=== PATIENT | female | born 1950 | race Caucasian/White ===

== ENCOUNTER 2017-02-26 10:29 | Inpatient (IN) ==
[~2017-02-26 10:29] MED LIST: *HR* Etomidate 20 MG/10 ML AMPUL IVP ONE; *HR* Midazolam HCl 5 MG/5 ML VIAL IVP ONE; *HR* Rocuronium Bromide 100 MG/10 ML VIAL IVC ONE
[2017-02-26] MEDS ORDERED: *HR* Rocuronium Bromide 100 MG/10 ML VIAL IVP ONE (10:40)
[2017-02-26] MEDS ORDERED: *HR* Etomidate 20 MG/10 ML AMPUL IVP ONE (10:40)
--- NOTE | 2017-02-26 10:43 | Emergency Department Note ---
Disposition Clinical Impression: Acute respiratory acidosis, Aspiration pneumonia, Anemia, Leukocytosis Disposition: Admitted As Inpatient Condition: Critical General Adult HPI - General Chief complaint: ED Altered Mental Status Stated complaint: Unresponsive Time Seen by Provider: 02/26/17 10:35 Source: EMS Limitations: other - History of Present Illness Pain Scale: 0 - Related Data Home Medications Medication Instructions Recorded Confirmed ALPRAZolam [Xanax 1 MG Tablet] 1 mg PO TID PRN 02/26/17 02/26/17 Aminocaproic Acid [Amicar] 500 mg PO TID 02/26/17 02/26/17 Ascorbic Acid [Vitamin C with Elsie 500 mg PO DAILY 02/26/17 02/26/17 Hips] Citalopram [CeleXA] 20 mg PO DAILY 02/26/17 02/26/17 Deferasirox [Jadenu] 1,440 mg PO DAILY 02/26/17 02/26/17 Diltiazem HCl [Diltiazem 24Hr Cd] 360 mg PO DAILY 02/26/17 02/26/17 Folic Acid 1 mg PO DAILY 02/26/17 02/26/17 Furosemide [Lasix] 20 mg PO DAILY 02/26/17 02/26/17 Metoprolol XL (24 HR) Succ [Toprol 25 mg PO DAILY 02/26/17 02/26/17 XL] Multivit-Min/FA/Lycopen/Lutein [A 1 tab PO DAILY 02/26/17 02/26/17 Thru Z Select Multivit Tab] Oxygen 3 l NS DAILY 02/26/17 02/26/17 Potassium Chloride [K-Tab ER] 20 meq PO DAILY 02/26/17 02/26/17 Allergies Allergy/AdvReac Type Severity Reaction Status Date / Time Penicillins Allergy Anaphylaxis Verified 02/26/17 11:19 Past Medical History - Past Medical History Medical history: Reports: non-contributory - Social History Smoking Status: Unknown if ever smoked Alcohol use: Reports: unknown Drug use: Reports: unknown Physical Exam - General Limitations: other General appearance: other Course Vital Signs Temperature 96.7 F L 02/26/17 10:31 Pulse Rate 112 02/26/17 10:31 Respiratory Rate 18 02/26/17 10:31 Blood Pressure 145/50 02/26/17 10:31 O2 Sat by Pulse Oximetry 83 02/26/17 10:31 Temperature 98.6 F 10/24/17 12:00 Pulse Rate 107 02/27/17 13:00 Respiratory Rate 22 02/27/17 13:00 Blood Pressure 115/49 02/27/17 13:00 O2 Sat by Pulse Oximetry 95 02/27/17 13:00 Oxygen Delivery Oxygen Delivery Ventilator Medical Decision Making - Lab Data Result diagrams: 02/27/17 04:30 02/27/17 04:30 Lab Results 02/26/17 02/26/17 02/26/17 Range/Units 10:31 10:44 10:45 WBC (4.3-11.1) K/mcL RBC (3.82-4.97) M/mcL Hgb (11.5-15.4) g/dL Hct (35.3-44.9) % MCV (83.0-100.0) fL MCH (28.0-33.3) pg MCHC (31.6-35.5) g/dL RDW (11.5-14.5) % Plt Count (140-400) K/mcL MPV (9.4-12.4) fL Seg Neutrophils % % Band Neutrophils % (0-4) % Lymphocytes % % Monocytes % % Metamyelocytes % (0) % Myelocytes % (0) % Blast Cells % (0) % Neutrophils # (1.6-8.9) K/mcL Lymphocytes # (0.6-4.6) K/mcL Monocytes # (0.0-1.3) K/mcL Nucleated RBCs/100 WBC (0) /100 WBC Smudge Cells (Not Present) Platelet Estimate (Normal) Immature Plt Fraction (1.1-6.1) % Anisocytosis (Not Present) PT (9.4-12.1) Seconds INR APTT (26.0-36.0) Seconds ABG pH (7.32-7.45) pH Units ABG pCO2 (35-45) mmHg ABG pO2 (85-104) mmHg ABG HCO3 (21-27) mEq/L ABG Total CO2 (20-26) mEq/L ABG O2 Saturation (95-98) % ABG Base Excess (-2 to 3) mEq/L Sodium (136-145) mEq/L Potassium (3.5-4.5) mEq/L Chloride (98-109) mEq/L Carbon Dioxide (19-29) mEq/L BUN (7-20) mg/dL Creatinine (0.57-1.11) mg/dL Est GFR ( Amer) (> 60) Est GFR (Non-Af Amer) (> 60) BUN/Creatinine Ratio (6-26) Glucose (70-99) mg/dL POC Glucose 175 H (58-89) Calculated Osmolality (280-300) Lactic Acid 2.6 H (0.5-2.2) mmol/L Calcium (8.6-10.8) mg/dL Total Bilirubin (0.2-1.2) mg/dL Direct Bilirubin (0.0-0.5) mg/dL Indirect Bilirubin (0.0-1.2) mg/dL AST (5-34) Units/L ALT (0-55) Units/L Alkaline Phosphatase (38-126) Units/L Creatine Kinase (29-168) Units/L Troponin I (0-0.03) ng/mL Serum Total Protein (6.0-8.3) g/dL Albumin (3.5-5.0) g/dL Globulin (2.4-3.5) g/dL Albumin/Globulin Ratio (1.1-2.2) Urine Color Dark Yellow (Yellow) Urine Clarity Turbid A (Clear) Urine pH 5.0 (5.0-8.0) pH Units Ur Specific [place] 1.028 H (1.010-1.025) Urine Protein 100 H (Neg-Trace) mg/dL Urine Glucose (UA) Normal (Normal) mg/dL Urine Ketones Negative (Negative) mg/dL Urine Blood Small H (Negative) Urine Nitrite Negative (Negative) Urine Bilirubin Small H (Negative) Urine Urobilinogen Normal (Normal) mg/dL Ur Leukocyte Esterase Negative (Negative) Urine Microscopic RBC 0-3 (0-3) per hpf Urine Microscopic WBC 50-100 H (0-3) per hpf Ur Squamous Epith Cells Many H (None-Few) per lpf Ur Renal Epithelial Cell Present (None-Few) per hpf Amorphous Sediment Many H (Few) Urine Bacteria None Seen (None-Few) per hpf Granular Casts Many H (None Seen) per lpf Urine Yeast Test Not Performed Ur Culture Indicated? NO (NO) Urine Opiates Screen (Ufazez=335) ng/mL Ur Barbiturates Screen (Bbttiw=247) ng/mL Ur Phencyclidine Scrn (Cutoff=25) ng/mL Ur Amphetamines Screen (Wpickq=0215) ng/mL U Benzodiazepines Scrn (Cjvawz=618) ng/mL Urine Cocaine Screen (Cutoff= 300) ng/mL U Marijuana (THC) Screen (Cutoff = 50) ng/mL Ethyl Alcohol (0-10) mg/dL Person Notif of Crit 02/26/17 02/26/17 02/26/17 Range/Units 10:45 10:45 10:45 WBC 59.6 H* (4.3-11.1) K/mcL RBC 2.17 L (3.82-4.97) M/mcL Hgb 6.2 L (11.5-15.4) g/dL Hct 19.1 L (35.3-44.9) % MCV 88.0 (83.0-100.0) fL MCH 28.6 (28.0-33.3) pg MCHC 32.5 (31.6-35.5) g/dL RDW 17.2 H (11.5-14.5) % Plt Count 48 L (140-400) K/mcL MPV 10.6 (9.4-12.4) fL Seg Neutrophils % 40.0 % Band Neutrophils % 8.0 H (0-4) % Lymphocytes % 20.0 % Monocytes % 8.0 % Metamyelocytes % 6.0 H (0) % Myelocytes % 4.0 H (0) % Blast Cells % 14.0 H (0) % Neutrophils # 28.6 H (1.6-8.9) K/mcL Lymphocytes # 11.9 H (0.6-4.6) K/mcL Monocytes # 4.8 H (0.0-1.3) K/mcL Nucleated RBCs/100 WBC 0.3 H (0) /100 WBC Smudge Cells Present A (Not Present) Platelet Estimate Marked Decrease L (Normal) Immature Plt Fraction 9.2 H (1.1-6.1) % Anisocytosis 1+ A (Not Present) PT 13.5 H (9.4-12.1) Seconds INR 1.2 APTT 30.2 (26.0-36.0) Seconds ABG pH (7.32-7.45) pH Units ABG pCO2 (35-45) mmHg ABG pO2 (85-104) mmHg ABG HCO3 (21-27) mEq/L ABG Total CO2 (20-26) mEq/L ABG O2 Saturation (95-98) % ABG Base Excess (-2 to 3) mEq/L Sodium (136-145) mEq/L Potassium (3.5-4.5) mEq/L Chloride (98-109) mEq/L Carbon Dioxide (19-29) mEq/L BUN (7-20) mg/dL Creatinine (0.57-1.11) mg/dL Est GFR ( Amer) (> 60) Est GFR (Non-Af Amer) (> 60) BUN/Creatinine Ratio (6-26) Glucose (70-99) mg/dL POC Glucose (58-89) Calculated Osmolality (280-300) Lactic Acid (0.5-2.2) mmol/L Calcium (8.6-10.8) mg/dL Total Bilirubin (0.2-1.2) mg/dL Direct Bilirubin (0.0-0.5) mg/dL Indirect Bilirubin (0.0-1.2) mg/dL AST (5-34) Units/L ALT (0-55) Units/L Alkaline Phosphatase (38-126) Units/L Creatine Kinase (29-168) Units/L Troponin I (0-0.03) ng/mL Serum Total Protein (6.0-8.3) g/dL Albumin (3.5-5.0) g/dL Globulin (2.4-3.5) g/dL Albumin/Globulin Ratio (1.1-2.2) Urine Color (Yellow) Urine Clarity (Clear) Urine pH (5.0-8.0) pH Units Ur Specific [place] (1.010-1.025) Urine Protein (Neg-Trace) mg/dL Urine Glucose (UA) (Normal) mg/dL Urine Ketones (Negative) mg/dL Urine Blood (Negative) Urine Nitrite (Negative) Urine Bilirubin (Negative) Urine Urobilinogen (Normal) mg/dL Ur Leukocyte Esterase (Negative) Urine Microscopic RBC (0-3) per hpf Urine Microscopic WBC (0-3) per hpf Ur Squamous Epith Cells (None-Few) per lpf Ur Renal Epithelial Cell (None-Few) per hpf Amorphous Sediment (Few) Urine Bacteria (None-Few) per hpf Granular Casts (None Seen) per lpf Urine Yeast Ur Culture Indicated? (NO) Urine Opiates Screen Negative (Vkdoou=460) ng/mL Ur Barbiturates Screen Negative (Tlcxvv=975) ng/mL Ur Phencyclidine Scrn Negative (Cutoff=25) ng/mL Ur Amphetamines Screen Negative (Djbnau=8575) ng/mL U Benzodiazepines Scrn Positive H (Vjpngz=862) ng/mL Urine Cocaine Screen Negative (Cutoff= 300) ng/mL U Marijuana (THC) Screen Negative (Cutoff = 50) ng/mL Ethyl Alcohol (0-10) mg/dL Person Notif of Crit 02/26/17 02/26/17 02/26/17 Range/Units 10:45 10:45 11:00 WBC (4.3-11.1) K/mcL RBC (3.82-4.97) M/mcL Hgb (11.5-15.4) g/dL Hct (35.3-44.9) % MCV (83.0-100.0) fL MCH (28.0-33.3) pg MCHC (31.6-35.5) g/dL RDW (11.5-14.5) % Plt Count (140-400) K/mcL MPV (9.4-12.4) fL Seg Neutrophils % % Band Neutrophils % (0-4) % Lymphocytes % % Monocytes % % Metamyelocytes % (0) % Myelocytes % (0) % Blast Cells % (0) % Neutrophils # (1.6-8.9) K/mcL Lymphocytes # (0.6-4.6) K/mcL Monocytes # (0.0-1.3) K/mcL Nucleated RBCs/100 WBC (0) /100 WBC Smudge Cells (Not Present) Platelet Estimate (Normal) Immature Plt Fraction (1.1-6.1) % Anisocytosis (Not Present) PT (9.4-12.1) Seconds INR APTT (26.0-36.0) Seconds ABG pH 6.91 L* (7.32-7.45) pH Units ABG pCO2 119 H* (35-45) mmHg ABG pO2 137 H (85-104) mmHg ABG HCO3 24 (21-27) mEq/L ABG Total CO2 27 H (20-26) mEq/L ABG O2 Saturation 96 (95-98) % ABG Base Excess -9 L (-2 to 3) mEq/L Sodium 140 (136-145) mEq/L Potassium 4.8 H (3.5-4.5) mEq/L Chloride 106 (98-109) mEq/L Carbon Dioxide 21 (19-29) mEq/L BUN 59 H (7-20) mg/dL Creatinine 3.99 H (0.57-1.11) mg/dL Est GFR ( Amer) 14 L (> 60) Est GFR (Non-Af Amer) 11 L (> 60) BUN/Creatinine Ratio 15 (6-26) Glucose 163 H (70-99) mg/dL POC Glucose (58-89) Calculated Osmolality 310 H (280-300) Lactic Acid (0.5-2.2) mmol/L Calcium 8.4 L (8.6-10.8) mg/dL Total Bilirubin 0.5 (0.2-1.2) mg/dL Direct Bilirubin 0.3 (0.0-0.5) mg/dL Indirect Bilirubin 0.2 (0.0-1.2) mg/dL AST 26 (5-34) Units/L ALT 15 (0-55) Units/L Alkaline Phosphatase 136 H (38-126) Units/L Creatine Kinase 39 (29-168) Units/L Troponin I 0.15 H* (0-0.03) ng/mL Serum Total Protein 8.3 (6.0-8.3) g/dL Albumin 2.5 L (3.5-5.0) g/dL Globulin 5.8 H (2.4-3.5) g/dL Albumin/Globulin Ratio 0.4 L (1.1-2.2) Urine Color (Yellow) Urine Clarity (Clear) Urine pH (5.0-8.0) pH Units Ur Specific [place] (1.010-1.025) Urine Protein (Neg-Trace) mg/dL Urine Glucose (UA) (Normal) mg/dL Urine Ketones (Negative) mg/dL Urine Blood (Negative) Urine Nitrite (Negative) Urine Bilirubin (Negative) Urine Urobilinogen (Normal) mg/dL Ur Leukocyte Esterase (Negative) Urine Microscopic RBC (0-3) per hpf Urine Microscopic WBC (0-3) per hpf Ur Squamous Epith Cells (None-Few) per lpf Ur Renal Epithelial Cell (None-Few) per hpf Amorphous Sediment (Few) Urine Bacteria (None-Few) per hpf Granular Casts (None Seen) per lpf Urine Yeast Ur Culture Indicated? (NO) Urine Opiates Screen (Tstetq=797) ng/mL Ur Barbiturates Screen (Bkmhmm=005) ng/mL Ur Phencyclidine Scrn (Cutoff=25) ng/mL Ur Amphetamines Screen (Bixmkn=6855) ng/mL U Benzodiazepines Scrn (Xzoppc=691) ng/mL Urine Cocaine Screen (Cutoff= 300) ng/mL U Marijuana (THC) Screen (Cutoff = 50) ng/mL Ethyl Alcohol < 10 (0-10) mg/dL Person Notif of Britanyt Jason Schulte Resp Critical Care Time Critical Care Time: Yes Total Critical Care Time: 45 Attestation: intubated. ICU Attestation Statement - Attestation Attestation: I examined this patient and my medical decision-making was reviewed with the Resident Physician. I agree with the documented findings, disposition and treatment plan as described except to the extent set forth below. Face to face time provided Patient arrives unresponsive from home. Her last known well was earlier this morning. Family not present at the time of her arrival. Patient is bradycardic and not protecting her airway. There is artery evidence that she may have vomited and aspirated. She is hypoxic. She was intubated emergently by the resident physician under my supervision. Workup initiated
--- NOTE | 2017-02-26 10:45 | Emergency Department Note ---
Disposition Clinical Impression: Acute respiratory acidosis Aspiration pneumonia Qualifiers: Aspiration pneumonia type: due to vomit Laterality: right Lung location: unspecified part of lung Qualified Code(s): J69.0 - Pneumonitis due to inhalation of food and vomit Anemia Qualifiers: Anemia type: unspecified type Qualified Code(s): D64.9 - Anemia, unspecified Leukocytosis Qualifiers: Leukocytosis type: unspecified Qualified Code(s): D72.829 - Elevated white blood cell count, unspecified Disposition: Admitted As Inpatient Condition: Critical Time of Disposition: 12:28 Altered Mental Status HPI - General Chief Complaint: ED Altered Mental Status Stated Complaint: Unresponsive Time Seen by Provider: 02/26/17 10:35 Source: EMS Mode of arrival: EMS Limitations: altered mental status, other Nursing Notes Reviewed: Yes Vital Signs Reviewed: Yes - History of Present Illness HPI Narrative: 76-year-old female presents to the ED via EMS unresponsive. She came via EMS being bagged with bag valve mask there was noticeable vomit on her. They stated that she was found down unresponsive so they checked a blood sugar which was 140 at this time she is having a very hard time breathing she did have vomit on her stomach and all over her chest. Family is not here at this time to get a history. She does have a PICC line in the left arm and there is a possible history of leukemia that was told was by EMS. - Related Data Allergies Allergy/AdvReac Type Severity Reaction Status Date / Time Penicillins Allergy Anaphylaxis Verified 02/26/17 11:19 Limitations: ROS unobtainable due to patients medical condition Past Medical History - Past Medical History Medical history: Reports: non-contributory - Social History Smoking Status: Unknown if ever smoked Alcohol use: Reports: unknown Drug use: Reports: unknown Physical Exam - General Limitations: altered mental status, other General appearance: obtunded, other - Head Head exam: atraumatic - Eye Eye exam: Present: normal appearance, PERRL, EOMI - ENT ENT exam: other (Noticeable emesis around the nares.) - Chest Chest inspection: Present: normal inspection, symmetric chest wall rise - Respiratory Respiratory exam: Present: normal lung sounds bilaterally - Cardiovascular Cardiovascular exam: Present: normal rhythm, tachycardia, normal heart sounds - Abdominal Exam Abdominal exam: Present: soft. Absent: tenderness, distention, guarding, rebound, rigidity - Neurological Exam Neurological exam: Absent: alert, oriented X3 - Skin Skin exam: Present: warm, dry, intact, normal color, other (Noticeable emesis all over her chest) Course Course Narrative: This patient came in with altered mental status was unconscious and currently being bagged with bag valve mask due to her poor respirations and having a pulse ox of 83% with side intubation was the next best step so we intubated her using rocuronium and etomidate. This was sexually done by myself under supervision of Dr. Maravilla. Using a Mac 4 direct laryngoscopy. He was then placed on a vent. We did a blood sugar when she came in was 160. Listing to her lungs sounded very rhonchorous throughout bilaterally. There is no known cause of her being unconscious. So we will order everything including lactate, CBC, CMP, drug screen, alcohol, EKG, chest x-ray, CT head without contrast. - Reevaluation(s) Reevaluation #1: CT came back negative for any acute findings. Chest x-ray did show a pneumonia on the right side most likely due to aspiration. She also had a acute respiratory acidosis she was also having a leukocytosis with a left shift which could be due to her leukemia. She also has anemia. At this time we will do a type and screen and transfuse her. We will also start her on Levaquin, vancomycin, aztreonam as she has a allergy to penicillin. We gave her Versed 5 mg for her sedation. We also did a rectal exam hemocult on her to be sure that she is not bleeding. At this time she is going to be admitted to the ICU family was updated and they understand this. Vital Signs Temperature 96.7 F L 02/26/17 10:31 Pulse Rate 112 02/26/17 10:31 Respiratory Rate 18 02/26/17 10:31 Blood Pressure 145/50 02/26/17 10:31 O2 Sat by Pulse Oximetry 83 02/26/17 10:31 Temperature 96.7 F L 02/26/17 10:31 Pulse Rate 91 02/26/17 12:16 Respiratory Rate 14 02/26/17 12:16 Blood Pressure 87/41 02/26/17 12:16 O2 Sat by Pulse Oximetry 100 02/26/17 12:16 Oxygen Delivery Oxygen Delivery Ventilator Procedures - Intubation Time out performed: No sedative: Etomidate Mg Given: 20 paralytic: Rocuronium Mg Given: 70 Laryngoscope: Spencer ET Tube Size: 7.5 ET Tube Uncuffed: Yes Tube Secured Depth (cm): 25 Tube Secured Location: lips Tube Placement Confirmation: visualized tube passing through cords, equal breath sounds bilaterally, no breath sounds over epigastrium, confirmation by capnometry Patient Tolerated Procedure: well, no complications Intubation Complications: none Altered Mental Status - MDM Narrative Medical decision making narrative: 66-year-old female presents to the ED via EMS with altered mental status and decreased consciousness. She came in being bagged on bag valve mask and her sats are 83%. At this time we decided to intubate using rocuronium and etomidate. This was successfully done by myself. She did have all over her suite. Aspiration pneumonia was the underlying cause. We also ordered a CT which came back negative. Chest x-ray did show good tube placement as well as a right-sided pneumonia. Patient was then given Levaquin, aztreonam, vancomycin for antibiotics. She also has a respiratory acidosis based on ABG that was done. We placed her on the vent and gave her Versed 5 mg every 30 minutes for sedation. She was however fairly well sedated after the procedure. EKG was done which showed no acute changes. She did have an anemia but compared to the last one to his right around her normal hemoglobin. She is going to be admitted to the ICU for further treatment and evaluation. Family was updated and they understand this. This was likely is due to aspiration pneumonia. Chest X-Ray 02/26/17 10:36 IMPRESSION: 1. The endotracheal tube tip is located at the level of the nayla. This could be retracted 3 cm for a more optimal placement. 2. New right basilar lung infiltrate, concerning for pneumonia. There may be an associated right pleural effusion. 3. Slightly smaller left pleural effusion with associated atelectasis in the left lung base. 4. Increased pulmonary vascular congestion. D/ / 02/26/2017 11:47:26 Easton Cary MD / betito Interpreting Provider: Easton Cary MD Head CT 02/26/17 10:36 IMPRESSION: No acute intracranial abnormality. D/ /26/2017 11:40:34 Miquel Saxena MD / ania Interpreting Provider: Miquel Saxena MD - Medical Records Medical records reviewed: Yes I reviewed the patient's medical records. - Lab Data Lab results reviewed: Yes I reviewed the patient's lab results. Result diagrams: 02/26/17 10:45 02/26/17 10:45 Lab Results 02/26/17 02/26/17 02/26/17 Range/Units 10:31 10:44 10:45 WBC (4.3-11.1) K/mcL RBC (3.82-4.97) M/mcL Hgb (11.5-15.4) g/dL Hct (35.3-44.9) % MCV (83.0-100.0) fL MCH (28.0-33.3) pg MCHC (31.6-35.5) g/dL RDW (11.5-14.5) % Plt Count (140-400) K/mcL MPV (9.4-12.4) fL Seg Neutrophils % % Band Neutrophils % (0-4) % Lymphocytes % % Monocytes % % Metamyelocytes % (0) % Myelocytes % (0) % Blast Cells % (0) % Neutrophils # (1.6-8.9) K/mcL Lymphocytes # (0.6-4.6) K/mcL Monocytes # (0.0-1.3) K/mcL Nucleated RBCs/100 WBC (0) /100 WBC Smudge Cells (Not Present) Platelet Estimate (Normal) Immature Plt Fraction (1.1-6.1) % Anisocytosis (Not Present) PT (9.4-12.1) Seconds INR APTT (26.0-36.0) Seconds ABG pH (7.32-7.45) pH Units ABG pCO2 (35-45) mmHg ABG pO2 (85-104) mmHg ABG HCO3 (21-27) mEq/L ABG Total CO2 (20-26) mEq/L ABG O2 Saturation (95-98) % ABG Base Excess (-2 to 3) mEq/L Sodium (136-145) mEq/L Potassium (3.5-4.5) mEq/L Chloride (98-109) mEq/L Carbon Dioxide (19-29) mEq/L BUN (7-20) mg/dL Creatinine (0.57-1.11) mg/dL Est GFR ( Amer) (> 60) Est GFR (Non-Af Amer) (> 60) BUN/Creatinine Ratio (6-26) Glucose (70-99) mg/dL POC Glucose 175 H (58-89) Calculated Osmolality (280-300) Lactic Acid 2.6 H (0.5-2.2) mmol/L Calcium (8.6-10.8) mg/dL Total Bilirubin (0.2-1.2) mg/dL Direct Bilirubin (0.0-0.5) mg/dL Indirect Bilirubin (0.0-1.2) mg/dL AST (5-34) Units/L ALT (0-55) Units/L Alkaline Phosphatase (38-126) Units/L Creatine Kinase (29-168) Units/L Troponin I (0-0.03) ng/mL Serum Total Protein (6.0-8.3) g/dL Albumin (3.5-5.0) g/dL Globulin (2.4-3.5) g/dL Albumin/Globulin Ratio (1.1-2.2) Urine Color Dark Yellow (Yellow) Urine Clarity Turbid A (Clear) Urine pH 5.0 (5.0-8.0) pH Units Ur Specific Abbott 1.028 H (1.010-1.025) Urine Protein 100 H (Neg-Trace) mg/dL Urine Glucose (UA) Normal (Normal) mg/dL Urine Ketones Negative (Negative) mg/dL Urine Blood Small H (Negative) Urine Nitrite Negative (Negative) Urine Bilirubin Small H (Negative) Urine Urobilinogen Normal (Normal) mg/dL Ur Leukocyte Esterase Negative (Negative) Urine Microscopic RBC 0-3 (0-3) per hpf Urine Microscopic WBC 50-100 H (0-3) per hpf Ur Squamous Epith Cells Many H (None-Few) per lpf Ur Renal Epithelial Cell Present (None-Few) per hpf Amorphous Sediment Many H (Few) Urine Bacteria None Seen (None-Few) per hpf Granular Casts Many H (None Seen) per lpf Ur Culture Indicated? NO (NO) Urine Opiates Screen (Eccikr=706) ng/mL Ur Barbiturates Screen (Hzxafn=008) ng/mL Ur Phencyclidine Scrn (Cutoff=25) ng/mL Ur Amphetamines Screen (Slcowm=1630) ng/mL U Benzodiazepines Scrn (Mallms=310) ng/mL Urine Cocaine Screen (Cutoff= 300) ng/mL U Marijuana (THC) Screen (Cutoff = 50) ng/mL Ethyl Alcohol (0-10) mg/dL Person Notif of Crit 02/26/17 02/26/17 02/26/17 Range/Units 10:45 10:45 10:45 WBC 59.6 H* (4.3-11.1) K/mcL RBC 2.17 L (3.82-4.97) M/mcL Hgb 6.2 L (11.5-15.4) g/dL Hct 19.1 L (35.3-44.9) % MCV 88.0 (83.0-100.0) fL MCH 28.6 (28.0-33.3) pg MCHC 32.5 (31.6-35.5) g/dL RDW 17.2 H (11.5-14.5) % Plt Count 48 L (140-400) K/mcL MPV 10.6 (9.4-12.4) fL Seg Neutrophils % 40.0 % Band Neutrophils % 8.0 H (0-4) % Lymphocytes % 20.0 % Monocytes % 8.0 % Metamyelocytes % 6.0 H (0) % Myelocytes % 4.0 H (0) % Blast Cells % 14.0 H (0) % Neutrophils # 28.6 H (1.6-8.9) K/mcL Lymphocytes # 11.9 H (0.6-4.6) K/mcL Monocytes # 4.8 H (0.0-1.3) K/mcL Nucleated RBCs/100 WBC 0.3 H (0) /100 WBC Smudge Cells Present A (Not Present) Platelet Estimate Marked Decrease L (Normal) Immature Plt Fraction 9.2 H (1.1-6.1) % Anisocytosis 1+ A (Not Present) PT 13.5 H (9.4-12.1) Seconds INR 1.2 APTT 30.2 (26.0-36.0) Seconds ABG pH (7.32-7.45) pH Units ABG pCO2 (35-45) mmHg ABG pO2 (85-104) mmHg ABG HCO3 (21-27) mEq/L ABG Total CO2 (20-26) mEq/L ABG O2 Saturation (95-98) % ABG Base Excess (-2 to 3) mEq/L Sodium (136-145) mEq/L Potassium (3.5-4.5) mEq/L Chloride (98-109) mEq/L Carbon Dioxide (19-29) mEq/L BUN (7-20) mg/dL Creatinine (0.57-1.11) mg/dL Est GFR ( Amer) (> 60) Est GFR (Non-Af Amer) (> 60) BUN/Creatinine Ratio (6-26) Glucose (70-99) mg/dL POC Glucose (58-89) Calculated Osmolality (280-300) Lactic Acid (0.5-2.2) mmol/L Calcium (8.6-10.8) mg/dL Total Bilirubin (0.2-1.2) mg/dL Direct Bilirubin (0.0-0.5) mg/dL Indirect Bilirubin (0.0-1.2) mg/dL AST (5-34) Units/L ALT (0-55) Units/L Alkaline Phosphatase (38-126) Units/L Creatine Kinase (29-168) Units/L Troponin I (0-0.03) ng/mL Serum Total Protein (6.0-8.3) g/dL Albumin (3.5-5.0) g/dL Globulin (2.4-3.5) g/dL Albumin/Globulin Ratio (1.1-2.2) Urine Color (Yellow) Urine Clarity (Clear) Urine pH (5.0-8.0) pH Units Ur Specific Abbott (1.010-1.025) Urine Protein (Neg-Trace) mg/dL Urine Glucose (UA) (Normal) mg/dL Urine Ketones (Negative) mg/dL Urine Blood (Negative) Urine Nitrite (Negative) Urine Bilirubin (Negative) Urine Urobilinogen (Normal) mg/dL Ur Leukocyte Esterase (Negative) Urine Microscopic RBC (0-3) per hpf Urine Microscopic WBC (0-3) per hpf Ur Squamous Epith Cells (None-Few) per lpf Ur Renal Epithelial Cell (None-Few) per hpf Amorphous Sediment (Few) Urine Bacteria (None-Few) per hpf Granular Casts (None Seen) per lpf Ur Culture Indicated? (NO) Urine Opiates Screen Negative (Idbgrz=370) ng/mL Ur Barbiturates Screen Negative (Hlvfnc=359) ng/mL Ur Phencyclidine Scrn Negative (Cutoff=25) ng/mL Ur Amphetamines Screen Negative (Uweapd=6891) ng/mL U Benzodiazepines Scrn Positive H (Baaswe=723) ng/mL Urine Cocaine Screen Negative (Cutoff= 300) ng/mL U Marijuana (THC) Screen Negative (Cutoff = 50) ng/mL Ethyl Alcohol (0-10) mg/dL Person Notif of Crit 02/26/17 02/26/17 02/26/17 Range/Units 10:45 10:45 11:00 WBC (4.3-11.1) K/mcL RBC (3.82-4.97) M/mcL Hgb (11.5-15.4) g/dL Hct (35.3-44.9) % MCV (83.0-100.0) fL MCH (28.0-33.3) pg MCHC (31.6-35.5) g/dL RDW (11.5-14.5) % Plt Count (140-400) K/mcL MPV (9.4-12.4) fL Seg Neutrophils % % Band Neutrophils % (0-4) % Lymphocytes % % Monocytes % % Metamyelocytes % (0) % Myelocytes % (0) % Blast Cells % (0) % Neutrophils # (1.6-8.9) K/mcL Lymphocytes # (0.6-4.6) K/mcL Monocytes # (0.0-1.3) K/mcL Nucleated RBCs/100 WBC (0) /100 WBC Smudge Cells (Not Present) Platelet Estimate (Normal) Immature Plt Fraction (1.1-6.1) % Anisocytosis (Not Present) PT (9.4-12.1) Seconds INR APTT (26.0-36.0) Seconds ABG pH 6.91 L* (7.32-7.45) pH Units ABG pCO2 119 H* (35-45) mmHg ABG pO2 137 H (85-104) mmHg ABG HCO3 24 (21-27) mEq/L ABG Total CO2 27 H (20-26) mEq/L ABG O2 Saturation 96 (95-98) % ABG Base Excess -9 L (-2 to 3) mEq/L Sodium 140 (136-145) mEq/L Potassium 4.8 H (3.5-4.5) mEq/L Chloride 106 (98-109) mEq/L Carbon Dioxide 21 (19-29) mEq/L BUN 59 H (7-20) mg/dL Creatinine 3.99 H (0.57-1.11) mg/dL Est GFR ( Amer) 14 L (> 60) Est GFR (Non-Af Amer) 11 L (> 60) BUN/Creatinine Ratio 15 (6-26) Glucose 163 H (70-99) mg/dL POC Glucose (58-89) Calculated Osmolality 310 H (280-300) Lactic Acid (0.5-2.2) mmol/L Calcium 8.4 L (8.6-10.8) mg/dL Total Bilirubin 0.5 (0.2-1.2) mg/dL Direct Bilirubin 0.3 (0.0-0.5) mg/dL Indirect Bilirubin 0.2 (0.0-1.2) mg/dL AST 26 (5-34) Units/L ALT 15 (0-55) Units/L Alkaline Phosphatase 136 H (38-126) Units/L Creatine Kinase 39 (29-168) Units/L Troponin I 0.15 H* (0-0.03) ng/mL Serum Total Protein 8.3 (6.0-8.3) g/dL Albumin 2.5 L (3.5-5.0) g/dL Globulin 5.8 H (2.4-3.5) g/dL Albumin/Globulin Ratio 0.4 L (1.1-2.2) Urine Color (Yellow) Urine Clarity (Clear) Urine pH (5.0-8.0) pH Units Ur Specific Abbott (1.010-1.025) Urine Protein (Neg-Trace) mg/dL Urine Glucose (UA) (Normal) mg/dL Urine Ketones (Negative) mg/dL Urine Blood (Negative) Urine Nitrite (Negative) Urine Bilirubin (Negative) Urine Urobilinogen (Normal) mg/dL Ur Leukocyte Esterase (Negative) Urine Microscopic RBC (0-3) per hpf Urine Microscopic WBC (0-3) per hpf Ur Squamous Epith Cells (None-Few) per lpf Ur Renal Epithelial Cell (None-Few) per hpf Amorphous Sediment (Few) Urine Bacteria (None-Few) per hpf Granular Casts (None Seen) per lpf Ur Culture Indicated? (NO) Urine Opiates Screen (Frdgxr=291) ng/mL Ur Barbiturates Screen (Uadlgq=322) ng/mL Ur Phencyclidine Scrn (Cutoff=25) ng/mL Ur Amphetamines Screen (Mctyar=3792) ng/mL U Benzodiazepines Scrn (Ylvyxj=136) ng/mL Urine Cocaine Screen (Cutoff= 300) ng/mL U Marijuana (THC) Screen (Cutoff = 50) ng/mL Ethyl Alcohol < 10 (0-10) mg/dL Person Notif of Britanyt Jason Schulte Resp - Radiology Data Radiology results reviewed: Yes I reviewed the patient's radiology results. - EKG Data EKG attestation: Yes I reviewed and interpreted this EKG. EKG results narrative: EKG done at 1124 view myself and attending shows sinus tachycardia at a rate of 103, OR interval 143, QRS 80, QTC 381 with a normal axis. There are no acute ST changes. No acute T-wave changes. No signs of hypertrophy. No signs of Brugada syndrome. There is no EKG to compare this time. Overall impression is sinus tachycardia with no acute changes. EKG shows normal: sinus rhythm, axis, intervals, QRS complexes Rate: tachycardia Rhythm: NSR [place]/QRS: normal When compared to previous EKG there are: previous EKG unavailable Interpretation: no acute changes, normal EKG TPA Checklist - LKW: 3-4.5 hrs Add. Warnings/Precautions Patient/family understanding: The patient/family members have been counseled and understood the risk, benefit , and alternatives of treatment.
[2017-02-26 10:57] LABS: Hematocrit 19.1 % (35.3-44.9); Immature Platelets 9.2 % (1.1-6.1); Mean Corpuscular HGB Conc 32.5 g/dL (31.6-35.5); Mean Corpuscular Hemoglobin 28.6 pg (28.0-33.3); Mean Platelet Volume 10.6 fL (9.4-12.4); Nucleated Red Blood Cells 0.3 /100 WBC (0); Red Blood Count 2.17 M/mcL (3.82-4.97); Red Cell Distribution Width 17.2 % (11.5-14.5)
[2017-02-26 10:59] LABS: INR 1.2; Prothrombin Time 13.5 Seconds (9.4-12.1)
[2017-02-26 11:02] LABS: Activated Partial Thrombo Time 30.2 Seconds (26.0-36.0)
[2017-02-26 11:06] LABS: Bilirubin,Urine Small (Negative); Blood,Urine Small (Negative); Clarity,Urine Turbid (Clear); Color,Urine Dark Yellow (Yellow); Glucose,Urine (UA) Normal (Normal); Ketones,Urine Negative (Negative); Leukocyte Esterase,Urine Negative (Negative); Nitrite,Urine Negative (Negative); Protein,Urine 100 mg/dL (Neg-Trace); Specific Gravity,Urine 1.028 (1.010-1.025); Urobilinogen,Urine Normal (Normal)
[2017-02-26 11:08] LABS: Bacteria,Urine None Seen per hpf (None-Few); RBC,Urine 0-3 per hpf (0-3); Squamous Epithelial Cell,Urine Many per lpf (None-Few); WBC,Urine 50-100 per hpf (0-3)
[2017-02-26 11:11] LABS: Alanine Aminotransferase 15 Units/L (0-55); Albumin 2.5 g/dL (3.5-5.0); Albumin/Globulin Ratio 0.4 (1.1-2.2); Alkaline Phosphatase 136 Units/L (38-126); Aspartate Amino Transferase 26 Units/L (5-34); BUN/Creatinine Ratio 15 (6-26); Bilirubin,Direct 0.3 mg/dL (0.0-0.5); Bilirubin,Indirect 0.2 mg/dL (0.0-1.2); Bilirubin,Total 0.5 mg/dL (0.2-1.2); Blood Urea Nitrogen 59 mg/dL (7-20); Calcium 8.4 mg/dL (8.6-10.8); Carbon Dioxide 21 mEq/L (19-29); Chloride 106 mEq/L (98-109); Creatine Kinase 39 Units/L (29-168); Globulin 5.8 g/dL (2.4-3.5); Glucose 163 mg/dL (70-99); Osmolality,Calculated 310 (280-300); Potassium 4.8 mEq/L (3.5-4.5); Sodium 140 mEq/L (136-145); Total Protein 8.3 g/dL (6.0-8.3); eGFR For African Americans 14 (> 60); eGFR For Non-African Americans 11 (> 60)
[2017-02-26 11:11] LABS: ABG Base Excess -9 mEq/L (-2 to 3); ABG HCO3 24 mEq/L (21-27); ABG Oxygen Saturation 96 % (95-98); ABG PCO2 119 mmHg (35-45); ABG PH 6.91 pH Units (7.32-7.45); ABG PO2 137 mmHg (85-104); ABG TCO2 27 mEq/L (20-26)
[2017-02-26 11:13] LABS: Amphetamine Screen,Urine Negative ng/mL (Cutoff=1000); Barbiturate Screen,Urine Negative ng/mL (Cutoff=200); Benzodiazepines Screen,Urine Positive ng/mL (Cutoff=200); Cannabinoid Screen,Urine Negative ng/mL (Cutoff = 50); Cocaine Screen,Urine Negative ng/mL (Cutoff= 300); Opiate Screen,Urine Negative ng/mL (Cutoff=300); Phencyclidine Screen,Urine Negative ng/mL (Cutoff=25)
[2017-02-26 11:29] LABS: Amorphous Sediment,Urine Many (Few); Ethanol < 10 mg/dL (0-10); Granular Casts,Urine Many per lpf (None Seen)
[2017-02-26] MEDS ORDERED: 0.9 % Sodium Chloride 1,000 ML IVC ONE ×2 (11:29→11:47)
[2017-02-26 11:31] LABS: Renal Epithelial Cells,Urine Present per hpf (None-Few)
[2017-02-26 11:41] LABS: Hemoglobin 6.2 g/dL (11.5-15.4); Platelet Count 48 K/mcL (140-400)
[2017-02-26] MEDS ORDERED: Aztreonam 2,000 MG in D5% in Water (Mini-Bag+) 100 ML IVPB ONE (11:47)
[2017-02-26] MEDS ORDERED: Levofloxacin 750 MG/150 ML 750 MG/150 ML BAG IVPB ONE (11:47)
[2017-02-26] MEDS ORDERED: Vancomycin 1,250 MG in D5% in Water 250 ML IVPB ONE (11:47)
[2017-02-26 11:53] LABS: Lymphocytes # 11.9 K/mcL (0.6-4.6); Monocytes # 4.8 K/mcL (0.0-1.3); Neutrophils # 28.6 K/mcL (1.6-8.9)
[2017-02-26 11:56] LABS: Platelet Estimate Marked Decrease (Normal); Smudge Cells Present (Not Present)
[2017-02-26 11:57] LABS: Anisocytosis 1+ (Not Present)
[2017-02-26] MEDS ORDERED: *HR* Midazolam HCl 5 MG/ML VIAL IVP ONE (11:58)
[2017-02-26] MEDS ORDERED: WATER IVPB ONE (12:09)
[2017-02-26] MEDS ORDERED: D5 IVPB ONE (12:09)
[2017-02-26] MEDS ORDERED: AZTREONAM IVPB ONE (12:09)
[2017-02-26] MEDS ORDERED: 0.9 % Sodium Chloride 1,000 ML IV.SOLN IV ONE (12:21)
[2017-02-26 12:27] LABS: ABG Base Excess -8 mEq/L (-2 to 3); ABG HCO3 21 mEq/L (21-27); ABG Oxygen Saturation 100 % (95-98); ABG PCO2 65 mmHg (35-45); ABG PH 7.12 pH Units (7.32-7.45); ABG PO2 332 mmHg (85-104); ABG TCO2 23 mEq/L (20-26); Blood Gas Modality ASSIST CONTROL; Blood Gas PEEP 5 cm H2O; Blood Gas Respiration Rate 14; Blood Gas VT 500 cc
[2017-02-26] MEDS ORDERED: Furosemide 40 MG/4 ML VIAL IVP ONE (13:13)
[2017-02-26 13:35] LABS: ABG Base Excess -5 mEq/L (-2 to 3); ABG HCO3 24 mEq/L (21-27); ABG Oxygen Saturation 96 % (95-98); ABG PCO2 63 mmHg (35-45); ABG PH 7.18 pH Units (7.32-7.45); ABG PO2 106 mmHg (85-104); ABG TCO2 26 mEq/L (20-26); Blood Gas Modality VC; Blood Gas PEEP 5 cm H2O; Blood Gas Respiration Rate 18; Blood Gas VT 450 cc
[2017-02-26] MEDS ORDERED: Naloxone 0.4 MG/ML INJ IVP PRN (13:42)
--- NOTE | 2017-02-26 13:53 | Pulmonology History & Physical ---
<SherrieMichael mehta - Last Filed: 02/26/17 15:13> Date of Encounter: 02/26/17 Time of Encounter: 13:53 Assessment and Plan (1) Acute respiratory failure with hypercapnia Current visit: Yes Status: Acute Concern for aspiration pneumonia, flash pulmonary edema and infiltration due to leukemia are also considerations. Continue mechanical ventilation to correct underlying respiratory acidosis. pH 6.91 pCO2 119 on presentation, has improved to 7.18 and 63. Will diurese due to concern for significant pulm edema on CXR. (2) Aspiration pneumonia Current visit: Yes Status: Acute Patient was found unresponsive with evidence that she had vomited. CXR shows RLL infiltrate. Will start clindamycin as the patient has a penicllin allergy and continue vancomycin and levaquin started in the ED for broad spectrum coverage in the setting of immunocompromise due to AML. Qualifiers: Aspiration pneumonia type: due to vomit Laterality: right Lung location: lower lobe of lung Qualified Code(s): J69.0 - Pneumonitis due to inhalation of food and vomit (3) AML (acute myelogenous leukemia) Current visit: Yes Status: Acute With pancytopenia at baseline. Per records review treatment intent is currently palliative. Significant elevation in her white count possibly related to underlying infection. Continue treatment as above. Oncology has been consulted and is following. 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 Concern for ATN in the setting of critical illness given granular casts found in the urine. Urine output has been minimal. Will continue with gradual diuresis given the concern for significant pulmonary edema Qualifiers: Acute renal failure type: with acute tubular necrosis Chronic kidney disease stage: stage 3 (moderate) Qualified Code(s): N17.0 - Acute kidney failure with tubular necrosis; N18.3 - Chronic kidney disease, stage 3 (moderate ); N18.3 - Chronic kidney disease, stage 3 (moderate) (5) Anemia Current visit: Yes Status: Acute 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 Baseline appears to be around 8. Hgb 6.2 on presentation. No obvious source of bleeding. Will transfuse one unit. Continue to monitor Qualifiers: Anemia type: other cause Other causes of anemia: chronic disease, neoplastic Qualified Code(s): D63.0 - Anemia in neoplastic disease History of Present Illness Chief complaint: Unresponsive HPI: Ms. Bernstein is a 66 year old female with history of AML presents after being found unresponsive at home. Family states that the patient was in her normal state of health last night and was found unresponsive with vomit on her. At this time the patient is intubated and sedated and minimally responsive. Family is at bedside and they are unable to provide any more history than stated above Past Med Surg Social Fam HX - Past Medical History Medical history: non-contributory Psychiatric history: depression - Social History Smoking Status: Unknown if ever smoked Alcohol use: unknown Drug use: unknown Medications and Allergies ALPRAZolam [Xanax 1 MG Tablet] 1 mg PO TID PRN 02/26/17 [History] Aminocaproic Acid [Amicar] 500 mg PO TID 02/26/17 [History] Ascorbic Acid [Vitamin C with Elsie Hips] 500 mg PO DAILY 02/26/17 [History] Citalopram [CeleXA] 20 mg PO DAILY 02/26/17 [History] Deferasirox [Jadenu] 1,440 mg PO DAILY 02/26/17 [History] Diltiazem HCl [Diltiazem 24Hr Cd] 360 mg PO DAILY 02/26/17 [History] Folic Acid 1 mg PO DAILY 02/26/17 [History] Furosemide [Lasix] 20 mg PO DAILY 02/26/17 [History] Metoprolol XL (24 HR) Succ [Toprol XL] 25 mg PO DAILY 02/26/17 [History] Multivit-Min/FA/Lycopen/Lutein [A Thru Z Select Multivit Tab] 1 tab PO DAILY [History] Oxygen 3 l NS DAILY 02/26/17 [History] Potassium Chloride [K-Tab ER] 20 meq PO DAILY 02/26/17 [History] 3 Allergy/AdvReac Type Severity Reaction Status Date / Time Penicillins Allergy Anaphylaxis Verified 02/26/17 11:19 ROS unobtainable: due to endotracheal tube All Systems: A 10-system review of systems was performed and is negative for pertinent findings except as documented above in the HPI. Physical Examination Vital Signs: Vital Signs, Last 4 Hours Temp Pulse Resp BP Pulse Ox 02/26/17 13:05 93 02/26/17 13:00 18 98/48 98 02/26/17 12:52 97.6 F 98 18 106/56 92 02/26/17 12:27 91 16 89/43 100 02/26/17 12:16 91 14 87/41 100 General appearance: comatose ENT: oropharynx dry Effort: mildly labored Auscultation: bilateral: rhonchi Cardiovascular: regular rate and rhythm Gastrointestinal: hypoactive bowel sounds, soft, non-tender Integumentary: other (eccymosis to R forehead) Extremities: no cyanosis, no clubbing unable to assess due to mental status Results - Laboratory Findings CBC and BMP: 02/26/17 10:45 02/26/17 10:45 ABG ABG pH 7.18 pH Units (7.32-7.45) L* 02/26/17 13:31 ABG pCO2 63 mmHg (35-45) H 02/26/17 13:31 ABG pO2 106 mmHg (85-104) H D 02/26/17 13:31 ABG O2 Saturation 96 % (95-98) 02/26/17 13:31 PT/INR, D-dimer PT 13.5 Seconds (9.4-12.1) H 02/26/17 10:45 Abnormal lab findings: Abnormal lab results WBC 59.6 K/mcL (4.3-11.1) H* 02/26/17 10:45 RBC 2.17 M/mcL (3.82-4.97) L 02/26/17 10:45 Hgb 6.2 g/dL (11.5-15.4) L 02/26/17 10:45 Hct 19.1 % (35.3-44.9) L 02/26/17 10:45 RDW 17.2 % (11.5-14.5) H 02/26/17 10:45 Plt Count 48 K/mcL (140-400) L 02/26/17 10:45 Band Neutrophils % 8.0 % (0-4) H 02/26/17 10:45 Metamyelocytes % 6.0 % (0) H 02/26/17 10:45 Myelocytes % 4.0 % (0) H 02/26/17 10:45 Blast Cells % 14.0 % (0) H 02/26/17 10:45 Neutrophils # 28.6 K/mcL (1.6-8.9) H 02/26/17 10:45 Lymphocytes # 11.9 K/mcL (0.6-4.6) H 02/26/17 10:45 Monocytes # 4.8 K/mcL (0.0-1.3) H 02/26/17 10:45 Nucleated RBCs/100 WBC 0.3 /100 WBC (0) H 02/26/17 10:45 Smudge Cells Present (Not Present) A 02/26/17 10:45 Platelet Estimate Marked Decrease (Normal) L 02/26/17 10:45 Immature Plt Fraction 9.2 % (1.1-6.1) H 02/26/17 10:45 Anisocytosis 1+ (Not Present) A 02/26/17 10:45 PT 13.5 Seconds (9.4-12.1) H 02/26/17 10:45 ABG pH 7.18 pH Units (7.32-7.45) L* 02/26/17 13:31 ABG pCO2 63 mmHg (35-45) H 02/26/17 13:31 ABG pO2 106 mmHg (85-104) H D 02/26/17 13:31 ABG Base Excess -5 mEq/L (-2 to 3) L 02/26/17 13:31 Potassium 4.8 mEq/L (3.5-4.5) H 02/26/17 10:45 BUN 59 mg/dL (7-20) H 02/26/17 10:45 Creatinine 3.99 mg/dL (0.57-1.11) H 02/26/17 10:45 Est GFR ( Amer) 14 (> 60) L 02/26/17 10:45 Est GFR (Non-Af Amer) 11 (> 60) L 02/26/17 10:45 Glucose 163 mg/dL (70-99) H 02/26/17 10:45 POC Glucose 146 (58-89) H 02/26/17 12:44 Calculated Osmolality 310 (280-300) H 02/26/17 10:45 Lactic Acid 2.6 mmol/L (0.5-2.2) H 02/26/17 10:44 Calcium 8.4 mg/dL (8.6-10.8) L 02/26/17 10:45 Alkaline Phosphatase 136 Units/L (38-126) H 02/26/17 10:45 Troponin I 0.15 ng/mL (0-0.03) H* 02/26/17 10:45 Albumin 2.5 g/dL (3.5-5.0) L 02/26/17 10:45 Globulin 5.8 g/dL (2.4-3.5) H 02/26/17 10:45 Albumin/Globulin Ratio 0.4 (1.1-2.2) L 02/26/17 10:45 Urine Clarity Turbid (Clear) A 02/26/17 10:45 Ur Specific Walsh 1.028 (1.010-1.025) H 02/26/17 10:45 Urine Protein 100 mg/dL (Neg-Trace) H 02/26/17 10:45 Urine Blood Small (Negative) H 02/26/17 10:45 Urine Bilirubin Small (Negative) H 02/26/17 10:45 Urine Microscopic WBC 50-100 per hpf (0-3) H 02/26/17 10:45 Ur Squamous Epith Cells Many per lpf (None-Few) H 02/26/17 10:45 Amorphous Sediment Many (Few) H 02/26/17 10:45 Granular Casts Many per lpf (None Seen) H 02/26/17 10:45 U Benzodiazepines Scrn Positive ng/mL (Ytylos=802) H 02/26/17 10:45 Antibody Screen POSITIVE A 02/26/17 12:30 <Alicia Epps M - Last Filed: 02/26/17 15:53> Date of Encounter: 02/26/17 History of Present Illness HPI: Ms. Bernstein is a 66 year old female All Systems: A 10-system review of systems was performed and is negative for pertinent findings except as documented above in the HPI. Physical Examination Vital Signs: Vital Signs, Last 4 Hours Temp Pulse Resp BP Pulse Ox 02/26/17 15:34 97.6 F 02/26/17 15:28 20 78/63 97 02/26/17 15:00 87 18 78/63 98 10/23/17 14:00 91 18 107/66 98 02/26/17 13:05 93 02/26/17 13:00 18 98/48 98 02/26/17 12:52 97.6 F 98 18 106/56 92 02/26/17 12:27 91 16 89/43 100 02/26/17 12:16 91 14 87/41 100 Results - Laboratory Findings CBC and BMP: 02/26/17 10:45 02/26/17 10:45 ABG ABG pH 7.18 pH Units (7.32-7.45) L* 02/26/17 13:31 ABG pCO2 63 mmHg (35-45) H 02/26/17 13:31 ABG pO2 106 mmHg (85-104) H D 02/26/17 13:31 ABG O2 Saturation 96 % (95-98) 02/26/17 13:31 PT/INR, D-dimer PT 13.5 Seconds (9.4-12.1) H 02/26/17 10:45 Abnormal lab findings: Abnormal lab results WBC 59.6 K/mcL (4.3-11.1) H* 02/26/17 10:45 RBC 2.17 M/mcL (3.82-4.97) L 02/26/17 10:45 Hgb 6.2 g/dL (11.5-15.4) L 02/26/17 10:45 Hct 19.1 % (35.3-44.9) L 02/26/17 10:45 RDW 17.2 % (11.5-14.5) H 02/26/17 10:45 Plt Count 48 K/mcL (140-400) L 02/26/17 10:45 Band Neutrophils % 8.0 % (0-4) H 02/26/17 10:45 Metamyelocytes % 6.0 % (0) H 02/26/17 10:45 Myelocytes % 4.0 % (0) H 02/26/17 10:45 Blast Cells % 14.0 % (0) H 02/26/17 10:45 Neutrophils # 28.6 K/mcL (1.6-8.9) H 02/26/17 10:45 Lymphocytes # 11.9 K/mcL (0.6-4.6) H 02/26/17 10:45 Monocytes # 4.8 K/mcL (0.0-1.3) H 02/26/17 10:45 Nucleated RBCs/100 WBC 0.3 /100 WBC (0) H 02/26/17 10:45 Smudge Cells Present (Not Present) A 02/26/17 10:45 Platelet Estimate Marked Decrease (Normal) L 02/26/17 10:45 Immature Plt Fraction 9.2 % (1.1-6.1) H 02/26/17 10:45 Anisocytosis 1+ (Not Present) A 02/26/17 10:45 PT 13.5 Seconds (9.4-12.1) H 02/26/17 10:45 ABG pH 7.18 pH Units (7.32-7.45) L* 02/26/17 13:31 ABG pCO2 63 mmHg (35-45) H 02/26/17 13:31 ABG pO2 106 mmHg (85-104) H D 02/26/17 13:31 ABG Base Excess -5 mEq/L (-2 to 3) L 02/26/17 13:31 Potassium 4.8 mEq/L (3.5-4.5) H 02/26/17 10:45 BUN 59 mg/dL (7-20) H 02/26/17 10:45 Creatinine 3.99 mg/dL (0.57-1.11) H 02/26/17 10:45 Est GFR ( Amer) 14 (> 60) L 02/26/17 10:45 Est GFR (Non-Af Amer) 11 (> 60) L 02/26/17 10:45 Glucose 163 mg/dL (70-99) H 02/26/17 10:45 POC Glucose 168 (58-89) H 02/26/17 15:42 Calculated Osmolality 310 (280-300) H 02/26/17 10:45 Lactic Acid 2.6 mmol/L (0.5-2.2) H 02/26/17 10:44 Calcium 8.4 mg/dL (8.6-10.8) L 02/26/17 10:45 Alkaline Phosphatase 136 Units/L (38-126) H 02/26/17 10:45 Troponin I 0.15 ng/mL (0-0.03) H* 02/26/17 10:45 Albumin 2.5 g/dL (3.5-5.0) L 02/26/17 10:45 Globulin 5.8 g/dL (2.4-3.5) H 02/26/17 10:45 Albumin/Globulin Ratio 0.4 (1.1-2.2) L 02/26/17 10:45 Urine Clarity Turbid (Clear) A 02/26/17 10:45 Ur Specific Walsh 1.028 (1.010-1.025) H 02/26/17 10:45 Urine Protein 100 mg/dL (Neg-Trace) H 02/26/17 10:45 Urine Blood Small (Negative) H 02/26/17 10:45 Urine Bilirubin Small (Negative) H 02/26/17 10:45 Urine Microscopic WBC 50-100 per hpf (0-3) H 02/26/17 10:45 Ur Squamous Epith Cells Many per lpf (None-Few) H 02/26/17 10:45 Amorphous Sediment Many (Few) H 02/26/17 10:45 Granular Casts Many per lpf (None Seen) H 02/26/17 10:45 U Benzodiazepines Scrn Positive ng/mL (Lkpwkc=167) H 02/26/17 10:45 Antibody Screen POSITIVE A 02/26/17 12:30 - Attending Attestation I examined this patient and my medical decision-making was reviewed with the Resident Physician. I agree with the documented findings, disposition and treatment plan as described except to the extent set forth below. Patient seen and examined. Labs, radiology, chart personally reviewed. 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 Pulmonary: Patient with acute hypoxic and hypercapnic respiratory failure. I made some changes on the ventilator to address those problems and follow-up ABG has improved, however she continued to have problems. She also have high peak airway pressure which is suspect could be from a combination of aspiration pneumonia, pulmonary edema, and even hematologic malignancies. Pulmonary hemorrhage also in the differential diagnosis. I made changes on the ventilator to keep plateau pressure around 30. There is a possibility he might need to bronchoscopy. Cardiovascular: Hypotension and this could be sepsis and also from anemia and waiting for blood product. GI: Nutrition per dietary and GI prophylaxis per routine Heme: DVT prophylaxis per routine. Patient with anemia which seems to be chronic in nature secondary to her underlying leukemia and consult hematology as well as thrombocytopenia but she does not have evidence of active bleeding were monitored. As far as leukocytosis could be infection and could be from her leukemia. ID: Continue antibiotics and plan to de-escalation. Patient will be covered with broad-spectrum. Renal; urine out put and renal funtion reviewed. Patient with acute kidney injury and nephrology consulted. Suspect this could be prerenal or combination prerenal and renal such as ATN. Endorcine: blood glucose is monitored Lines: all lines checked and no evidence of infections Skin: skin care to prevent pressure ulcers per nursing routine care Overall prognosis is poor and I discussed with the and the daughter at the bedside CODE STATUS. Patient is full code at this time. I spent 50 min of Critical Care time with this patient. It involved decision making of high complexity to assess, manipulate, and support vital organ system failure and/or to prevent further life threatening deterioration of the patient' s condition. The time involved in the performance of separately reportable procedures was not counted toward critical care time.
[2017-02-26] MEDS ORDERED: Vancomycin 1 EACH in D5% in Water 250 ML IVPB SCH (14:00)
[2017-02-26] MEDS ORDERED: Levofloxacin 750 MG/150 ML 750 MG/150 ML BAG IVPB SCH (14:00)
--- NOTE | 2017-02-26 14:40 | Electrocardiograph Report ---
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
--- NOTE | 2017-02-26 14:52 | Oncology Inp Consult Note ---
Date of Encounter: 02/26/17 Time of Encounter: 14:40 Assessment and Plan (1) AML (acute myelogenous leukemia) Status: Acute Assessment and plan: - Ms. Bernstein is currently under the care of Dr. Barth here at [facility]. Last office visit was on 02/09/17. she is receiving treatment with chemotherapy, decitabine 3 days regimen, last chemotherapy on 02/16/17 with decitabine 10 mg/m2, corresponding to day 3. - Patient and family were aware of palliative intent of chemotherapy. At this time patient is unresponsive, patient is aware of palliative role of therapy. At this time there is not indication for inpatient chemotherapy, but continue supportive management with broad spectrum antibiotics ( levo and IV vancomycin) , follow up blood cultures and other infectious work up as per primary team. - Her peripheric blast counts have remained stable lately. Current increase of WBC to mid 50s probably related to infectious episode ( possible aspiration PNA ) on top of AML. I would expect to see WBC counts decreasing to baseline values once infection is better controlled. - Upon discharge, please arrange short follow up at [facility] with Dr. Barth to discuss further recommendations. - Continue supportive treatment and transfuse 1 PRBC for Hb values less than 7 gr/dl , and 1 pool of platelets for platelet count less than 20K. 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 After diagnosis, she declined the option of SCT. she has been treated with decitabine at least since August 2014. she was on a break from chemotherapy on August 2014. She was found to progressed on bone marrow biopsyh from 03/25/15. Her treatment has consisted on induction with decitabine 20mg/m2 x 10 days on -. Then she received from 01/19/14-07/31/14 7 courses of decitabine consolidation/maintanence that was stopped due to pancytopenia. On May 12, 2015 decitabine was resumed induction for 10 days, followed by maintenance. On September 20, 2015 she was started on aranesp for anemia related to chemotherapy. She received a 10 day BID induction with Sierra-C from 07/12 to 07/21/16. She was hospitalized due to volume overload on 02/07/17, then on 02/09/17 her WBC was 45K , but decreased 13K on 02/19/17 . Her blast count has been stable in the 14 K range. She is currently admitted for suspected aspiration PNA, being treated with levophloxacine and vancomycin IV. No on pressors. Her WBC went up to 59K, but her peripheric blast count remains stable at 14K. Platelet count remains stable at 48K. Hemoglobin levels today is 6.2 g/dl. She was seen with her daughter, granddaughter and daughter at bedside. Her who is the HCP was not present, he left home prior to the visit. Past Med Surg Social Fam HX - Past Medical History Medical history: non-contributory Psychiatric history: depression - Social History Smoking Status: Unknown if ever smoked Alcohol use: unknown Drug use: unknown Medications and Allergies ALPRAZolam [Xanax 1 MG Tablet] 1 mg PO TID PRN 02/26/17 [History] Aminocaproic Acid [Amicar] 500 mg PO TID 02/26/17 [History] Ascorbic Acid [Vitamin C with Elsie Hips] 500 mg PO DAILY 02/26/17 [History] Citalopram [CeleXA] 20 mg PO DAILY 02/26/17 [History] Deferasirox [Jadenu] 1,440 mg PO DAILY 02/26/17 [History] Diltiazem HCl [Diltiazem 24Hr Cd] 360 mg PO DAILY 02/26/17 [History] Folic Acid 1 mg PO DAILY 02/26/17 [History] Furosemide [Lasix] 20 mg PO DAILY 02/26/17 [History] Metoprolol XL (24 HR) Succ [Toprol XL] 25 mg PO DAILY 02/26/17 [History] Multivit-Min/FA/Lycopen/Lutein [A Thru Z Select Multivit Tab] 1 tab PO DAILY [History] Oxygen 3 l NS DAILY 02/26/17 [History] Potassium Chloride [K-Tab ER] 20 meq PO DAILY 02/26/17 [History] 3 Allergy/AdvReac Type Severity Reaction Status Date / Time Penicillins Allergy Anaphylaxis Verified 02/26/17 11:19 ROS unobtainable: due to endotracheal tube Oncology - Exam - Constitutional Vitals: Temp Pulse Resp BP Pulse Ox 97.6 F 93 18 98/48 98 02/26/17 12:52 02/26/17 13:05 02/26/17 13:00 02/26/17 13:00 02/26/17 13:00 - Head Head exam: Present: normal inspection - Eye Eye exam: Present: normal appearance. Absent: scleral icterus - ENT ENT exam: Present: normal exam (intubated ) - Neck Neck exam: Absent: lymphadenopathy - Respiratory Respiratory exam: Present: rhonchi - Cardiovascular Cardiovascular exam: Present: RRR - GI/Abdominal GI/Abdominal exam: Present: normal bowel sounds. Absent: organomegaly - Extremities Exam Extremities exam: Present: normal inspection. Absent: tenderness - Neurological Exam Neurological exam: Absent: facial droop - Additional findings Additional findings: patient is intubated, unresponsive. Consult Discharge Plan - Plan Referrals: NONE,PCP [Primary Care Provider] -
[2017-02-26] MEDS: Ipratropium/Albuterol Neb 3 ML IH SCH ×2 (15:25→22:38)
[2017-02-26] MEDS: Clindamycin 600 MG/50 ML 600 MG/50 ML IV.SOLN IVPB SCH ×2 (15:49→23:13)
[2017-02-26] MEDS: Dexmedetomidine HCl 400 MCG/100 ML MLS IVC SCH (16:02)
[2017-02-26] MEDS ORDERED: Albumin 25% 25gram/100mL 50 GM/200 ML IV.SOLN ONE (16:03)
[2017-02-26] MEDS: Albumin 25% 25gram/100mL 25 GM/100 ML IV.SOLN IVC SCH ×2 (16:05→16:18)
[2017-02-26] MEDS ORDERED: Lacri-Lube 3.5 GM TUBE BOTH EYES PRN (16:35)
[2017-02-26] MEDS ORDERED: 0.9 % Sodium Chloride 500 ML ONE (18:47)
[2017-02-26] MEDS: FentaNYL (PF) 1,000 MCG in 0.9 % Sodium Chloride 80 ML IVC SCH ×2 (19:42→21:34)
[2017-02-26] MEDS: Lacri-Lube 3.5 GM TUBE BOTH EYES SCH ×2 (21:25→23:11)
[2017-02-26] MEDS: Chlorhexidine Rinse 15 ML MOUTHWASH MM SCH (21:25)
[2017-02-27] MEDS: Ipratropium/Albuterol Neb 3 ML IH SCH ×4 (03:34→21:43)
[2017-02-27 04:39] LABS: ABG Base Excess -5 mEq/L (-2 to 3); ABG HCO3 23 mEq/L (21-27); ABG Oxygen Saturation 90 % (95-98); ABG PCO2 57 mmHg (35-45); ABG PH 7.21 pH Units (7.32-7.45); ABG PO2 73 mmHg (85-104); ABG TCO2 24 mEq/L (20-26); Blood Gas Modality ASSIST CONTROL; Blood Gas PEEP 5 cm H2O; Blood Gas Respiration Rate 20; Blood Gas VT 450 cc
[2017-02-27] MEDS: Lacri-Lube 3.5 GM TUBE BOTH EYES SCH ×6 (04:44→23:28)
[2017-02-27 05:02] LABS: INR 1.4; Prothrombin Time 15.2 Seconds (9.4-12.1)
[2017-02-27 05:16] LABS: Albumin 2.3 g/dL (3.5-5.0); Albumin/Globulin Ratio 0.5 (1.1-2.2); Bilirubin,Direct 0.4 mg/dL (0.0-0.5); Bilirubin,Indirect 0.2 mg/dL (0.0-1.2); Bilirubin,Total 0.6 mg/dL (0.2-1.2); Globulin 4.2 g/dL (2.4-3.5); Magnesium 1.6 mg/dL (1.6-2.6); Potassium 4.1 mEq/L (3.5-4.5)
[2017-02-27 05:17] LABS: Calcium 7.1 mg/dL (8.6-10.8); Total Protein 6.5 g/dL (6.0-8.3)
[2017-02-27 05:50] LABS: Mean Corpuscular Hemoglobin 29.2 pg (28.0-33.3); Red Blood Count 1.95 M/mcL (3.82-4.97)
[2017-02-27 05:52] LABS: Hematocrit 16.3 % (35.3-44.9); Mean Corpuscular Volume 83.6 fL (83.0-100.0); Mean Platelet Volume 12.4 fL (9.4-12.4); Nucleated Red Blood Cells 0.3 /100 WBC (0); Red Cell Distribution Width 16.5 % (11.5-14.5)
[2017-02-27 05:55] LABS: Hemoglobin 5.7 g/dL (11.5-15.4)
[2017-02-27 05:56] LABS: Platelet Count 14 K/mcL (140-400)
[2017-02-27 06:40] LABS: Eosinophils # 0.4 K/mcL (0.0-0.6); Lymphocytes # 4.6 K/mcL (0.6-4.6); Monocytes # 1.8 K/mcL (0.0-1.3); Neutrophils # 5.3 K/mcL (1.6-8.9)
[2017-02-27 06:41] LABS: Platelet Estimate Marked Decrease (Normal); Polychromasia 1+ (Not Present); Smudge Cells Present (Not Present)
[2017-02-27] MEDS: Chlorhexidine Rinse 15 ML MOUTHWASH MM SCH ×2 (08:15→20:03)
[2017-02-27] MEDS: Clindamycin 600 MG/50 ML 600 MG/50 ML IV.SOLN IVPB SCH ×3 (08:15→23:30)
[2017-02-27] MEDS: Pantoprazole 40 MG VIAL IVPB SCH (08:15)
[2017-02-27] MEDS ORDERED: 0.9 % Sodium Chloride 250 ML ONE (09:40)
--- NOTE | 2017-02-27 09:57 | Nephrology Consult Note ---
Date of Encounter: 02/27/17 Time of Encounter: 09:46 Assessment and Plan (1) Acute on chronic renal failure Current Visit: Yes Status: Acute Cr today 3.79. Baseline Cr about 1.5 CKD stage III Etiology likely secondary to septic shock, possible ATN. oliguric RODERICK- total urine output yesterday was 60ml Plan: will continue to monitor renal function avoid nephrotoxic agents as much as possible strict I/O At this time, we will hold off on dialysis until goals of care are established. Serum Cr has slightly improved, but she is at high risk for needing CRRT, likely will start tomorrow depending on goals of care. Qualifiers: Acute renal failure type: with acute tubular necrosis Chronic kidney disease stage: stage 3 (moderate) Qualified Code(s): N17.0 - Acute kidney failure with tubular necrosis; N18.3 - Chronic kidney disease, stage 3 (moderate ); N18.3 - Chronic kidney disease, stage 3 (moderate) (2) Thrombocytopenia Current Visit: Yes Status: Acute platelets today 14. patient will need platelet transfusion before temporary dialysis catheter is placed. this is complicated by limited IV access. (3) Septic shock Current Visit: Yes Status: Acute on arrival: Temp 96.7, pulse 112 WBC 59.6 source of infection likely secondary to aspiration pneumonia. patient currently requiring dopamine. per primary (4) Aspiration pneumonia Current Visit: Yes Status: Acute on vanc, levaquin, clindamycin per primary Qualifiers: Aspiration pneumonia type: due to vomit Laterality: right Lung location: lower lobe of lung Qualified Code(s): J69.0 - Pneumonitis due to inhalation of food and vomit (5) Anemia Current Visit: Yes Status: Acute Hg today 5.7 one unit transfused yesterday. two more units ordered. per primary. Qualifiers: Anemia type: other cause Other causes of anemia: chronic disease, neoplastic Qualified Code(s): D63.0 - Anemia in neoplastic disease (6) AML (acute myelogenous leukemia) Current Visit: Yes Status: Acute Hx of AML on palliative chemotherapy currently. 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 Barth at cancer center), diastolic CHF (last echo 02/26/17 shoewd LVEF 55%), paroxysmal Afib, depression, anxiety. patient arrived to [facility] yesterday in altered mental status. she was found unresponsive at home and she was in her normal mental state prior to that. when patient was found unresponsive, she had vomit on her. she is currently intubated and sedated in the ICU. she is being treated for septic shock, likely secondary to aspiration pneumonia and is currently requiring dopamine to maintain her blood pressure. Past Med Surg Social Fam HX - Past Medical History Medical history: non-contributory Psychiatric history: depression - Social History Smoking Status: Unknown if ever smoked Alcohol use: unknown Drug use: unknown Medications and Allergies ALPRAZolam [Xanax 1 MG Tablet] 1 mg PO TID PRN 02/26/17 [History] Aminocaproic Acid [Amicar] 500 mg PO TID 02/26/17 [History] Ascorbic Acid [Vitamin C with Elsie Hips] 500 mg PO DAILY 02/26/17 [History] Citalopram [CeleXA] 20 mg PO DAILY 02/26/17 [History] Deferasirox [Jadenu] 1,440 mg PO DAILY 02/26/17 [History] Diltiazem HCl [Diltiazem 24Hr Cd] 360 mg PO DAILY 02/26/17 [History] Folic Acid 1 mg PO DAILY 02/26/17 [History] Furosemide [Lasix] 20 mg PO DAILY 02/26/17 [History] Metoprolol XL (24 HR) Succ [Toprol XL] 25 mg PO DAILY 02/26/17 [History] Multivit-Min/FA/Lycopen/Lutein [A Thru Z Select Multivit Tab] 1 tab PO DAILY [History] Oxygen 3 l NS DAILY 02/26/17 [History] Potassium Chloride [K-Tab ER] 20 meq PO DAILY 02/26/17 [History] 3 Allergy/AdvReac Type Severity Reaction Status Date / Time Penicillins Allergy Anaphylaxis Verified 02/26/17 11:19 Review of Systems ROS unobtainable: due to endotracheal tube, due to mental status Exam - Vital Signs Vital signs: Initial Vital Signs Temp Pulse Resp BP Pulse Ox 96.7 F L 112 18 145/50 83 02/26/17 10:31 02/26/17 10:31 02/26/17 10:31 02/26/17 10:31 02/26/17 10:31 Vital Signs - Last 8 Hours Temp Pulse Resp BP Pulse Ox 02/27/17 09:00 110 22 112/47 95 02/27/17 08:00 113 22 98/46 95 02/27/17 07:45 98.5 F 02/27/17 07:27 116 02/27/17 07:25 22 115/50 92 02/27/17 07:00 114 20 113/45 94 02/27/17 06:00 115 20 122/47 94 02/27/17 05:23 20 115/48 95 02/27/17 05:00 113 20 108/52 96 02/27/17 04:39 112 02/27/17 04:00 98.4 F 113 20 94 02/27/17 03:37 20 99/44 97 02/27/17 03:00 108 20 103/37 94 02/27/17 02:06 20 100/44 98 02/27/17 02:00 108 20 100/44 94 Intake and Output 02/26/17 02/27/17 02/27/17 23:59 07:59 15:59 Intake Total 903 / 903 50 / 50 225 / 225 Output Total 25 / 25 25 / 25 Balance 878 / 878 25 / 25 225 / 225 Intake: IV Fluids 530 / 530 50 / 50 225 / 225 Flexbumin 25 gm In 100 ml @ 60 200 / 200 mls/hr IVC .Q1H40M [facility] Rx#: [id number] DOPamine Premix 400mg/250mL 400 225 / 225 mg In 250 ml @ 5 MCG/KG/MIN 15 .734 mls/hr IVC .[id number] [facility] Rx #:[id number] PRECEDEX Premix 400 mcg In 100 30 / 30 ml @ 0.2 MCG/KG/HR 4.196 mls/hr IVC .[id number] [facility] Rx#: [id number] Cleocin Premix 600 MG/50 ML 600 50 / 50 50 / 50 mg In 50 ml @ 50 mls/hr IVPB Q8HR [facility] Rx#:[id number] Vancocin 1,250 MG In Dextrose 5 250 / 250 % 250 ML @ 167 mls/hr IVPB ONCE ONE Rx#:[id number] Blood Product 373 / 373 Rbcs Leuko Poor As-1 Irr Unit 373 / 373 [id number] Output: Catheter Other: Weight 68 kg Blood Glucose* 124 Patient Weight 02/27/17 23:59 Weight 68 kg - General Appearance General appearance: well-nourished, appears started age Neck: no JVD Additional Comments: left sided rales present. Cardiology: rapid rhythm Additional Comments: tachycardic Gastrointestinal: hypoactive bowel sounds, no tenderness, no guarding, no masses Additional Comments: significant bruising present on right forearm area. some bruising present on left upper extremity as well. Musculoskeletal: no erythema, no cyanosis Results - Lab Results 02/27/17 04:30 02/27/17 04:30 Most recent lab results ABG pH 7.21 pH Units (7.32-7.45) L 02/27/17 04:34 ABG pCO2 57 mmHg (35-45) H 02/27/17 04:34 ABG pO2 73 mmHg (85-104) L 02/27/17 04:34 ABG HCO3 23 mEq/L (21-27) 02/27/17 04:34 ABG O2 Saturation 90 % (95-98) L 02/27/17 04:34 Calcium 7.1 mg/dL (8.6-10.8) L D 02/27/17 04:30 Phosphorus 4.0 mg/dL (2.3-4.7) 02/27/17 04:30 Magnesium 1.6 mg/dL (1.6-2.6) 02/27/17 04:30 Consult Discharge Plan - Plan Referrals: NONE,PCP [Primary Care Provider] -
[2017-02-27] MEDS ORDERED: Aminoglycoside Consult 1 EACH MC ONE (10:04)
--- NOTE | 2017-02-27 11:32 | Pulmonology Progress Note ---
<Michael Ravi - Last Filed: 02/27/17 11:25> Date of Encounter: 02/27/17 Time of Encounter: 11:25 Assessment and Plan (1) Septic shock Current Visit: Yes Status: Acute Likely related to aspiration pneumonia. Patient was requiring dopamine for blood pressure support however we have been able to gradually titrate down her dopamine requirements. Cultures are pending. Continue with broad-spectrum antibiotics. (2) Acute respiratory failure with hypercapnia Current Visit: Yes Status: Acute Concern for aspiration pneumonia, flash pulmonary edema and infiltration due to leukemia are also considerations. Respiratory acidosis gradually improving, Continue mechanical ventilation to correct underlying respiratory acidosis. (3) Aspiration pneumonia Current Visit: Yes Status: Acute Patient was found unresponsive with evidence that she had vomited. CXR shows RLL infiltrate. Will start clindamycin as the patient has a penicllin allergy and continue vancomycin and levaquin started in the ED for broad spectrum coverage in the setting of immunocompromise due to AML. Qualifiers: Aspiration pneumonia type: due to vomit Laterality: right Lung location: lower lobe of lung Qualified Code(s): J69.0 - Pneumonitis due to inhalation of food and vomit (4) AML (acute myelogenous leukemia) Current Visit: Yes Status: Acute With pancytopenia at baseline. Per records review treatment intent is currently palliative. Significant elevation in her white count possibly related to underlying infection. Continue treatment as above. Oncology has been consulted and is following. 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 Concern for ATN in the setting of critical illness given granular casts found in the urine. Urine output remains poor. Patient will likely require renal replacement therapy, nephrology following. Qualifiers: Acute renal failure type: with acute tubular necrosis Chronic kidney disease stage: stage 3 (moderate) Qualified Code(s): N17.0 - Acute kidney failure with tubular necrosis; N18.3 - Chronic kidney disease, stage 3 (moderate ); N18.3 - Chronic kidney disease, stage 3 (moderate) (6) Anemia Current Visit: Yes Status: Acute 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 Baseline appears to be around 8. Hgb 6.2 on presentation, down to 5.7 today. No obvious source of bleeding. Will transfuse 3 units. Continue to monitor Qualifiers: Anemia type: other cause Other causes of anemia: chronic disease, neoplastic Qualified Code(s): D63.0 - Anemia in neoplastic disease (7) Thrombocytopenia Current Visit: Yes Status: Acute Blood counts 48 on presentation, is 14 today, likely related to the patient's underlying severe AML as discussed above. She will likely require central access for both IV as well as possible renal replacement therapy we will replace platelets today. Subjective Principal diagnosis: Unresponsive Interval history: Patient seen and examined at bedside. Patient remains intubated and sedated. She is minimally responsive at this time. She does not appear to be in any acute distress. Objective PUL Vital signs: Last Vital Signs Temp 98.3 F 02/27/17 10:13 Pulse 116 02/27/17 11:18 Resp 22 02/27/17 11:06 BP 133/52 02/27/17 11:06 Pulse Ox 95 02/27/17 11:06 General appearance: comatose ENT: oropharynx moist Effort: normal Auscultation: bilateral: rhonchi Cardiovascular: regular rate and rhythm Gastrointestinal: hypoactive bowel sounds, soft, non-tender Extremities: no cyanosis, edema (Trace bilaterally) unable to assess due to mental status Ventilator Settings Ventilator Settings: Ventilator Settings, Last 8 Hours Ventilator Mode A/C Ventilator Mode A/C Ventilator Mode A/C Ventilator Mode A/C Ventilator Mode A/C Ventilator Mode A/C Ventilator Mode A/C Ventilator Mode A/C Ventilator Mode A/C Ventilator Mode A/C Ventilator Mode A/C Ventilator Mode A/C Ventilator Mode A/C Ventilator Mode A/C Ventilator Tidal Volume 450 Setting Ventilator Tidal Volume 450 Setting Ventilator Tidal Volume 450 Setting Ventilator Tidal Volume 450 Setting Ventilator Tidal Volume 450 Setting Ventilator Tidal Volume 450 Setting Ventilator Tidal Volume 450 Setting Ventilator Tidal Volume 450 Setting Ventilator Tidal Volume 450 Setting Ventilator Tidal Volume 450 Setting Ventilator Tidal Volume 450 Setting Ventilator Tidal Volume 450 Setting Ventilator Tidal Volume 450 Setting Ventilator Tidal Volume 450 Setting Ventilator Respiratory Rate 22 Setting Ventilator Respiratory Rate 22 Setting Ventilator Respiratory Rate 22 Setting Ventilator Respiratory Rate 22 Setting Ventilator Respiratory Rate 22 Setting Ventilator Respiratory Rate 22 Setting Ventilator Respiratory Rate 22 Setting Ventilator Respiratory Rate 22 Setting Ventilator Respiratory Rate 20 Setting Ventilator Respiratory Rate 20 Setting Ventilator Respiratory Rate 20 Setting Ventilator Respiratory Rate 20 Setting Ventilator Respiratory Rate 20 Setting Ventilator Respiratory Rate 20 Setting Actual Respiratory Rate 22 Actual Respiratory Rate 22 Actual Respiratory Rate 22 Actual Respiratory Rate 22 Actual Respiratory Rate 22 Actual Respiratory Rate 22 Actual Respiratory Rate 22 Actual Respiratory Rate 22 Actual Respiratory Rate 20 Actual Respiratory Rate 20 Actual Respiratory Rate 20 Actual Respiratory Rate 20 Actual Respiratory Rate 20 Positive End Expiratory 5 Pressure Positive End Expiratory 5 Pressure Positive End Expiratory 5 Pressure Positive End Expiratory 5 Pressure Positive End Expiratory 5 Pressure Positive End Expiratory 5 Pressure Positive End Expiratory 5 Pressure Positive End Expiratory 5 Pressure Positive End Expiratory 5 Pressure Positive End Expiratory 5 Pressure Positive End Expiratory 5 Pressure Positive End Expiratory 5 Pressure Positive End Expiratory 5 Pressure Positive End Expiratory 5 Pressure Peak Inspiratory Airway 38 Pressure Peak Inspiratory Airway 42 Pressure Peak Inspiratory Airway 42 Pressure Peak Inspiratory Airway 41 Pressure Peak Inspiratory Airway 40 Pressure Peak Inspiratory Airway 40 Pressure Peak Inspiratory Airway 40 Pressure Peak Inspiratory Airway 43 Pressure Results - Laboratory Findings CBC and BMP: 02/27/17 04:30 02/27/17 04:30 ABG ABG pH 7.21 pH Units (7.32-7.45) L 02/27/17 04:34 ABG pCO2 57 mmHg (35-45) H 02/27/17 04:34 ABG pO2 73 mmHg (85-104) L 02/27/17 04:34 ABG O2 Saturation 90 % (95-98) L 02/27/17 04:34 PT/INR, D-dimer PT 15.2 Seconds (9.4-12.1) H 02/27/17 04:30 Abnormal lab findings: Abnormal lab results WBC 17.6 K/mcL (4.3-11.1) H D 02/27/17 04:30 RBC 1.95 M/mcL (3.82-4.97) L 02/27/17 04:30 Hgb 5.7 g/dL (11.5-15.4) L* 02/27/17 04:30 Hct 16.3 % (35.3-44.9) L 02/27/17 04:30 RDW 16.5 % (11.5-14.5) H 02/27/17 04:30 Plt Count 14 K/mcL (140-400) L* D 02/27/17 04:30 Band Neutrophils % 8.0 % (0-4) H 02/27/17 04:30 Metamyelocytes % 4.0 % (0) H 02/27/17 04:30 Myelocytes % 28.0 % (0) H 02/27/17 04:30 Blast Cells % 14.0 % (0) H 02/26/17 10:45 Monocytes # 1.8 K/mcL (0.0-1.3) H 02/27/17 04:30 Nucleated RBCs/100 WBC 0.3 /100 WBC (0) H 02/27/17 04:30 Smudge Cells Present (Not Present) A 02/27/17 04:30 Platelet Estimate Marked Decrease (Normal) L 02/27/17 04:30 Immature Plt Fraction 9.2 % (1.1-6.1) H 02/26/17 10:45 Polychromasia 1+ (Not Present) A 02/27/17 04:30 Anisocytosis 1+ (Not Present) A 02/26/17 10:45 PT 15.2 Seconds (9.4-12.1) H 02/27/17 04:30 ABG pH 7.21 pH Units (7.32-7.45) L 02/27/17 04:34 ABG pCO2 57 mmHg (35-45) H 02/27/17 04:34 ABG pO2 73 mmHg (85-104) L 02/27/17 04:34 ABG O2 Saturation 90 % (95-98) L 02/27/17 04:34 ABG Base Excess -5 mEq/L (-2 to 3) L 02/27/17 04:34 BUN 58 mg/dL (7-20) H 02/27/17 04:30 Creatinine 3.79 mg/dL (0.57-1.11) H 02/27/17 04:30 Est GFR ( Amer) 14 (> 60) L 02/27/17 04:30 Est GFR (Non-Af Amer) 12 (> 60) L 02/27/17 04:30 Glucose 110 mg/dL (70-99) H 02/27/17 04:30 POC Glucose 124 (58-89) H 02/26/17 23:21 Calculated Osmolality 311 (280-300) H 02/27/17 04:30 Lactic Acid 2.6 mmol/L (0.5-2.2) H 02/26/17 10:44 Calcium 7.1 mg/dL (8.6-10.8) L D 02/27/17 04:30 Troponin I 0.15 ng/mL (0-0.03) H* 02/26/17 10:45 Albumin 2.3 g/dL (3.5-5.0) L 02/27/17 04:30 Globulin 4.2 g/dL (2.4-3.5) H 02/27/17 04:30 Albumin/Globulin Ratio 0.5 (1.1-2.2) L 02/27/17 04:30 Urine Clarity Turbid (Clear) A 02/26/17 10:45 Ur Specific [place] 1.028 (1.010-1.025) H 02/26/17 10:45 Urine Protein 100 mg/dL (Neg-Trace) H 02/26/17 10:45 Urine Blood Small (Negative) H 02/26/17 10:45 Urine Bilirubin Small (Negative) H 02/26/17 10:45 Urine Microscopic WBC 50-100 per hpf (0-3) H 02/26/17 10:45 Ur Squamous Epith Cells Many per lpf (None-Few) H 02/26/17 10:45 Amorphous Sediment Many (Few) H 02/26/17 10:45 Granular Casts Many per lpf (None Seen) H 02/26/17 10:45 U Benzodiazepines Scrn Positive ng/mL (Ptjczy=700) H 02/26/17 10:45 Antibody Screen POSITIVE A 02/26/17 12:30 - Clinical Findings Intake & Output: Intake & Output 02/26/17 02/27/17 02/27/17 23:59 07:59 15:59 Intake Total 903 / 903 50 / 50 300 / 300 Output Total 25 / 25 Balance 878 / 878 300 / 300 Weight 68 kg Consult Discharge Plan - Plan Referrals: NONE,PCP [Primary Care Provider] - <Alicia Epps - Last Filed: 02/27/17 16:28> Date of Encounter: 02/27/17 Objective PUL Vital signs: Last Vital Signs Temp 98.4 F 02/27/17 15:53 Pulse 109 02/27/17 15:53 Resp 22 02/27/17 15:53 BP 118/48 02/27/17 15:53 Pulse Ox 98 02/27/17 15:53 Ventilator Settings Ventilator Settings: Ventilator Settings, Last 8 Hours Ventilator Mode A/C Ventilator Mode A/C Ventilator Mode A/C Ventilator Mode A/C Ventilator Mode A/C Ventilator Mode A/C Ventilator Mode A/C Ventilator Mode A/C Ventilator Mode A/C Ventilator Mode A/C Ventilator Tidal Volume 450 Setting Ventilator Tidal Volume 450 Setting Ventilator Tidal Volume 450 Setting Ventilator Tidal Volume 450 Setting Ventilator Tidal Volume 450 Setting Ventilator Tidal Volume 450 Setting Ventilator Tidal Volume 450 Setting Ventilator Tidal Volume 450 Setting Ventilator Tidal Volume 450 Setting Ventilator Tidal Volume 450 Setting Ventilator Respiratory Rate 22 Setting Ventilator Respiratory Rate 22 Setting Ventilator Respiratory Rate 22 Setting Ventilator Respiratory Rate 22 Setting Ventilator Respiratory Rate 22 Setting Ventilator Respiratory Rate 22 Setting Ventilator Respiratory Rate 22 Setting Ventilator Respiratory Rate 22 Setting Ventilator Respiratory Rate 22 Setting Ventilator Respiratory Rate 22 Setting Actual Respiratory Rate 22 Actual Respiratory Rate 22 Actual Respiratory Rate 22 Actual Respiratory Rate 22 Actual Respiratory Rate 22 Actual Respiratory Rate 22 Actual Respiratory Rate 22 Actual Respiratory Rate 22 Actual Respiratory Rate 22 Actual Respiratory Rate 22 Positive End Expiratory 5 Pressure Positive End Expiratory 5 Pressure Positive End Expiratory 5 Pressure Positive End Expiratory 5 Pressure Positive End Expiratory 5 Pressure Positive End Expiratory 5 Pressure Positive End Expiratory 5 Pressure Positive End Expiratory 5 Pressure Positive End Expiratory 5 Pressure Positive End Expiratory 5 Pressure Peak Inspiratory Airway 41 Pressure Peak Inspiratory Airway 46 Pressure Peak Inspiratory Airway 38 Pressure Peak Inspiratory Airway 42 Pressure Results - Laboratory Findings CBC and BMP: 02/27/17 04:30 02/27/17 04:30 ABG ABG pH 7.21 pH Units (7.32-7.45) L 02/27/17 04:34 ABG pCO2 57 mmHg (35-45) H 02/27/17 04:34 ABG pO2 73 mmHg (85-104) L 02/27/17 04:34 ABG O2 Saturation 90 % (95-98) L 02/27/17 04:34 PT/INR, D-dimer PT 15.2 Seconds (9.4-12.1) H 02/27/17 04:30 Abnormal lab findings: Abnormal lab results WBC 17.6 K/mcL (4.3-11.1) H D 02/27/17 04:30 RBC 1.95 M/mcL (3.82-4.97) L 02/27/17 04:30 Hgb 5.7 g/dL (11.5-15.4) L* 02/27/17 04:30 Hct 16.3 % (35.3-44.9) L 02/27/17 04:30 RDW 16.5 % (11.5-14.5) H 02/27/17 04:30 Plt Count 14 K/mcL (140-400) L* D 02/27/17 04:30 Band Neutrophils % 8.0 % (0-4) H 02/27/17 04:30 Metamyelocytes % 4.0 % (0) H 02/27/17 04:30 Myelocytes % 28.0 % (0) H 02/27/17 04:30 Blast Cells % 14.0 % (0) H 02/26/17 10:45 Monocytes # 1.8 K/mcL (0.0-1.3) H 02/27/17 04:30 Nucleated RBCs/100 WBC 0.3 /100 WBC (0) H 02/27/17 04:30 Smudge Cells Present (Not Present) A 02/27/17 04:30 Platelet Estimate Marked Decrease (Normal) L 02/27/17 04:30 Immature Plt Fraction 9.2 % (1.1-6.1) H 02/26/17 10:45 Polychromasia 1+ (Not Present) A 02/27/17 04:30 Anisocytosis 1+ (Not Present) A 02/26/17 10:45 PT 15.2 Seconds (9.4-12.1) H 02/27/17 04:30 ABG pH 7.21 pH Units (7.32-7.45) L 02/27/17 04:34 ABG pCO2 57 mmHg (35-45) H 02/27/17 04:34 ABG pO2 73 mmHg (85-104) L 02/27/17 04:34 ABG O2 Saturation 90 % (95-98) L 02/27/17 04:34 ABG Base Excess -5 mEq/L (-2 to 3) L 02/27/17 04:34 BUN 58 mg/dL (7-20) H 02/27/17 04:30 Creatinine 3.79 mg/dL (0.57-1.11) H 02/27/17 04:30 Est GFR ( Amer) 14 (> 60) L 02/27/17 04:30 Est GFR (Non-Af Amer) 12 (> 60) L 02/27/17 04:30 Glucose 110 mg/dL (70-99) H 02/27/17 04:30 POC Glucose 126 (58-89) H 02/27/17 12:17 Calculated Osmolality 311 (280-300) H 02/27/17 04:30 Lactic Acid 2.6 mmol/L (0.5-2.2) H 02/26/17 10:44 Calcium 7.1 mg/dL (8.6-10.8) L D 02/27/17 04:30 Troponin I 0.15 ng/mL (0-0.03) H* 02/26/17 10:45 Albumin 2.3 g/dL (3.5-5.0) L 02/27/17 04:30 Globulin 4.2 g/dL (2.4-3.5) H 02/27/17 04:30 Albumin/Globulin Ratio 0.5 (1.1-2.2) L 02/27/17 04:30 Urine Clarity Turbid (Clear) A 02/26/17 10:45 Ur Specific [place] 1.028 (1.010-1.025) H 02/26/17 10:45 Urine Protein 100 mg/dL (Neg-Trace) H 02/26/17 10:45 Urine Blood Small (Negative) H 02/26/17 10:45 Urine Bilirubin Small (Negative) H 02/26/17 10:45 Urine Microscopic WBC 50-100 per hpf (0-3) H 02/26/17 10:45 Ur Squamous Epith Cells Many per lpf (None-Few) H 02/26/17 10:45 Amorphous Sediment Many (Few) H 02/26/17 10:45 Granular Casts Many per lpf (None Seen) H 02/26/17 10:45 U Benzodiazepines Scrn Positive ng/mL (Vmbftj=156) H 02/26/17 10:45 Antibody Screen POSITIVE A 02/26/17 12:30 - Clinical Findings Intake & Output: Intake & Output 02/27/17 02/27/17 02/27/17 07:59 15:59 23:59 Intake Total 50 / 50 900 / 900 Output Total Balance 875 / 875 Weight 68 kg - Attending Attestation I examined this patient and my medical decision-making was reviewed with the Resident Physician. I agree with the documented findings, disposition and treatment plan as described except to the extent set forth below. Patient seen and examined. Labs, radiology, chart personally reviewed. Agree with resident's history and physical, assessment, plan with following comments: WASHHOUSE HAND: Patient follows commands, Pulmonary: Acceptable oxygenation and ventilation. Patient still not stable for spontaneous breathing trial. Changed vent setting based on ABG results. Cardiovascular: Patient in shock which is multifactorial from anemia which is chronic in nature and critical illness now and also septic shock. GI: Nutrition per dietary and GI prophylaxis per routine Heme: DVT prophylaxis per routine. This is very complicated with her anemia and thrombocytopenia and also not been able to have packed RBC and platelets readily available due to complicated history. It seems packed RBCs and platelets. ID: Continue antibiotics and plan to de-escalation Renal; urine out put and renal funtion reviewed. Nephrology follow-up. Endorcine: blood glucose is monitored Lines: all lines checked and no evidence of infections Skin: skin care to prevent pressure ulcers per nursing routine care Overall prognosis is very poor and I had the discussion with the family about CODE STATUS and also subsequently palliative care team met with the family and at this time patient remain full code. I spent 35 min of Critical Care time with this patient. It involved decision making of high complexity to assess, manipulate, and support vital organ system failure and/or to prevent further life threatening deterioration of the patient' s condition. The time involved in the performance of separately reportable procedures was not counted toward critical care time.
[2017-02-27 12:09] LABS: Vancomycin,Random 20.9 mcg/mL
--- NOTE | 2017-02-27 13:42 | Palliative - Consult Note ---
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 progonosis poor: hgb and platelets dropping and patient still awaiting blood products from [facility]. high likely to go into cardiac arrest due to anemia with poor chance of recovery (2) Aspiration pneumonia Current Visit: Yes Status: Acute Assessment and plan: intubated on vanc and levaquin management as per primary Qualifiers: Aspiration pneumonia type: due to vomit Laterality: right Lung location: lower lobe of lung Qualified Code(s): J69.0 - Pneumonitis due to inhalation of food and vomit (3) Anemia Current Visit: Yes Status: Acute Assessment and plan: 2nd to AML being transfused awaiting PBRC from [facility] Qualifiers: Anemia type: other cause Other causes of anemia: chronic disease, neoplastic Qualified Code(s): D63.0 - Anemia in neoplastic disease (4) Acute respiratory failure with hypercapnia Current Visit: Yes Status: Acute Assessment and plan: 2nd to aspiration pna intubated management as per primary team (5) AML (acute myelogenous leukemia) Current Visit: Yes Status: Acute Assessment and plan: patient in on palliative treatment outpatient before admission requires multiple transfusions per week of PBRC and platelets. management as per onc and primary team. 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, in relapse (6) Acute on chronic renal failure Current Visit: Yes Status: Acute Assessment and plan: Scr 3.99 baseline 1.5 will require ERIC but due to low platelets cannot have line placed Qualifiers: Acute renal failure type: with acute tubular necrosis Chronic kidney disease stage: stage 3 (moderate) Qualified Code(s): N17.0 - Acute kidney failure with tubular necrosis; N18.3 - Chronic kidney disease, stage 3 (moderate ); N18.3 - Chronic kidney disease, stage 3 (moderate) Palliative-CN HPI - Data of Consult Patient: new to practice Consult date: 02/27/17 Requesting Physician: Alicia Epps MD Primary Care Provider: PCP NONE - Consult Narrative Reason for consult: goals of care History of present illness: Ms. Bernstein is a 66 year old female hx of AML arrived at [place] after being found unresponsive by her . Patient's states she had intermittent onset of confusion starting last sunday which improved over the weekend. However , Sunday she was found unresponsive with vomit all over her. She was intuated and sedated in ER. Patient AML was diagnosed three years ago. She is on palliative chemotherapy. She receives multiple blood and platelet transfusions per week. At home she is able to work the yard, shop, and has an active life style. Consult was placed as patient is anemic, thrombocytopenic, on ventilator due to aspiration pna, with renal failure. Patient requires specific blood products due to antibodies which as of now can only be obtained at [place], [place]. She has received one PBRC since arrival and her hgb has dropped from 6.2 to 5.7. The other blood products (PBRC and platelets) have not arrived from [place], [place]. Patient is full code. CC: Alicia Epps MD Past Med Surg Social Fam HX - Past Medical History Medical history: non-contributory Psychiatric history: depression - Social History Smoking Status: Unknown if ever smoked Alcohol use: unknown Drug use: unknown Medications and Allergies ALPRAZolam [Xanax 1 MG Tablet] 1 mg PO TID PRN 02/26/17 [History] Aminocaproic Acid [Amicar] 500 mg PO TID 02/26/17 [History] Ascorbic Acid [Vitamin C with Elsie Hips] 500 mg PO DAILY 02/26/17 [History] Citalopram [CeleXA] 20 mg PO DAILY 02/26/17 [History] Deferasirox [Jadenu] 1,440 mg PO DAILY 02/26/17 [History] Diltiazem HCl [Diltiazem 24Hr Cd] 360 mg PO DAILY 02/26/17 [History] Folic Acid 1 mg PO DAILY 02/26/17 [History] Furosemide [Lasix] 20 mg PO DAILY 02/26/17 [History] Metoprolol XL (24 HR) Succ [Toprol XL] 25 mg PO DAILY 02/26/17 [History] Multivit-Min/FA/Lycopen/Lutein [A Thru Z Select Multivit Tab] 1 tab PO DAILY [History] Oxygen 3 l NS DAILY 02/26/17 [History] Potassium Chloride [K-Tab ER] 20 meq PO DAILY 02/26/17 [History] 3 Allergy/AdvReac Type Severity Reaction Status Date / Time Penicillins Allergy Anaphylaxis Verified 02/26/17 11:19 ROS unobtainable: due to endotracheal tube Palliative Care-Exam - Constitutional Vitals: Temp Pulse Resp BP Pulse Ox 98.6 F 107 22 115/49 95 02/27/17 12:00 02/27/17 13:00 02/27/17 13:00 02/27/17 13:00 02/27/17 13:00 General appearance: Present: cooperative - Head Head Exam: Present: atraumatic - Eye Eye exam: Present: EOMI - ENT Additional comments: intubated - Respiratory Respiratory exam: Present: decreased breath sounds, CTAB (anteirorly ) - Cardiovascular Cardiovascular exam: Present: RRR - GI/Abdominal Exam GI/Abdominal exam: Present: normal bowel sounds, soft. Absent: distended, tenderness - Extremities Exam Extremities exam: Present: normal inspection. Absent: pedal edema - Neurological Exam Neurological exam: Present: alert Additional comments: follows commands: squeezing hands, opens eyes spontaneously. - Psychiatric Psychiatric exam: Present: anxious - Skin Skin exam: Present: dry, intact Internal Medicine - CN: Reslt - Labs CBC & Chem 7: 02/27/17 04:30 02/27/17 04:30 Labs: Short CBC 02/27/17 Range/Units 04:30 WBC 17.6 H D (4.3-11.1) K/mcL Hgb 5.7 L* (11.5-15.4) g/dL Hct 16.3 L (35.3-44.9) % Plt Count 14 L* D (140-400) K/mcL Neutrophils # 5.3 (1.6-8.9) K/mcL BMP 02/27/17 04:30 Sodium 142 Potassium 4.1 Chloride 109 Carbon Dioxide 20 BUN 58 H Creatinine 3.79 H Glucose 110 H Calcium 7.1 L D Liver Function 02/27/17 Range/Units 04:30 Total Bilirubin 0.6 (0.2-1.2) mg/dL Direct Bilirubin 0.4 (0.0-0.5) mg/dL AST 21 (5-34) Units/L ALT 11 (0-55) Units/L Alkaline Phosphatase 64 (38-126) Units/L Albumin 2.3 L (3.5-5.0) g/dL - ABG Interpretation ABG results: ABG ABG pH 7.21 pH Units (7.32-7.45) L 02/27/17 04:34 ABG pCO2 57 mmHg (35-45) H 02/27/17 04:34 ABG pO2 73 mmHg (85-104) L 02/27/17 04:34 ABG O2 Saturation 90 % (95-98) L 02/27/17 04:34 PT/INR, D-dimer PT 15.2 Seconds (9.4-12.1) H 02/27/17 04:30 - Impressions Impressions Echocardiogram Limited Views 02/26/17 14:27 Impressions: LVEF 55%. Normal right ventricular structure and function. Left Ventricular Wall Motion: Rest Echo Findings All wall segments showed normal motion. Findings: Study Quality * Technically adequate exam. ECG Findings * Normal sinus rhythm. Left Ventricle * Normal LV chamber size, wall thickness and function. * LVEF 55%. Right Ventricle * Normal right ventricular structure and function. Chest X-Ray 02/27/17 06:00 IMPRESSION: Multifocal infiltrates identified, with interval worsening. Increased consolidation in the left perihilar region, with increased interstitial airspace disease in the mid and lower lung field on the left. Suspected small pleural effusions as well. D/ / Jose Juan Beckford MD / Jose Juan Beckford MD Interpreting Provider: Jose Juan Beckford MD Retroperitoneum Ultrasound 02/27/17 09:30 IMPRESSION: No gross hydronephrosis. D/ / Quinton Long MD / Quinton Long MD Interpreting Provider: Quinton Long MD Consult Discharge Plan - Plan Referrals: NONE,PCP [Primary Care Provider] - Palliative Quality Palliative Quality: Screen for Code Status: Yes, Screen for Goals of Care: Yes, Screen for Pain: Yes, If Pain Regimen Started, Initiate Bowel Regimen: Yes, Screen for Nausea/Vomitting: No Code Status: 02/26/17 13:42 Resuscitation Status: Active [RES] Routine Comment: Resuscitation Status: Full Code <Lazaro Butterfield - Last Filed: 02/27/17 14:43> Date of Encounter: 02/27/17 Palliative-CN HPI - Data of Consult Requesting Physician: Alicia Epps MD Primary Care Provider: PCP NONE - Consult Narrative History of present illness: Ms. Bernstein is a 66 year old female CC: Alicia Epps MD Palliative Care-Exam - Constitutional Vitals: Temp Pulse Resp BP Pulse Ox 98.4 F 102 22 109/50 94 02/27/17 14:12 02/27/17 14:12 02/27/17 14:12 02/27/17 14:12 02/27/17 14:12 Internal Medicine - CN: Reslt - Labs CBC & Chem 7: 02/27/17 04:30 02/27/17 04:30 Labs: Short CBC 02/27/17 Range/Units 04:30 WBC 17.6 H D (4.3-11.1) K/mcL Hgb 5.7 L* (11.5-15.4) g/dL Hct 16.3 L (35.3-44.9) % Plt Count 14 L* D (140-400) K/mcL Neutrophils # 5.3 (1.6-8.9) K/mcL BMP 02/27/17 04:30 Sodium 142 Potassium 4.1 Chloride 109 Carbon Dioxide 20 BUN 58 H Creatinine 3.79 H Glucose 110 H Calcium 7.1 L D Liver Function 02/27/17 Range/Units 04:30 Total Bilirubin 0.6 (0.2-1.2) mg/dL Direct Bilirubin 0.4 (0.0-0.5) mg/dL AST 21 (5-34) Units/L ALT 11 (0-55) Units/L Alkaline Phosphatase 64 (38-126) Units/L Albumin 2.3 L (3.5-5.0) g/dL - ABG Interpretation ABG results: ABG ABG pH 7.21 pH Units (7.32-7.45) L 02/27/17 04:34 ABG pCO2 57 mmHg (35-45) H 02/27/17 04:34 ABG pO2 73 mmHg (85-104) L 02/27/17 04:34 ABG O2 Saturation 90 % (95-98) L 02/27/17 04:34 PT/INR, D-dimer PT 15.2 Seconds (9.4-12.1) H 02/27/17 04:30 - Impressions Impressions Echocardiogram Limited Views 02/26/17 14:27 Impressions: LVEF 55%. Normal right ventricular structure and function. Left Ventricular Wall Motion: Rest Echo Findings All wall segments showed normal motion. Findings: Study Quality * Technically adequate exam. ECG Findings * Normal sinus rhythm. Left Ventricle * Normal LV chamber size, wall thickness and function. * LVEF 55%. Right Ventricle * Normal right ventricular structure and function. Chest X-Ray 02/27/17 06:00 IMPRESSION: Multifocal infiltrates identified, with interval worsening. Increased consolidation in the left perihilar region, with increased interstitial airspace disease in the mid and lower lung field on the left. Suspected small pleural effusions as well. D/ / Jose Juan Beckford MD / Jose Juan Beckford MD Interpreting Provider: Jose Juan Beckford MD Retroperitoneum Ultrasound 02/27/17 09:30 IMPRESSION: No gross hydronephrosis. D/ / Quinton Long MD / Quinton Long MD Interpreting Provider: Quinton Long MD - Attending Attestation I examined this patient and my medical decision-making was reviewed with the Resident Physician. I agree with the documented findings, disposition and treatment plan as described except to the extent set forth below. Palliative Quality Code Status: 02/26/17 13:42 Resuscitation Status: Active [RES] Routine Comment: Resuscitation Status: Full Code
[2017-02-27] MEDS: Dexmedetomidine HCl 400 MCG/100 ML MLS IVC SCH (14:10)
[2017-02-27] MEDS: FentaNYL (PF) 1,000 MCG in 0.9 % Sodium Chloride 80 ML IVC SCH (14:11)
--- NOTE | 2017-02-27 17:03 | Oncology Inp Progress Note ---
Date of Encounter: 02/27/17 Time of Encounter: 16:58 (1) AML (acute myelogenous leukemia) Current Visit: Yes Status: Acute Assessment and plan: - Patient remains intubated. CBC from yesterday showed blast count of 14 percent , with 28 percent myeloblasts. Platelet has dropped to 14K ( no associated bleeding) and Hgb has dropped to 5.7 g/dl She is awaiting for blood products requested from [facility]. Her prognosis remains very poor. Palliative care on board, discussing with family palliative options, goals of care. 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 - Constitutional Vitals: Vital Signs Temp Pulse Resp BP Pulse Ox 02/27/17 16:00 106 22 116/49 97 02/27/17 15:53 98.4 F 109 22 118/48 98 02/27/17 15:39 98.4 F 103 22 113/44 94 02/27/17 15:09 22 113/44 94 02/27/17 15:00 98.4 F 105 22 113/44 94 02/27/17 14:12 98.4 F 102 22 109/50 94 02/27/17 14:00 102 22 117/51 94 02/27/17 13:57 98.2 F 105 22 117/51 95 02/27/17 13:53 22 109/52 95 02/27/17 13:00 107 22 115/49 95 02/27/17 12:05 98.6 F 112 22 115/49 95 02/27/17 12:00 98.6 F 112 22 117/46 94 02/27/17 11:18 116 02/27/17 11:06 22 133/52 95 02/27/17 11:00 120 22 133/52 95 02/27/17 10:13 98.3 F 111 22 124/55 97 02/27/17 10:00 107 22 85/45 96 02/27/17 09:58 98.1 F 110 22 106/50 02/27/17 09:48 22 106/50 95 02/27/17 09:00 110 22 112/47 95 02/27/17 08:00 113 22 98/46 95 02/27/17 07:45 98.5 F 02/27/17 07:27 116 02/27/17 07:25 22 115/50 92 02/27/17 07:00 114 20 113/45 94 02/27/17 06:00 115 20 122/47 94 02/27/17 05:23 20 115/48 95 02/27/17 05:00 113 20 108/52 96 02/27/17 04:39 112 02/27/17 04:00 98.4 F 113 20 94 02/27/17 03:37 20 99/44 97 02/27/17 03:00 108 20 103/37 94 02/27/17 02:06 20 100/44 98 02/27/17 02:00 108 20 100/44 94 02/27/17 01:00 112 20 107/48 97 02/27/17 00:00 97.3 F L 112 20 102/45 97 02/26/17 23:59 20 103/52 97 02/26/17 23:22 114 02/26/17 23:00 112 20 110/61 99 02/26/17 22:38 20 106/53 97 02/26/17 22:00 114 20 110/40 95 02/26/17 21:20 97.3 F L 86 20 114/41 100 02/26/17 21:00 86 20 88/32 96 02/26/17 20:03 20 115/57 94 02/26/17 20:00 115 20 115/57 97 02/26/17 19:40 116 02/26/17 19:13 97.4 F L 114 20 101/48 02/26/17 19:00 97.3 F L 116 20 105/56 94 02/26/17 18:58 97.8 F 114 20 102/60 92 02/26/17 18:00 113 20 108/46 92 02/26/17 17:04 20 106/44 92 02/26/17 17:00 117 20 113/44 92 Intake and Output 02/27/17 02/27/17 02/27/17 07:59 15:59 23:59 Intake Total 50 / 50 900 / 900 Output Total 25 / 25 25 / 25 0 / 0 Balance 875 / 875 0 / 0 Intake: IV Fluids 50 / 50 350 / 350 DOPamine Premix 400mg/250mL 400 300 / 300 mg In 250 ml @ 5 MCG/KG/MIN 15 .734 mls/hr IVC .[id number] [facility] Rx #:[id number] Cleocin Premix 600 MG/50 ML 600 50 / 50 50 / 50 mg In 50 ml @ 50 mls/hr IVPB Q8HR [facility] Rx#:[id number] Blood Product 550 / 550 Platelet Ph Acd-A Pasc Lp Irr1 250 / 250 Unit [id number] Rbcs Leuko Poor As-1 Irr Unit 300 / 300 [id number] Rbcs Leuko Poor As-3 Irr 2nd 0 / 0 Unit [id number] Output: Catheter / 0 / 0 Other: Weight 68 kg Blood Glucose* 124 126 Patient Weight 02/27/17 23:59 Weight 68 kg General appearance: no acute distress (Remains intubated, unresponsive) - Head Head exam: Present: normal inspection Oncology: Obj Data - Labs CBC & Chem 7: 02/27/17 04:30 02/27/17 04:30 Labs: Laboratory Results - last 24 hr 02/26/17 02/26/17 02/27/17 12:30 23:21 04:30 WBC 17.6 H D RBC 1.95 L Hgb 5.7 L* Hct 16.3 L MCV 83.6 MCH 29.2 MCHC 35.0 RDW 16.5 H Plt Count 14 L* D MPV 12.4 Seg Neutrophils % 22.0 Band Neutrophils % 8.0 H Lymphocytes % 26.0 Monocytes % 10.0 Eosinophils % 2.0 Metamyelocytes % 4.0 H Myelocytes % 28.0 H Neutrophils # 5.3 Lymphocytes # 4.6 Monocytes # 1.8 H Eosinophils # 0.4 Nucleated RBCs/100 WBC 0.3 H Smudge Cells Present A Platelet Estimate Marked Decrease L Polychromasia 1+ A PT INR Sample Site ABG pH ABG pCO2 ABG pO2 ABG HCO3 ABG Total CO2 ABG O2 Saturation ABG Base Excess Tolu Test Respiration Rate O2 Delivery Device Blood Gas Modality Inspired O2 Tidal Volume PEEP Sodium Potassium Chloride Carbon Dioxide BUN Creatinine Est GFR ( Amer) Est GFR (Non-Af Amer) BUN/Creatinine Ratio Glucose POC Glucose 124 H Calculated Osmolality Calcium Phosphorus Magnesium Total Bilirubin Direct Bilirubin Indirect Bilirubin AST ALT Alkaline Phosphatase Serum Total Protein Albumin Globulin Albumin/Globulin Ratio Random Vancomycin Blood Type A NEGATIVE Antibody Screen POSITIVE A Antibody Identification Known Anti-S MTS Gel Crossmatch See Detail 02/27/17 02/27/17 02/27/17 04:30 04:30 04:34 WBC RBC Hgb Hct MCV MCH MCHC RDW Plt Count MPV Seg Neutrophils % Band Neutrophils % Lymphocytes % Monocytes % Eosinophils % Metamyelocytes % Myelocytes % Neutrophils # Lymphocytes # Monocytes # Eosinophils # Nucleated RBCs/100 WBC Smudge Cells Platelet Estimate Polychromasia PT 15.2 H INR 1.4 Sample Site R Radial ABG pH 7.21 L ABG pCO2 57 H ABG pO2 73 L ABG HCO3 23 ABG Total CO2 24 ABG O2 Saturation 90 L ABG Base Excess -5 L Tolu Test Positive Respiration Rate 20 O2 Delivery Device Adult Vent Blood Gas Modality ASSIST CONTROL Inspired O2 60.0 Tidal Volume 450 PEEP 5 Sodium 142 Potassium 4.1 Chloride 109 Carbon Dioxide 20 BUN 58 H Creatinine 3.79 H Est GFR ( Amer) 14 L Est GFR (Non-Af Amer) 12 L BUN/Creatinine Ratio 15 Glucose 110 H POC Glucose Calculated Osmolality 311 H Calcium 7.1 L D Phosphorus 4.0 Magnesium 1.6 Total Bilirubin 0.6 Direct Bilirubin 0.4 Indirect Bilirubin 0.2 AST 21 ALT 11 Alkaline Phosphatase 64 Serum Total Protein 6.5 D Albumin 2.3 L Globulin 4.2 H Albumin/Globulin Ratio 0.5 L Random Vancomycin 20.9 Blood Type Antibody Screen Antibody Identification MTS Gel Crossmatch 02/27/17 12:17 WBC RBC Hgb Hct MCV MCH MCHC RDW Plt Count MPV Seg Neutrophils % Band Neutrophils % Lymphocytes % Monocytes % Eosinophils % Metamyelocytes % Myelocytes % Neutrophils # Lymphocytes # Monocytes # Eosinophils # Nucleated RBCs/100 WBC Smudge Cells Platelet Estimate Polychromasia PT INR Sample Site ABG pH ABG pCO2 ABG pO2 ABG HCO3 ABG Total CO2 ABG O2 Saturation ABG Base Excess Tolu Test Respiration Rate O2 Delivery Device Blood Gas Modality Inspired O2 Tidal Volume PEEP Sodium Potassium Chloride Carbon Dioxide BUN Creatinine Est GFR ( Amer) Est GFR (Non-Af Amer) BUN/Creatinine Ratio Glucose POC Glucose 126 H Calculated Osmolality Calcium Phosphorus Magnesium Total Bilirubin Direct Bilirubin Indirect Bilirubin AST ALT Alkaline Phosphatase Serum Total Protein Albumin Globulin Albumin/Globulin Ratio Random Vancomycin Blood Type Antibody Screen Antibody Identification MTS Gel Crossmatch - Impressions Impressions Echocardiogram Limited Views 02/26/17 14:27 Impressions: LVEF 55%. Normal right ventricular structure and function. Left Ventricular Wall Motion: Rest Echo Findings All wall segments showed normal motion. Findings: Study Quality * Technically adequate exam. ECG Findings * Normal sinus rhythm. Left Ventricle * Normal LV chamber size, wall thickness and function. * LVEF 55%. Right Ventricle * Normal right ventricular structure and function. Chest X-Ray 02/27/17 06:00 IMPRESSION: Multifocal infiltrates identified, with interval worsening. Increased consolidation in the left perihilar region, with increased interstitial airspace disease in the mid and lower lung field on the left. Suspected small pleural effusions as well. D/ / Jose Juan Beckford MD / Jose Juan Beckford MD Interpreting Provider: Jose Juan Beckford MD Retroperitoneum Ultrasound 02/27/17 09:30 IMPRESSION: No gross hydronephrosis. D/ / Quinton Long MD / Quinton Long MD Interpreting Provider: Quinton Long MD - ABG Interpretation ABG results: ABG ABG pH 7.21 pH Units (7.32-7.45) L 02/27/17 04:34 ABG pCO2 57 mmHg (35-45) H 02/27/17 04:34 ABG pO2 73 mmHg (85-104) L 02/27/17 04:34 ABG O2 Saturation 90 % (95-98) L 02/27/17 04:34 PT/INR, D-dimer PT 15.2 Seconds (9.4-12.1) H 02/27/17 04:30 Consult Discharge Plan - Plan Referrals: NONE,PCP [Primary Care Provider] -
[2017-02-27 20:59] LABS: Acinetobacter baumannii by PCR Not Detected (Not Detect); Candida albicans by PCR Not Detected (Not Detect); Candida glabrata by PCR Not Detected (Not Detect); Candida krusei by PCR Not Detected (Not Detect); Candida parapsilosis by PCR Not Detected (Not Detect); Candida tropicalis by PCR Not Detected (Not Detect); Enterococcus by PCR Not Detected (Not Detect); Escherichia coli by PCR Not Detected (Not Detect); Klebsiella oxytoca by PCR Not Detected (Not Detect); Klebsiella pneumoniae by PCR Not Detected (Not Detect); Pseudomonas aeruginosa by PCR Not Detected (Not Detect); Serratia marcescens by PCR Not Detected (Not Detect); Staphylococcus aureus by PCR Not Detected (Not Detect); Streptococcus agalactiae(B)PCR Not Detected (Not Detect); Streptococcus by PCR Not Detected (Not Detect); Streptococcus pneumoniae PCR Not Detected (Not Detect); Streptococcus pyogenes (A) PCR Not Detected (Not Detect); blaKPC Carbapenem-Resist Gene Not Detected (Not Detect); mecA Methicillin-Resist Gene Not Detected (Not Detect); vanA/B Vancomycin-Resist Genes Not Detected (Not Detect)
[2017-02-28] MEDS: FentaNYL (PF) 1,000 MCG in 0.9 % Sodium Chloride 80 ML IVC SCH ×2 (01:05→15:51)
[2017-02-28] MEDS: Ipratropium/Albuterol Neb 3 ML IH SCH ×4 (03:53→21:51)
[2017-02-28] MEDS ORDERED: Vancomycin 750 MG in D5% in Water 250 ML IVPB ONE (04:00)
[2017-02-28] MEDS: Lacri-Lube 3.5 GM TUBE BOTH EYES SCH ×6 (04:08→23:32)
[2017-02-28 04:32] LABS: Red Cell Distribution Width 15.9 % (11.5-14.5)
[2017-02-28 04:34] LABS: Hematocrit 21.1 % (35.3-44.9); Hemoglobin 7.2 g/dL (11.5-15.4); Immature Platelets 3.5 % (1.1-6.1); Mean Corpuscular HGB Conc 34.1 g/dL (31.6-35.5); Mean Corpuscular Volume 85.1 fL (83.0-100.0); Mean Platelet Volume 9.4 fL (9.4-12.4); Nucleated Red Blood Cells 0.3 /100 WBC (0); Red Blood Count 2.48 M/mcL (3.82-4.97)
[2017-02-28 04:35] LABS: Platelet Count 40 K/mcL (140-400)
[2017-02-28 04:38] LABS: Ionized Calcium 0.99 mmol/L (1.15-1.35)
[2017-02-28 04:44] LABS: Albumin 2.2 g/dL (3.5-5.0); Albumin/Globulin Ratio 0.5 (1.1-2.2); Bilirubin,Total 0.6 mg/dL (0.2-1.2); Calcium 7.3 mg/dL (8.6-10.8); Globulin 4.2 g/dL (2.4-3.5); Magnesium 1.7 mg/dL (1.6-2.6); Phosphorous 3.8 mg/dL (2.3-4.7); Potassium 3.7 mEq/L (3.5-4.5); Total Protein 6.4 g/dL (6.0-8.3)
[2017-02-28 05:09] LABS: Lymphocytes # 3.5 K/mcL (0.6-4.6); Monocytes # 1.3 K/mcL (0.0-1.3); Neutrophils # 12.6 K/mcL (1.6-8.9)
[2017-02-28 05:10] LABS: Platelet Estimate Decreased (Normal)
[2017-02-28] MEDS ORDERED: Calcium Gluconate 1,000 MG in D5% in Water 100 ML IVPB ONE (05:36)
[2017-02-28] MEDS: Pantoprazole 40 MG VIAL IVPB SCH (08:03)
[2017-02-28] MEDS: Clindamycin 600 MG/50 ML 600 MG/50 ML IV.SOLN IVPB SCH (08:03)
[2017-02-28] MEDS: Chlorhexidine Rinse 15 ML MOUTHWASH MM SCH ×2 (08:03→20:09)
--- NOTE | 2017-02-28 08:41 | Nephrology Progress Note ---
Date of Encounter: 02/28/17 Time of Encounter: 08:39 - Assessment and Plan (1) Acute on chronic renal failure Current Visit: Yes Status: Acute Cr today worsened at 4.67. Baseline Cr about 1.5 CKD stage III Etiology likely secondary to septic shock, H.Influenza pneumonia. oliguric RODERICK- total urine output yesterday was 82ml Plan: will continue to monitor renal function avoid nephrotoxic agents as much as possible strict I/O family would like patient to remain full code. consult to IR for temporary HD catheter placement with dialysis afterwards, this will help with pulmonary edema. Qualifiers: Acute renal failure type: with acute tubular necrosis Chronic kidney disease stage: stage 3 (moderate) Qualified Code(s): N17.0 - Acute kidney failure with tubular necrosis; N18.3 - Chronic kidney disease, stage 3 (moderate ); N18.3 - Chronic kidney disease, stage 3 (moderate) (2) Fluid overload Current Visit: Yes Status: Acute as above Qualifiers: Hypervolemia type: unspecified Qualified Code(s): E87.70 - Fluid overload, unspecified (3) Septic shock Current Visit: Yes Status: Resolved secondary to H.Influenza. no longer on dopamine. (4) Thrombocytopenia Current Visit: Yes Status: Acute improved. platelets 40 today after transfusion. (5) Anemia Current Visit: Yes Status: Acute likely not renally related. likely secondary to AML Qualifiers: Anemia type: other cause Other causes of anemia: chronic disease, neoplastic Qualified Code(s): D63.0 - Anemia in neoplastic disease (6) AML (acute myelogenous leukemia) Current Visit: Yes Status: Acute Hx of AML on palliative chemotherapy currently. 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 patient remains intubated and sedated. Objective - Vital Signs Vital signs: Vital Signs Temp Pulse Resp BP Pulse Ox 02/28/17 08:00 22 114/52 97 02/28/17 07:43 97.6 F 02/28/17 07:00 97 22 116/52 97 02/28/17 06:00 98 22 115/54 94 02/28/17 05:35 22 114/53 97 02/28/17 05:00 104 22 118/57 97 02/28/17 04:00 99.0 F 101 22 121/55 95 02/28/17 03:53 22 120/52 95 02/28/17 03:48 105 02/28/17 03:00 101 22 117/52 94 02/28/17 02:00 96 22 115/55 95 02/28/17 01:33 22 116/55 96 02/28/17 01:00 97 22 110/51 94 02/28/17 00:00 105 22 120/58 95 02/27/17 23:52 22 121/53 95 02/27/17 23:14 98.6 F 02/27/17 23:00 100 22 128/57 95 02/27/17 22:00 101 22 122/52 93 02/27/17 21:43 22 118/51 94 02/27/17 21:00 99 22 118/54 95 02/27/17 20:06 105 02/27/17 20:00 98.8 F 108 22 121/55 95 02/27/17 19:55 22 122/54 95 02/27/17 19:00 105 22 118/54 95 02/27/17 18:26 98.6 F 98 22 119/54 100 02/27/17 18:00 98 22 119/54 100 02/27/17 17:13 22 113/58 98 02/27/17 17:00 103 22 113/58 98 02/27/17 16:08 98.6 F 102 22 116/55 95 02/27/17 16:00 106 22 116/49 97 02/27/17 15:53 98.4 F 109 22 118/48 98 02/27/17 15:39 98.4 F 103 22 113/44 94 02/27/17 15:09 22 113/44 94 02/27/17 15:00 98.4 F 105 22 113/44 94 02/27/17 14:12 98.4 F 102 22 109/50 94 02/27/17 14:00 102 22 117/51 94 02/27/17 13:57 98.2 F 105 22 117/51 95 02/27/17 13:53 22 109/52 95 02/27/17 13:00 107 22 115/49 95 02/27/17 12:05 98.6 F 112 22 115/49 95 02/27/17 12:00 98.6 F 112 22 117/46 94 02/27/17 11:18 116 02/27/17 11:06 22 133/52 95 02/27/17 11:00 120 22 133/52 95 02/27/17 10:13 98.3 F 111 22 124/55 97 02/27/17 10:00 107 22 85/45 96 02/27/17 09:58 98.1 F 110 22 106/50 02/27/17 09:48 22 106/50 95 02/27/17 09:00 110 22 112/47 95 Intake and Output 02/27/17 02/28/17 02/28/17 23:59 07:59 15:59 Intake Total 300 / 300 150 / 150 Output Total / Balance 268 / 268 125 / 125 Intake: IV Fluids 50 / 50 150 / 150 FentaNYL (PF) 1,000 MCG In 0.9 100 / 100 % Sodium Chloride 80 ML @ 50 MCG/HR 5 mls/hr IVC CONT PIPPA Rx #:[id number] Cleocin Premix 600 MG/50 ML 600 50 / 50 50 / 50 mg In 50 ml @ 50 mls/hr IVPB Q8HR PIPPA Rx#:[id number] Blood Product 250 / 250 Rbcs Leuko Poor As-3 Irr 2nd 250 / 250 Unit [id number] Output: Catheter Other: Weight 68.1 kg Blood Glucose* 102 Patient Weight 02/28/17 23:59 Weight 68.1 kg - General Appearance General appearance: Present: well-developed, well-nourished, appears started age , sedated on ventilator, intubated Neck: Present: no JVD, no thyromegaly, supple Additional Comments: mild wheezing present on left side. Cardiology: Present: regular rate, regular rhythm, normal S1, normal S2 Gastrointestinal: Present: hypoactive bowel sounds, no tenderness, no guarding, no masses Integumentary: Present: no rash Additional Comments: severe bruising present on right arm. Additional Comments: sedated and on ventilator. Musculoskeletal: Present: no deformities, no cyanosis, no clubbing - Lab 02/28/17 04:05 02/28/17 04:05 Most recent lab results ABG pH 7.21 pH Units (7.32-7.45) L 02/27/17 04:34 ABG pCO2 57 mmHg (35-45) H 02/27/17 04:34 ABG pO2 73 mmHg (85-104) L 02/27/17 04:34 ABG HCO3 23 mEq/L (21-27) 02/27/17 04:34 ABG O2 Saturation 90 % (95-98) L 02/27/17 04:34 Calcium 7.3 mg/dL (8.6-10.8) L 02/28/17 04:05 Phosphorus 3.8 mg/dL (2.3-4.7) 02/28/17 04:05 Magnesium 1.7 mg/dL (1.6-2.6) 02/28/17 04:05 Consult Discharge Plan - Plan Referrals: NONE,PCP [Primary Care Provider] -
--- NOTE | 2017-02-28 09:19 | Palliative Progress Note ---
<Chaz Cavanaugh - Last Filed: 02/28/17 09:17> Date of Encounter: 02/28/17 Time of Encounter: 09:17 - Assessment and plan (1) Goals of care, counseling/discussion Current Visit: Yes Status: Acute Assessment and plan: Full code. Received total of 3 PRBC and one platelet transfusion. hgb 0.2 and platelets 40. Patient not requiring pressors and has stable blood pressure. Patient able to open eyes spontaneously, follows commands. Able to squeeze hands when asked. had discussion with patient about code status. Patient squeezed hand once for yes, twice for now or 3 times for did not understand. Patient wants to be full code. Agreed with Lynnette. We will discuss this with family at 11:00 today. (2) Aspiration pneumonia Current Visit: Yes Status: Acute Assessment and plan: intubated on levofloxacin gram negative bacteremia (single blood culture only) management as per primary Qualifiers: Aspiration pneumonia type: due to vomit Laterality: right Lung location: lower lobe of lung Qualified Code(s): J69.0 - Pneumonitis due to inhalation of food and vomit (3) Anemia Current Visit: Yes Status: Acute Assessment and plan: 2nd to AML improved transfused 3 PRBC Hemoglobin now 7.2 and blood pressure stable. Off pressors Qualifiers: Anemia type: other cause Other causes of anemia: chronic disease, neoplastic Qualified Code(s): D63.0 - Anemia in neoplastic disease (4) Acute respiratory failure with hypercapnia Current Visit: Yes Status: Acute Assessment and plan: 2nd to aspiration pna intubated On antibiotics. management as per primary team (5) AML (acute myelogenous leukemia) Current Visit: Yes Status: Acute Assessment and plan: patient in on palliative treatment outpatient before admission requires multiple transfusions per week of PBRC and platelets. leukocytosis decreased from 60 to 21 management as per onc and primary team. 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 Qualifiers: Acute renal failure type: with acute tubular necrosis Chronic kidney disease stage: stage 3 (moderate) Qualified Code(s): N17.0 - Acute kidney failure with tubular necrosis; N18.3 - Chronic kidney disease, stage 3 (moderate ); N18.3 - Chronic kidney disease, stage 3 (moderate) - Time Spent With Patient Total time spent is greater than 50% in coordination of care (as documented) at patient's floor/unit and/or counseling patient: - Subjective Interval history: No acute events overnight. Patient resting comfortably. Intubated. Opens eyes spontaneously and follows commands. - Constitutional Vitals: Abnormal lab results WBC 21.7 K/mcL (4.3-11.1) H 02/28/17 04:05 RBC 2.48 M/mcL (3.82-4.97) L 02/28/17 04:05 Hgb 7.2 g/dL (11.5-15.4) L D 02/28/17 04:05 Hct 21.1 % (35.3-44.9) L 02/28/17 04:05 RDW 15.9 % (11.5-14.5) H 02/28/17 04:05 Plt Count 40 K/mcL (140-400) L D 02/28/17 04:05 Band Neutrophils % 8.0 % (0-4) H 02/28/17 04:05 Blast Cells % 14.0 % (0) H 02/26/17 10:45 Metamyelocytes % 8.0 % (0) H 02/28/17 04:05 Myelocytes % 12.0 % (0) H 02/28/17 04:05 Neutrophils # 12.6 K/mcL (1.6-8.9) H 02/28/17 04:05 Nucleated RBCs/100 WBC 0.3 /100 WBC (0) H 02/28/17 04:05 Smudge Cells Present (Not Present) A 02/27/17 04:30 Platelet Estimate Decreased (Normal) L 02/28/17 04:05 Polychromasia 1+ (Not Present) A 02/27/17 04:30 Anisocytosis 1+ (Not Present) A 02/26/17 10:45 PT 15.2 Seconds (9.4-12.1) H 02/27/17 04:30 ABG pH 7.21 pH Units (7.32-7.45) L 02/27/17 04:34 ABG pCO2 57 mmHg (35-45) H 02/27/17 04:34 ABG pO2 73 mmHg (85-104) L 02/27/17 04:34 ABG O2 Saturation 90 % (95-98) L 02/27/17 04:34 ABG Base Excess -5 mEq/L (-2 to 3) L 02/27/17 04:34 BUN 71 mg/dL (7-20) H 02/28/17 04:05 Creatinine 4.67 mg/dL (0.57-1.11) H 02/28/17 04:05 Est GFR ( Amer) 11 (> 60) L 02/28/17 04:05 Est GFR (Non-Af Amer) 9 (> 60) L 02/28/17 04:05 POC Glucose 102 (58-89) H 02/27/17 23:11 Lactic Acid 2.6 mmol/L (0.5-2.2) H 02/26/17 10:44 Calculated Osmolality 313 (280-300) H 02/28/17 04:05 Calcium 7.3 mg/dL (8.6-10.8) L 02/28/17 04:05 Ionized Calcium 0.99 mmol/L (1.15-1.35) L 02/28/17 04:05 Troponin I 0.15 ng/mL (0-0.03) H* 02/26/17 10:45 Albumin 2.2 g/dL (3.5-5.0) L 02/28/17 04:05 Globulin 4.2 g/dL (2.4-3.5) H 02/28/17 04:05 Albumin/Globulin Ratio 0.5 (1.1-2.2) L 02/28/17 04:05 Urine Clarity Turbid (Clear) A 02/26/17 10:45 Ur Specific [place] 1.028 (1.010-1.025) H 02/26/17 10:45 Urine Protein 100 mg/dL (Neg-Trace) H 02/26/17 10:45 Urine Blood Small (Negative) H 02/26/17 10:45 Urine Bilirubin Small (Negative) H 02/26/17 10:45 Urine Microscopic WBC 50-100 per hpf (0-3) H 02/26/17 10:45 Ur Squamous Epith Cells Many per lpf (None-Few) H 02/26/17 10:45 Amorphous Sediment Many (Few) H 02/26/17 10:45 Granular Casts Many per lpf (None Seen) H 02/26/17 10:45 U Benzodiazepines Scrn Positive ng/mL (Xzyllf=451) H 02/26/17 10:45 H. influenzae (PCR) DETECTED (Not Detect) A 02/26/17 10:45 Antibody Screen POSITIVE A 02/26/17 12:30 - Additional findings Additional findings: General: Pleasant female without distress Heart: Regular rate and rhythm with no murmur Lungs: Clear to auscultation bilaterally. Intubated Abdomen: Soft nontender, nondistended positive bowel sounds. OG tube Skin: warm and dry Extremities: Absent pedal edema, Neuro: Alert. Patient squeezes hand. Fosamax. Opens eyes spontaneously. Vascular: Pedal and radial pulses 2 out of 4 Palliative Quality Palliative Quality: Screen for Code Status: Yes, Screen for Goals of Care: Yes, Screen for Pain: Yes, If Pain Regimen Started, Initiate Bowel Regimen: Yes, Screen for Nausea/Vomitting: No Code Status: 02/26/17 13:42 Resuscitation Status: Active [RES] Routine Comment: Resuscitation Status: Full Code - Labs CBC & Chem 7: 02/28/17 04:05 02/28/17 04:05 Labs: Laboratory Results - last 24 hr 02/26/17 02/27/17 02/27/17 12:30 04:30 12:17 WBC RBC Hgb Hct MCV MCH MCHC RDW Plt Count MPV Seg Neutrophils % Band Neutrophils % Lymphocytes % Monocytes % Metamyelocytes % Myelocytes % Neutrophils # Lymphocytes # Monocytes # Nucleated RBCs/100 WBC Platelet Estimate Immature Plt Fraction Sodium 142 Potassium 4.1 Chloride 109 Carbon Dioxide 20 BUN 58 H Creatinine 3.79 H Est GFR ( Amer) 14 L Est GFR (Non-Af Amer) 12 L BUN/Creatinine Ratio 15 Glucose 110 H POC Glucose 126 H Calculated Osmolality 311 H Calcium 7.1 L D Ionized Calcium Phosphorus 4.0 Magnesium 1.6 Total Bilirubin 0.6 Direct Bilirubin 0.4 Indirect Bilirubin 0.2 AST 21 ALT 11 Alkaline Phosphatase 64 Serum Total Protein 6.5 D Albumin 2.3 L Globulin 4.2 H Albumin/Globulin Ratio 0.5 L Random Vancomycin 20.9 Blood Type A NEGATIVE Antibody Screen POSITIVE A Antibody Identification Known Anti-S MTS Gel Crossmatch See Detail 02/27/17 02/28/17 02/28/17 23:11 04:05 04:05 WBC 21.7 H RBC 2.48 L Hgb 7.2 L D Hct 21.1 L MCV 85.1 MCH 29.0 MCHC 34.1 RDW 15.9 H Plt Count 40 L D MPV 9.4 Seg Neutrophils % 50.0 Band Neutrophils % 8.0 H Lymphocytes % 16.0 Monocytes % 6.0 Metamyelocytes % 8.0 H Myelocytes % 12.0 H Neutrophils # 12.6 H Lymphocytes # 3.5 Monocytes # 1.3 Nucleated RBCs/100 WBC 0.3 H Platelet Estimate Decreased L Immature Plt Fraction 3.5 Sodium 141 Potassium 3.7 Chloride 107 Carbon Dioxide 21 BUN 71 H Creatinine 4.67 H Est GFR ( Amer) 11 L Est GFR (Non-Af Amer) 9 L BUN/Creatinine Ratio 15 Glucose 95 POC Glucose 102 H Calculated Osmolality 313 H Calcium 7.3 L Ionized Calcium 0.99 L Phosphorus 3.8 Magnesium 1.7 Total Bilirubin 0.6 Direct Bilirubin Indirect Bilirubin AST 19 ALT 9 Alkaline Phosphatase 66 Serum Total Protein 6.4 Albumin 2.2 L Globulin 4.2 H Albumin/Globulin Ratio 0.5 L Random Vancomycin Blood Type Antibody Screen Antibody Identification MTS Gel Crossmatch - Impressions Impressions Echocardiogram Limited Views 02/26/17 14:27 Impressions: LVEF 55%. Normal right ventricular structure and function. Left Ventricular Wall Motion: Rest Echo Findings All wall segments showed normal motion. Findings: Study Quality * Technically adequate exam. ECG Findings * Normal sinus rhythm. Left Ventricle * Normal LV chamber size, wall thickness and function. * LVEF 55%. Right Ventricle * Normal right ventricular structure and function. Retroperitoneum Ultrasound 02/27/17 09:30 IMPRESSION: No gross hydronephrosis. D/ / Quinton Long MD / Quinton Long MD Interpreting Provider: Quinton Long MD Chest X-Ray 02/28/17 06:36 IMPRESSION: Stable cardiomegaly. Patchy airspace opacities bilaterally, likely related to pulmonary edema versus pneumonia, stable. D/ / Jose Chiang MD / Jose Chiang MD Interpreting Provider: Jose Chiang MD - ABG Interpretation ABG results: ABG ABG pH 7.21 pH Units (7.32-7.45) L 02/27/17 04:34 ABG pCO2 57 mmHg (35-45) H 02/27/17 04:34 ABG pO2 73 mmHg (85-104) L 02/27/17 04:34 ABG O2 Saturation 90 % (95-98) L 02/27/17 04:34 PT/INR, D-dimer PT 15.2 Seconds (9.4-12.1) H 02/27/17 04:30 Consult Discharge Plan - Plan Referrals: NONE,PCP [Primary Care Provider] - <Lazaro Butterfield - Last Filed: 02/28/17 09:36> Date of Encounter: 02/28/17 - Time Spent With Patient Total time spent is greater than 50% in coordination of care (as documented) at patient's floor/unit and/or counseling patient: - Constitutional Vitals: Abnormal lab results WBC 21.7 K/mcL (4.3-11.1) H 02/28/17 04:05 RBC 2.48 M/mcL (3.82-4.97) L 02/28/17 04:05 Hgb 7.2 g/dL (11.5-15.4) L D 02/28/17 04:05 Hct 21.1 % (35.3-44.9) L 02/28/17 04:05 RDW 15.9 % (11.5-14.5) H 02/28/17 04:05 Plt Count 40 K/mcL (140-400) L D 02/28/17 04:05 Band Neutrophils % 8.0 % (0-4) H 02/28/17 04:05 Blast Cells % 14.0 % (0) H 02/26/17 10:45 Metamyelocytes % 8.0 % (0) H 02/28/17 04:05 Myelocytes % 12.0 % (0) H 02/28/17 04:05 Neutrophils # 12.6 K/mcL (1.6-8.9) H 02/28/17 04:05 Nucleated RBCs/100 WBC 0.3 /100 WBC (0) H 02/28/17 04:05 Smudge Cells Present (Not Present) A 02/27/17 04:30 Platelet Estimate Decreased (Normal) L 02/28/17 04:05 Polychromasia 1+ (Not Present) A 02/27/17 04:30 Anisocytosis 1+ (Not Present) A 02/26/17 10:45 PT 15.2 Seconds (9.4-12.1) H 02/27/17 04:30 ABG pH 7.21 pH Units (7.32-7.45) L 02/27/17 04:34 ABG pCO2 57 mmHg (35-45) H 02/27/17 04:34 ABG pO2 73 mmHg (85-104) L 02/27/17 04:34 ABG O2 Saturation 90 % (95-98) L 02/27/17 04:34 ABG Base Excess -5 mEq/L (-2 to 3) L 02/27/17 04:34 BUN 71 mg/dL (7-20) H 02/28/17 04:05 Creatinine 4.67 mg/dL (0.57-1.11) H 02/28/17 04:05 Est GFR ( Amer) 11 (> 60) L 02/28/17 04:05 Est GFR (Non-Af Amer) 9 (> 60) L 02/28/17 04:05 POC Glucose 102 (58-89) H 02/27/17 23:11 Lactic Acid 2.6 mmol/L (0.5-2.2) H 02/26/17 10:44 Calculated Osmolality 313 (280-300) H 02/28/17 04:05 Calcium 7.3 mg/dL (8.6-10.8) L 02/28/17 04:05 Ionized Calcium 0.99 mmol/L (1.15-1.35) L 02/28/17 04:05 Troponin I 0.15 ng/mL (0-0.03) H* 02/26/17 10:45 Albumin 2.2 g/dL (3.5-5.0) L 02/28/17 04:05 Globulin 4.2 g/dL (2.4-3.5) H 02/28/17 04:05 Albumin/Globulin Ratio 0.5 (1.1-2.2) L 02/28/17 04:05 Urine Clarity Turbid (Clear) A 02/26/17 10:45 Ur Specific [place] 1.028 (1.010-1.025) H 02/26/17 10:45 Urine Protein 100 mg/dL (Neg-Trace) H 02/26/17 10:45 Urine Blood Small (Negative) H 02/26/17 10:45 Urine Bilirubin Small (Negative) H 02/26/17 10:45 Urine Microscopic WBC 50-100 per hpf (0-3) H 02/26/17 10:45 Ur Squamous Epith Cells Many per lpf (None-Few) H 02/26/17 10:45 Amorphous Sediment Many (Few) H 02/26/17 10:45 Granular Casts Many per lpf (None Seen) H 02/26/17 10:45 U Benzodiazepines Scrn Positive ng/mL (Qgjwsf=463) H 02/26/17 10:45 H. influenzae (PCR) DETECTED (Not Detect) A 02/26/17 10:45 Antibody Screen POSITIVE A 02/26/17 12:30 - Attending Attestation I examined this patient and my medical decision-making was reviewed with the Resident Physician. I agree with the documented findings, disposition and treatment plan as described except to the extent set forth below. During discussion with my resident the patient was able to indicate that she would want to be a full code and would want Lynnette if that was necessary. Plan for meeting at 11:00 today. Inform family of these findings, and find out what they are thinking as well. Palliative Quality Code Status: 02/26/17 13:42 Resuscitation Status: Active [RES] Routine Comment: Resuscitation Status: Full Code - Labs CBC & Chem 7: 02/28/17 04:05 02/28/17 04:05 Labs: Laboratory Results - last 24 hr 02/26/17 02/27/17 02/27/17 12:30 04:30 12:17 WBC RBC Hgb Hct MCV MCH MCHC RDW Plt Count MPV Seg Neutrophils % Band Neutrophils % Lymphocytes % Monocytes % Metamyelocytes % Myelocytes % Neutrophils # Lymphocytes # Monocytes # Nucleated RBCs/100 WBC Platelet Estimate Immature Plt Fraction Sodium 142 Potassium 4.1 Chloride 109 Carbon Dioxide 20 BUN 58 H Creatinine 3.79 H Est GFR ( Amer) 14 L Est GFR (Non-Af Amer) 12 L BUN/Creatinine Ratio 15 Glucose 110 H POC Glucose 126 H Calculated Osmolality 311 H Calcium 7.1 L D Ionized Calcium Phosphorus 4.0 Magnesium 1.6 Total Bilirubin 0.6 Direct Bilirubin 0.4 Indirect Bilirubin 0.2 AST 21 ALT 11 Alkaline Phosphatase 64 Serum Total Protein 6.5 D Albumin 2.3 L Globulin 4.2 H Albumin/Globulin Ratio 0.5 L Random Vancomycin 20.9 Blood Type A NEGATIVE Antibody Screen POSITIVE A Antibody Identification Known Anti-S MTS Gel Crossmatch See Detail 02/27/17 02/28/17 02/28/17 23:11 04:05 04:05 WBC 21.7 H RBC 2.48 L Hgb 7.2 L D Hct 21.1 L MCV 85.1 MCH 29.0 MCHC 34.1 RDW 15.9 H Plt Count 40 L D MPV 9.4 Seg Neutrophils % 50.0 Band Neutrophils % 8.0 H Lymphocytes % 16.0 Monocytes % 6.0 Metamyelocytes % 8.0 H Myelocytes % 12.0 H Neutrophils # 12.6 H Lymphocytes # 3.5 Monocytes # 1.3 Nucleated RBCs/100 WBC 0.3 H Platelet Estimate Decreased L Immature Plt Fraction 3.5 Sodium 141 Potassium 3.7 Chloride 107 Carbon Dioxide 21 BUN 71 H Creatinine 4.67 H Est GFR ( Amer) 11 L Est GFR (Non-Af Amer) 9 L BUN/Creatinine Ratio 15 Glucose 95 POC Glucose 102 H Calculated Osmolality 313 H Calcium 7.3 L Ionized Calcium 0.99 L Phosphorus 3.8 Magnesium 1.7 Total Bilirubin 0.6 Direct Bilirubin Indirect Bilirubin AST 19 ALT 9 Alkaline Phosphatase 66 Serum Total Protein 6.4 Albumin 2.2 L Globulin 4.2 H Albumin/Globulin Ratio 0.5 L Random Vancomycin Blood Type Antibody Screen Antibody Identification MTS Gel Crossmatch - Impressions Impressions Echocardiogram Limited Views 02/26/17 14:27 Impressions: LVEF 55%. Normal right ventricular structure and function. Left Ventricular Wall Motion: Rest Echo Findings All wall segments showed normal motion. Findings: Study Quality * Technically adequate exam. ECG Findings * Normal sinus rhythm. Left Ventricle * Normal LV chamber size, wall thickness and function. * LVEF 55%. Right Ventricle * Normal right ventricular structure and function. Chest X-Ray 02/28/17 06:36
[2017-02-28] MEDS ORDERED: Albumin 25% 12.5gm/50mL 12.5 GM/50 ML IV.SOLN IVPB PRN (11:57)
[2017-02-28] MEDS ORDERED: 0.9 % Sodium Chloride 250 ML IVC PRN (11:57)
[2017-02-28] MEDS ORDERED: *HR* Heparin 5,000 UNIT/ML VIAL ONE (12:27)
[2017-02-28] MEDS: Levofloxacin 750 MG/150 ML 750 MG/150 ML BAG IVPB SCH (12:30)
[2017-02-28] MEDS: Dexmedetomidine HCl 400 MCG/100 ML MLS IVC SCH (12:33)
--- NOTE | 2017-02-28 12:45 | IR Procedure Note ---
Date of procedure: 02/28/17 Consent Obtained: Verbal consent, Written consent Timeout: Correct patient and procedure verified, Correct site verified, Time out performed, Skin prep completed Local anesthetic: Lidocaine 1% Indications: ARF Procedure Performed: temp HDC placement Site/Technique: CHE Estimated blood loss (cc): 5 Complications: None; Tolerated procedure well Post Procedure Treatment Plan: CXR
--- NOTE | 2017-02-28 13:04 | Pulmonology Progress Note ---
<JacksonMichael zafar - Last Filed: 02/28/17 13:01> Date of Encounter: 02/28/17 Time of Encounter: 13:01 Assessment and Plan (1) Septic shock Current Visit: Yes Status: Acute Secondary to Haemophilus influenza pneumonia. Shock appears to resolving at this time as the patient is no longer requiring pressor support. Continue Levaquin. (2) Acute respiratory failure with hypercapnia Current Visit: Yes Status: Acute Secondary to Haemophilus influenza pneumonia as discussed above, pulmonary edema is also contributing. Pneumonia is being adequately treated, we will likely initiate hemodialysis today for fluid removal. Continue ventilatory support. (3) AML (acute myelogenous leukemia) Current Visit: Yes Status: Acute With pancytopenia at baseline. Per records review treatment intent is currently palliative. Significant elevation in her white count possibly related to underlying infection. Continue treatment as above. Oncology has been consulted and is following. 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 Continue Levaquin. Qualifiers: Pneumonia type: due to Haemophilus influenzae Laterality: unspecified laterality Lung location: unspecified part of lung Qualified Code(s): J14 - Pneumonia due to Hemophilus influenzae (5) Acute on chronic renal failure Current Visit: Yes Status: Acute Creatinine 4.76 today, Creatinine 3.99 on presentation, baseline appears to be around 1.5. Concern for ATN in the setting of critical illness given granular casts found in the urine. Urine output remains poor. We will initiate hemodialysis today per nephrology. Qualifiers: Acute renal failure type: with acute tubular necrosis Chronic kidney disease stage: stage 3 (moderate) Qualified Code(s): N17.0 - Acute kidney failure with tubular necrosis; N18.3 - Chronic kidney disease, stage 3 (moderate ); N18.3 - Chronic kidney disease, stage 3 (moderate) (6) Anemia Current Visit: Yes Status: Acute 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 Baseline appears to be around 8. Hgb 6.2 on presentation, down to 5.7 yesterday, 7.2 today after 3 total units. No obvious source of bleeding. Continue to monitor Qualifiers: Anemia type: other cause Other causes of anemia: chronic disease, neoplastic Qualified Code(s): D63.0 - Anemia in neoplastic disease (7) Thrombocytopenia Current Visit: Yes Status: Acute Blood counts 48 on presentation, is 14 yesterday, 40 today after platelet transfusion yesterday. likely related to the patient's underlying severe AML as discussed above. No evidence of active bleeding. Continue to monitor. Subjective Principal diagnosis: Unresponsive Interval history: Patient seen and examined at bedside. Patient remains intubated and sedated. She is minimally responsive at this time. She does not appear to be in any acute distress. Objective PUL Vital signs: Last Vital Signs Temp 97.6 F 02/28/17 07:43 Pulse 98 02/28/17 12:00 Resp 22 02/28/17 12:00 BP 121/57 02/28/17 12:00 Pulse Ox 95 02/28/17 12:00 General appearance: comatose ENT: oropharynx moist Auscultation: bilateral: rhonchi Cardiovascular: regular rate and rhythm Gastrointestinal: hypoactive bowel sounds, soft, non-tender Extremities: no cyanosis, no clubbing, edema (3+ edema) unable to assess due to mental status Ventilator Settings Ventilator Settings: Ventilator Settings, Last 8 Hours Ventilator Mode A/C Ventilator Mode A/C Ventilator Mode A/C Ventilator Mode A/C Ventilator Mode A/C Ventilator Mode A/C Ventilator Mode A/C Ventilator Mode A/C Ventilator Mode A/C Ventilator Mode A/C Ventilator Tidal Volume 450 Setting Ventilator Tidal Volume 450 Setting Ventilator Tidal Volume 450 Setting Ventilator Tidal Volume 450 Setting Ventilator Tidal Volume 450 Setting Ventilator Tidal Volume 450 Setting Ventilator Tidal Volume 450 Setting Ventilator Tidal Volume 450 Setting Ventilator Tidal Volume 450 Setting Ventilator Tidal Volume 450 Setting Ventilator Respiratory Rate 22 Setting Ventilator Respiratory Rate 22 Setting Ventilator Respiratory Rate 22 Setting Ventilator Respiratory Rate 22 Setting Ventilator Respiratory Rate 22 Setting Ventilator Respiratory Rate 22 Setting Ventilator Respiratory Rate 22 Setting Ventilator Respiratory Rate 22 Setting Ventilator Respiratory Rate 22 Setting Ventilator Respiratory Rate 22 Setting Actual Respiratory Rate 22 Actual Respiratory Rate 22 Actual Respiratory Rate 22 Actual Respiratory Rate 22 Actual Respiratory Rate 22 Actual Respiratory Rate 22 Actual Respiratory Rate 22 Actual Respiratory Rate 22 Actual Respiratory Rate 22 Actual Respiratory Rate 22 Positive End Expiratory 5 Pressure Positive End Expiratory 5 Pressure Positive End Expiratory 5 Pressure Positive End Expiratory 5 Pressure Positive End Expiratory 5 Pressure Positive End Expiratory 5 Pressure Positive End Expiratory 5 Pressure Positive End Expiratory 5 Pressure Positive End Expiratory 5 Pressure Positive End Expiratory 5 Pressure Peak Inspiratory Airway 26 Pressure Peak Inspiratory Airway 45 Pressure Peak Inspiratory Airway 44 Pressure Peak Inspiratory Airway 42 Pressure Results - Laboratory Findings CBC and BMP: 02/28/17 04:05 02/28/17 04:05 ABG ABG pH 7.21 pH Units (7.32-7.45) L 02/27/17 04:34 ABG pCO2 57 mmHg (35-45) H 02/27/17 04:34 ABG pO2 73 mmHg (85-104) L 02/27/17 04:34 ABG O2 Saturation 90 % (95-98) L 02/27/17 04:34 PT/INR, D-dimer PT 15.2 Seconds (9.4-12.1) H 02/27/17 04:30 Abnormal lab findings: Abnormal lab results WBC 21.7 K/mcL (4.3-11.1) H 02/28/17 04:05 RBC 2.48 M/mcL (3.82-4.97) L 02/28/17 04:05 Hgb 7.2 g/dL (11.5-15.4) L D 02/28/17 04:05 Hct 21.1 % (35.3-44.9) L 02/28/17 04:05 RDW 15.9 % (11.5-14.5) H 02/28/17 04:05 Plt Count 40 K/mcL (140-400) L D 02/28/17 04:05 Band Neutrophils % 8.0 % (0-4) H 02/28/17 04:05 Blast Cells % 14.0 % (0) H 02/26/17 10:45 Metamyelocytes % 8.0 % (0) H 02/28/17 04:05 Myelocytes % 12.0 % (0) H 02/28/17 04:05 Neutrophils # 12.6 K/mcL (1.6-8.9) H 02/28/17 04:05 Nucleated RBCs/100 WBC 0.3 /100 WBC (0) H 02/28/17 04:05 Smudge Cells Present (Not Present) A 02/27/17 04:30 Platelet Estimate Decreased (Normal) L 02/28/17 04:05 Polychromasia 1+ (Not Present) A 02/27/17 04:30 Anisocytosis 1+ (Not Present) A 02/26/17 10:45 PT 15.2 Seconds (9.4-12.1) H 02/27/17 04:30 ABG pH 7.21 pH Units (7.32-7.45) L 02/27/17 04:34 ABG pCO2 57 mmHg (35-45) H 02/27/17 04:34 ABG pO2 73 mmHg (85-104) L 02/27/17 04:34 ABG O2 Saturation 90 % (95-98) L 02/27/17 04:34 ABG Base Excess -5 mEq/L (-2 to 3) L 02/27/17 04:34 BUN 71 mg/dL (7-20) H 02/28/17 04:05 Creatinine 4.67 mg/dL (0.57-1.11) H 02/28/17 04:05 Est GFR ( Amer) 11 (> 60) L 02/28/17 04:05 Est GFR (Non-Af Amer) 9 (> 60) L 02/28/17 04:05 POC Glucose 102 (58-89) H 02/27/17 23:11 Lactic Acid 2.6 mmol/L (0.5-2.2) H 02/26/17 10:44 Calculated Osmolality 313 (280-300) H 02/28/17 04:05 Calcium 7.3 mg/dL (8.6-10.8) L 02/28/17 04:05 Ionized Calcium 0.99 mmol/L (1.15-1.35) L 02/28/17 04:05 Troponin I 0.15 ng/mL (0-0.03) H* 02/26/17 10:45 Albumin 2.2 g/dL (3.5-5.0) L 02/28/17 04:05 Globulin 4.2 g/dL (2.4-3.5) H 02/28/17 04:05 Albumin/Globulin Ratio 0.5 (1.1-2.2) L 02/28/17 04:05 Urine Clarity Turbid (Clear) A 02/26/17 10:45 Ur Specific [place] 1.028 (1.010-1.025) H 02/26/17 10:45 Urine Protein 100 mg/dL (Neg-Trace) H 02/26/17 10:45 Urine Blood Small (Negative) H 02/26/17 10:45 Urine Bilirubin Small (Negative) H 02/26/17 10:45 Urine Microscopic WBC 50-100 per hpf (0-3) H 02/26/17 10:45 Ur Squamous Epith Cells Many per lpf (None-Few) H 02/26/17 10:45 Amorphous Sediment Many (Few) H 02/26/17 10:45 Granular Casts Many per lpf (None Seen) H 02/26/17 10:45 U Benzodiazepines Scrn Positive ng/mL (Etnvov=937) H 02/26/17 10:45 H. influenzae (PCR) DETECTED (Not Detect) A 02/26/17 10:45 Antibody Screen POSITIVE A 02/26/17 12:30 - Microbiology Findings Microbiology Findings: Microbiology, Last 48 Hours 02/28/17 04:10 Sputum Culture - Preliminary Sputum - Clinical Findings Intake & Output: Intake & Output 02/27/17 02/28/17 02/28/17 23:59 07:59 15:59 Intake Total 300 / 300 150 / 150 50 / 50 Output Total 32 / 32 Balance 268 / 268 125 / 125 50 / 50 Weight 68.1 kg Consult Discharge Plan - Plan Referrals: NONE,PCP [Primary Care Provider] - <Alicia Epps - Last Filed: 02/28/17 14:18> Date of Encounter: 02/28/17 Objective PUL Vital signs: Last Vital Signs Temp 98.2 F 02/28/17 13:00 Pulse 101 02/28/17 13:00 Resp 22 02/28/17 13:00 BP 104/50 02/28/17 13:00 Pulse Ox 93 02/28/17 13:00 Ventilator Settings Ventilator Settings: Ventilator Settings, Last 8 Hours Ventilator Mode A/C Ventilator Mode A/C Ventilator Mode A/C Ventilator Mode A/C Ventilator Mode A/C Ventilator Mode A/C Ventilator Mode A/C Ventilator Mode A/C Ventilator Mode A/C Ventilator Tidal Volume 450 Setting Ventilator Tidal Volume 450 Setting Ventilator Tidal Volume 450 Setting Ventilator Tidal Volume 450 Setting Ventilator Tidal Volume 450 Setting Ventilator Tidal Volume 450 Setting Ventilator Tidal Volume 450 Setting Ventilator Tidal Volume 450 Setting Ventilator Tidal Volume 450 Setting Ventilator Respiratory Rate 22 Setting Ventilator Respiratory Rate 22 Setting Ventilator Respiratory Rate 22 Setting Ventilator Respiratory Rate 22 Setting Ventilator Respiratory Rate 22 Setting Ventilator Respiratory Rate 22 Setting Ventilator Respiratory Rate 22 Setting Ventilator Respiratory Rate 22 Setting Ventilator Respiratory Rate 22 Setting Actual Respiratory Rate 22 Actual Respiratory Rate 22 Actual Respiratory Rate 22 Actual Respiratory Rate 22 Actual Respiratory Rate 22 Actual Respiratory Rate 22 Actual Respiratory Rate 22 Actual Respiratory Rate 22 Actual Respiratory Rate 22 Positive End Expiratory 5 Pressure Positive End Expiratory 5 Pressure Positive End Expiratory 5 Pressure Positive End Expiratory 5 Pressure Positive End Expiratory 5 Pressure Positive End Expiratory 5 Pressure Positive End Expiratory 5 Pressure Positive End Expiratory 5 Pressure Positive End Expiratory 5 Pressure Peak Inspiratory Airway 26 Pressure Peak Inspiratory Airway 45 Pressure Results - Laboratory Findings CBC and BMP: 02/28/17 04:05 02/28/17 04:05 ABG ABG pH 7.21 pH Units (7.32-7.45) L 02/27/17 04:34 ABG pCO2 57 mmHg (35-45) H 02/27/17 04:34 ABG pO2 73 mmHg (85-104) L 02/27/17 04:34 ABG O2 Saturation 90 % (95-98) L 02/27/17 04:34 PT/INR, D-dimer PT 15.2 Seconds (9.4-12.1) H 02/27/17 04:30 Abnormal lab findings: Abnormal lab results WBC 21.7 K/mcL (4.3-11.1) H 02/28/17 04:05 RBC 2.48 M/mcL (3.82-4.97) L 02/28/17 04:05 Hgb 7.2 g/dL (11.5-15.4) L D 02/28/17 04:05 Hct 21.1 % (35.3-44.9) L 02/28/17 04:05 RDW 15.9 % (11.5-14.5) H 02/28/17 04:05 Plt Count 40 K/mcL (140-400) L D 02/28/17 04:05 Band Neutrophils % 8.0 % (0-4) H 02/28/17 04:05 Blast Cells % 14.0 % (0) H 02/26/17 10:45 Metamyelocytes % 8.0 % (0) H 02/28/17 04:05 Myelocytes % 12.0 % (0) H 02/28/17 04:05 Neutrophils # 12.6 K/mcL (1.6-8.9) H 02/28/17 04:05 Nucleated RBCs/100 WBC 0.3 /100 WBC (0) H 02/28/17 04:05 Smudge Cells Present (Not Present) A 02/27/17 04:30 Platelet Estimate Decreased (Normal) L 02/28/17 04:05 Polychromasia 1+ (Not Present) A 02/27/17 04:30 Anisocytosis 1+ (Not Present) A 02/26/17 10:45 PT 15.2 Seconds (9.4-12.1) H 02/27/17 04:30 ABG pH 7.21 pH Units (7.32-7.45) L 02/27/17 04:34 ABG pCO2 57 mmHg (35-45) H 02/27/17 04:34 ABG pO2 73 mmHg (85-104) L 02/27/17 04:34 ABG O2 Saturation 90 % (95-98) L 02/27/17 04:34 ABG Base Excess -5 mEq/L (-2 to 3) L 02/27/17 04:34 BUN 71 mg/dL (7-20) H 02/28/17 04:05 Creatinine 4.67 mg/dL (0.57-1.11) H 02/28/17 04:05 Est GFR ( Amer) 11 (> 60) L 02/28/17 04:05 Est GFR (Non-Af Amer) 9 (> 60) L 02/28/17 04:05 POC Glucose 102 (58-89) H 02/27/17 23:11 Lactic Acid 2.6 mmol/L (0.5-2.2) H 02/26/17 10:44 Calculated Osmolality 313 (280-300) H 02/28/17 04:05 Calcium 7.3 mg/dL (8.6-10.8) L 02/28/17 04:05 Ionized Calcium 0.99 mmol/L (1.15-1.35) L 02/28/17 04:05 Troponin I 0.15 ng/mL (0-0.03) H* 02/26/17 10:45 Albumin 2.2 g/dL (3.5-5.0) L 02/28/17 04:05 Globulin 4.2 g/dL (2.4-3.5) H 02/28/17 04:05 Albumin/Globulin Ratio 0.5 (1.1-2.2) L 02/28/17 04:05 Urine Clarity Turbid (Clear) A 02/26/17 10:45 Ur Specific [place] 1.028 (1.010-1.025) H 02/26/17 10:45 Urine Protein 100 mg/dL (Neg-Trace) H 02/26/17 10:45 Urine Blood Small (Negative) H 02/26/17 10:45 Urine Bilirubin Small (Negative) H 02/26/17 10:45 Urine Microscopic WBC 50-100 per hpf (0-3) H 02/26/17 10:45 Ur Squamous Epith Cells Many per lpf (None-Few) H 02/26/17 10:45 Amorphous Sediment Many (Few) H 02/26/17 10:45 Granular Casts Many per lpf (None Seen) H 02/26/17 10:45 U Benzodiazepines Scrn Positive ng/mL (Cwccwn=292) H 02/26/17 10:45 H. influenzae (PCR) DETECTED (Not Detect) A 02/26/17 10:45 Antibody Screen POSITIVE A 02/26/17 12:30 - Microbiology Findings Microbiology Findings: Microbiology, Last 48 Hours 02/28/17 04:10 Sputum Culture - Preliminary Sputum - Clinical Findings Intake & Output: Intake & Output 02/27/17 02/28/17 02/28/17 23:59 07:59 15:59 Intake Total 300 / 300 150 / 150 50 / 50 Output Total 32 / 32 25 Balance 268 / 268 125 / 125 Weight 68.1 kg - Attending Attestation I examined this patient and my medical decision-making was reviewed with the Resident Physician. I agree with the documented findings, disposition and treatment plan as described except to the extent set forth below. Patient seen and examined. Labs, radiology, chart personally reviewed. 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 I discussed this with the family at the bedside and also I feel with the volume and fluid needs worsening condition and she will need diuresis as tolerated. Patient is being seen by junior manufacturing engineer and will discuss possibility of diuresis. Cardiovascular: Patient somewhat stabilizing at this time and able to come off pressors. GI: Nutrition per dietary and GI prophylaxis per routine Heme: DVT prophylaxis per routine. After transfusion of platelets and blood, overall less reasonable and we will continue monitoring and transfuse based on the number and clinical picture. ID: Continue antibiotics and plan to de-escalation. Stop vancomycin as well as clindamycin Renal; urine out put and renal funtion reviewed with nephrology follow-up Endorcine: blood glucose is monitored Lines: all lines checked and no evidence of infections Skin: skin care to prevent pressure ulcers per nursing routine care Patient remain critically ill and need for critical care and ICU care. Patient remain full code and palliative care is scheduled to meet with the family. I spent 32 min of Critical Care time with this patient. It involved decision making of high complexity to assess, manipulate, and support vital organ system failure and/or to prevent further life threatening deterioration of the patient' s condition. The time involved in the performance of separately reportable procedures was not counted toward critical care time.
[2017-02-28] MEDS ORDERED: 0.9 % Sodium Chloride 2,000 ML ONE (13:58)
[2017-02-28 14:24] LABS: Hepatitis B Surface Antibody 2.53 mIU/mL; Hepatitis B Surface Antigen Nonreactive (Nonreactive)
[2017-03-01] MEDS: Lacri-Lube 3.5 GM TUBE BOTH EYES SCH ×7 (03:08→22:50)
[2017-03-01] MEDS: FentaNYL (PF) 1,000 MCG in 0.9 % Sodium Chloride 80 ML IVC SCH ×2 (03:08→21:41)
[2017-03-01 03:20] LABS: Albumin 2.3 g/dL (3.5-5.0); Albumin/Globulin Ratio 0.5 (1.1-2.2); Bilirubin,Total 0.7 mg/dL (0.2-1.2); Globulin 4.4 g/dL (2.4-3.5); Magnesium 1.6 mg/dL (1.6-2.6); Phosphorous 2.5 mg/dL (2.3-4.7); Potassium 3.6 mEq/L (3.5-4.5); Total Protein 6.7 g/dL (6.0-8.3)
[2017-03-01] MEDS: Ipratropium/Albuterol Neb 3 ML IH SCH ×4 (03:32→22:08)
[2017-03-01 05:14] LABS: ABG Base Excess 1 mEq/L (-2 to 3); ABG HCO3 27 mEq/L (21-27); ABG Oxygen Saturation 90 % (95-98); ABG PCO2 44 mmHg (35-45); ABG PH 7.39 pH Units (7.32-7.45); ABG PO2 59 mmHg (85-104); ABG TCO2 28 mEq/L (20-26); Blood Gas Modality ASSIST CONTROL; Blood Gas PEEP 5 cm H2O; Blood Gas Respiration Rate 22; Blood Gas VT 450 cc
[2017-03-01 05:47] LABS: Nucleated Red Blood Cells 0.2 /100 WBC (0)
[2017-03-01 05:49] LABS: Hemoglobin 6.8 g/dL (11.5-15.4); Immature Platelets 4.8 % (1.1-6.1); Mean Corpuscular Hemoglobin 28.7 pg (28.0-33.3); Mean Corpuscular Volume 84.4 fL (83.0-100.0); Mean Platelet Volume 9.9 fL (9.4-12.4); Red Blood Count 2.37 M/mcL (3.82-4.97); Red Cell Distribution Width 16.3 % (11.5-14.5)
[2017-03-01 05:51] LABS: Platelet Count 28 K/mcL (140-400)
[2017-03-01 06:26] LABS: Lymphocytes # 5.6 K/mcL (0.6-4.6); Monocytes # 0.9 K/mcL (0.0-1.3); Platelet Estimate Decreased (Normal)
--- NOTE | 2017-03-01 07:02 | Nephrology Progress Note ---
Date of Encounter: 03/01/17 Time of Encounter: 07:02 - Assessment and Plan (1) Acute on chronic renal failure Current Visit: Yes Status: Acute Cr today worsened at improved after dialysis to 3.57 from 4.67 yesterday CKD stage III Etiology likely secondary to septic shock, H.Influenza pneumonia. oliguric RODERICK- urine output remains poor Plan: will continue to monitor renal function avoid nephrotoxic agents as much as possible strict I/O family would like patient to remain full code. continue with hemodialysis today. Qualifiers: Acute renal failure type: with acute tubular necrosis Chronic kidney disease stage: stage 3 (moderate) Qualified Code(s): N17.0 - Acute kidney failure with tubular necrosis; N18.3 - Chronic kidney disease, stage 3 (moderate ); N18.3 - Chronic kidney disease, stage 3 (moderate) (2) Fluid overload Current Visit: Yes Status: Acute as above Qualifiers: Hypervolemia type: unspecified Qualified Code(s): E87.70 - Fluid overload, unspecified (3) Septic shock Current Visit: Yes Status: Resolved resolved. secondary to H.Influenza. (4) Thrombocytopenia Current Visit: Yes Status: Acute platelets today back down to 28 (5) Anemia Current Visit: Yes Status: Acute likely not renally related. likely secondary to AML Qualifiers: Anemia type: other cause Other causes of anemia: chronic disease, neoplastic Qualified Code(s): D63.0 - Anemia in neoplastic disease (6) AML (acute myelogenous leukemia) Current Visit: Yes Status: Acute Hx of AML on palliative chemotherapy currently. 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 patient remains intubated. she failed CPAP trial this morning. Objective - Vital Signs Vital signs: Vital Signs Temp Pulse Resp BP Pulse Ox 03/01/17 06:00 91 22 107/51 94 03/01/17 05:00 97 22 112/65 93 03/01/17 04:00 101 22 110/46 93 03/01/17 03:32 22 117/57 93 03/01/17 03:00 93 22 109/52 94 03/01/17 02:00 101 22 106/51 94 03/01/17 01:30 22 106/51 93 03/01/17 01:00 93 22 106/49 93 03/01/17 00:00 96 22 111/47 93 02/28/17 23:32 22 111/47 93 02/28/17 23:00 99 22 119/49 93 02/28/17 22:58 98.5 F 02/28/17 22:00 101 22 109/50 90 02/28/17 21:51 22 109/50 92 02/28/17 21:01 92 22 120/52 93 02/28/17 20:00 109 22 112/50 90 02/28/17 19:50 22 112/50 91 02/28/17 19:20 98.5 F 02/28/17 19:00 101 22 106/46 91 02/28/17 18:00 100 22 109/66 91 02/28/17 17:00 97.6 F 110 24 125/53 89 02/28/17 16:53 22 103/54 97 02/28/17 16:30 103/54 02/28/17 16:15 115/50 02/28/17 16:00 91 22 100/54 97 02/28/17 15:45 116/50 02/28/17 15:30 102/53 02/28/17 15:20 98.5 F 02/28/17 15:15 94/54 02/28/17 15:00 100 22 116/57 94 02/28/17 14:45 100/51 02/28/17 14:30 98.4 F 22 108/55 02/28/17 14:00 94 22 99/48 94 02/28/17 13:28 22 91 02/28/17 13:00 98.2 F 101 22 104/50 93 02/28/17 12:00 98 22 121/57 95 02/28/17 11:02 22 91 02/28/17 11:00 100 22 165/74 95 02/28/17 10:40 22 96 02/28/17 10:00 95 22 105/50 96 02/28/17 09:55 22 110/53 95 02/28/17 09:00 93 22 106/46 93 02/28/17 08:00 98 22 114/54 94 02/28/17 07:43 97.6 F 02/28/17 07:00 97 22 116/52 97 Intake and Output 02/28/17 02/28/17 03/01/17 15:59 23:59 07:59 Intake Total 650 / 650 100 / 100 Output Total 2330 / 2330 Balance 625 / 625 -2320 / -2320 100 / 100 Intake: IV Fluids 50 / 50 100 / 100 FentaNYL (PF) 1,000 MCG In 0.9 100 / 100 % Sodium Chloride 80 ML @ 50 MCG/HR 5 mls/hr IVC CONT PIPPA Rx #:[id number] Cleocin Premix 600 MG/50 ML 600 50 / 50 mg In 50 ml @ 50 mls/hr IVPB Q8HR PIPPA Rx#:[id number] Oral 0 / 0 0 / 0 0 / 0 Free Water Intake, Rinseback and Flushes 600 / 600 Output: Urine 0 / 0 Total Dialysis (HD) Output 2100 / 2100 Catheter 30 / 30 Gastric Drainage 200 / 200 Other: Weight 64.41 kg Blood Glucose* 89 Hemodialysis Net Fluid Removed 1215 1500 (mL) Patient Weight 03/01/17 23:59 Weight 64.41 kg - General Appearance General appearance: Present: well-developed, well-nourished, appears started age , moderate distress Neck: Present: no JVD Additional Comments: CTAB Cardiology: Present: normal S1, normal S2 Additional Comments: tachycardia Dialysis Vascular Access: Venous Catheter Gastrointestinal: Present: hypoactive bowel sounds Additional Comments: soft, non distended, non tender Integumentary: Present: no rash Musculoskeletal: Present: no deformities - Lab 03/01/17 05:26 03/01/17 03:00 Most recent lab results ABG pH 7.39 pH Units (7.32-7.45) 03/01/17 05:09 ABG pCO2 44 mmHg (35-45) 03/01/17 05:09 ABG pO2 59 mmHg (85-104) L 03/01/17 05:09 ABG HCO3 27 mEq/L (21-27) 03/01/17 05:09 ABG O2 Saturation 90 % (95-98) L 03/01/17 05:09 Calcium 8.0 mg/dL (8.6-10.8) L 03/01/17 03:00 Phosphorus 2.5 mg/dL (2.3-4.7) 03/01/17 03:00 Magnesium 1.6 mg/dL (1.6-2.6) 03/01/17 03:00 Consult Discharge Plan - Plan Referrals: NONE,PCP [Primary Care Provider] -
[2017-03-01] MEDS ORDERED: 0.9 % Sodium Chloride 250 ML IVC PRN (07:34)
[2017-03-01] MEDS: Pantoprazole 40 MG VIAL IVPB SCH (07:58)
[2017-03-01] MEDS: Chlorhexidine Rinse 15 ML MOUTHWASH MM SCH ×2 (07:58→20:06)
--- NOTE | 2017-03-01 09:32 | Palliative Progress Note ---
Date of Encounter: 03/01/17 Time of Encounter: 09:00 - Assessment and plan (1) Acute respiratory acidosis Current Visit: Yes Status: Acute Assessment and plan: Patient is doing much better on the vent. They are attempting to wean the vent plan per ICU team (2) Aspiration pneumonia Current Visit: Yes Status: Acute Assessment and plan: Patient's white count continues to be elevated, however with AML was difficult to tell how effective the white blood cells are. Treatment per ICU team. Since blood pressure is much better now without pressors. Qualifiers: Aspiration pneumonia type: due to vomit Laterality: right Lung location: lower lobe of lung Qualified Code(s): J69.0 - Pneumonitis due to inhalation of food and vomit (3) Anemia Current Visit: Yes Status: Acute Assessment and plan: Hemoglobin is 6.8 today down from 7.2 yesterday. Patient is getting regular transfusions for her AML. This is normal for her. The count is also dropping once again. And as per the ICU team. Qualifiers: Anemia type: other cause Other causes of anemia: chronic disease, neoplastic Qualified Code(s): D63.0 - Anemia in neoplastic disease (4) AML (acute myelogenous leukemia) Current Visit: Yes Status: Acute Assessment and plan: Patient's underlying condition. Wishes to continue to get full aggressive care for this. Has included weekly transfusions of both platelets and blood cells in the past. 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 2 L us were pulled off and the patient feels at least a little bit better. For has improved a little bit. Plan per nephrology and ICU team. Qualifiers: Acute renal failure type: with acute tubular necrosis Chronic kidney disease stage: stage 3 (moderate) Qualified Code(s): N17.0 - Acute kidney failure with tubular necrosis; N18.3 - Chronic kidney disease, stage 3 (moderate ); N18.3 - Chronic kidney disease, stage 3 (moderate) (6) Septic shock Current Visit: Yes Status: Resolved Assessment and plan: This has resolved. (7) Goals of care, counseling/discussion Current Visit: Yes Status: Acute Assessment and plan: She is okay with getting dialysis at least temporarily. Family and patient agree that she would not want to be on a ventilator long-term. Question about CODE STATUS this may change today. We will plan to meet with the family 11:30 to discuss CODE STATUS. - Time Spent With Patient Total time spent is greater than 50% in coordination of care (as documented) at patient's floor/unit and/or counseling patient: - Subjective Interval history: Currently attempting to wean off vent. Patient's auto CPAP trial as we speak. Patient is awake and alert. She does feel that her breathing may be a little bit better and she feels the dialysis might have made her feel little bit better as well. - Constitutional Vitals: Abnormal lab results WBC 21.7 K/mcL (4.3-11.1) H 03/01/17 05:26 RBC 2.37 M/mcL (3.82-4.97) L 03/01/17 05:26 Hgb 6.8 g/dL (11.5-15.4) L 03/01/17 05:26 Hct 20.0 % (35.3-44.9) L 03/01/17 05:26 RDW 16.3 % (11.5-14.5) H 03/01/17 05:26 Plt Count 28 K/mcL (140-400) L* 03/01/17 05:26 Blast Cells % 14.0 % (0) H 02/26/17 10:45 Metamyelocytes % 2.0 % (0) H 03/01/17 05:26 Myelocytes % 8.0 % (0) H 03/01/17 05:26 Neutrophils # 13.0 K/mcL (1.6-8.9) H 03/01/17 05:26 Lymphocytes # 5.6 K/mcL (0.6-4.6) H 03/01/17 05:26 Nucleated RBCs/100 WBC 0.2 /100 WBC (0) H 03/01/17 05:26 Smudge Cells Present (Not Present) A 02/27/17 04:30 Platelet Estimate Decreased (Normal) L 03/01/17 05:26 Polychromasia 1+ (Not Present) A 02/27/17 04:30 Anisocytosis 1+ (Not Present) A 02/26/17 10:45 PT 15.2 Seconds (9.4-12.1) H 02/27/17 04:30 ABG pO2 59 mmHg (85-104) L 03/01/17 05:09 ABG Total CO2 28 mEq/L (20-26) H 03/01/17 05:09 ABG O2 Saturation 90 % (95-98) L 03/01/17 05:09 BUN 43 mg/dL (7-20) H D 03/01/17 03:00 Creatinine 3.57 mg/dL (0.57-1.11) H 03/01/17 03:00 Est GFR ( Amer) 15 (> 60) L 03/01/17 03:00 Est GFR (Non-Af Amer) 13 (> 60) L 03/01/17 03:00 Lactic Acid 2.6 mmol/L (0.5-2.2) H 02/26/17 10:44 Calcium 8.0 mg/dL (8.6-10.8) L 03/01/17 03:00 Ionized Calcium 0.99 mmol/L (1.15-1.35) L 02/28/17 04:05 Troponin I 0.15 ng/mL (0-0.03) H* 02/26/17 10:45 Albumin 2.3 g/dL (3.5-5.0) L 03/01/17 03:00 Globulin 4.4 g/dL (2.4-3.5) H 03/01/17 03:00 Albumin/Globulin Ratio 0.5 (1.1-2.2) L 03/01/17 03:00 Urine Clarity Turbid (Clear) A 02/26/17 10:45 Ur Specific [place] 1.028 (1.010-1.025) H 02/26/17 10:45 Urine Protein 100 mg/dL (Neg-Trace) H 02/26/17 10:45 Urine Blood Small (Negative) H 02/26/17 10:45 Urine Bilirubin Small (Negative) H 02/26/17 10:45 Urine Microscopic WBC 50-100 per hpf (0-3) H 02/26/17 10:45 Ur Squamous Epith Cells Many per lpf (None-Few) H 02/26/17 10:45 Amorphous Sediment Many (Few) H 02/26/17 10:45 Granular Casts Many per lpf (None Seen) H 02/26/17 10:45 U Benzodiazepines Scrn Positive ng/mL (Sybisk=797) H 02/26/17 10:45 H. influenzae (PCR) DETECTED (Not Detect) A 02/26/17 10:45 Antibody Screen POSITIVE A 02/26/17 12:30 General appearance: Present: no acute distress - Head Head exam: Present: atraumatic, normal inspection - Eye Eye exam: Present: normal appearance - ENT ENT exam: Present: mucous membranes moist (Intubated) - Respiratory Respiratory exam: Present: decreased breath sounds (On vent) - Cardiovascular Cardiovascular exam: Present: RRR, tachycardia - GI/Abdominal GI/Abdominal exam: Present: normal bowel sounds, soft. Absent: tenderness - Extremities Exam Extremities exam: Present: pedal edema. Absent: tenderness - Neurological Exam Neurological exam: Present: alert - Psychiatric Psychiatric exam: Absent: agitated, anxious - Skin Skin exam: Present: dry, warm Palliative Quality Palliative Quality: Screen for Code Status: Yes, Screen for Goals of Care: Yes, Screen for Pain: Yes, If Pain Regimen Started, Initiate Bowel Regimen: Yes, Screen for Nausea/Vomitting: Yes Code Status: 02/26/17 13:42 Resuscitation Status: Active [RES] Routine Comment: Resuscitation Status: Full Code - Labs CBC & Chem 7: 03/01/17 05:26 03/01/17 03:00 Labs: Laboratory Results - last 24 hr 02/28/17 02/28/17 02/28/17 10:45 17:55 22:50 WBC RBC Hgb Hct MCV MCH MCHC RDW Plt Count MPV Seg Neutrophils % Band Neutrophils % Lymphocytes % Monocytes % Metamyelocytes % Myelocytes % Neutrophils # Lymphocytes # Monocytes # Nucleated RBCs/100 WBC Platelet Estimate Immature Plt Fraction Sample Site ABG pH ABG pCO2 ABG pO2 ABG HCO3 ABG Total CO2 ABG O2 Saturation ABG Base Excess Tolu Test Respiration Rate O2 Delivery Device Blood Gas Modality Inspired O2 Tidal Volume PEEP Sodium Potassium Chloride Carbon Dioxide BUN Creatinine Est GFR ( Amer) Est GFR (Non-Af Amer) BUN/Creatinine Ratio Glucose POC Glucose 76 89 Calculated Osmolality Calcium Phosphorus Magnesium Total Bilirubin AST ALT Alkaline Phosphatase Serum Total Protein Albumin Globulin Albumin/Globulin Ratio Hep Bs Antigen Nonreactive Hep Bs Antibody 2.53 03/01/17 03/01/17 03/01/17 03:00 05:09 05:26 WBC 21.7 H RBC 2.37 L Hgb 6.8 L Hct 20.0 L MCV 84.4 MCH 28.7 MCHC 34.0 RDW 16.3 H Plt Count 28 L* MPV 9.9 Seg Neutrophils % 56.0 Band Neutrophils % 4.0 Lymphocytes % 26.0 Monocytes % 4.0 Metamyelocytes % 2.0 H Myelocytes % 8.0 H Neutrophils # 13.0 H Lymphocytes # 5.6 H Monocytes # 0.9 Nucleated RBCs/100 WBC 0.2 H Platelet Estimate Decreased L Immature Plt Fraction 4.8 Sample Site R Radial ABG pH 7.39 ABG pCO2 44 ABG pO2 59 L ABG HCO3 27 ABG Total CO2 28 H ABG O2 Saturation 90 L ABG Base Excess 1 Tolu Test Positive Respiration Rate 22 O2 Delivery Device Adult Vent Blood Gas Modality ASSIST CONTROL Inspired O2 50.0 Tidal Volume 450 PEEP 5 Sodium 140 Potassium 3.6 Chloride 100 Carbon Dioxide 24 BUN 43 H D Creatinine 3.57 H Est GFR ( Amer) 15 L Est GFR (Non-Af Amer) 13 L BUN/Creatinine Ratio 12 Glucose 89 POC Glucose Calculated Osmolality 300 Calcium 8.0 L Phosphorus 2.5 Magnesium 1.6 Total Bilirubin 0.7 AST 20 ALT 8 Alkaline Phosphatase 64 Serum Total Protein 6.7 Albumin 2.3 L Globulin 4.4 H Albumin/Globulin Ratio 0.5 L Hep Bs Antigen Hep Bs Antibody - Impressions Impressions Guidance Needle Placement Ultrasound 02/28/17 00:00 IMPRESSION: Ultrasound-guided non tunneled right internal jugular dialysis catheter placement performed. D/ / 02/28/2017 14:53:33 Miquel Saxena MD / katina Interpreting Provider: Miquel Saxena MD Insertion Non-Tunneled Catheter 02/28/17 00:00 IMPRESSION: Ultrasound-guided non tunneled right internal jugular dialysis catheter placement performed. D/ / 02/28/2017 14:53:33 Miquel Saxena MD / katina Interpreting Provider: Miquel Saxena MD Chest X-Ray 02/28/17 12:40 IMPRESSION: 1. Right internal jugular dialysis catheter tips overlie the SVC. 2. Slightly increased diffuse airspace opacities with trace bilateral effusions. The differential includes aspiration/pneumonia, ARDS, or an atypical appearance of pulmonary edema. D/ / 02/28/2017 13:35:15 Miquel Saxena MD / [email or web address] Interpreting Provider: Miquel Saxena MD Chest X-Ray 03/01/17 05:00 IMPRESSION: No gross change in the appearance of the chest. D/ / Paco Nicholson MD / Paco Nicholson MD Interpreting Provider: Paco Nicholson MD - ABG Interpretation ABG results: ABG ABG pH 7.39 pH Units (7.32-7.45) 03/01/17 05:09 ABG pCO2 44 mmHg (35-45) 03/01/17 05:09 ABG pO2 59 mmHg (85-104) L 03/01/17 05:09 ABG O2 Saturation 90 % (95-98) L 03/01/17 05:09 PT/INR, D-dimer PT 15.2 Seconds (9.4-12.1) H 02/27/17 04:30 Consult Discharge Plan - Plan Referrals: NONE,PCP [Primary Care Provider] -
--- NOTE | 2017-03-01 11:18 | Oncology Inp Progress Note ---
Date of Encounter: 03/01/17 Time of Encounter: 11:13 (1) AML (acute myelogenous leukemia) Current Visit: Yes Status: Acute Assessment and plan: - Patient was seen with her at bedside. She remains intubated, looks comfortable. Currently well awake, follows commands, reports feeling ok in despite of being intubated. Currently being dialyzed; family planning to meet with palliative care team at 11:30 AM to address goals of care. Prognosis remains poor. -Last platelet transfusion on 02/27; platelet count 28K today. Transfuse for platelet counts less than 20K or 50K if there is active bleeding. - Last blood transfusion on 02/27. HCT and Hgb today 20 percent and 6.8 respectively. Transfuse to keep Hgb and HCT above 7 g/dl and 21 percent respectively. 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 Remains intubated, but reports feeling well. Getting dialysis at this time. No complaints during the visit - Constitutional Vitals: Vital Signs Temp Pulse Resp BP Pulse Ox 03/01/17 10:45 121/54 03/01/17 10:30 128/60 03/01/17 10:15 123/64 03/01/17 10:08 22 131/61 97 03/01/17 10:00 88 22 120/56 97 03/01/17 09:45 117/54 03/01/17 09:30 97.9 F 16 130/59 03/01/17 09:00 105 22 125/52 91 03/01/17 08:00 95 23 118/55 93 03/01/17 07:40 112 03/01/17 07:37 97.8 F 03/01/17 07:32 23 125/50 89 03/01/17 07:00 112 24 147/62 92 03/01/17 06:27 32 116/53 95 03/01/17 06:00 91 22 107/51 94 03/01/17 05:00 97 22 112/65 93 03/01/17 04:00 101 22 110/46 93 03/01/17 03:32 22 117/57 93 03/01/17 03:00 93 22 109/52 94 03/01/17 02:00 101 22 106/51 94 03/01/17 01:30 22 106/51 93 03/01/17 01:00 93 22 106/49 93 03/01/17 00:00 96 22 111/47 93 02/28/17 23:32 22 111/47 93 02/28/17 23:00 99 22 119/49 93 02/28/17 22:58 98.5 F 02/28/17 22:00 101 22 109/50 90 02/28/17 21:51 22 109/50 92 02/28/17 21:01 92 22 120/52 93 02/28/17 20:00 109 22 112/50 90 02/28/17 19:50 22 112/50 91 02/28/17 19:20 98.5 F 02/28/17 19:00 101 22 106/46 91 02/28/17 18:00 100 22 109/66 91 02/28/17 17:00 97.6 F 110 24 125/53 89 02/28/17 16:53 22 103/54 97 02/28/17 16:30 103/54 02/28/17 16:15 115/50 02/28/17 16:00 91 22 100/54 97 02/28/17 15:45 116/50 02/28/17 15:30 102/53 02/28/17 15:20 98.5 F 02/28/17 15:15 94/54 02/28/17 15:00 100 22 116/57 94 02/28/17 14:45 100/51 02/28/17 14:30 98.4 F 22 108/55 02/28/17 14:00 94 22 99/48 94 02/28/17 13:28 22 91 02/28/17 13:00 98.2 F 101 22 104/50 93 02/28/17 12:00 98 22 121/57 95 Intake and Output 02/28/17 03/01/17 03/01/17 23:59 07:59 15:59 Intake Total 100 / 100 600 / 600 Output Total 2330 / 2330 0 / 0 Balance -2320 / -2320 100 / 100 600 / 600 Intake: IV Fluids 100 / 100 FentaNYL (PF) 1,000 MCG In 0.9 100 / 100 % Sodium Chloride 80 ML @ 50 MCG/HR 5 mls/hr IVC CONT PIPPA Rx #:[id number] Oral 0 / 0 0 / 0 0 / 0 Free Water 10 / 10 Intake, Rinseback and Flushes 600 / 600 Output: Urine 0 / 0 Total Dialysis (HD) Output 2100 / 2100 Catheter 30 / 30 0 / 0 Gastric Drainage 200 / 200 Other: Weight 64.41 kg Blood Glucose* 89 Hemodialysis Net Fluid Removed 1500 1300 (mL) Patient Weight 03/01/17 23:59 Weight 64.41 kg General appearance: no no acute distress - Respiratory Respiratory exam: Absent: respiratory distress (remains intubated.) - Neurological Exam Neurological exam: Present: alert (Follow basic commands.) Oncology: Obj Data - Labs CBC & Chem 7: 03/01/17 05:26 03/01/17 03:00 Labs: Laboratory Results - last 24 hr 02/28/17 02/28/17 02/28/17 10:45 17:55 22:50 WBC RBC Hgb Hct MCV MCH MCHC RDW Plt Count MPV Seg Neutrophils % Band Neutrophils % Lymphocytes % Monocytes % Metamyelocytes % Myelocytes % Neutrophils # Lymphocytes # Monocytes # Nucleated RBCs/100 WBC Platelet Estimate Immature Plt Fraction Sample Site ABG pH ABG pCO2 ABG pO2 ABG HCO3 ABG Total CO2 ABG O2 Saturation ABG Base Excess Tolu Test Respiration Rate O2 Delivery Device Blood Gas Modality Inspired O2 Tidal Volume PEEP Sodium Potassium Chloride Carbon Dioxide BUN Creatinine Est GFR ( Amer) Est GFR (Non-Af Amer) BUN/Creatinine Ratio Glucose POC Glucose 76 89 Calculated Osmolality Calcium Phosphorus Magnesium Total Bilirubin AST ALT Alkaline Phosphatase Serum Total Protein Albumin Globulin Albumin/Globulin Ratio Hep Bs Antigen Nonreactive Hep Bs Antibody 2.53 03/01/17 03/01/17 03/01/17 03:00 05:09 05:26 WBC 21.7 H RBC 2.37 L Hgb 6.8 L Hct 20.0 L MCV 84.4 MCH 28.7 MCHC 34.0 RDW 16.3 H Plt Count 28 L* MPV 9.9 Seg Neutrophils % 56.0 Band Neutrophils % 4.0 Lymphocytes % 26.0 Monocytes % 4.0 Metamyelocytes % 2.0 H Myelocytes % 8.0 H Neutrophils # 13.0 H Lymphocytes # 5.6 H Monocytes # 0.9 Nucleated RBCs/100 WBC 0.2 H Platelet Estimate Decreased L Immature Plt Fraction 4.8 Sample Site R Radial ABG pH 7.39 ABG pCO2 44 ABG pO2 59 L ABG HCO3 27 ABG Total CO2 28 H ABG O2 Saturation 90 L ABG Base Excess 1 Tolu Test Positive Respiration Rate 22 O2 Delivery Device Adult Vent Blood Gas Modality ASSIST CONTROL Inspired O2 50.0 Tidal Volume 450 PEEP 5 Sodium 140 Potassium 3.6 Chloride 100 Carbon Dioxide 24 BUN 43 H D Creatinine 3.57 H Est GFR ( Amer) 15 L Est GFR (Non-Af Amer) 13 L BUN/Creatinine Ratio 12 Glucose 89 POC Glucose Calculated Osmolality 300 Calcium 8.0 L Phosphorus 2.5 Magnesium 1.6 Total Bilirubin 0.7 AST 20 ALT 8 Alkaline Phosphatase 64 Serum Total Protein 6.7 Albumin 2.3 L Globulin 4.4 H Albumin/Globulin Ratio 0.5 L Hep Bs Antigen Hep Bs Antibody - Impressions Impressions Guidance Needle Placement Ultrasound 02/28/17 00:00 IMPRESSION: Ultrasound-guided non tunneled right internal jugular dialysis catheter placement performed. D/ / 02/28/2017 14:53:33 Miquel Saxena MD / katina Interpreting Provider: Miquel Saxena MD Insertion Non-Tunneled Catheter 02/28/17 00:00 IMPRESSION: Ultrasound-guided non tunneled right internal jugular dialysis catheter placement performed. D/ / 02/28/2017 14:53:33 Miquel Saxena MD / katina Interpreting Provider: Miquel Saxena MD Chest X-Ray 02/28/17 12:40 IMPRESSION: 1. Right internal jugular dialysis catheter tips overlie the SVC. 2. Slightly increased diffuse airspace opacities with trace bilateral effusions. The differential includes aspiration/pneumonia, ARDS, or an atypical appearance of pulmonary edema. D/ / 02/28/2017 13:35:15 Miquel Saxena MD / [email or web address] Interpreting Provider: Miquel Saxena MD Chest X-Ray 03/01/17 05:00 IMPRESSION: No gross change in the appearance of the chest. D/ / Paco Nicholson MD / Paco Nicholson MD Interpreting Provider: Paco Nicholson MD - ABG Interpretation ABG results: ABG ABG pH 7.39 pH Units (7.32-7.45) 03/01/17 05:09 ABG pCO2 44 mmHg (35-45) 03/01/17 05:09 ABG pO2 59 mmHg (85-104) L 03/01/17 05:09 ABG O2 Saturation 90 % (95-98) L 03/01/17 05:09 PT/INR, D-dimer PT 15.2 Seconds (9.4-12.1) H 02/27/17 04:30 Consult Discharge Plan - Plan Referrals: NONE,PCP [Primary Care Provider] -
[2017-03-01] MEDS: Dexmedetomidine HCl 400 MCG/100 ML MLS IVC SCH ×2 (12:38→18:18)
[2017-03-01] MEDS ORDERED: 0.9 % Sodium Chloride 250 ML ONE (13:56)
--- NOTE | 2017-03-01 15:21 | Pulmonology Progress Note ---
<Michael Ravi - Last Filed: 03/01/17 15:19> Date of Encounter: 03/01/17 Time of Encounter: 15:19 Assessment and Plan (1) Septic shock Current Visit: Yes Status: Resolved Resolved. Secondary to Haemophilus influenza pneumonia. Continue Levaquin. (2) Acute respiratory failure with hypercapnia Current Visit: Yes Status: Acute Secondary to Haemophilus influenza pneumonia as discussed above, pulmonary edema is also contributing. Pneumonia is being adequately treated, hemodialysis initiated yesterday for fluid removal. Continue ventilatory support. Once his breathing trial in the morning for extubation. (3) AML (acute myelogenous leukemia) Current Visit: Yes Status: Acute With pancytopenia at baseline. Per records review treatment intent is currently palliative. Significant elevation in her white count possibly related to underlying infection. Continue treatment as above. Oncology has been consulted and is following. 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 Continue Levaquin. Qualifiers: Pneumonia type: due to Haemophilus influenzae Laterality: unspecified laterality Lung location: unspecified part of lung Qualified Code(s): J14 - Pneumonia due to Hemophilus influenzae (5) Acute on chronic renal failure Current Visit: Yes Status: Acute Creatinine 3.57 today, Creatinine 3.99 on presentation, baseline appears to be around 1.5. Concern for ATN in the setting of critical illness given granular casts found in the urine. Urine output remains poor. Hemodialysis initiated yesterday per nephrology. Qualifiers: Acute renal failure type: with acute tubular necrosis Chronic kidney disease stage: stage 3 (moderate) Qualified Code(s): N17.0 - Acute kidney failure with tubular necrosis; N18.3 - Chronic kidney disease, stage 3 (moderate ); N18.3 - Chronic kidney disease, stage 3 (moderate) (6) Anemia Current Visit: Yes Status: Acute 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 Baseline appears to be around 8. Hgb 6.2 on presentation, down to 5.7 yesterday, 6.8 today. No obvious source of bleeding. Continue to monitor. We will hold off on transfusion at this time. Qualifiers: Anemia type: other cause Other causes of anemia: chronic disease, neoplastic Qualified Code(s): D63.0 - Anemia in neoplastic disease (7) Thrombocytopenia Current Visit: Yes Status: Acute Platelets 28 today. No evidence of active bleeding. We will transfuse 1 unit of platelets. Subjective Principal diagnosis: Unresponsive Interval history: Patient seen and examined at bedside. Patient remains intubated and minimally sedated. She is awake alert and interactive. She moves all 4 extremities spontaneously. She denies pain. Objective PUL Vital signs: Last Vital Signs Temp 98.1 F 03/01/17 14:15 Pulse 93 03/01/17 14:15 Resp 22 03/01/17 14:15 BP 111/49 03/01/17 14:15 Pulse Ox 93 03/01/17 14:15 General appearance: no acute distress ENT: oropharynx dry Auscultation: bilateral: rhonchi Cardiovascular: regular rate and rhythm Gastrointestinal: hypoactive bowel sounds, soft, non-tender Extremities: edema normal mental status, non-focal exam Ventilator Settings Ventilator Settings: Ventilator Settings, Last 8 Hours Ventilator Mode A/C Ventilator Mode A/C Ventilator Mode A/C Ventilator Mode A/C Ventilator Mode CPAP Ventilator Mode A/C Ventilator Mode CPAP Ventilator Mode CPAP Ventilator Mode CPAP Ventilator Tidal Volume 450 Setting Ventilator Tidal Volume 450 Setting Ventilator Tidal Volume 450 Setting Ventilator Tidal Volume 450 Setting Ventilator Tidal Volume 450 Setting Ventilator Tidal Volume 450 Setting Ventilator Tidal Volume 450 Setting Ventilator Tidal Volume 450 Setting Ventilator Tidal Volume 450 Setting Ventilator Respiratory Rate 22 Setting Ventilator Respiratory Rate 22 Setting Ventilator Respiratory Rate 22 Setting Ventilator Respiratory Rate 22 Setting Ventilator Respiratory Rate 22 Setting Ventilator Respiratory Rate 22 Setting Ventilator Respiratory Rate 22 Setting Ventilator Respiratory Rate 22 Setting Ventilator Respiratory Rate 22 Setting Actual Respiratory Rate 22 Actual Respiratory Rate 22 Actual Respiratory Rate 22 Actual Respiratory Rate 22 Actual Respiratory Rate 23 Actual Respiratory Rate 22 Actual Respiratory Rate 22 Actual Respiratory Rate 23 Actual Respiratory Rate 22 Positive End Expiratory 5 Pressure Positive End Expiratory 5 Pressure Positive End Expiratory 5 Pressure Positive End Expiratory 5 Pressure Positive End Expiratory 5 Pressure Positive End Expiratory 5 Pressure Positive End Expiratory 5 Pressure Positive End Expiratory 5 Pressure Positive End Expiratory 5 Pressure Peak Inspiratory Airway 39 Pressure Peak Inspiratory Airway 36 Pressure Results - Laboratory Findings CBC and BMP: 03/01/17 05:26 03/01/17 03:00 ABG ABG pH 7.39 pH Units (7.32-7.45) 03/01/17 05:09 ABG pCO2 44 mmHg (35-45) 03/01/17 05:09 ABG pO2 59 mmHg (85-104) L 03/01/17 05:09 ABG O2 Saturation 90 % (95-98) L 03/01/17 05:09 PT/INR, D-dimer PT 15.2 Seconds (9.4-12.1) H 02/27/17 04:30 Abnormal lab findings: Abnormal lab results WBC 21.7 K/mcL (4.3-11.1) H 03/01/17 05:26 RBC 2.37 M/mcL (3.82-4.97) L 03/01/17 05:26 Hgb 6.8 g/dL (11.5-15.4) L 03/01/17 05:26 Hct 20.0 % (35.3-44.9) L 03/01/17 05:26 RDW 16.3 % (11.5-14.5) H 03/01/17 05:26 Plt Count 28 K/mcL (140-400) L* 03/01/17 05:26 Blast Cells % 14.0 % (0) H 02/26/17 10:45 Metamyelocytes % 2.0 % (0) H 03/01/17 05:26 Myelocytes % 8.0 % (0) H 03/01/17 05:26 Neutrophils # 13.0 K/mcL (1.6-8.9) H 03/01/17 05:26 Lymphocytes # 5.6 K/mcL (0.6-4.6) H 03/01/17 05:26 Nucleated RBCs/100 WBC 0.2 /100 WBC (0) H 03/01/17 05:26 Smudge Cells Present (Not Present) A 02/27/17 04:30 Platelet Estimate Decreased (Normal) L 03/01/17 05:26 Polychromasia 1+ (Not Present) A 02/27/17 04:30 Anisocytosis 1+ (Not Present) A 02/26/17 10:45 PT 15.2 Seconds (9.4-12.1) H 02/27/17 04:30 ABG pO2 59 mmHg (85-104) L 03/01/17 05:09 ABG Total CO2 28 mEq/L (20-26) H 03/01/17 05:09 ABG O2 Saturation 90 % (95-98) L 03/01/17 05:09 BUN 43 mg/dL (7-20) H D 03/01/17 03:00 Creatinine 3.57 mg/dL (0.57-1.11) H 03/01/17 03:00 Est GFR ( Amer) 15 (> 60) L 03/01/17 03:00 Est GFR (Non-Af Amer) 13 (> 60) L 03/01/17 03:00 Lactic Acid 2.6 mmol/L (0.5-2.2) H 02/26/17 10:44 Calcium 8.0 mg/dL (8.6-10.8) L 03/01/17 03:00 Ionized Calcium 0.99 mmol/L (1.15-1.35) L 02/28/17 04:05 Troponin I 0.15 ng/mL (0-0.03) H* 02/26/17 10:45 Albumin 2.3 g/dL (3.5-5.0) L 03/01/17 03:00 Globulin 4.4 g/dL (2.4-3.5) H 03/01/17 03:00 Albumin/Globulin Ratio 0.5 (1.1-2.2) L 03/01/17 03:00 Urine Clarity Turbid (Clear) A 02/26/17 10:45 Ur Specific [place] 1.028 (1.010-1.025) H 02/26/17 10:45 Urine Protein 100 mg/dL (Neg-Trace) H 02/26/17 10:45 Urine Blood Small (Negative) H 02/26/17 10:45 Urine Bilirubin Small (Negative) H 02/26/17 10:45 Urine Microscopic WBC 50-100 per hpf (0-3) H 02/26/17 10:45 Ur Squamous Epith Cells Many per lpf (None-Few) H 02/26/17 10:45 Amorphous Sediment Many (Few) H 02/26/17 10:45 Granular Casts Many per lpf (None Seen) H 02/26/17 10:45 U Benzodiazepines Scrn Positive ng/mL (Hajsgh=958) H 02/26/17 10:45 H. influenzae (PCR) DETECTED (Not Detect) A 02/26/17 10:45 Antibody Screen POSITIVE A 02/26/17 12:30 - Microbiology Findings Microbiology Findings: Microbiology, Last 48 Hours 02/28/17 05:59 Blood Culture - Preliminary Peripheral Venipuncture No growth. 02/28/17 04:10 Sputum Culture - Preliminary Sputum - Clinical Findings Intake & Output: Intake & Output 02/28/17 03/01/17 03/01/17 23:59 07:59 15:59 Intake Total 100 / 100 600 / 600 Output Total 2330 / 2330 0 / 0 2600 / 2600 Balance -2320 / -2320 100 / 100 -2000 / -1999 Weight 64.41 kg Consult Discharge Plan - Plan Referrals: NONE,PCP [Primary Care Provider] - <Alicia Epps - Last Filed: 03/01/17 16:45> Date of Encounter: 03/01/17 Objective PUL Vital signs: Last Vital Signs Temp 98.1 F 03/01/17 14:15 Pulse 93 03/01/17 14:15 Resp 22 03/01/17 14:15 BP 111/49 03/01/17 14:15 Pulse Ox 93 03/01/17 14:15 Ventilator Settings Ventilator Settings: Ventilator Settings, Last 8 Hours Ventilator Mode A/C Ventilator Mode A/C Ventilator Mode A/C Ventilator Mode A/C Ventilator Mode CPAP Ventilator Mode A/C Ventilator Mode CPAP Ventilator Tidal Volume 450 Setting Ventilator Tidal Volume 450 Setting Ventilator Tidal Volume 450 Setting Ventilator Tidal Volume 450 Setting Ventilator Tidal Volume 450 Setting Ventilator Tidal Volume 450 Setting Ventilator Tidal Volume 450 Setting Ventilator Respiratory Rate 22 Setting Ventilator Respiratory Rate 22 Setting Ventilator Respiratory Rate 22 Setting Ventilator Respiratory Rate 22 Setting Ventilator Respiratory Rate 22 Setting Ventilator Respiratory Rate 22 Setting Ventilator Respiratory Rate 22 Setting Actual Respiratory Rate 22 Actual Respiratory Rate 22 Actual Respiratory Rate 22 Actual Respiratory Rate 22 Actual Respiratory Rate 23 Actual Respiratory Rate 22 Actual Respiratory Rate 22 Positive End Expiratory 5 Pressure Positive End Expiratory 5 Pressure Positive End Expiratory 5 Pressure Positive End Expiratory 5 Pressure Positive End Expiratory 5 Pressure Positive End Expiratory 5 Pressure Positive End Expiratory 5 Pressure Peak Inspiratory Airway 39 Pressure Results - Laboratory Findings CBC and BMP: 03/01/17 05:26 03/01/17 03:00 ABG ABG pH 7.39 pH Units (7.32-7.45) 03/01/17 05:09 ABG pCO2 44 mmHg (35-45) 03/01/17 05:09 ABG pO2 59 mmHg (85-104) L 03/01/17 05:09 ABG O2 Saturation 90 % (95-98) L 03/01/17 05:09 PT/INR, D-dimer PT 15.2 Seconds (9.4-12.1) H 02/27/17 04:30 Abnormal lab findings: Abnormal lab results WBC 21.7 K/mcL (4.3-11.1) H 03/01/17 05:26 RBC 2.37 M/mcL (3.82-4.97) L 03/01/17 05:26 Hgb 6.8 g/dL (11.5-15.4) L 03/01/17 05:26 Hct 20.0 % (35.3-44.9) L 03/01/17 05:26 RDW 16.3 % (11.5-14.5) H 03/01/17 05:26 Plt Count 28 K/mcL (140-400) L* 03/01/17 05:26 Blast Cells % 14.0 % (0) H 02/26/17 10:45 Metamyelocytes % 2.0 % (0) H 03/01/17 05:26 Myelocytes % 8.0 % (0) H 03/01/17 05:26 Neutrophils # 13.0 K/mcL (1.6-8.9) H 03/01/17 05:26 Lymphocytes # 5.6 K/mcL (0.6-4.6) H 03/01/17 05:26 Nucleated RBCs/100 WBC 0.2 /100 WBC (0) H 03/01/17 05:26 Smudge Cells Present (Not Present) A 02/27/17 04:30 Platelet Estimate Decreased (Normal) L 03/01/17 05:26 Polychromasia 1+ (Not Present) A 02/27/17 04:30 Anisocytosis 1+ (Not Present) A 02/26/17 10:45 PT 15.2 Seconds (9.4-12.1) H 02/27/17 04:30 ABG pO2 59 mmHg (85-104) L 03/01/17 05:09 ABG Total CO2 28 mEq/L (20-26) H 03/01/17 05:09 ABG O2 Saturation 90 % (95-98) L 03/01/17 05:09 BUN 43 mg/dL (7-20) H D 03/01/17 03:00 Creatinine 3.57 mg/dL (0.57-1.11) H 03/01/17 03:00 Est GFR ( Amer) 15 (> 60) L 03/01/17 03:00 Est GFR (Non-Af Amer) 13 (> 60) L 03/01/17 03:00 Lactic Acid 2.6 mmol/L (0.5-2.2) H 02/26/17 10:44 Calcium 8.0 mg/dL (8.6-10.8) L 03/01/17 03:00 Ionized Calcium 0.99 mmol/L (1.15-1.35) L 02/28/17 04:05 Troponin I 0.15 ng/mL (0-0.03) H* 02/26/17 10:45 Albumin 2.3 g/dL (3.5-5.0) L 03/01/17 03:00 Globulin 4.4 g/dL (2.4-3.5) H 03/01/17 03:00 Albumin/Globulin Ratio 0.5 (1.1-2.2) L 03/01/17 03:00 Urine Clarity Turbid (Clear) A 02/26/17 10:45 Ur Specific [place] 1.028 (1.010-1.025) H 02/26/17 10:45 Urine Protein 100 mg/dL (Neg-Trace) H 02/26/17 10:45 Urine Blood Small (Negative) H 02/26/17 10:45 Urine Bilirubin Small (Negative) H 02/26/17 10:45 Urine Microscopic WBC 50-100 per hpf (0-3) H 02/26/17 10:45 Ur Squamous Epith Cells Many per lpf (None-Few) H 02/26/17 10:45 Amorphous Sediment Many (Few) H 02/26/17 10:45 Granular Casts Many per lpf (None Seen) H 02/26/17 10:45 U Benzodiazepines Scrn Positive ng/mL (Tzzkfq=770) H 02/26/17 10:45 H. influenzae (PCR) DETECTED (Not Detect) A 02/26/17 10:45 Antibody Screen POSITIVE A 02/26/17 12:30 - Microbiology Findings Microbiology Findings: Microbiology, Last 48 Hours 02/28/17 05:59 Blood Culture - Preliminary Peripheral Venipuncture No growth. 02/28/17 04:10 Sputum Culture - Preliminary Sputum - Clinical Findings Intake & Output: Intake & Output 03/01/17 03/01/17 03/01/17 07:59 15:59 23:59 Intake Total 100 / 100 600 / 600 Output Total 0 / 0 2600 / 2600 Balance 100 / 100 -2000 / -2000 Weight 64.41 kg - Attending Attestation I examined this patient and my medical decision-making was reviewed with the Resident Physician. I agree with the documented findings, disposition and treatment plan as described except to the extent set forth below. Patient seen and examined. Labs, radiology, chart personally reviewed. Agree with resident's history and physical, assessment, plan with following comments: COUNTER ATTENDANT: Patient follows commands, Pulmonary: Acceptable oxygenation and ventilation. Patient still had significant pneumonia and attempted spontaneous breathing trial twice, however she still have hypoxemia and she is not tolerating spontaneous breathing trial. I am hoping with more fluid removal that will help. I discussed this with the family at the bedside. Overall prognosis remained poor. Cardiovascular: stable GI: Nutrition per dietary and GI prophylaxis per routine Heme: DVT prophylaxis per routine. Patient with thrombocytopenia and transfusion secondary to oozing around central line. ID: Continue antibiotics and plan to de-escalation Renal; urine out put and renal funtion reviewed. Patient on hemodialysis by faith doctor. Endorcine: blood glucose is monitored Lines: all lines checked and no evidence of infections Skin: skin care to prevent pressure ulcers per nursing routine care I spent 35 min of Critical Care time with this patient. It involved decision making of high complexity to assess, manipulate, and support vital organ system failure and/or to prevent further life threatening deterioration of the patient' s condition. The time involved in the performance of separately reportable procedures was not counted toward critical care time.
[2017-03-01] MEDS: Ondansetron 4 MG/2 ML VIAL IVP PRN (17:38)
[2017-03-02] MEDS: Dexmedetomidine HCl 400 MCG/100 ML MLS IVC SCH ×2 (01:12→16:14)
[2017-03-02] MEDS: Lacri-Lube 3.5 GM TUBE BOTH EYES SCH ×5 (03:08→20:30)
[2017-03-02] MEDS: Ipratropium/Albuterol Neb 3 ML IH SCH ×4 (03:19→21:52)
[2017-03-02 03:21] LABS: Hemoglobin 7.1 g/dL (11.5-15.4); Nucleated Red Blood Cells 0.1 /100 WBC (0)
[2017-03-02 03:23] LABS: Hematocrit 20.3 % (35.3-44.9); Immature Platelets 2.6 % (1.1-6.1); Mean Corpuscular Hemoglobin 29.5 pg (28.0-33.3); Mean Corpuscular Volume 84.2 fL (83.0-100.0); Mean Platelet Volume 9.8 fL (9.4-12.4); Red Blood Count 2.41 M/mcL (3.82-4.97); Red Cell Distribution Width 16.1 % (11.5-14.5)
[2017-03-02 03:26] LABS: Platelet Count 65 K/mcL (140-400)
[2017-03-02 03:28] LABS: INR 1.5; Prothrombin Time 16.6 Seconds (9.4-12.1)
[2017-03-02 03:49] LABS: Calcium 8.6 mg/dL (8.6-10.8); Potassium 3.8 mEq/L (3.5-4.5)
[2017-03-02 04:36] LABS: ABG Base Excess 3 mEq/L (-2 to 3); ABG HCO3 28 mEq/L (21-27); ABG Oxygen Saturation 88 % (95-98); ABG PCO2 47 mmHg (35-45); ABG PH 7.39 pH Units (7.32-7.45); ABG PO2 56 mmHg (85-104); ABG TCO2 30 mEq/L (20-26); Blood Gas Modality ASSIST CONTROL; Blood Gas PEEP 5 cm H2O; Blood Gas Respiration Rate 22; Blood Gas VT 450 cc
[2017-03-02] MEDS ORDERED: Albumin 25% 12.5gm/50mL 12.5 GM/50 ML IV.SOLN IVPB PRN (06:08)
[2017-03-02] MEDS ORDERED: 0.9 % Sodium Chloride 250 ML IVC PRN (06:08)
[2017-03-02 06:42] LABS: Lymphocytes # 3.2 K/mcL (0.6-4.6); Monocytes # 1.8 K/mcL (0.0-1.3); Neutrophils # 14.8 K/mcL (1.6-8.9)
[2017-03-02 06:46] LABS: Platelet Estimate Decreased (Normal)
[2017-03-02 06:49] LABS: Smudge Cells Present (Not Present)
--- NOTE | 2017-03-02 08:26 | Nephrology Progress Note ---
Date of Encounter: 03/02/17 Time of Encounter: 08:24 - Assessment and Plan (1) Acute on chronic renal failure Current Visit: Yes Status: Acute Cr today continues to significantly improve, urine output remains poor. Oliguric RODERICK superimposed on CKD stage III Etiology likely secondary to septic shock, H.Influenza pneumonia. Plan: will continue to monitor renal function avoid nephrotoxic agents as much as possible strict I/O continue with hemodialysis session today 3 of 3 with hopes for extubation after more fluid removal. Qualifiers: Acute renal failure type: with acute tubular necrosis Chronic kidney disease stage: stage 3 (moderate) Qualified Code(s): N17.0 - Acute kidney failure with tubular necrosis; N18.3 - Chronic kidney disease, stage 3 (moderate ); N18.3 - Chronic kidney disease, stage 3 (moderate) (2) Fluid overload Current Visit: Yes Status: Acute as above Qualifiers: Hypervolemia type: unspecified Qualified Code(s): E87.70 - Fluid overload, unspecified (3) Septic shock Current Visit: Yes Status: Resolved resolved. secondary to H.Influenza. (4) Thrombocytopenia Current Visit: Yes Status: Acute platelets today 65 transfusion per primary team. (5) Anemia Current Visit: Yes Status: Acute likely not renally related. likely secondary to AML Qualifiers: Anemia type: other cause Other causes of anemia: chronic disease, neoplastic Qualified Code(s): D63.0 - Anemia in neoplastic disease (6) AML (acute myelogenous leukemia) Current Visit: Yes Status: Acute Hx of AML on palliative chemotherapy currently. 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 patient remains intubated. she is intermittently alert and responds to stimuli. Objective - Vital Signs Vital signs: Vital Signs Temp Pulse Resp BP Pulse Ox 03/02/17 08:03 98.7 F 03/02/17 08:00 98.7 F 71 23 122/48 96 03/02/17 07:58 80 03/02/17 07:00 80 22 114/52 96 03/02/17 06:31 25 116/48 96 03/02/17 06:00 71 22 112/52 96 03/02/17 05:33 22 120/50 96 03/02/17 05:00 99.1 F 78 22 116/51 93 03/02/17 04:04 99.1 F 03/02/17 03:55 78 22 102/54 93 03/02/17 03:19 22 151/54 92 03/02/17 03:00 78 22 120/53 95 03/02/17 02:00 75 22 120/51 93 03/02/17 01:24 22 98/48 92 03/02/17 01:00 75 22 98/48 93 03/02/17 00:00 69 22 111/50 93 03/01/17 23:46 97.6 F 03/01/17 23:42 22 111/50 93 03/01/17 23:03 67 22 100/45 95 03/01/17 22:08 22 100/45 95 03/01/17 22:03 79 22 123/61 96 03/01/17 21:00 98.3 F 70 22 100/50 94 03/01/17 20:13 98.3 F 03/01/17 20:00 80 22 134/77 98 03/01/17 19:49 22 134/77 93 03/01/17 19:00 90 22 129/58 97 03/01/17 18:09 24 129/53 97 03/01/17 18:00 87 22 129/53 96 03/01/17 17:00 96 22 132/59 97 03/01/17 16:43 22 111/49 97 03/01/17 16:00 94 22 121/47 96 03/01/17 15:00 94 22 116/50 94 03/01/17 14:15 98.1 F 93 22 111/49 93 03/01/17 14:00 98.2 F 90 22 123/53 93 03/01/17 13:00 101 27 123/52 94 03/01/17 12:15 98.1 F 16 124/5 03/01/17 12:00 102 23 116/82 95 03/01/17 11:45 108/54 03/01/17 11:30 113/49 03/01/17 11:15 122/54 03/01/17 11:00 97.8 F 101 22 114/56 97 03/01/17 10:45 121/54 03/01/17 10:30 128/60 03/01/17 10:15 123/64 03/01/17 10:08 22 131/61 97 03/01/17 10:00 88 22 120/56 97 03/01/17 09:45 117/54 03/01/17 09:30 97.9 F 16 130/59 03/01/17 09:00 105 22 125/52 91 Intake and Output 03/01/17 03/02/17 03/02/17 23:59 07:59 15:59 Intake Total 223 / 223 200 / 200 Output Total 25 / 25 0 / 0 / Balance 198 / 198 200 / 200 -25 / -25 Intake: IV Fluids 100 / 100 100 / 100 PRECEDEX Premix 400 mcg In 100 0 / 0 100 / 100 ml @ 0.2 MCG/KG/HR 4.196 mls/hr IVC .[id number] [facility] Rx#: [id number] FentaNYL (PF) 1,000 MCG In 0.9 100 / 100 % Sodium Chloride 80 ML @ 50 MCG/HR 5 mls/hr IVC CONT PIPPA Rx #:[id number] Tube Feeding 123 / 123 90 / 90 Free Water Intake Amount 0 / 0 Output: Catheter 0 / 0 Other: Stool Size Moderate Stool Consistency loose Weight 63.8 kg Blood Glucose* 106 - General Appearance General appearance: Present: well-developed, well-nourished, appears started age , sedated on ventilator, intubated Neck: Present: JVD Additional Comments: CTAB Cardiology: Present: no murmurs, no rub, no gallops, no edema, regular rate, regular rhythm, normal S1, normal S2 Gastrointestinal: Present: hypoactive bowel sounds, no tenderness, no guarding, no organomegaly, no masses Integumentary: Present: no rash, warm and dry Additional Comments: significant bruising present on right forearm. Musculoskeletal: Present: no deformities, no cyanosis, no clubbing - Lab 03/02/17 03:05 03/02/17 03:05 Most recent lab results ABG pH 7.39 pH Units (7.32-7.45) 03/02/17 04:33 ABG pCO2 47 mmHg (35-45) H 03/02/17 04:33 ABG pO2 56 mmHg (85-104) L 03/02/17 04:33 ABG HCO3 28 mEq/L (21-27) H 03/02/17 04:33 ABG O2 Saturation 88 % (95-98) L 03/02/17 04:33 Calcium 8.6 mg/dL (8.6-10.8) 03/02/17 03:05 Phosphorus 2.5 mg/dL (2.3-4.7) 03/01/17 03:00 Magnesium 2.0 mg/dL (1.6-2.6) 03/02/17 03:05 Consult Discharge Plan - Plan Referrals: NONE,PCP [Primary Care Provider] -
--- NOTE | 2017-03-02 08:43 | Event Note ---
Date of Encounter: 03/02/17 Time of Encounter: 08:40 Palliative was consulted regarding goals of care and CODE STATUS. Goals of care have been clarified the patient would like to get strong enough to go home on her previous tentative living. Which included going to the store a little, and around the house. She did require weekly to biweekly transfusions for a long time and she continues to be okay with this. Palliative care will now follow from a distance as we do not wish to leave this case until the patient is off the ventilator it does appear that today the patient failed CPAP trial again. Family was clear that she would not want to be on a ventilator long- term. We will continue to follow but at a distance.
[2017-03-02] MEDS: Pantoprazole 40 MG VIAL IVPB SCH (09:07)
[2017-03-02] MEDS: Chlorhexidine Rinse 15 ML MOUTHWASH MM SCH ×2 (09:07→20:00)
[2017-03-02] MEDS: Levofloxacin 750 MG/150 ML 750 MG/150 ML BAG IVPB SCH (11:38)
[2017-03-02] MEDS: FentaNYL (PF) 1,000 MCG in 0.9 % Sodium Chloride 80 ML IVC SCH (11:39)
--- NOTE | 2017-03-02 15:03 | Pulmonology Progress Note ---
<Michael Ravi - Last Filed: 03/02/17 16:07> Date of Encounter: 03/02/17 Time of Encounter: 15:03 Assessment and Plan (1) Septic shock Current Visit: Yes Status: Resolved Resolved. Secondary to Haemophilus influenza pneumonia. Continue Levaquin. (2) Acute respiratory failure with hypercapnia Current Visit: Yes Status: Acute Secondary to Haemophilus influenza pneumonia as discussed above, pulmonary edema is also contributing. Pneumonia is being adequately treated, hemodialysis initiated yesterday for fluid removal. Continue ventilatory support. Patient was flipped to CPAP this morning and lasted 30 minutes which is improved from previous spontaneous breathing trials however she did not meet criteria for extubation, likely related to continuing pulmonary edema. Patient will have dialysis again today for further fluid removal and will plan to attempt extubation again tomorrow. (3) AML (acute myelogenous leukemia) Current Visit: Yes Status: Acute With pancytopenia at baseline. Per records review treatment intent is currently palliative. Significant elevation in her white count possibly related to underlying infection. Continue treatment as above. Oncology has been consulted and is following. 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 Continue Levaquin. Sensitivities pending Qualifiers: Pneumonia type: due to Haemophilus influenzae Laterality: unspecified laterality Lung location: unspecified part of lung Qualified Code(s): J14 - Pneumonia due to Hemophilus influenzae (5) Acute on chronic renal failure Current Visit: Yes Status: Acute Creatinine 3.99 on presentation, baseline appears to be around 1.5. Concern for ATN in the setting of critical illness given granular casts found in the urine. Urine output remains poor. Day 3 of hemodialysis for further fluid removal. Nephrology is following and appreciate their recommendations. Qualifiers: Acute renal failure type: with acute tubular necrosis Chronic kidney disease stage: stage 3 (moderate) Qualified Code(s): N17.0 - Acute kidney failure with tubular necrosis; N18.3 - Chronic kidney disease, stage 3 (moderate ); N18.3 - Chronic kidney disease, stage 3 (moderate) (6) Anemia Current Visit: Yes Status: Acute 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 Baseline appears to be around 7. Hgb 7.1 today. No obvious source of bleeding. Continue to monitor. We will hold off on transfusion at this time. Qualifiers: Anemia type: other cause Other causes of anemia: chronic disease, neoplastic Qualified Code(s): D63.0 - Anemia in neoplastic disease (7) Thrombocytopenia Current Visit: Yes Status: Acute Platelets 65 today which is much improved. No evidence of active bleeding. Continue to monitor. Subjective Principal diagnosis: Unresponsive Interval history: Patient seen and examined at bedside. Patient remains intubated and minimally sedated. She is awake alert and interactive. She moves all 4 extremities spontaneously. She denies pain and has no complaints. Objective PUL Vital signs: Last Vital Signs Temp 98.1 F 03/02/17 14:00 Pulse 79 03/02/17 14:04 Resp 22 03/02/17 14:04 BP 153/78 03/02/17 14:45 Pulse Ox 98 03/02/17 14:04 General appearance: no acute distress ENT: oropharynx moist Effort: normal Auscultation: bilateral: rhonchi (Improved) Cardiovascular: regular rate and rhythm Gastrointestinal: normoactive bowel sounds, soft, non-tender, non-distended Extremities: no cyanosis, no clubbing, edema (Trace) normal mental status, non-focal exam Ventilator Settings Ventilator Settings: Ventilator Settings, Last 8 Hours Ventilator Mode VC+ Ventilator Mode VC+ Ventilator Mode VC+ Ventilator Mode VC+ Ventilator Tidal Volume 450 Setting Ventilator Tidal Volume 450 Setting Ventilator Tidal Volume 450 Setting Ventilator Tidal Volume 450 Setting Ventilator Respiratory Rate 22 Setting Ventilator Respiratory Rate 22 Setting Ventilator Respiratory Rate 22 Setting Ventilator Respiratory Rate 22 Setting Actual Respiratory Rate 22 Actual Respiratory Rate 22 Actual Respiratory Rate 22 Actual Respiratory Rate 22 Positive End Expiratory 5 Pressure Positive End Expiratory 5 Pressure Positive End Expiratory 5 Pressure Positive End Expiratory 5 Pressure Peak Inspiratory Airway 43 Pressure Peak Inspiratory Airway 37 Pressure Peak Inspiratory Airway 34 Pressure Peak Inspiratory Airway 37 Pressure Results - Laboratory Findings CBC and BMP: 03/02/17 03:05 03/02/17 03:05 ABG ABG pH 7.39 pH Units (7.32-7.45) 03/02/17 04:33 ABG pCO2 47 mmHg (35-45) H 03/02/17 04:33 ABG pO2 56 mmHg (85-104) L 03/02/17 04:33 ABG O2 Saturation 88 % (95-98) L 03/02/17 04:33 PT/INR, D-dimer PT 16.6 Seconds (9.4-12.1) H 03/02/17 03:05 Abnormal lab findings: Abnormal lab results WBC 22.8 K/mcL (4.3-11.1) H 03/02/17 03:05 RBC 2.41 M/mcL (3.82-4.97) L 03/02/17 03:05 Hgb 7.1 g/dL (11.5-15.4) L 03/02/17 03:05 Hct 20.3 % (35.3-44.9) L 03/02/17 03:05 RDW 16.1 % (11.5-14.5) H 03/02/17 03:05 Plt Count 65 K/mcL (140-400) L D 03/02/17 03:05 Band Neutrophils % 5.0 % (0-4) H 03/02/17 03:05 Metamyelocytes % 2.0 % (0) H 03/01/17 05:26 Myelocytes % 8.0 % (0) H 03/01/17 05:26 Blast Cells % 13.0 % (0) H 03/02/17 03:05 Neutrophils # 14.8 K/mcL (1.6-8.9) H 03/02/17 03:05 Monocytes # 1.8 K/mcL (0.0-1.3) H 03/02/17 03:05 Nucleated RBCs/100 WBC 0.1 /100 WBC (0) H 03/02/17 03:05 Smudge Cells Present (Not Present) A 03/02/17 03:05 Platelet Estimate Decreased (Normal) L 03/02/17 03:05 Polychromasia 1+ (Not Present) A 02/27/17 04:30 Anisocytosis 1+ (Not Present) A 02/26/17 10:45 PT 16.6 Seconds (9.4-12.1) H 03/02/17 03:05 ABG pCO2 47 mmHg (35-45) H 03/02/17 04:33 ABG pO2 56 mmHg (85-104) L 03/02/17 04:33 ABG HCO3 28 mEq/L (21-27) H 03/02/17 04:33 ABG Total CO2 30 mEq/L (20-26) H 03/02/17 04:33 ABG O2 Saturation 88 % (95-98) L 03/02/17 04:33 BUN 40 mg/dL (7-20) H 03/02/17 03:05 Creatinine 2.79 mg/dL (0.57-1.11) H 03/02/17 03:05 Est GFR ( Amer) 21 (> 60) L 03/02/17 03:05 Est GFR (Non-Af Amer) 17 (> 60) L 03/02/17 03:05 Glucose 113 mg/dL (70-99) H 03/02/17 03:05 POC Glucose 144 (58-89) H 03/02/17 11:03 Lactic Acid 2.6 mmol/L (0.5-2.2) H 02/26/17 10:44 Ionized Calcium 0.99 mmol/L (1.15-1.35) L 02/28/17 04:05 Troponin I 0.15 ng/mL (0-0.03) H* 02/26/17 10:45 Albumin 2.3 g/dL (3.5-5.0) L 03/01/17 03:00 Globulin 4.4 g/dL (2.4-3.5) H 03/01/17 03:00 Albumin/Globulin Ratio 0.5 (1.1-2.2) L 03/01/17 03:00 Urine Clarity Turbid (Clear) A 02/26/17 10:45 Ur Specific [place] 1.028 (1.010-1.025) H 02/26/17 10:45 Urine Protein 100 mg/dL (Neg-Trace) H 02/26/17 10:45 Urine Blood Small (Negative) H 02/26/17 10:45 Urine Bilirubin Small (Negative) H 02/26/17 10:45 Urine Microscopic WBC 50-100 per hpf (0-3) H 02/26/17 10:45 Ur Squamous Epith Cells Many per lpf (None-Few) H 02/26/17 10:45 Amorphous Sediment Many (Few) H 02/26/17 10:45 Granular Casts Many per lpf (None Seen) H 02/26/17 10:45 U Benzodiazepines Scrn Positive ng/mL (Emgaen=084) H 02/26/17 10:45 H. influenzae (PCR) DETECTED (Not Detect) A 02/26/17 10:45 Antibody Screen POSITIVE A 02/26/17 12:30 - Microbiology Findings Microbiology Findings: Microbiology, Last 48 Hours 02/28/17 04:10 Sputum Culture - Final Sputum 02/28/17 05:59 Blood Culture - Preliminary Peripheral Venipuncture No growth. - Clinical Findings Intake & Output: Intake & Output 03/01/17 03/02/17 03/02/17 23:59 07:59 15:59 Intake Total 223 / 223 200 / 200 700 / 700 Output Total 0 / 0 Balance 198 / 198 200 / 200 675 / 675 Weight 63.8 kg Consult Discharge Plan - Plan Referrals: NONE,PCP [Primary Care Provider] - <Alicia Epps - Last Filed: 03/02/17 16:14> Date of Encounter: 03/02/17 Objective PUL Vital signs: Last Vital Signs Temp 98.1 F 03/02/17 14:00 Pulse 101 03/02/17 16:00 Resp 26 03/02/17 16:00 BP 120/76 03/02/17 16:10 Pulse Ox 93 03/02/17 16:00 General appearance: lethargic depressed Ventilator Settings Ventilator Settings: Ventilator Settings, Last 8 Hours Ventilator Mode VC+ Ventilator Mode VC+ Ventilator Mode VC+ Ventilator Mode VC+ Ventilator Mode VC+ Ventilator Mode VC+ Ventilator Tidal Volume 450 Setting Ventilator Tidal Volume 450 Setting Ventilator Tidal Volume 450 Setting Ventilator Tidal Volume 450 Setting Ventilator Tidal Volume 450 Setting Ventilator Tidal Volume 450 Setting Ventilator Respiratory Rate 22 Setting Ventilator Respiratory Rate 22 Setting Ventilator Respiratory Rate 22 Setting Ventilator Respiratory Rate 22 Setting Ventilator Respiratory Rate 22 Setting Ventilator Respiratory Rate 22 Setting Actual Respiratory Rate 24 Actual Respiratory Rate 24 Actual Respiratory Rate 22 Actual Respiratory Rate 22 Actual Respiratory Rate 22 Actual Respiratory Rate 22 Positive End Expiratory 5 Pressure Positive End Expiratory 5 Pressure Positive End Expiratory 5 Pressure Positive End Expiratory 5 Pressure Positive End Expiratory 5 Pressure Positive End Expiratory 5 Pressure Peak Inspiratory Airway 43 Pressure Peak Inspiratory Airway 37 Pressure Peak Inspiratory Airway 43 Pressure Peak Inspiratory Airway 37 Pressure Peak Inspiratory Airway 34 Pressure Peak Inspiratory Airway 37 Pressure Results - Laboratory Findings CBC and BMP: 03/02/17 03:05 03/02/17 03:05 ABG ABG pH 7.39 pH Units (7.32-7.45) 03/02/17 04:33 ABG pCO2 47 mmHg (35-45) H 03/02/17 04:33 ABG pO2 56 mmHg (85-104) L 03/02/17 04:33 ABG O2 Saturation 88 % (95-98) L 03/02/17 04:33 PT/INR, D-dimer PT 16.6 Seconds (9.4-12.1) H 03/02/17 03:05 Abnormal lab findings: Abnormal lab results WBC 22.8 K/mcL (4.3-11.1) H 03/02/17 03:05 RBC 2.41 M/mcL (3.82-4.97) L 03/02/17 03:05 Hgb 7.1 g/dL (11.5-15.4) L 03/02/17 03:05 Hct 20.3 % (35.3-44.9) L 03/02/17 03:05 RDW 16.1 % (11.5-14.5) H 03/02/17 03:05 Plt Count 65 K/mcL (140-400) L D 03/02/17 03:05 Band Neutrophils % 5.0 % (0-4) H 03/02/17 03:05 Metamyelocytes % 2.0 % (0) H 03/01/17 05:26 Myelocytes % 8.0 % (0) H 03/01/17 05:26 Blast Cells % 13.0 % (0) H 03/02/17 03:05 Neutrophils # 14.8 K/mcL (1.6-8.9) H 03/02/17 03:05 Monocytes # 1.8 K/mcL (0.0-1.3) H 03/02/17 03:05 Nucleated RBCs/100 WBC 0.1 /100 WBC (0) H 03/02/17 03:05 Smudge Cells Present (Not Present) A 03/02/17 03:05 Platelet Estimate Decreased (Normal) L 03/02/17 03:05 Polychromasia 1+ (Not Present) A 02/27/17 04:30 Anisocytosis 1+ (Not Present) A 02/26/17 10:45 PT 16.6 Seconds (9.4-12.1) H 03/02/17 03:05 ABG pCO2 47 mmHg (35-45) H 03/02/17 04:33 ABG pO2 56 mmHg (85-104) L 03/02/17 04:33 ABG HCO3 28 mEq/L (21-27) H 03/02/17 04:33 ABG Total CO2 30 mEq/L (20-26) H 03/02/17 04:33 ABG O2 Saturation 88 % (95-98) L 03/02/17 04:33 BUN 40 mg/dL (7-20) H 03/02/17 03:05 Creatinine 2.79 mg/dL (0.57-1.11) H 03/02/17 03:05 Est GFR ( Amer) 21 (> 60) L 03/02/17 03:05 Est GFR (Non-Af Amer) 17 (> 60) L 03/02/17 03:05 Glucose 113 mg/dL (70-99) H 03/02/17 03:05 POC Glucose 144 (58-89) H 03/02/17 11:03 Lactic Acid 2.6 mmol/L (0.5-2.2) H 02/26/17 10:44 Ionized Calcium 0.99 mmol/L (1.15-1.35) L 02/28/17 04:05 Troponin I 0.15 ng/mL (0-0.03) H* 02/26/17 10:45 Albumin 2.3 g/dL (3.5-5.0) L 03/01/17 03:00 Globulin 4.4 g/dL (2.4-3.5) H 03/01/17 03:00 Albumin/Globulin Ratio 0.5 (1.1-2.2) L 03/01/17 03:00 Urine Clarity Turbid (Clear) A 02/26/17 10:45 Ur Specific [place] 1.028 (1.010-1.025) H 02/26/17 10:45 Urine Protein 100 mg/dL (Neg-Trace) H 02/26/17 10:45 Urine Blood Small (Negative) H 02/26/17 10:45 Urine Bilirubin Small (Negative) H 02/26/17 10:45 Urine Microscopic WBC 50-100 per hpf (0-3) H 02/26/17 10:45 Ur Squamous Epith Cells Many per lpf (None-Few) H 02/26/17 10:45 Amorphous Sediment Many (Few) H 02/26/17 10:45 Granular Casts Many per lpf (None Seen) H 02/26/17 10:45 U Benzodiazepines Scrn Positive ng/mL (Regxtr=386) H 02/26/17 10:45 H. influenzae (PCR) DETECTED (Not Detect) A 02/26/17 10:45 Antibody Screen POSITIVE A 02/26/17 12:30 - Microbiology Findings Microbiology Findings: Microbiology, Last 48 Hours 02/28/17 04:10 Sputum Culture - Final Sputum 02/28/17 05:59 Blood Culture - Preliminary Peripheral Venipuncture No growth. - Clinical Findings Intake & Output: Intake & Output 03/02/17 03/02/17 03/02/17 07:59 15:59 23:59 Intake Total 200 / 200 1223 / 1223 Output Total 0 / 0 / 25 Balance 200 / 200 1198 / 1198 - Attending Attestation I examined this patient and my medical decision-making was reviewed with the Resident Physician. I agree with the documented findings, disposition and treatment plan as described except to the extent set forth below. Patient seen and examined. Labs, radiology, chart personally reviewed. Agree with resident's history and physical, assessment, plan with following comments: TIE BUCKER: Patient follows commands, Pulmonary: Acceptable oxygenation and ventilation. Unfortunately patient failed spontaneous breathing trial. Reviewed chest x-ray which seems to me. Some improvement with fluid removal via hemodialysis and I expect with more aggressive fluid removal hopefully she would do better and we will attempt spontaneous breathing trial after that. Cardiovascular: stable GI: Nutrition per dietary and GI prophylaxis per routine Heme: DVT prophylaxis per routine area no plan for transfusion. ID: Continue antibiotics and plan to de-escalation Renal; urine out put and renal funtion reviewed Endorcine: blood glucose is monitored Lines: all lines checked and no evidence of infections Skin: skin care to prevent pressure ulcers per nursing routine care Overall stable, however still concerned about her pneumonia and respiratory failure.
[2017-03-03] MEDS: Lacri-Lube 3.5 GM TUBE BOTH EYES SCH ×6 (00:26→20:20)
[2017-03-03] MEDS: Ipratropium/Albuterol Neb 3 ML IH SCH ×4 (03:20→22:08)
[2017-03-03 03:58] LABS: Hemoglobin 7.4 g/dL (11.5-15.4); Nucleated Red Blood Cells 0.1 /100 WBC (0); Red Cell Distribution Width 16.4 % (11.5-14.5)
[2017-03-03 04:00] LABS: Hematocrit 22.1 % (35.3-44.9); Mean Corpuscular HGB Conc 33.5 g/dL (31.6-35.5); Mean Corpuscular Hemoglobin 28.8 pg (28.0-33.3); Red Blood Count 2.57 M/mcL (3.82-4.97)
[2017-03-03 04:11] LABS: INR 1.3; Prothrombin Time 14.2 Seconds (9.4-12.1)
[2017-03-03 04:18] LABS: Magnesium 1.9 mg/dL (1.6-2.6); Phosphorous 1.3 mg/dL (2.3-4.7); Potassium 4.3 mEq/L (3.5-4.5)
[2017-03-03 04:28] LABS: Platelet Count 48 K/mcL (140-400)
[2017-03-03 04:37] LABS: Anisocytosis 1+ (Not Present); Lymphocytes # 6.8 K/mcL (0.6-4.6); Microcytosis Present (Not Present); Monocytes # 1.2 K/mcL (0.0-1.3); Neutrophils # 18.4 K/mcL (1.6-8.9); Platelet Estimate Decreased (Normal)
[2017-03-03 04:38] LABS: Smudge Cells Present (Not Present)
[2017-03-03] MEDS: Pantoprazole 40 MG VIAL IVPB SCH (09:46)
[2017-03-03] MEDS: Chlorhexidine Rinse 15 ML MOUTHWASH MM SCH ×2 (09:46→21:50)
--- NOTE | 2017-03-03 10:12 | Nephrology Progress Note ---
Date of Encounter: 03/03/17 Time of Encounter: 10:10 - Assessment and Plan (1) AML (acute myelogenous leukemia) Current Visit: Yes Status: Acute Per oncology and the primary team. 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 Avoid nephrotoxins. Adjust medications for renal function. Dialysis as needed. Plan UF today for fluid removal. Qualifiers: Acute renal failure type: with acute tubular necrosis Chronic kidney disease stage: stage 3 (moderate) Qualified Code(s): N17.0 - Acute kidney failure with tubular necrosis; N18.3 - Chronic kidney disease, stage 3 (moderate ); N18.3 - Chronic kidney disease, stage 3 (moderate) (3) Acute respiratory failure with hypercapnia Current Visit: Yes Status: Acute Team plans to attempt extubation today. (4) Anemia Current Visit: Yes Status: Acute Monitor hemoglobin. Transfuse as needed. Qualifiers: Anemia type: other cause Other causes of anemia: chronic disease, neoplastic Qualified Code(s): D63.0 - Anemia in neoplastic disease (5) Pneumonia Current Visit: Yes Status: Acute Per primary team. Continue antibiotics. Qualifiers: Pneumonia type: due to Haemophilus influenzae Laterality: unspecified laterality Lung location: unspecified part of lung Qualified Code(s): J14 - Pneumonia due to Hemophilus influenzae Subjective Principal diagnosis: Unresponsive Interval history: Patient seen and evaluated. She is sedated and intubated. Review of systems is unobtainable Plan of care discussed with ICU team. Objective - Vital Signs Vital signs: Vital Signs Temp Pulse Resp BP Pulse Ox 03/03/17 10:09 120 22 118/58 91 03/03/17 10:00 93 22 96/46 94 03/03/17 09:00 120 22 118/58 91 03/03/17 08:30 43 03/03/17 08:19 98.9 F 03/03/17 08:09 106 03/03/17 08:03 106 03/03/17 08:00 106 38 110/60 93 03/03/17 07:42 22 94 03/03/17 07:00 115 24 127/56 96 03/03/17 06:00 95 30 100/52 93 03/03/17 05:53 30 100/52 93 03/03/17 05:30 22 100/52 93 03/03/17 05:00 95 22 100/52 96 03/03/17 04:41 98.6 F 03/03/17 04:00 77 22 86/51 99 03/03/17 03:20 22 86/51 99 03/03/17 03:00 79 22 86/51 100 03/03/17 02:00 98.6 F 80 22 94/61 100 03/03/17 01:41 98.6 F 03/03/17 01:13 22 93/46 100 03/03/17 00:00 81 22 110/42 98 03/02/17 23:41 22 110/42 98 03/02/17 23:00 82 23 110/42 99 03/02/17 22:00 56 22 85/40 99 03/02/17 21:52 22 85/40 99 03/02/17 21:00 78 22 85/50 99 03/02/17 20:37 99.0 F 03/02/17 20:00 99.0 F 82 22 99/51 99 03/02/17 19:45 22 99/51 100 03/02/17 19:00 78 03/02/17 18:00 100 22 106/56 97 03/02/17 17:30 97.7 F 22 92/66 03/02/17 17:25 22 92/67 99 03/02/17 17:00 91 22 109/88 98 03/02/17 16:45 104/63 03/02/17 16:30 116/63 03/02/17 16:15 122/53 03/02/17 16:10 120/76 03/02/17 16:00 101 26 111/83 93 03/02/17 15:45 120/76 03/02/17 15:41 24 118/62 95 03/02/17 15:30 142/79 03/02/17 15:15 141/80 03/02/17 15:09 86 03/02/17 15:00 86 24 136/78 96 03/02/17 14:45 153/78 03/02/17 14:30 133/54 03/02/17 14:15 130/58 03/02/17 14:04 79 22 133/59 98 03/02/17 14:00 98.1 F 86 22 129/62 98 03/02/17 13:00 79 22 133/59 98 03/02/17 12:05 91 03/02/17 12:00 70 22 118/46 97 03/02/17 11:25 91 03/02/17 11:21 98.6 F 03/02/17 11:00 81 22 133/65 96 Intake and Output 03/02/17 03/03/17 03/03/17 23:59 07:59 15:59 Intake Total 100 / 100 325 / 325 0 / 0 Output Total 3125 / 3125 0 / 0 Balance -3025 / -3025 325 / 325 0 / 0 Intake: IV Fluids 100 / 100 PRECEDEX Premix 400 mcg In 100 100 / 100 ml @ 0.2 MCG/KG/HR 4.196 mls/hr IVC .[id number] [facility] Rx#: [id number] Tube Feeding 325 / 325 Free Water Intake Amount 0 / 0 0 / 0 0 / 0 Output: Urine 0 / 0 Total Dialysis (HD) Output 3100 / 3100 Rectal Tube 0 / 0 Catheter 25 / 25 0 / 0 Other: Blood Glucose* 154 Hemodialysis Net Fluid Removed 2500 (mL) - General Appearance General appearance: Present: well-developed, well-nourished, sedated on ventilator, intubated EENT: Present: ATNC Respiratory: Present: course breath sounds Cardiology: Present: no edema Additional Comments: tachycardia Dialysis Vascular Access: Venous Catheter Gastrointestinal: Present: no tenderness Integumentary: Present: warm and dry Additional Comments: intubated. Arousable. Musculoskeletal: Present: no cyanosis Additional Comments: Calm. Sedated. - Lab 03/03/17 03:37 03/03/17 03:37 Most recent lab results ABG pH 7.39 pH Units (7.32-7.45) 03/02/17 04:33 ABG pCO2 47 mmHg (35-45) H 03/02/17 04:33 ABG pO2 56 mmHg (85-104) L 03/02/17 04:33 ABG HCO3 28 mEq/L (21-27) H 03/02/17 04:33 ABG O2 Saturation 88 % (95-98) L 03/02/17 04:33 Calcium 9.0 mg/dL (8.6-10.8) 03/03/17 03:37 Phosphorus 1.3 mg/dL (2.3-4.7) L 03/03/17 03:37 Magnesium 1.9 mg/dL (1.6-2.6) 03/03/17 03:37 Consult Discharge Plan - Plan Referrals: NONE,PCP [Primary Care Provider] -
[2017-03-03] MEDS ORDERED: 0.9 % Sodium Chloride 250 ML IVC PRN (10:16)
[2017-03-03] MEDS ORDERED: 0.9 % Sodium Chloride 1,000 ML PRIME SCH (10:30)
--- NOTE | 2017-03-03 10:30 | Pulmonology Progress Note ---
Date of Encounter: 03/03/17 Time of Encounter: 07:30 Assessment and Plan (1) Acute respiratory failure with hypoxia Current Visit: Yes Status: Acute Overall patient is improving, however she did not tolerate spontaneous breathing trial and discussed with the stem sizer to attempt to remove more fluid since radiologically patient x-rays improving to my review and I am hopeful that we will be able to extubate her hopefully when she is able to tolerate her spontaneous breathing trial. Continue antibiotic coverage and supportive care. Family is updated. (2) Acute on chronic renal failure Current Visit: Yes Status: Acute Qualifiers: Acute renal failure type: with acute tubular necrosis Chronic kidney disease stage: stage 3 (moderate) Qualified Code(s): N17.0 - Acute kidney failure with tubular necrosis; N18.3 - Chronic kidney disease, stage 3 (moderate ); N18.3 - Chronic kidney disease, stage 3 (moderate) (3) Pneumonia Current Visit: Yes Status: Acute Qualifiers: Pneumonia type: due to Haemophilus influenzae Laterality: unspecified laterality Lung location: unspecified part of lung Qualified Code(s): J14 - Pneumonia due to Hemophilus influenzae Subjective Principal diagnosis: Unresponsive Interval history: Patient is more awake a follows commands, but failed SBT. Objective PUL Vital signs: Last Vital Signs Temp 98.9 F 03/03/17 08:19 Pulse 120 03/03/17 10:09 Resp 22 03/03/17 10:09 BP 118/58 03/03/17 10:09 Pulse Ox 91 03/03/17 10:09 General appearance: no acute distress Eyes: nonicteric Neck: supple, no lymphadenopathy Effort: normal Auscultation: bilateral: rhonchi Percussion: bilateral: not dull Cardiovascular: regular rate and rhythm Gastrointestinal: normoactive bowel sounds, non-distended Extremities: no cyanosis normal mental status, non-focal exam mood appropriate Ventilator Settings Ventilator Settings: Ventilator Settings, Last 8 Hours Ventilator Mode VC+ Ventilator Mode CPAP Ventilator Mode CPAP Ventilator Mode A/C Ventilator Mode A/C Ventilator Mode A/C Ventilator Mode A/C Ventilator Mode A/C Ventilator Tidal Volume 450 Setting Ventilator Tidal Volume 450 Setting Ventilator Tidal Volume 450 Setting Ventilator Tidal Volume 450 Setting Ventilator Tidal Volume 450 Setting Ventilator Tidal Volume 450 Setting Ventilator Tidal Volume 450 Setting Ventilator Respiratory Rate 22 Setting Ventilator Respiratory Rate 22 Setting Ventilator Respiratory Rate 22 Setting Ventilator Respiratory Rate 22 Setting Ventilator Respiratory Rate 22 Setting Actual Respiratory Rate 22 Actual Respiratory Rate 24 Actual Respiratory Rate 30 Actual Respiratory Rate 30 Actual Respiratory Rate 22 Actual Respiratory Rate 22 Actual Respiratory Rate 22 Actual Respiratory Rate 22 Actual Respiratory Rate 22 Positive End Expiratory 5 Pressure Positive End Expiratory 5 Pressure Positive End Expiratory 5 Pressure Positive End Expiratory 5 Pressure Positive End Expiratory 5 Pressure Positive End Expiratory 5 Pressure Positive End Expiratory 5 Pressure Positive End Expiratory 5 Pressure Positive End Expiratory 5 Pressure Peak Inspiratory Airway 33 Pressure Peak Inspiratory Airway 33 Pressure Peak Inspiratory Airway 16 Pressure Peak Inspiratory Airway 16 Pressure Peak Inspiratory Airway 30 Pressure Peak Inspiratory Airway 32 Pressure Peak Inspiratory Airway 30 Pressure Peak Inspiratory Airway 35 Pressure Peak Inspiratory Airway 36 Pressure Results - Laboratory Findings CBC and BMP: 03/03/17 03:37 03/03/17 03:37 ABG ABG pH 7.39 pH Units (7.32-7.45) 03/02/17 04:33 ABG pCO2 47 mmHg (35-45) H 03/02/17 04:33 ABG pO2 56 mmHg (85-104) L 03/02/17 04:33 ABG O2 Saturation 88 % (95-98) L 03/02/17 04:33 PT/INR, D-dimer PT 14.2 Seconds (9.4-12.1) H 03/03/17 03:37 Abnormal lab findings: Abnormal lab results WBC 30.7 K/mcL (4.3-11.1) H* 03/03/17 03:37 RBC 2.57 M/mcL (3.82-4.97) L 03/03/17 03:37 Hgb 7.4 g/dL (11.5-15.4) L 03/03/17 03:37 Hct 22.1 % (35.3-44.9) L 03/03/17 03:37 RDW 16.4 % (11.5-14.5) H 03/03/17 03:37 Plt Count 48 K/mcL (140-400) L 03/03/17 03:37 Band Neutrophils % 10.0 % (0-4) H 03/03/17 03:37 Metamyelocytes % 4.0 % (0) H 03/03/17 03:37 Myelocytes % 8.0 % (0) H 03/01/17 05:26 Blast Cells % 10.0 % (0) H 03/03/17 03:37 Neutrophils # 18.4 K/mcL (1.6-8.9) H 03/03/17 03:37 Lymphocytes # 6.8 K/mcL (0.6-4.6) H 03/03/17 03:37 Nucleated RBCs/100 WBC 0.1 /100 WBC (0) H 03/03/17 03:37 Smudge Cells Present (Not Present) A 03/03/17 03:37 Platelet Estimate Decreased (Normal) L 03/03/17 03:37 Polychromasia 1+ (Not Present) A 02/27/17 04:30 Anisocytosis 1+ (Not Present) A 03/03/17 03:37 Microcytosis Present (Not Present) A 03/03/17 03:37 PT 14.2 Seconds (9.4-12.1) H 03/03/17 03:37 ABG pCO2 47 mmHg (35-45) H 03/02/17 04:33 ABG pO2 56 mmHg (85-104) L 03/02/17 04:33 ABG HCO3 28 mEq/L (21-27) H 03/02/17 04:33 ABG Total CO2 30 mEq/L (20-26) H 03/02/17 04:33 ABG O2 Saturation 88 % (95-98) L 03/02/17 04:33 BUN 36 mg/dL (7-20) H 03/03/17 03:37 Creatinine 2.13 mg/dL (0.57-1.11) H 03/03/17 03:37 Est GFR ( Amer) 28 (> 60) L 03/03/17 03:37 Est GFR (Non-Af Amer) 23 (> 60) L 03/03/17 03:37 Glucose 126 mg/dL (70-99) H 03/03/17 03:37 POC Glucose 154 (58-89) H 03/03/17 00:40 Lactic Acid 2.6 mmol/L (0.5-2.2) H 02/26/17 10:44 Calculated Osmolality 308 (280-300) H 03/03/17 03:37 Phosphorus 1.3 mg/dL (2.3-4.7) L 03/03/17 03:37 Troponin I 0.15 ng/mL (0-0.03) H* 02/26/17 10:45 Albumin 2.3 g/dL (3.5-5.0) L 03/01/17 03:00 Globulin 4.4 g/dL (2.4-3.5) H 03/01/17 03:00 Albumin/Globulin Ratio 0.5 (1.1-2.2) L 03/01/17 03:00 Urine Clarity Turbid (Clear) A 02/26/17 10:45 Ur Specific [place] 1.028 (1.010-1.025) H 02/26/17 10:45 Urine Protein 100 mg/dL (Neg-Trace) H 02/26/17 10:45 Urine Blood Small (Negative) H 02/26/17 10:45 Urine Bilirubin Small (Negative) H 02/26/17 10:45 Urine Microscopic WBC 50-100 per hpf (0-3) H 02/26/17 10:45 Ur Squamous Epith Cells Many per lpf (None-Few) H 02/26/17 10:45 Amorphous Sediment Many (Few) H 02/26/17 10:45 Granular Casts Many per lpf (None Seen) H 02/26/17 10:45 U Benzodiazepines Scrn Positive ng/mL (Glbijh=398) H 02/26/17 10:45 H. influenzae (PCR) DETECTED (Not Detect) A 02/26/17 10:45 Antibody Screen POSITIVE A 02/26/17 12:30 - Microbiology Findings Microbiology Findings: Microbiology, Last 48 Hours 02/28/17 04:10 Sputum Culture - Final Sputum 02/28/17 05:59 Blood Culture - Preliminary Peripheral Venipuncture No growth. - Diagnostic Findings Chest x-ray: report reviewed, image reviewed - Clinical Findings Intake & Output: Intake & Output 03/02/17 03/03/17 03/03/17 23:59 07:59 15:59 Intake Total 100 / 100 325 / 325 0 / 0 Output Total 3125 / 3125 0 / 0 Balance -3025 / -3025 325 / 325 0 / 0 Consult Discharge Plan - Plan Referrals: NONE,PCP [Primary Care Provider] -
[2017-03-03] MEDS: Ondansetron 4 MG/2 ML VIAL IVP PRN (10:37)
[2017-03-03] MEDS ORDERED: Albumin 25% 12.5gm/50mL 12.5 GM/50 ML IV.SOLN IVPB PRN (14:58)
[2017-03-03] MEDS: *HR* LORazepam 2 MG/ML VIAL IVP PRN ×2 (17:28)
[2017-03-04] MEDS: Lacri-Lube 3.5 GM TUBE BOTH EYES SCH ×6 (01:03→23:22)
[2017-03-04] MEDS: FentaNYL (PF) 1,000 MCG in 0.9 % Sodium Chloride 80 ML IVC SCH (01:03)
[2017-03-04] MEDS: Ipratropium/Albuterol Neb 3 ML IH SCH ×4 (05:17→21:53)
[2017-03-04 05:49] LABS: INR 1.3; Prothrombin Time 13.8 Seconds (9.4-12.1)
[2017-03-04 05:51] LABS: ABG Base Excess 1 mEq/L (-2 to 3); ABG HCO3 27 mEq/L (21-27); ABG Oxygen Saturation 93 % (95-98); ABG PCO2 48 mmHg (35-45); ABG PH 7.35 pH Units (7.32-7.45); ABG PO2 73 mmHg (85-104); ABG TCO2 28 mEq/L (20-26); Blood Gas Modality ASSIST CONTROL; Blood Gas PEEP 5 cm H2O; Blood Gas Respiration Rate 22; Blood Gas VT 450 cc
[2017-03-04 05:52] LABS: Hematocrit 22.6 % (35.3-44.9); Hemoglobin 7.4 g/dL (11.5-15.4); Mean Corpuscular HGB Conc 32.7 g/dL (31.6-35.5); Mean Corpuscular Hemoglobin 28.8 pg (28.0-33.3); Mean Corpuscular Volume 87.9 fL (83.0-100.0); Mean Platelet Volume 10.5 fL (9.4-12.4); Nucleated Red Blood Cells 0.1 /100 WBC (0); Red Blood Count 2.57 M/mcL (3.82-4.97); Red Cell Distribution Width 16.5 % (11.5-14.5)
[2017-03-04 05:59] LABS: Calcium 9.3 mg/dL (8.6-10.8); Magnesium 2.2 mg/dL (1.6-2.6); Potassium 5.1 mEq/L (3.5-4.5)
[2017-03-04 06:18] LABS: Platelet Count 38 K/mcL (140-400)
[2017-03-04 07:43] LABS: Lymphocytes # 7.5 K/mcL (0.6-4.6); Neutrophils # 23.9 K/mcL (1.6-8.9); Platelet Estimate Decreased (Normal)
[2017-03-04 07:46] LABS: Anisocytosis 1+ (Not Present)
--- NOTE | 2017-03-04 08:06 | Pulmonology Progress Note ---
<IdrisAlicia zhong M - Last Filed: 03/04/17 10:10> Date of Encounter: 03/04/17 Assessment and Plan (1) Acute respiratory failure with hypoxia Current Visit: Yes Status: Acute (2) Acute on chronic renal failure Current Visit: Yes Status: Acute Qualifiers: Acute renal failure type: with acute tubular necrosis Chronic kidney disease stage: stage 3 (moderate) Qualified Code(s): N17.0 - Acute kidney failure with tubular necrosis; N18.3 - Chronic kidney disease, stage 3 (moderate ); N18.3 - Chronic kidney disease, stage 3 (moderate) (3) Pneumonia Current Visit: Yes Status: Acute Qualifiers: Pneumonia type: due to Haemophilus influenzae Laterality: unspecified laterality Lung location: unspecified part of lung Qualified Code(s): J14 - Pneumonia due to Hemophilus influenzae Objective PUL Vital signs: Last Vital Signs Temp 99.8 F H 03/04/17 10:01 Pulse 135 03/04/17 09:00 Resp 28 03/04/17 09:00 BP 110/54 03/04/17 09:00 Pulse Ox 91 03/04/17 09:00 Ventilator Settings Ventilator Settings: Ventilator Settings, Last 8 Hours Ventilator Mode A/C Ventilator Mode VC+ Ventilator Mode CPAP Ventilator Mode A/C Ventilator Mode VC+ Ventilator Mode VC+ Ventilator Mode A/C Ventilator Tidal Volume 450 Setting Ventilator Tidal Volume 450 Setting Ventilator Tidal Volume 450 Setting Ventilator Tidal Volume 450 Setting Ventilator Tidal Volume 450 Setting Ventilator Tidal Volume 450 Setting Ventilator Respiratory Rate 22 Setting Ventilator Respiratory Rate 22 Setting Ventilator Respiratory Rate 22 Setting Ventilator Respiratory Rate 22 Setting Ventilator Respiratory Rate 22 Setting Ventilator Respiratory Rate 22 Setting Actual Respiratory Rate 22 Actual Respiratory Rate 23 Actual Respiratory Rate 32 Actual Respiratory Rate 22 Actual Respiratory Rate 22 Actual Respiratory Rate 22 Positive End Expiratory 5 Pressure Positive End Expiratory 5 Pressure Positive End Expiratory 5 Pressure Positive End Expiratory 5 Pressure Positive End Expiratory 5 Pressure Positive End Expiratory 5 Pressure Positive End Expiratory 5 Pressure Peak Inspiratory Airway 36 Pressure Peak Inspiratory Airway 31 Pressure Peak Inspiratory Airway 16 Pressure Peak Inspiratory Airway 36 Pressure Peak Inspiratory Airway 41 Pressure Peak Inspiratory Airway 36 Pressure Results - Laboratory Findings CBC and BMP: 03/04/17 05:15 03/04/17 05:15 ABG ABG pH 7.35 pH Units (7.32-7.45) 03/04/17 05:48 ABG pCO2 48 mmHg (35-45) H 03/04/17 05:48 ABG pO2 73 mmHg (85-104) L 03/04/17 05:48 ABG O2 Saturation 93 % (95-98) L 03/04/17 05:48 PT/INR, D-dimer PT 13.8 Seconds (9.4-12.1) H 03/04/17 05:15 Abnormal lab findings: Abnormal lab results WBC 37.3 K/mcL (4.3-11.1) H* 03/04/17 05:15 RBC 2.57 M/mcL (3.82-4.97) L 03/04/17 05:15 Hgb 7.4 g/dL (11.5-15.4) L 03/04/17 05:15 Hct 22.6 % (35.3-44.9) L 03/04/17 05:15 RDW 16.5 % (11.5-14.5) H 03/04/17 05:15 Plt Count 38 K/mcL (140-400) L 03/04/17 05:15 Band Neutrophils % 8.0 % (0-4) H 03/04/17 05:15 Metamyelocytes % 2.0 % (0) H 03/04/17 05:15 Myelocytes % 2.0 % (0) H 03/04/17 05:15 Blast Cells % 4.0 % (0) H 03/04/17 05:15 Neutrophils # 23.9 K/mcL (1.6-8.9) H 03/04/17 05:15 Lymphocytes # 7.5 K/mcL (0.6-4.6) H 03/04/17 05:15 Monocytes # 3.0 K/mcL (0.0-1.3) H 03/04/17 05:15 Nucleated RBCs/100 WBC 0.1 /100 WBC (0) H 03/04/17 05:15 Smudge Cells Present (Not Present) A 03/03/17 03:37 Platelet Estimate Decreased (Normal) L 03/04/17 05:15 Polychromasia 1+ (Not Present) A 02/27/17 04:30 Anisocytosis 1+ (Not Present) A 03/04/17 05:15 Microcytosis Present (Not Present) A 03/03/17 03:37 PT 13.8 Seconds (9.4-12.1) H 03/04/17 05:15 ABG pCO2 48 mmHg (35-45) H 03/04/17 05:48 ABG pO2 73 mmHg (85-104) L 03/04/17 05:48 ABG Total CO2 28 mEq/L (20-26) H 03/04/17 05:48 ABG O2 Saturation 93 % (95-98) L 03/04/17 05:48 Potassium 5.1 mEq/L (3.5-4.5) H 03/04/17 05:15 BUN 84 mg/dL (7-20) H D 03/04/17 05:15 Creatinine 3.63 mg/dL (0.57-1.11) H D 03/04/17 05:15 Est GFR ( Amer) 15 (> 60) L 03/04/17 05:15 Est GFR (Non-Af Amer) 12 (> 60) L 03/04/17 05:15 Glucose 141 mg/dL (70-99) H 03/04/17 05:15 POC Glucose 155 (58-89) H 03/04/17 05:39 Lactic Acid 2.6 mmol/L (0.5-2.2) H 02/26/17 10:44 Calculated Osmolality 322 (280-300) H 03/04/17 05:15 Phosphorus 1.3 mg/dL (2.3-4.7) L 03/03/17 03:37 Troponin I 0.15 ng/mL (0-0.03) H* 02/26/17 10:45 Albumin 2.3 g/dL (3.5-5.0) L 03/01/17 03:00 Globulin 4.4 g/dL (2.4-3.5) H 03/01/17 03:00 Albumin/Globulin Ratio 0.5 (1.1-2.2) L 03/01/17 03:00 Urine Clarity Turbid (Clear) A 02/26/17 10:45 Ur Specific [place] 1.028 (1.010-1.025) H 02/26/17 10:45 Urine Protein 100 mg/dL (Neg-Trace) H 02/26/17 10:45 Urine Blood Small (Negative) H 02/26/17 10:45 Urine Bilirubin Small (Negative) H 02/26/17 10:45 Urine Microscopic WBC 50-100 per hpf (0-3) H 02/26/17 10:45 Ur Squamous Epith Cells Many per lpf (None-Few) H 02/26/17 10:45 Amorphous Sediment Many (Few) H 02/26/17 10:45 Granular Casts Many per lpf (None Seen) H 02/26/17 10:45 U Benzodiazepines Scrn Positive ng/mL (Imnbmp=583) H 02/26/17 10:45 H. influenzae (PCR) DETECTED (Not Detect) A 02/26/17 10:45 Antibody Screen POSITIVE A 02/26/17 12:30 - Microbiology Findings Microbiology Findings: Microbiology, Last 48 Hours 02/28/17 04:10 Sputum Culture - Final Sputum - Clinical Findings Intake & Output: Intake & Output 03/03/17 03/04/17 03/04/17 23:59 07:59 15:59 Intake Total 0 / 0 0 / 0 Output Total 2100 / 2100 125 / 125 0 / 0 Balance -2100 / -2100 -125 / -125 0 / 0 Weight 62.2 kg Consult Discharge Plan - Plan Referrals: NONE,PCP [Primary Care Provider] - - Attending Attestation I examined this patient and my medical decision-making was reviewed with the Resident Physician. I agree with the documented findings, disposition and treatment plan as described except to the extent set forth below. Patient seen and examined. Labs, radiology, chart personally reviewed. Agree with resident's history and physical, assessment, plan with following comments: DEAN OF FACULTY: Patient follows commands, Pulmonary: Patient was doing reasonably well on CPAP trial and therefore is a borderline failure which was thought it could be due to an anxiety for that reason I discussed with the patient to attempt to extubate to BiPAP and she stated if she failed after extubation then it will be fine with her to be reintubated. Patient was extubated and for short periods of time she was doing reasonably well, unfortunately she deteriorated rapidly and had to be reintubated. I discussed the situation with the daughter at the bedside. Cardiovascular: stable GI: Nutrition per dietary and GI prophylaxis per routine Heme: DVT prophylaxis per routine ID: Continue antibiotics and plan to de-escalation Renal; urine out put and renal funtion reviewed. 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 Endorcine: blood glucose is monitored Lines: all lines checked and no evidence of infections Skin: skin care to prevent pressure ulcers per nursing routine care I spent 35 min of Critical Care time with this patient. It involved decision making of high complexity to assess, manipulate, and support vital organ system failure and/or to prevent further life threatening deterioration of the patient' s condition. The time involved in the performance of separately reportable procedures was not counted toward critical care time. <Sole Whitten - Last Filed: 03/04/17 14:01> Date of Encounter: 03/04/17 Time of Encounter: 07:30 Assessment and Plan (1) Acute respiratory failure with hypoxia Current Visit: Yes Status: Acute -remains on mechanical ventilation (saturating 94%; FiO2 50%) with plans to extubate this morning (2) Pneumonia Current Visit: Yes Status: Acute -Afebrile, temp of 98.1F -currently receiving levaquin q48h, dose #4 to be administered today -awaiting sensitivity results to return on blood cultures positive for H. influenzae Qualifiers: Pneumonia type: due to Haemophilus influenzae Laterality: unspecified laterality Lung location: unspecified part of lung Qualified Code(s): J14 - Pneumonia due to Hemophilus influenzae (3) Acute on chronic renal failure Current Visit: Yes Status: Acute -BUN/Cr of 84/3.63 today -per nephrology, patient will be dialyzed Sunday -likely contributor to hyperkalemia on morning labs -will continue to monitor Qualifiers: Acute renal failure type: with acute tubular necrosis Chronic kidney disease stage: stage 3 (moderate) Qualified Code(s): N17.0 - Acute kidney failure with tubular necrosis; N18.3 - Chronic kidney disease, stage 3 (moderate ); N18.3 - Chronic kidney disease, stage 3 (moderate) (4) Leukocytosis Current Visit: Yes Status: Acute -WBC 37.3 today, possibly related to her pneumonia -will continue levaquin, awaiting sensitivity results from blood culture Qualifiers: Leukocytosis type: unspecified Qualified Code(s): D72.829 - Elevated white blood cell count, unspecified (5) Anemia Current Visit: Yes Status: Acute -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 Plan to attempt extubation today. Objective PUL Vital signs: Last Vital Signs Temp 98.1 F 03/04/17 05:05 Pulse 120 03/04/17 08:01 Resp 23 03/04/17 07:49 BP 132/56 03/04/17 07:00 Pulse Ox 96 03/04/17 07:49 General appearance: appears uncomfortable Eyes: nonicteric Neck: supple Effort: normal Auscultation: bilateral: rhonchi Cardiovascular: other (regular rhythm, tachcardic rate) Gastrointestinal: soft, non-tender, non-distended Extremities: no cyanosis, no edema, no clubbing, pulses normal normal mental status, non-focal exam Ventilator Settings Ventilator Settings: Ventilator Settings, Last 8 Hours Ventilator Mode A/C Ventilator Mode VC+ Ventilator Mode CPAP Ventilator Mode A/C Ventilator Mode VC+ Ventilator Mode VC+ Ventilator Mode A/C Ventilator Mode VC+ Ventilator Mode VC+ Ventilator Tidal Volume 450 Setting Ventilator Tidal Volume 450 Setting Ventilator Tidal Volume 450 Setting Ventilator Tidal Volume 450 Setting Ventilator Tidal Volume 450 Setting Ventilator Tidal Volume 450 Setting Ventilator Tidal Volume 450 Setting Ventilator Tidal Volume 450 Setting Ventilator Respiratory Rate 22 Setting Ventilator Respiratory Rate 22 Setting Ventilator Respiratory Rate 22 Setting Ventilator Respiratory Rate 22 Setting Ventilator Respiratory Rate 22 Setting Ventilator Respiratory Rate 22 Setting Ventilator Respiratory Rate 22 Setting Ventilator Respiratory Rate 22 Setting Actual Respiratory Rate 22 Actual Respiratory Rate 23 Actual Respiratory Rate 32 Actual Respiratory Rate 22 Actual Respiratory Rate 22 Actual Respiratory Rate 22 Actual Respiratory Rate 22 Actual Respiratory Rate 22 Positive End Expiratory 5 Pressure Positive End Expiratory 5 Pressure Positive End Expiratory 5 Pressure Positive End Expiratory 5 Pressure Positive End Expiratory 5 Pressure Positive End Expiratory 5 Pressure Positive End Expiratory 5 Pressure Positive End Expiratory 5 Pressure Positive End Expiratory 5 Pressure Peak Inspiratory Airway 36 Pressure Peak Inspiratory Airway 31 Pressure Peak Inspiratory Airway 16 Pressure Peak Inspiratory Airway 36 Pressure Peak Inspiratory Airway 41 Pressure Peak Inspiratory Airway 36 Pressure Peak Inspiratory Airway 45 Pressure Peak Inspiratory Airway 40 Pressure Results - Laboratory Findings CBC and BMP: 03/04/17 05:15 03/04/17 05:15 ABG ABG pH 7.35 pH Units (7.32-7.45) 03/04/17 05:48 ABG pCO2 48 mmHg (35-45) H 03/04/17 05:48 ABG pO2 73 mmHg (85-104) L 03/04/17 05:48 ABG O2 Saturation 93 % (95-98) L 03/04/17 05:48 PT/INR, D-dimer PT 13.8 Seconds (9.4-12.1) H 03/04/17 05:15 Abnormal lab findings: Abnormal lab results WBC 37.3 K/mcL (4.3-11.1) H* 03/04/17 05:15 RBC 2.57 M/mcL (3.82-4.97) L 03/04/17 05:15 Hgb 7.4 g/dL (11.5-15.4) L 03/04/17 05:15 Hct 22.6 % (35.3-44.9) L 03/04/17 05:15 RDW 16.5 % (11.5-14.5) H 03/04/17 05:15 Plt Count 38 K/mcL (140-400) L 03/04/17 05:15 Band Neutrophils % 8.0 % (0-4) H 03/04/17 05:15 Metamyelocytes % 2.0 % (0) H 03/04/17 05:15 Myelocytes % 2.0 % (0) H 03/04/17 05:15 Blast Cells % 4.0 % (0) H 03/04/17 05:15 Neutrophils # 23.9 K/mcL (1.6-8.9) H 03/04/17 05:15 Lymphocytes # 7.5 K/mcL (0.6-4.6) H 03/04/17 05:15 Monocytes # 3.0 K/mcL (0.0-1.3) H 03/04/17 05:15 Nucleated RBCs/100 WBC 0.1 /100 WBC (0) H 03/04/17 05:15 Smudge Cells Present (Not Present) A 03/03/17 03:37 Platelet Estimate Decreased (Normal) L 03/04/17 05:15 Polychromasia 1+ (Not Present) A 02/27/17 04:30 Anisocytosis 1+ (Not Present) A 03/04/17 05:15 Microcytosis Present (Not Present) A 03/03/17 03:37 PT 13.8 Seconds (9.4-12.1) H 03/04/17 05:15 ABG pCO2 48 mmHg (35-45) H 03/04/17 05:48 ABG pO2 73 mmHg (85-104) L 03/04/17 05:48 ABG Total CO2 28 mEq/L (20-26) H 03/04/17 05:48 ABG O2 Saturation 93 % (95-98) L 03/04/17 05:48 Potassium 5.1 mEq/L (3.5-4.5) H 03/04/17 05:15 BUN 84 mg/dL (7-20) H D 03/04/17 05:15 Creatinine 3.63 mg/dL (0.57-1.11) H D 03/04/17 05:15 Est GFR ( Amer) 15 (> 60) L 03/04/17 05:15 Est GFR (Non-Af Amer) 12 (> 60) L 03/04/17 05:15 Glucose 141 mg/dL (70-99) H 03/04/17 05:15 POC Glucose 155 (58-89) H 03/04/17 05:39 Lactic Acid 2.6 mmol/L (0.5-2.2) H 02/26/17 10:44 Calculated Osmolality 322 (280-300) H 03/04/17 05:15 Phosphorus 1.3 mg/dL (2.3-4.7) L 03/03/17 03:37 Troponin I 0.15 ng/mL (0-0.03) H* 02/26/17 10:45 Albumin 2.3 g/dL (3.5-5.0) L 03/01/17 03:00 Globulin 4.4 g/dL (2.4-3.5) H 03/01/17 03:00 Albumin/Globulin Ratio 0.5 (1.1-2.2) L 03/01/17 03:00 Urine Clarity Turbid (Clear) A 02/26/17 10:45 Ur Specific [place] 1.028 (1.010-1.025) H 02/26/17 10:45 Urine Protein 100 mg/dL (Neg-Trace) H 02/26/17 10:45 Urine Blood Small (Negative) H 02/26/17 10:45 Urine Bilirubin Small (Negative) H 02/26/17 10:45 Urine Microscopic WBC 50-100 per hpf (0-3) H 02/26/17 10:45 Ur Squamous Epith Cells Many per lpf (None-Few) H 02/26/17 10:45 Amorphous Sediment Many (Few) H 02/26/17 10:45 Granular Casts Many per lpf (None Seen) H 02/26/17 10:45 U Benzodiazepines Scrn Positive ng/mL (Qqnbqg=117) H 02/26/17 10:45 H. influenzae (PCR) DETECTED (Not Detect) A 02/26/17 10:45 Antibody Screen POSITIVE A 02/26/17 12:30 - Microbiology Findings Microbiology Findings: Microbiology, Last 48 Hours 02/28/17 04:10 Sputum Culture - Final Sputum - Clinical Findings Intake & Output: Intake & Output 03/03/17 03/04/17 03/04/17 23:59 07:59 15:59 Intake Total 0 / 0 0 / 0 Output Total 2099 125 / 125 Balance -2099 / -2099 -125 / -125 Weight 62.2 kg
[2017-03-04] MEDS ORDERED: *HR* Midazolam HCl 5 MG/5 ML VIAL IVP ONE (08:09)
[2017-03-04] MEDS: *HR* LORazepam 2 MG/ML VIAL IVP PRN ×3 (08:09→22:29)
[2017-03-04] MEDS: Pantoprazole 40 MG VIAL IVPB SCH (08:10)
--- NOTE | 2017-03-04 08:30 | Procedure Note ---
<Jose Juan Dee - Last Filed: 03/04/17 08:28> Date of procedure: 03/04/17 Pre-op diagnosis: Acute resp failure Post-op diagnosis: same Procedure: A time-out was completed verifying correct patient, procedure, site, positioning , and special equipment if applicable. The patient was placed in a flat position. Sedation was obtained using Versed 5mg. The patient was easily ventilated using an ambu bag. The [employer] was used and inserted into the oropharynx at which time there was a Grade 1 view of the vocal cords. A 7.5-namibian endotracheal tube was inserted and visualized going through the vocal cords. The stylette was removed. Colorimetric change was visualized on the CO2 meter. Breath sounds were heard in both lung lacy equally. The endotracheal tube was placed at 24 cm, measured at the lip. Attending/ Dr. Epps was present for the entire procedure. A chest x-ray was ordered to assess for pneumothorax and verify endotrachealtube placement. Estimated Blood Loss: 0cc The patient tolerated the procedure well and there were no complications. Surgeon: Jose Juan Dee Neon Glass Bender: Alicia Epps Pathology: none sent Condition: critical Disposition: ICU <Alicia Epps - Last Filed: 03/04/17 10:14> Procedure: I examined this patient and my medical decision-making was reviewed with the Resident Physician. I agree with the documented findings, disposition and treatment plan as described except to the extent set forth below. I have personally supervised resident intubating patient without immediate complications. Alicia Epps MD
--- NOTE | 2017-03-04 09:19 | Oncology Inp Progress Note ---
Date of Encounter: 03/04/17 Time of Encounter: 09:17 (1) AML (acute myelogenous leukemia) Current Visit: Yes Status: Acute Assessment and plan: - Patient failed extubation today, currently intubated, looks comfortable. Family at bedside and expecting another trial of extubation at some point in the near future. 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 Currently looks euvolemic. - Labs reviewed, no need for transfusions so far. Transfuse for platelet count less than 20K, HCT/Hgb less than 21%/7g/dl. 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 Failed extubation earlier today, so re intubated. Currently looks comfortable. Denies pain. - Constitutional Vitals: Vital Signs Temp Pulse Resp BP Pulse Ox 03/04/17 08:08 99.8 F H 03/04/17 08:01 120 03/04/17 07:49 23 96 03/04/17 07:26 22 93 03/04/17 07:00 124 24 132/56 94 03/04/17 06:22 25 94/41 95 03/04/17 06:00 105 20 139/62 94 03/04/17 05:17 22 105/54 94 03/04/17 05:05 98.1 F 03/04/17 05:00 97 20 105/54 95 03/04/17 02:02 22 93/46 93 03/04/17 00:45 22 113/58 95 03/04/17 00:34 98.0 F 03/03/17 23:00 88 20 106/56 95 03/03/17 22:10 24 106/70 96 03/03/17 22:00 97 18 106/70 94 03/03/17 21:03 98.3 F 03/03/17 21:00 82 20 107/57 95 03/03/17 20:49 22 98/53 96 03/03/17 20:00 87 20 116/57 95 03/03/17 19:00 81 20 94/50 96 03/03/17 18:17 22 95 03/03/17 18:00 84 22 96/55 95 03/03/17 17:44 22 95 03/03/17 17:00 96 22 114/63 95 03/03/17 16:03 23 98 03/03/17 16:00 97.1 F L 92 22 88/47 95 03/03/17 15:40 100/49 03/03/17 15:30 100/54 03/03/17 15:24 23 98 03/03/17 15:15 94/49 03/03/17 15:08 97 03/03/17 15:00 97 24 97/55 98 03/03/17 14:55 84/52 03/03/17 14:50 88/45 03/03/17 14:45 108/56 03/03/17 14:30 114/81 03/03/17 14:18 119/69 03/03/17 14:15 119/50 03/03/17 14:00 105 24 119/69 94 03/03/17 13:53 22 95 03/03/17 13:45 113/54 03/03/17 13:30 97 F L 20 114/50 03/03/17 13:00 88 23 101/51 96 03/03/17 12:47 87 03/03/17 12:00 93 22 115/47 95 03/03/17 11:16 87 03/03/17 11:01 22 96 03/03/17 11:00 98.6 F 87 23 104/56 96 03/03/17 10:09 120 22 118/58 91 03/03/17 10:00 93 22 96/46 94 Intake and Output 03/03/17 03/04/17 03/04/17 23:59 07:59 15:59 Intake Total 0 / 0 0 / 0 Output Total 2099 125 / 125 0 / 0 Balance -2099 -125 / -125 0 / 0 Intake: Oral 0 / 0 Free Water Intake Amount 0 / 0 0 / 0 Output: Urine 0 / 0 Gastric Tube Lavage Amount 0 / 0 0 / 0 Oral 0 / 0 0 / 0 Total Dialysis (HD) Output 2099 Rectal Tube 100 / 100 0 / 0 Catheter 0 / 0 25 / 25 0 / 0 Other: Stool Consistency loose Stool Color Brown Weight 62.2 kg Blood Glucose* 155 Hemodialysis Net Fluid Removed 1500 (mL) Patient Weight 03/04/17 23:59 Weight 62.2 kg - Head Head exam: Present: normal inspection - Respiratory Respiratory exam: Present: CTAB. Absent: respiratory distress - Cardiovascular Cardiovascular exam: Present: +S1 - GI/Abdominal GI/Abdominal exam: Present: normal bowel sounds. Absent: organomegaly Oncology: Obj Data - Labs CBC & Chem 7: 03/04/17 05:15 03/04/17 05:15 Labs: Laboratory Results - last 24 hr 03/03/17 03/04/17 03/04/17 17:47 00:10 05:15 WBC 37.3 H* RBC 2.57 L Hgb 7.4 L Hct 22.6 L MCV 87.9 MCH 28.8 MCHC 32.7 RDW 16.5 H Plt Count 38 L MPV 10.5 Seg Neutrophils % 56.0 Band Neutrophils % 8.0 H Lymphocytes % 20.0 Monocytes % 8.0 Metamyelocytes % 2.0 H Myelocytes % 2.0 H Blast Cells % 4.0 H Neutrophils # 23.9 H Lymphocytes # 7.5 H Monocytes # 3.0 H Nucleated RBCs/100 WBC 0.1 H Platelet Estimate Decreased L Anisocytosis 1+ A PT INR Sample Site ABG pH ABG pCO2 ABG pO2 ABG HCO3 ABG Total CO2 ABG O2 Saturation ABG Base Excess Tolu Test Respiration Rate O2 Delivery Device Blood Gas Modality Inspired O2 Tidal Volume PEEP Sodium Potassium Chloride Carbon Dioxide BUN Creatinine Est GFR ( Amer) Est GFR (Non-Af Amer) BUN/Creatinine Ratio Glucose POC Glucose 150 H 134 H Calculated Osmolality Calcium Magnesium 03/04/17 03/04/17 03/04/17 05:15 05:15 05:39 WBC RBC Hgb Hct MCV MCH MCHC RDW Plt Count MPV Seg Neutrophils % Band Neutrophils % Lymphocytes % Monocytes % Metamyelocytes % Myelocytes % Blast Cells % Neutrophils # Lymphocytes # Monocytes # Nucleated RBCs/100 WBC Platelet Estimate Anisocytosis PT 13.8 H INR 1.3 Sample Site ABG pH ABG pCO2 ABG pO2 ABG HCO3 ABG Total CO2 ABG O2 Saturation ABG Base Excess Tolu Test Respiration Rate O2 Delivery Device Blood Gas Modality Inspired O2 Tidal Volume PEEP Sodium 142 Potassium 5.1 H Chloride 105 Carbon Dioxide 24 BUN 84 H D Creatinine 3.63 H D Est GFR ( Amer) 15 L Est GFR (Non-Af Amer) 12 L BUN/Creatinine Ratio 23 Glucose 141 H POC Glucose 155 H Calculated Osmolality 322 H Calcium 9.3 Magnesium 2.2 03/04/17 05:48 WBC RBC Hgb Hct MCV MCH MCHC RDW Plt Count MPV Seg Neutrophils % Band Neutrophils % Lymphocytes % Monocytes % Metamyelocytes % Myelocytes % Blast Cells % Neutrophils # Lymphocytes # Monocytes # Nucleated RBCs/100 WBC Platelet Estimate Anisocytosis PT INR Sample Site L Radial ABG pH 7.35 ABG pCO2 48 H ABG pO2 73 L ABG HCO3 27 ABG Total CO2 28 H ABG O2 Saturation 93 L ABG Base Excess 1 Tolu Test Positive Respiration Rate 22 O2 Delivery Device Adult Vent Blood Gas Modality ASSIST CONTROL Inspired O2 45.0 Tidal Volume 450 PEEP 5 Sodium Potassium Chloride Carbon Dioxide BUN Creatinine Est GFR ( Amer) Est GFR (Non-Af Amer) BUN/Creatinine Ratio Glucose POC Glucose Calculated Osmolality Calcium Magnesium - ABG Interpretation ABG results: ABG ABG pH 7.35 pH Units (7.32-7.45) 03/04/17 05:48 ABG pCO2 48 mmHg (35-45) H 03/04/17 05:48 ABG pO2 73 mmHg (85-104) L 03/04/17 05:48 ABG O2 Saturation 93 % (95-98) L 03/04/17 05:48 PT/INR, D-dimer PT 13.8 Seconds (9.4-12.1) H 03/04/17 05:15 Consult Discharge Plan - Plan Referrals: NONE,PCP [Primary Care Provider] -
[2017-03-04] MEDS: Chlorhexidine Rinse 15 ML MOUTHWASH MM SCH ×2 (10:24→21:30)
--- NOTE | 2017-03-04 12:13 | Nephrology Progress Note ---
Date of Encounter: 03/04/17 Time of Encounter: 12:11 - Assessment and Plan (1) AML (acute myelogenous leukemia) Current Visit: Yes Status: Acute Per oncology and the primary team. 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 Avoid nephrotoxins. Adjust medications for renal function. Dialysis as needed. Plan Dialysis Sunday. Medical management of slightly high potassium today. Plan of care discussed with critical care team. 33 minutes spent in the care of this critically ill patient. Qualifiers: Acute renal failure type: with acute tubular necrosis Chronic kidney disease stage: stage 3 (moderate) Qualified Code(s): N17.0 - Acute kidney failure with tubular necrosis; N18.3 - Chronic kidney disease, stage 3 (moderate ); N18.3 - Chronic kidney disease, stage 3 (moderate) (3) Acute respiratory failure with hypercapnia Current Visit: Yes Status: Acute Team plans to attempt extubation today. (4) Anemia Current Visit: Yes Status: Acute Monitor hemoglobin. Transfuse as needed. Qualifiers: Anemia type: other cause Other causes of anemia: chronic disease, neoplastic Qualified Code(s): D63.0 - Anemia in neoplastic disease (5) Pneumonia Current Visit: Yes Status: Acute Per primary team. Continue antibiotics. Qualifiers: Pneumonia type: due to Haemophilus influenzae Laterality: unspecified laterality Lung location: unspecified part of lung Qualified Code(s): J14 - Pneumonia due to Hemophilus influenzae Subjective Principal diagnosis: Unresponsive Interval history: Patient seen and evaluated. She is sedated and intubated. She failed extubation this am. Review of systems is unobtainable Plan of care discussed with ICU team. Objective - Vital Signs Vital signs: Vital Signs Temp Pulse Resp BP Pulse Ox 03/04/17 12:10 24 96 03/04/17 12:00 81 22 86/46 95 03/04/17 11:43 24 96 03/04/17 11:37 90 03/04/17 11:31 90 22 85/60 97 03/04/17 10:50 22 95 03/04/17 10:01 99.8 F H 03/04/17 10:00 105 23 93/50 94 03/04/17 09:00 135 28 110/54 91 03/04/17 08:08 99.8 F H 03/04/17 08:01 120 03/04/17 08:00 120 32 128/66 91 03/04/17 07:49 23 96 03/04/17 07:26 22 93 03/04/17 07:00 124 24 132/56 94 03/04/17 06:22 25 94/41 95 03/04/17 06:00 105 20 139/62 94 03/04/17 05:17 22 105/54 94 03/04/17 05:05 98.1 F 03/04/17 05:00 97 20 105/54 95 03/04/17 02:02 22 93/46 93 03/04/17 00:45 22 113/58 95 03/04/17 00:34 98.0 F 03/03/17 23:00 88 20 106/56 95 03/03/17 22:10 24 106/70 96 03/03/17 22:00 97 18 106/70 94 03/03/17 21:03 98.3 F 03/03/17 21:00 82 20 107/57 95 03/03/17 20:49 22 98/53 96 03/03/17 20:00 87 20 116/57 95 03/03/17 19:00 81 20 94/50 96 03/03/17 18:17 22 95 03/03/17 18:00 84 22 96/55 95 03/03/17 17:44 22 95 03/03/17 17:00 96 22 114/63 95 03/03/17 16:03 23 98 03/03/17 16:00 97.1 F L 92 22 88/47 95 03/03/17 15:40 100/49 03/03/17 15:30 100/54 03/03/17 15:24 23 98 03/03/17 15:15 94/49 03/03/17 15:08 97 03/03/17 15:00 97 24 97/55 98 03/03/17 14:55 84/52 03/03/17 14:50 88/45 03/03/17 14:45 108/56 03/03/17 14:30 114/81 10/28/17 14:18 119/69 03/03/17 14:15 119/50 03/03/17 14:00 105 24 119/69 94 03/03/17 13:53 22 95 03/03/17 13:45 113/54 03/03/17 13:30 97 F L 20 114/50 03/03/17 13:00 88 23 101/51 96 03/03/17 12:47 87 Intake and Output 03/03/17 03/04/17 03/04/17 23:59 07:59 15:59 Intake Total 0 / 0 0 / 0 0 / 0 Output Total 2099 / 2099 125 / 125 0 / 0 Balance -2100 / -2100 -125 / -125 0 / 0 Intake: Oral 0 / 0 Free Water Intake Amount 0 / 0 0 / 0 0 / 0 Output: Urine 0 / 0 Gastric Tube Lavage Amount 0 / 0 0 / 0 0 / 0 Oral 0 / 0 0 / 0 0 / 0 Total Dialysis (HD) Output 2099 Rectal Tube 100 / 100 0 / 0 Catheter 0 / 0 25 / 25 0 / 0 Other: Stool Consistency loose Stool Color Brown Weight 62.2 kg Blood Glucose* 155 Hemodialysis Net Fluid Removed 1500 (mL) Patient Weight 03/04/17 23:59 Weight 62.2 kg - General Appearance General appearance: Present: well-developed, well-nourished, sedated on ventilator, intubated EENT: Present: ATNC Neck: Present: supple Respiratory: Present: course breath sounds Cardiology: Present: no edema, regular rate Gastrointestinal: Present: no tenderness Integumentary: Present: warm and dry Additional Comments: Alert, but on sedation. Additional Comments: Calm. - Lab 03/04/17 05:15 03/04/17 05:15 Most recent lab results ABG pH 7.35 pH Units (7.32-7.45) 03/04/17 05:48 ABG pCO2 48 mmHg (35-45) H 03/04/17 05:48 ABG pO2 73 mmHg (85-104) L 03/04/17 05:48 ABG HCO3 27 mEq/L (21-27) 03/04/17 05:48 ABG O2 Saturation 93 % (95-98) L 03/04/17 05:48 Calcium 9.3 mg/dL (8.6-10.8) 03/04/17 05:15 Phosphorus 1.3 mg/dL (2.3-4.7) L 03/03/17 03:37 Magnesium 2.2 mg/dL (1.6-2.6) 03/04/17 05:15 Consult Discharge Plan - Plan Referrals: NONE,PCP [Primary Care Provider] -
[2017-03-04] MEDS: Levofloxacin 750 MG/150 ML 750 MG/150 ML BAG IVPB SCH (12:19)
[2017-03-04] MEDS: Dexmedetomidine HCl 400 MCG/100 ML MLS IVC SCH (18:03)
[2017-03-05] MEDS: Lacri-Lube 3.5 GM TUBE BOTH EYES SCH ×6 (03:07→22:20)
[2017-03-05] MEDS: Ipratropium/Albuterol Neb 3 ML IH SCH ×4 (03:57→19:49)
[2017-03-05 04:55] LABS: Hemoglobin 6.2 g/dL (11.5-15.4); INR 1.3; Prothrombin Time 14.4 Seconds (9.4-12.1)
[2017-03-05 04:56] LABS: Hematocrit 18.8 % (35.3-44.9); Mean Corpuscular Volume 87.9 fL (83.0-100.0); Mean Platelet Volume 10.3 fL (9.4-12.4); Nucleated Red Blood Cells 0.1 /100 WBC (0); Red Blood Count 2.14 M/mcL (3.82-4.97); Red Cell Distribution Width 16.5 % (11.5-14.5)
[2017-03-05 05:10] LABS: Calcium 9.1 mg/dL (8.6-10.8); Magnesium 2.4 mg/dL (1.6-2.6); Potassium 5.5 mEq/L (3.5-4.5)
[2017-03-05 05:31] LABS: Platelet Count 31 K/mcL (140-400)
[2017-03-05 05:36] LABS: Lymphocytes # 6.9 K/mcL (0.6-4.6); Neutrophils # 19.5 K/mcL (1.6-8.9)
[2017-03-05 05:37] LABS: Anisocytosis 1+ (Not Present); Platelet Estimate Decreased (Normal)
[2017-03-05] MEDS: Pantoprazole 40 MG VIAL IVPB SCH (08:14)
[2017-03-05] MEDS: Chlorhexidine Rinse 15 ML MOUTHWASH MM SCH ×2 (08:15→20:47)
[2017-03-05] MEDS: Dexmedetomidine HCl 400 MCG/100 ML MLS IVC SCH ×2 (08:15→23:02)
--- NOTE | 2017-03-05 08:52 | Nephrology Progress Note ---
Date of Encounter: 03/05/17 Time of Encounter: 08:50 - Assessment and Plan (1) Acute on chronic renal failure Current Visit: Yes Status: Acute patient appears to be dialysis dependent. Oliguric RODERICK, now progressed to ESRD Etiology likely secondary to septic shock, H.Influenza pneumonia. Plan: will continue to monitor renal function avoid nephrotoxic agents as much as possible strict I/O hemodialysis scheduled for later today. Qualifiers: Acute renal failure type: with acute tubular necrosis Chronic kidney disease stage: stage 3 (moderate) Qualified Code(s): N17.0 - Acute kidney failure with tubular necrosis; N18.3 - Chronic kidney disease, stage 3 (moderate ); N18.3 - Chronic kidney disease, stage 3 (moderate) (2) Fluid overload Current Visit: Yes Status: Acute as above Qualifiers: Hypervolemia type: unspecified Qualified Code(s): E87.70 - Fluid overload, unspecified (3) Septic shock Current Visit: Yes Status: Resolved resolved. secondary to H.Influenza. (4) Thrombocytopenia Current Visit: Yes Status: Acute per primary (5) Anemia Current Visit: Yes Status: Acute likely not renally related. likely secondary to AML Qualifiers: Anemia type: other cause Other causes of anemia: chronic disease, neoplastic Qualified Code(s): D63.0 - Anemia in neoplastic disease (6) AML (acute myelogenous leukemia) Current Visit: Yes Status: Acute Hx of AML on palliative chemotherapy currently. 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 Subjective Principal diagnosis: Unresponsive Interval history: 66 year old female evaluated at bedside. patient remains intubated. she is intermittently alert and responds to stimuli. Objective - Vital Signs Vital signs: Vital Signs Temp Pulse Resp BP Pulse Ox 03/05/17 08:00 73 23 96/44 94 03/05/17 07:55 75 03/05/17 07:51 97.4 F L 03/05/17 07:33 23 96/46 94 03/05/17 07:00 75 23 93/45 94 03/05/17 06:00 68 24 91/45 94 03/05/17 05:52 22 94/43 93 03/05/17 05:00 71 22 103/61 94 03/05/17 04:00 97.5 F L 70 22 90/41 93 03/05/17 03:57 22 92/42 93 03/05/17 03:00 70 22 90/43 93 03/05/17 02:00 72 22 85/41 93 03/05/17 01:32 23 110/51 95 03/05/17 01:00 79 24 110/51 95 03/05/17 00:00 97.5 F L 78 22 102/47 94 03/04/17 23:22 23 94/44 92 03/04/17 23:00 76 22 94/44 92 03/04/17 22:00 75 22 106/51 95 03/04/17 21:53 22 99/50 93 03/04/17 21:00 79 23 105/52 94 03/04/17 20:00 98 F 85 24 117/53 95 03/04/17 19:47 22 120/52 95 03/04/17 19:00 85 23 107/57 100 03/04/17 18:18 81 25 113/58 95 03/04/17 18:00 81 25 113/58 95 03/04/17 17:06 22 94 03/04/17 17:00 81 24 99/49 93 03/04/17 16:05 84 03/04/17 16:00 80 22 91/45 94 03/04/17 15:17 84 03/04/17 15:00 98.0 F 84 23 97/45 94 03/04/17 14:29 23 86/43 98 03/04/17 14:06 82 24 86/43 96 03/04/17 14:00 80 22 83/42 94 03/04/17 13:00 82 24 86/43 96 03/04/17 12:10 24 96 03/04/17 12:00 81 22 86/46 95 03/04/17 11:43 24 96 03/04/17 11:37 90 03/04/17 11:31 90 22 85/60 97 03/04/17 10:50 22 95 03/04/17 10:01 99.8 F H 03/04/17 10:00 105 23 93/50 94 03/04/17 09:00 135 28 110/54 91 Intake and Output 03/04/17 03/05/17 03/05/17 23:59 07:59 15:59 Intake Total 214 / 214 329 / 329 100 / 100 Output Total 0 / 0 120 / 120 Balance 214 / 214 209 / 209 100 / 100 Intake: IV Fluids 100 / 100 PRECEDEX Premix 400 mcg In 100 100 / 100 ml @ 0.2 MCG/KG/HR 4.196 mls/hr IVC .[id number] PIPPA Rx#: [id number] Tube Feeding 214 / 214 329 / 329 Output: Rectal Tube 0 / 0 100 / 100 Catheter 0 / 0 20 / 20 Other: Weight 63 kg Blood Glucose* 125 128 Patient Weight 03/05/17 23:59 Weight 63 kg - General Appearance General appearance: Present: well-developed, well-nourished, appears started age , intubated Neck: Present: JVD Respiratory: Present: clear Cardiology: Present: no murmurs, no rub, no gallops, regular rate, regular rhythm, normal S1, normal S2 Dialysis Vascular Access: Venous Catheter Gastrointestinal: Present: absent bowel sounds, no tenderness, no guarding, no organomegaly Additional Comments: significant bruising present on both arms. Additional Comments: sedated. - Lab 03/05/17 03:50 03/05/17 03:50 Most recent lab results ABG pH 7.35 pH Units (7.32-7.45) 03/04/17 05:48 ABG pCO2 48 mmHg (35-45) H 03/04/17 05:48 ABG pO2 73 mmHg (85-104) L 03/04/17 05:48 ABG HCO3 27 mEq/L (21-27) 03/04/17 05:48 ABG O2 Saturation 93 % (95-98) L 03/04/17 05:48 Calcium 9.1 mg/dL (8.6-10.8) 03/05/17 03:50 Phosphorus 1.3 mg/dL (2.3-4.7) L 03/03/17 03:37 Magnesium 2.4 mg/dL (1.6-2.6) 03/05/17 03:50 Consult Discharge Plan - Plan Referrals: NONE,PCP [Primary Care Provider] -
--- NOTE | 2017-03-05 09:38 | Pulmonology Progress Note ---
<Michael Ravi - Last Filed: 03/05/17 13:51> Date of Encounter: 03/05/17 Time of Encounter: 09:37 Assessment and Plan (1) Septic shock Current Visit: Yes Status: Resolved Resolved. No longer requiring pressors. Secondary to Haemophilus influenza pneumonia. Continue Levaquin. (2) Acute respiratory failure with hypercapnia Current Visit: Yes Status: Acute Secondary to Haemophilus influenza pneumonia as discussed above, pulmonary edema is also contributing. Pneumonia is being adequately treated, hemodialysis initiated yesterday for fluid removal. Continue ventilatory support. Patient was extubated yesterday and unfortunately she required reintubation after 1 hour. Chest x-ray shows continual improvement. (3) AML (acute myelogenous leukemia) Current Visit: Yes Status: Acute With pancytopenia at baseline. Per records review treatment intent is currently palliative. Significant elevation in her white count possibly related to underlying infection. Continue treatment as above. Oncology has been consulted and is following. 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 Continue Levaquin. Sensitivities pending Qualifiers: Pneumonia type: due to Haemophilus influenzae Laterality: unspecified laterality Lung location: unspecified part of lung Qualified Code(s): J14 - Pneumonia due to Hemophilus influenzae (5) Acute on chronic renal failure Current Visit: Yes Status: Acute Creatinine 3.99 on presentation, baseline appears to be around 1.5. Concern for ATN in the setting of critical illness given granular casts found in the urine. Urine output remains poor. Continue hemodialysis. Nephrology is following and appreciate their recommendations. Qualifiers: Acute renal failure type: with acute tubular necrosis Chronic kidney disease stage: stage 3 (moderate) Qualified Code(s): N17.0 - Acute kidney failure with tubular necrosis; N18.3 - Chronic kidney disease, stage 3 (moderate ); N18.3 - Chronic kidney disease, stage 3 (moderate) (6) Anemia Current Visit: Yes Status: Acute 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 Baseline appears to be around 7-8. Hgb 6.2 today. No obvious source of bleeding. Continue to monitor. Will transfuse 2 units Qualifiers: Anemia type: other cause Other causes of anemia: chronic disease, neoplastic Qualified Code(s): D63.0 - Anemia in neoplastic disease (7) Thrombocytopenia Current Visit: Yes Status: Acute Platelets 31 today. No evidence of active bleeding. We will transfuse for platelet counts less than 10,000 or evidence of active bleeding. Continue to monitor. Subjective Principal diagnosis: Unresponsive Interval history: Patient seen and examined at bedside. Patient remains intubated and minimally sedated. Per her to be in any acute distress. Objective PUL Vital signs: Last Vital Signs Temp 97.4 F L 03/05/17 07:51 Pulse 76 03/05/17 09:00 Resp 24 03/05/17 09:02 BP 95/45 03/05/17 09:02 Pulse Ox 95 03/05/17 09:02 General appearance: no acute distress Effort: normal Auscultation: bilateral: diminished breath sounds Cardiovascular: regular rate and rhythm Gastrointestinal: normoactive bowel sounds, soft, non-tender, non-distended Extremities: no cyanosis, no clubbing, edema (1+) normal mental status, non-focal exam Ventilator Settings Ventilator Settings: Ventilator Settings, Last 8 Hours Ventilator Mode A/C Ventilator Mode A/C Ventilator Mode VC+ Ventilator Mode VC+ Ventilator Mode VC+ Ventilator Mode VC+ Ventilator Mode VC+ Ventilator Mode VC+ Ventilator Mode VC+ Ventilator Mode VC+ Ventilator Tidal Volume 450 Setting Ventilator Tidal Volume 450 Setting Ventilator Tidal Volume 450 Setting Ventilator Tidal Volume 450 Setting Ventilator Tidal Volume 450 Setting Ventilator Tidal Volume 450 Setting Ventilator Tidal Volume 450 Setting Ventilator Tidal Volume 450 Setting Ventilator Tidal Volume 450 Setting Ventilator Tidal Volume 450 Setting Ventilator Respiratory Rate 22 Setting Ventilator Respiratory Rate 22 Setting Ventilator Respiratory Rate 22 Setting Ventilator Respiratory Rate 22 Setting Ventilator Respiratory Rate 22 Setting Ventilator Respiratory Rate 22 Setting Ventilator Respiratory Rate 22 Setting Ventilator Respiratory Rate 22 Setting Ventilator Respiratory Rate 22 Setting Ventilator Respiratory Rate 22 Setting Actual Respiratory Rate 24 Actual Respiratory Rate 24 Actual Respiratory Rate 23 Actual Respiratory Rate 24 Actual Respiratory Rate 22 Actual Respiratory Rate 22 Actual Respiratory Rate 22 Actual Respiratory Rate 22 Actual Respiratory Rate 22 Actual Respiratory Rate 22 Positive End Expiratory 5 Pressure Positive End Expiratory 5 Pressure Positive End Expiratory 5 Pressure Positive End Expiratory 5 Pressure Positive End Expiratory 5 Pressure Positive End Expiratory 5 Pressure Positive End Expiratory 5 Pressure Positive End Expiratory 5 Pressure Positive End Expiratory 5 Pressure Positive End Expiratory 5 Pressure Peak Inspiratory Airway 24 Pressure Peak Inspiratory Airway 26 Pressure Peak Inspiratory Airway 27 Pressure Peak Inspiratory Airway 27 Pressure Peak Inspiratory Airway 28 Pressure Peak Inspiratory Airway 27 Pressure Peak Inspiratory Airway 29 Pressure Peak Inspiratory Airway 32 Pressure Peak Inspiratory Airway 30 Pressure Results - Laboratory Findings CBC and BMP: 03/05/17 03:50 03/05/17 03:50 ABG ABG pH 7.35 pH Units (7.32-7.45) 03/04/17 05:48 ABG pCO2 48 mmHg (35-45) H 03/04/17 05:48 ABG pO2 73 mmHg (85-104) L 03/04/17 05:48 ABG O2 Saturation 93 % (95-98) L 03/04/17 05:48 PT/INR, D-dimer PT 14.4 Seconds (9.4-12.1) H 03/05/17 03:50 Abnormal lab findings: Abnormal lab results WBC 28.6 K/mcL (4.3-11.1) H 03/05/17 03:50 RBC 2.14 M/mcL (3.82-4.97) L 03/05/17 03:50 Hgb 6.2 g/dL (11.5-15.4) L 03/05/17 03:50 Hct 18.8 % (35.3-44.9) L 03/05/17 03:50 RDW 16.5 % (11.5-14.5) H 03/05/17 03:50 Plt Count 31 K/mcL (140-400) L 03/05/17 03:50 Metamyelocytes % 4.0 % (0) H 03/05/17 03:50 Myelocytes % 2.0 % (0) H 03/05/17 03:50 Blast Cells % 2.0 % (0) H 03/05/17 03:50 Neutrophils # 19.5 K/mcL (1.6-8.9) H 03/05/17 03:50 Lymphocytes # 6.9 K/mcL (0.6-4.6) H 03/05/17 03:50 Monocytes # 3.0 K/mcL (0.0-1.3) H 03/04/17 05:15 Nucleated RBCs/100 WBC 0.1 /100 WBC (0) H 03/05/17 03:50 Smudge Cells Present (Not Present) A 03/03/17 03:37 Platelet Estimate Decreased (Normal) L 03/05/17 03:50 Polychromasia 1+ (Not Present) A 02/27/17 04:30 Anisocytosis 1+ (Not Present) A 03/05/17 03:50 Microcytosis Present (Not Present) A 03/03/17 03:37 PT 14.4 Seconds (9.4-12.1) H 03/05/17 03:50 ABG pCO2 48 mmHg (35-45) H 03/04/17 05:48 ABG pO2 73 mmHg (85-104) L 03/04/17 05:48 ABG Total CO2 28 mEq/L (20-26) H 03/04/17 05:48 ABG O2 Saturation 93 % (95-98) L 03/04/17 05:48 Potassium 5.5 mEq/L (3.5-4.5) H 03/05/17 03:50 BUN 124 mg/dL (7-20) H D 03/05/17 03:50 Creatinine 4.86 mg/dL (0.57-1.11) H 03/05/17 03:50 Est GFR ( Amer) 11 (> 60) L 03/05/17 03:50 Est GFR (Non-Af Amer) 9 (> 60) L 03/05/17 03:50 Glucose 124 mg/dL (70-99) H 03/05/17 03:50 POC Glucose 128 (58-89) H 03/04/17 23:59 Lactic Acid 2.6 mmol/L (0.5-2.2) H 02/26/17 10:44 Calculated Osmolality 339 (280-300) H 03/05/17 03:50 Phosphorus 1.3 mg/dL (2.3-4.7) L 03/03/17 03:37 Troponin I 0.15 ng/mL (0-0.03) H* 02/26/17 10:45 Albumin 2.3 g/dL (3.5-5.0) L 03/01/17 03:00 Globulin 4.4 g/dL (2.4-3.5) H 03/01/17 03:00 Albumin/Globulin Ratio 0.5 (1.1-2.2) L 03/01/17 03:00 Urine Clarity Turbid (Clear) A 02/26/17 10:45 Ur Specific [place] 1.028 (1.010-1.025) H 02/26/17 10:45 Urine Protein 100 mg/dL (Neg-Trace) H 02/26/17 10:45 Urine Blood Small (Negative) H 02/26/17 10:45 Urine Bilirubin Small (Negative) H 02/26/17 10:45 Urine Microscopic WBC 50-100 per hpf (0-3) H 02/26/17 10:45 Ur Squamous Epith Cells Many per lpf (None-Few) H 02/26/17 10:45 Amorphous Sediment Many (Few) H 02/26/17 10:45 Granular Casts Many per lpf (None Seen) H 02/26/17 10:45 U Benzodiazepines Scrn Positive ng/mL (Qlblvb=388) H 02/26/17 10:45 H. influenzae (PCR) DETECTED (Not Detect) A 02/26/17 10:45 Antibody Screen POSITIVE A 02/26/17 12:30 - Microbiology Findings Microbiology Findings: Microbiology, Last 48 Hours 02/28/17 05:59 Blood Culture - Final Peripheral Venipuncture No growth. - Clinical Findings Intake & Output: Intake & Output 03/04/17 03/05/17 03/05/17 23:59 07:59 15:59 Intake Total 214 / 214 329 / 329 100 / 100 Output Total 0 / 0 120 / 120 Balance 214 / 214 209 / 209 100 / 100 Weight 63 kg Consult Discharge Plan - Plan Referrals: NONE,PCP [Primary Care Provider] - <Nathaly Rodgers - Last Filed: 03/05/17 19:01> Date of Encounter: 03/05/17 Objective PUL Vital signs: Last Vital Signs Temp 97.8 F 03/05/17 18:33 Pulse 85 03/05/17 18:33 Resp 29 03/05/17 18:33 BP 115/50 03/05/17 18:33 Pulse Ox 94 03/05/17 18:33 Ventilator Settings Ventilator Settings: Ventilator Settings, Last 8 Hours Ventilator Mode VC+ Ventilator Mode VC+ Ventilator Mode CPAP Ventilator Mode A/C Ventilator Mode A/C Ventilator Mode A/C Ventilator Mode A/C Ventilator Tidal Volume 370 Setting Ventilator Tidal Volume 370 Setting Ventilator Tidal Volume 370 Setting Ventilator Tidal Volume 370 Setting Ventilator Tidal Volume 370 Setting Ventilator Tidal Volume 450 Setting Ventilator Respiratory Rate 22 Setting Ventilator Respiratory Rate 22 Setting Ventilator Respiratory Rate 22 Setting Ventilator Respiratory Rate 22 Setting Ventilator Respiratory Rate 22 Setting Ventilator Respiratory Rate 22 Setting Actual Respiratory Rate 35 Actual Respiratory Rate 38 Actual Respiratory Rate 32 Actual Respiratory Rate 31 Actual Respiratory Rate 32 Actual Respiratory Rate 30 Positive End Expiratory 5 Pressure Positive End Expiratory 5 Pressure Positive End Expiratory 5 Pressure Positive End Expiratory 5 Pressure Positive End Expiratory 5 Pressure Positive End Expiratory 5 Pressure Peak Inspiratory Airway 15 Pressure Peak Inspiratory Airway 8.9 Pressure Peak Inspiratory Airway 22 Pressure Peak Inspiratory Airway 23 Pressure Peak Inspiratory Airway 23 Pressure Results - Laboratory Findings CBC and BMP: 03/05/17 03:50 03/05/17 03:50 ABG ABG pH 7.36 pH Units (7.32-7.45) 03/05/17 11:31 ABG pCO2 49 mmHg (35-45) H 03/05/17 11:31 ABG pO2 68 mmHg (85-104) L 03/05/17 11:31 ABG O2 Saturation 92 % (95-98) L 03/05/17 11:31 PT/INR, D-dimer PT 14.4 Seconds (9.4-12.1) H 03/05/17 03:50 Abnormal lab findings: Abnormal lab results WBC 28.6 K/mcL (4.3-11.1) H 03/05/17 03:50 RBC 2.14 M/mcL (3.82-4.97) L 03/05/17 03:50 Hgb 6.2 g/dL (11.5-15.4) L 03/05/17 03:50 Hct 18.8 % (35.3-44.9) L 03/05/17 03:50 RDW 16.5 % (11.5-14.5) H 03/05/17 03:50 Plt Count 31 K/mcL (140-400) L 03/05/17 03:50 Metamyelocytes % 4.0 % (0) H 03/05/17 03:50 Myelocytes % 2.0 % (0) H 03/05/17 03:50 Blast Cells % 2.0 % (0) H 03/05/17 03:50 Neutrophils # 19.5 K/mcL (1.6-8.9) H 03/05/17 03:50 Lymphocytes # 6.9 K/mcL (0.6-4.6) H 03/05/17 03:50 Monocytes # 3.0 K/mcL (0.0-1.3) H 03/04/17 05:15 Nucleated RBCs/100 WBC 0.1 /100 WBC (0) H 03/05/17 03:50 Smudge Cells Present (Not Present) A 03/03/17 03:37 Platelet Estimate Decreased (Normal) L 03/05/17 03:50 Polychromasia 1+ (Not Present) A 02/27/17 04:30 Anisocytosis 1+ (Not Present) A 03/05/17 03:50 Microcytosis Present (Not Present) A 03/03/17 03:37 PT 14.4 Seconds (9.4-12.1) H 03/05/17 03:50 ABG pCO2 49 mmHg (35-45) H 03/05/17 11:31 ABG pO2 68 mmHg (85-104) L 03/05/17 11:31 ABG Total CO2 29 mEq/L (20-26) H 03/05/17 11:31 ABG O2 Saturation 92 % (95-98) L 03/05/17 11:31 Potassium 5.5 mEq/L (3.5-4.5) H 03/05/17 03:50 BUN 124 mg/dL (7-20) H D 03/05/17 03:50 Creatinine 4.86 mg/dL (0.57-1.11) H 03/05/17 03:50 Est GFR ( Amer) 11 (> 60) L 03/05/17 03:50 Est GFR (Non-Af Amer) 9 (> 60) L 03/05/17 03:50 Glucose 124 mg/dL (70-99) H 03/05/17 03:50 POC Glucose 119 (58-89) H 03/05/17 18:11 Lactic Acid 2.6 mmol/L (0.5-2.2) H 02/26/17 10:44 Calculated Osmolality 339 (280-300) H 03/05/17 03:50 Phosphorus 1.3 mg/dL (2.3-4.7) L 03/03/17 03:37 Troponin I 0.15 ng/mL (0-0.03) H* 02/26/17 10:45 Albumin 2.3 g/dL (3.5-5.0) L 03/01/17 03:00 Globulin 4.4 g/dL (2.4-3.5) H 03/01/17 03:00 Albumin/Globulin Ratio 0.5 (1.1-2.2) L 03/01/17 03:00 Urine Clarity Turbid (Clear) A 02/26/17 10:45 Ur Specific [place] 1.028 (1.010-1.025) H 02/26/17 10:45 Urine Protein 100 mg/dL (Neg-Trace) H 02/26/17 10:45 Urine Blood Small (Negative) H 02/26/17 10:45 Urine Bilirubin Small (Negative) H 02/26/17 10:45 Urine Microscopic WBC 50-100 per hpf (0-3) H 02/26/17 10:45 Ur Squamous Epith Cells Many per lpf (None-Few) H 02/26/17 10:45 Amorphous Sediment Many (Few) H 02/26/17 10:45 Granular Casts Many per lpf (None Seen) H 02/26/17 10:45 U Benzodiazepines Scrn Positive ng/mL (Wqmkrx=306) H 02/26/17 10:45 H. influenzae (PCR) DETECTED (Not Detect) A 02/26/17 10:45 - Microbiology Findings Microbiology Findings: Microbiology, Last 48 Hours 02/28/17 05:59 Blood Culture - Final Peripheral Venipuncture No growth. - Clinical Findings Intake & Output: Intake & Output 03/05/17 03/05/17 03/05/17 07:59 15:59 23:59 Intake Total 329 / 329 1119 / 1119 270 / 270 Output Total 120 / 120 600 / 600 Balance 209 / 209 519 / 519 270 / 270 Weight 63 kg 63 kg - Attending Attestation I saw the patient with the resident agree with History and Physical exam findings. Labs and Radiology were reviewed Ventilator data were reviewed adjusted to lung protective ventilation BUSINESS SUPPORT MANAGER: Patient is conscious following commands intubated and ventilated , sedated NECK : No JVD appreciated Pulmonary : Patient is hypoxic on ventilator , secondary to H influenza pneumonia patient is on appropriate antibiotic tried extubation yesterday patient failed within 10 minutes had some airway edema tried SBT she was Tachypnoeic in the 40"s , TV around 350 ml of TV with 12 pressure support will aim of negative fluid balance she doesnt have any wheezing. Since there was some airway edema will give some 24-48 hrs before extubating in the meantime aim for negative fluid balance. Cardiac : Septic shock resolved not on any vasopressors any more. Nutrition/GI: Patient is on tube feeds, PPI prophylaxis Renal : acute on chronic on HD will try to remove fluid . 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 Musculo skeletal / skin issues Disposition : Critical Code status: DNRCCA Family/POA: , Daughter updated about the condition. Spent 33 minutes of Critical Care time which involved complex medical decision making in supporting the vital organs and preventing deterioration to life threatening vital organ dysfunction
[2017-03-05] MEDS ORDERED: *HR* Heparin 10,000 UNIT/10 ML VIAL IV PRN (09:59)
[2017-03-05] MEDS ORDERED: 0.9 % Sodium Chloride 250 ML IVC PRN (09:59)
[2017-03-05] MEDS ORDERED: 0.9 % Sodium Chloride 1,000 ML PRIME SCH (10:00)
[2017-03-05] MEDS ORDERED: 0.9 % Sodium Chloride 2,000 ML ONE (10:58)
[2017-03-05] MEDS: Albumin 25% 12.5gm/50mL 12.5 GM/50 ML IV.SOLN IVPB SCH (11:23)
--- NOTE | 2017-03-05 11:29 | Palliative Progress Note ---
<Chaz Cavanaugh - Last Filed: 03/05/17 11:27> Date of Encounter: 03/05/17 Time of Encounter: 11:28 - Assessment and plan (1) Goals of care, counseling/discussion Current Visit: Yes Status: Acute Assessment and plan: DNR-CCA extubated for less than an hour and went into respiratory distress and was reintubated over weekend Discussed with patient group home options: including if she would like group home intubation she is also dialysis dependent and asked if she would consider doing dialysis [place] terminal agent she also requires more PRBC: 2 more units ordered present during conversation. They will discuss these questions with family. (2) Acute respiratory failure with hypercapnia Current Visit: Yes Status: Acute Assessment and plan: 2nd to Haemophilus influenza pna reintubated over weekend after being extubated for 1 hour management as per primary team (3) Anemia Current Visit: Yes Status: Acute Assessment and plan: 2nd to AML improved transfused 3 PRBC and additional 2 units ordered. Off pressors as per primary team Qualifiers: Anemia type: other cause Other causes of anemia: chronic disease, neoplastic Qualified Code(s): D63.0 - Anemia in neoplastic disease (4) AML (acute myelogenous leukemia) Current Visit: Yes Status: Acute Assessment and plan: patient in on palliative treatment outpatient before admission requires multiple transfusions per week of PBRC and platelets. requiring additional transfusions. Thrombocytopenic. management as per onc and primary team. 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 Qualifiers: Acute renal failure type: with acute tubular necrosis Chronic kidney disease stage: stage 3 (moderate) Qualified Code(s): N17.0 - Acute kidney failure with tubular necrosis; N18.3 - Chronic kidney disease, stage 3 (moderate ); N18.3 - Chronic kidney disease, stage 3 (moderate) - Time Spent With Patient Total time spent is greater than 50% in coordination of care (as documented) at patient's floor/unit and/or counseling patient: - Subjective Interval history: Yesterday patient was extubated but did not tolerate extubation and was reintubated. This morning patient is intubated, awake, alert, answering questions by writing. Reports dry mouth and requests ice chips. - Constitutional Vitals: Abnormal lab results WBC 28.6 K/mcL (4.3-11.1) H 03/05/17 03:50 RBC 2.14 M/mcL (3.82-4.97) L 03/05/17 03:50 Hgb 6.2 g/dL (11.5-15.4) L 03/05/17 03:50 Hct 18.8 % (35.3-44.9) L 03/05/17 03:50 RDW 16.5 % (11.5-14.5) H 03/05/17 03:50 Plt Count 31 K/mcL (140-400) L 03/05/17 03:50 Metamyelocytes % 4.0 % (0) H 03/05/17 03:50 Myelocytes % 2.0 % (0) H 03/05/17 03:50 Blast Cells % 2.0 % (0) H 03/05/17 03:50 Neutrophils # 19.5 K/mcL (1.6-8.9) H 03/05/17 03:50 Lymphocytes # 6.9 K/mcL (0.6-4.6) H 03/05/17 03:50 Monocytes # 3.0 K/mcL (0.0-1.3) H 03/04/17 05:15 Nucleated RBCs/100 WBC 0.1 /100 WBC (0) H 03/05/17 03:50 Smudge Cells Present (Not Present) A 03/03/17 03:37 Platelet Estimate Decreased (Normal) L 03/05/17 03:50 Polychromasia 1+ (Not Present) A 02/27/17 04:30 Anisocytosis 1+ (Not Present) A 03/05/17 03:50 Microcytosis Present (Not Present) A 03/03/17 03:37 PT 14.4 Seconds (9.4-12.1) H 03/05/17 03:50 ABG pCO2 48 mmHg (35-45) H 03/04/17 05:48 ABG pO2 73 mmHg (85-104) L 03/04/17 05:48 ABG Total CO2 28 mEq/L (20-26) H 03/04/17 05:48 ABG O2 Saturation 93 % (95-98) L 03/04/17 05:48 Potassium 5.5 mEq/L (3.5-4.5) H 03/05/17 03:50 BUN 124 mg/dL (7-20) H D 03/05/17 03:50 Creatinine 4.86 mg/dL (0.57-1.11) H 03/05/17 03:50 Est GFR ( Amer) 11 (> 60) L 03/05/17 03:50 Est GFR (Non-Af Amer) 9 (> 60) L 03/05/17 03:50 Glucose 124 mg/dL (70-99) H 03/05/17 03:50 POC Glucose 113 (58-89) H 03/05/17 11:13 Lactic Acid 2.6 mmol/L (0.5-2.2) H 02/26/17 10:44 Calculated Osmolality 339 (280-300) H 03/05/17 03:50 Phosphorus 1.3 mg/dL (2.3-4.7) L 03/03/17 03:37 Troponin I 0.15 ng/mL (0-0.03) H* 02/26/17 10:45 Albumin 2.3 g/dL (3.5-5.0) L 03/01/17 03:00 Globulin 4.4 g/dL (2.4-3.5) H 03/01/17 03:00 Albumin/Globulin Ratio 0.5 (1.1-2.2) L 03/01/17 03:00 Urine Clarity Turbid (Clear) A 02/26/17 10:45 Ur Specific [place] 1.028 (1.010-1.025) H 02/26/17 10:45 Urine Protein 100 mg/dL (Neg-Trace) H 02/26/17 10:45 Urine Blood Small (Negative) H 02/26/17 10:45 Urine Bilirubin Small (Negative) H 02/26/17 10:45 Urine Microscopic WBC 50-100 per hpf (0-3) H 02/26/17 10:45 Ur Squamous Epith Cells Many per lpf (None-Few) H 02/26/17 10:45 Amorphous Sediment Many (Few) H 02/26/17 10:45 Granular Casts Many per lpf (None Seen) H 02/26/17 10:45 U Benzodiazepines Scrn Positive ng/mL (Wmaibx=925) H 02/26/17 10:45 H. influenzae (PCR) DETECTED (Not Detect) A 02/26/17 10:45 General appearance: Present: no acute distress - Respiratory Additional comments: CTAB anteriorly intubated OG tube - Cardiovascular Cardiovascular exam: Present: RRR - GI/Abdominal GI/Abdominal exam: Present: normal bowel sounds, soft. Absent: distended, tenderness - Extremities Exam Extremities exam: Present: normal capillary refill. Absent: pedal edema - Neurological Exam Neurological exam: Present: alert Additional comments: follows commands communicates through writing. Palliative Quality Palliative Quality: Screen for Code Status: Yes, Screen for Goals of Care: Yes, Screen for Pain: Yes, If Pain Regimen Started, Initiate Bowel Regimen: Yes, Screen for Nausea/Vomitting: Yes Code Status: 02/26/17 13:42 Resuscitation Status: Active [RES] Routine Comment: Resuscitation Status: Full Code Resuscitation Status: Active [RES] Routine Comment: Resuscitation Status: DNR-Comfort Care-Arrest - Labs CBC & Chem 7: 03/05/17 03:50 03/05/17 03:50 Labs: Laboratory Results - last 24 hr 03/04/17 03/04/17 03/05/17 17:40 23:59 03:50 WBC 28.6 H RBC 2.14 L Hgb 6.2 L Hct 18.8 L MCV 87.9 MCH 29.0 MCHC 33.0 RDW 16.5 H Plt Count 31 L MPV 10.3 Seg Neutrophils % 66.0 Band Neutrophils % 2.0 Lymphocytes % 24.0 Metamyelocytes % 4.0 H Myelocytes % 2.0 H Blast Cells % 2.0 H Neutrophils # 19.5 H Lymphocytes # 6.9 H Nucleated RBCs/100 WBC 0.1 H Platelet Estimate Decreased L Anisocytosis 1+ A PT INR Sodium Potassium Chloride Carbon Dioxide BUN Creatinine Est GFR ( Amer) Est GFR (Non-Af Amer) BUN/Creatinine Ratio Glucose POC Glucose 125 H 128 H Calculated Osmolality Calcium Magnesium Blood Type Antibody Screen Crossmatch 03/05/17 03/05/17 03/05/17 03:50 03:50 08:23 WBC RBC Hgb Hct MCV MCH MCHC RDW Plt Count MPV Seg Neutrophils % Band Neutrophils % Lymphocytes % Metamyelocytes % Myelocytes % Blast Cells % Neutrophils # Lymphocytes # Nucleated RBCs/100 WBC Platelet Estimate Anisocytosis PT 14.4 H INR 1.3 Sodium 144 Potassium 5.5 H Chloride 106 Carbon Dioxide 22 BUN 124 H D Creatinine 4.86 H Est GFR ( Amer) 11 L Est GFR (Non-Af Amer) 9 L BUN/Creatinine Ratio 26 Glucose 124 H POC Glucose Calculated Osmolality 339 H Calcium 9.1 Magnesium 2.4 Blood Type A NEGATIVE Antibody Screen POSITIVE Crossmatch See Detail 03/05/17 11:13 WBC RBC Hgb Hct MCV MCH MCHC RDW Plt Count MPV Seg Neutrophils % Band Neutrophils % Lymphocytes % Metamyelocytes % Myelocytes % Blast Cells % Neutrophils # Lymphocytes # Nucleated RBCs/100 WBC Platelet Estimate Anisocytosis PT INR Sodium Potassium Chloride Carbon Dioxide BUN Creatinine Est GFR ( Amer) Est GFR (Non-Af Amer) BUN/Creatinine Ratio Glucose POC Glucose 113 H Calculated Osmolality Calcium Magnesium Blood Type Antibody Screen Crossmatch - ABG Interpretation ABG results: ABG ABG pH 7.35 pH Units (7.32-7.45) 03/04/17 05:48 ABG pCO2 48 mmHg (35-45) H 03/04/17 05:48 ABG pO2 73 mmHg (85-104) L 03/04/17 05:48 ABG O2 Saturation 93 % (95-98) L 03/04/17 05:48 PT/INR, D-dimer PT 14.4 Seconds (9.4-12.1) H 03/05/17 03:50 Consult Discharge Plan - Plan Referrals: NONE,PCP [Primary Care Provider] - <Lazaro Butterfield - Last Filed: 03/05/17 11:44> Date of Encounter: 03/05/17 - Assessment and plan (1) Acute respiratory acidosis Current Visit: Yes Status: Acute (2) Aspiration pneumonia Current Visit: Yes Status: Acute Qualifiers: Aspiration pneumonia type: due to vomit Laterality: right Lung location: lower lobe of lung Qualified Code(s): J69.0 - Pneumonitis due to inhalation of food and vomit (3) Anemia Current Visit: Yes Status: Acute Qualifiers: Anemia type: other cause Other causes of anemia: chronic disease, neoplastic Qualified Code(s): D63.0 - Anemia in neoplastic disease (4) AML (acute myelogenous leukemia) Current Visit: Yes Status: Acute Qualifiers: Leukemia Active/Remission status: relapsed Qualified Code(s): 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, in relapse; C92.62 - Acute myeloid leukemia with [id number] in relapse; 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, in relapse (5) Acute on chronic renal failure Current Visit: Yes Status: Acute Qualifiers: Acute renal failure type: with acute tubular necrosis Chronic kidney disease stage: stage 3 (moderate) Qualified Code(s): N17.0 - Acute kidney failure with tubular necrosis; N18.3 - Chronic kidney disease, stage 3 (moderate ); N18.3 - Chronic kidney disease, stage 3 (moderate) (6) Septic shock Current Visit: Yes Status: Resolved (7) Goals of care, counseling/discussion Current Visit: Yes Status: Acute - Time Spent With Patient Total time spent is greater than 50% in coordination of care (as documented) at patient's floor/unit and/or counseling patient: - Constitutional Vitals: Abnormal lab results WBC 28.6 K/mcL (4.3-11.1) H 03/05/17 03:50 RBC 2.14 M/mcL (3.82-4.97) L 03/05/17 03:50 Hgb 6.2 g/dL (11.5-15.4) L 03/05/17 03:50 Hct 18.8 % (35.3-44.9) L 03/05/17 03:50 RDW 16.5 % (11.5-14.5) H 03/05/17 03:50 Plt Count 31 K/mcL (140-400) L 03/05/17 03:50 Metamyelocytes % 4.0 % (0) H 03/05/17 03:50 Myelocytes % 2.0 % (0) H 03/05/17 03:50 Blast Cells % 2.0 % (0) H 03/05/17 03:50 Neutrophils # 19.5 K/mcL (1.6-8.9) H 03/05/17 03:50 Lymphocytes # 6.9 K/mcL (0.6-4.6) H 03/05/17 03:50 Monocytes # 3.0 K/mcL (0.0-1.3) H 03/04/17 05:15 Nucleated RBCs/100 WBC 0.1 /100 WBC (0) H 03/05/17 03:50 Smudge Cells Present (Not Present) A 03/03/17 03:37 Platelet Estimate Decreased (Normal) L 03/05/17 03:50 Polychromasia 1+ (Not Present) A 02/27/17 04:30 Anisocytosis 1+ (Not Present) A 03/05/17 03:50 Microcytosis Present (Not Present) A 03/03/17 03:37 PT 14.4 Seconds (9.4-12.1) H 03/05/17 03:50 ABG pCO2 49 mmHg (35-45) H 03/05/17 11:31 ABG pO2 68 mmHg (85-104) L 03/05/17 11:31 ABG Total CO2 29 mEq/L (20-26) H 03/05/17 11:31 ABG O2 Saturation 92 % (95-98) L 03/05/17 11:31 Potassium 5.5 mEq/L (3.5-4.5) H 03/05/17 03:50 BUN 124 mg/dL (7-20) H D 03/05/17 03:50 Creatinine 4.86 mg/dL (0.57-1.11) H 03/05/17 03:50 Est GFR ( Amer) 11 (> 60) L 03/05/17 03:50 Est GFR (Non-Af Amer) 9 (> 60) L 03/05/17 03:50 Glucose 124 mg/dL (70-99) H 03/05/17 03:50 POC Glucose 113 (58-89) H 03/05/17 11:13 Lactic Acid 2.6 mmol/L (0.5-2.2) H 02/26/17 10:44 Calculated Osmolality 339 (280-300) H 03/05/17 03:50 Phosphorus 1.3 mg/dL (2.3-4.7) L 03/03/17 03:37 Troponin I 0.15 ng/mL (0-0.03) H* 02/26/17 10:45 Albumin 2.3 g/dL (3.5-5.0) L 03/01/17 03:00 Globulin 4.4 g/dL (2.4-3.5) H 03/01/17 03:00 Albumin/Globulin Ratio 0.5 (1.1-2.2) L 03/01/17 03:00 Urine Clarity Turbid (Clear) A 02/26/17 10:45 Ur Specific [place] 1.028 (1.010-1.025) H 02/26/17 10:45 Urine Protein 100 mg/dL (Neg-Trace) H 02/26/17 10:45 Urine Blood Small (Negative) H 02/26/17 10:45 Urine Bilirubin Small (Negative) H 02/26/17 10:45 Urine Microscopic WBC 50-100 per hpf (0-3) H 02/26/17 10:45 Ur Squamous Epith Cells Many per lpf (None-Few) H 02/26/17 10:45 Amorphous Sediment Many (Few) H 02/26/17 10:45 Granular Casts Many per lpf (None Seen) H 02/26/17 10:45 U Benzodiazepines Scrn Positive ng/mL (Vloscs=858) H 02/26/17 10:45 H. influenzae (PCR) DETECTED (Not Detect) A 02/26/17 10:45 - Attending Attestation I examined this patient and my medical decision-making was reviewed with the Resident Physician. I agree with the documented findings, disposition and treatment plan as described except to the extent set forth below. Palliative Quality Code Status: 02/26/17 13:42 Resuscitation Status: Active [RES] Routine Comment: Resuscitation Status: Full Code Resuscitation Status: Active [RES] Routine Comment: Resuscitation Status: DNR-Comfort Care-Arrest - Labs CBC & Chem 7: 03/05/17 03:50 03/05/17 03:50 Labs: Laboratory Results - last 24 hr 03/04/17 03/04/17 03/05/17 17:40 23:59 03:50 WBC 28.6 H RBC 2.14 L Hgb 6.2 L Hct 18.8 L MCV 87.9 MCH 29.0 MCHC 33.0 RDW 16.5 H Plt Count 31 L MPV 10.3 Seg Neutrophils % 66.0 Band Neutrophils % 2.0 Lymphocytes % 24.0 Metamyelocytes % 4.0 H Myelocytes % 2.0 H Blast Cells % 2.0 H Neutrophils # 19.5 H Lymphocytes # 6.9 H Nucleated RBCs/100 WBC 0.1 H Platelet Estimate Decreased L Anisocytosis 1+ A PT INR Sample Site ABG pH ABG pCO2 ABG pO2 ABG HCO3 ABG Total CO2 ABG O2 Saturation ABG Base Excess Tolu Test Lactate Respiration Rate O2 Delivery Device Blood Gas Modality Inspired O2 Tidal Volume PEEP Sodium Potassium Chloride Carbon Dioxide BUN Creatinine Est GFR ( Amer) Est GFR (Non-Af Amer) BUN/Creatinine Ratio Glucose POC Glucose 125 H 128 H Calculated Osmolality Calcium Magnesium Blood Type Antibody Screen Antibody Identification Crossmatch MTS Gel Crossmatch 03/05/17 03/05/17 03/05/17 03:50 03:50 08:23 WBC RBC Hgb Hct MCV MCH MCHC RDW Plt Count MPV Seg Neutrophils % Band Neutrophils % Lymphocytes % Metamyelocytes % Myelocytes % Blast Cells % Neutrophils # Lymphocytes # Nucleated RBCs/100 WBC Platelet Estimate Anisocytosis PT 14.4 H INR 1.3 Sample Site ABG pH ABG pCO2 ABG pO2 ABG HCO3 ABG Total CO2 ABG O2 Saturation ABG Base Excess Tolu Test Lactate Respiration Rate O2 Delivery Device Blood Gas Modality Inspired O2 Tidal Volume PEEP Sodium 144 Potassium 5.5 H Chloride 106 Carbon Dioxide 22 BUN 124 H D Creatinine 4.86 H Est GFR ( Amer) 11 L Est GFR (Non-Af Amer) 9 L BUN/Creatinine Ratio 26 Glucose 124 H POC Glucose Calculated Osmolality 339 H Calcium 9.1 Magnesium 2.4 Blood Type A NEGATIVE Antibody Screen POSITIVE Antibody Identification Known Anti-S Crossmatch See Detail MTS Gel Crossmatch See Detail 03/05/17 03/05/17 11:13 11:31 WBC RBC Hgb Hct MCV MCH MCHC RDW Plt Count MPV Seg Neutrophils % Band Neutrophils % Lymphocytes % Metamyelocytes % Myelocytes % Blast Cells % Neutrophils # Lymphocytes # Nucleated RBCs/100 WBC Platelet Estimate Anisocytosis PT INR Sample Site L Radial ABG pH 7.36 ABG pCO2 49 H ABG pO2 68 L ABG HCO3 27 ABG Total CO2 29 H ABG O2 Saturation 92 L ABG Base Excess 1 Tolu Test Positive Lactate 0.8 Respiration Rate 22 O2 Delivery Device Adult Vent Blood Gas Modality ASSIST CONTROL Inspired O2 30.0 Tidal Volume 370 PEEP 5 Sodium Potassium Chloride Carbon Dioxide BUN Creatinine Est GFR ( Amer) Est GFR (Non-Af Amer) BUN/Creatinine Ratio Glucose POC Glucose 113 H Calculated Osmolality Calcium Magnesium Blood Type Antibody Screen Antibody Identification Crossmatch MTS Gel Crossmatch - ABG Interpretation ABG results: ABG ABG pH 7.36 pH Units (7.32-7.45) 03/05/17 11:31 ABG pCO2 49 mmHg (35-45) H 03/05/17 11:31 ABG pO2 68 mmHg (85-104) L 03/05/17 11:31 ABG O2 Saturation 92 % (95-98) L 03/05/17 11:31 PT/INR, D-dimer PT 14.4 Seconds (9.4-12.1) H 03/05/17 03:50
[2017-03-05 11:34] LABS: ABG Base Excess 1 mEq/L (-2 to 3); ABG HCO3 27 mEq/L (21-27); ABG Oxygen Saturation 92 % (95-98); ABG PCO2 49 mmHg (35-45); ABG PH 7.36 pH Units (7.32-7.45); ABG PO2 68 mmHg (85-104); ABG TCO2 29 mEq/L (20-26); Blood Gas Modality ASSIST CONTROL; Blood Gas PEEP 5 cm H2O; Blood Gas Respiration Rate 22; Blood Gas VT 370 cc
--- NOTE | 2017-03-05 16:30 | Oncology Inp Progress Note ---
<Gardenia Cervantes L - Last Filed: 03/05/17 17:05> Date of Encounter: 03/05/17 Time of Encounter: 13:30 (1) AML (acute myelogenous leukemia) Current Visit: Yes Status: Acute Assessment and plan: Patient has relapsed, refractory AML currently receiving palliative treatment prior to her admission with Decitabine and weekly injections of aranesp. Patient recently visited Dr. Perez at [facility] for second opinion also prior to her admission to discuss further treatment options which may include mylotarg, she is not interested in clinical trials. Due to hospitalization, patient has not followed up after consulting with Dr. Perez. Plan to continue to discuss palliative treatment options on an outpatient basis with patient and patients family following resolution of acute respiratory issues and further rehabilitation. Appreciate palliative care input and goals of care discussion who have discussed dialysis and intermediate teacher tracheal ventilation options with patient and patients . Patient and patients /family are weighing options at this time. Per pulmonologys recommendation may plan to trial patients second extuabation if she is able to tolerate, within the next few days following failed attempt yesterday. Qualifiers: Leukemia Active/Remission status: relapsed Qualified Code(s): 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, in relapse; C92.62 - Acute myeloid leukemia with [id number] in relapse; 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, in relapse (2) Anemia Current Visit: Yes Status: Acute Assessment and plan: Chronic due to AML with a hgb baseline around 7-8. Patient has been tranfusion dependent prior to admission. Continue with recommendation to transfuse for hgb <7/hct <21%. Patients hgb dropped to 6.2 today and will receive 2 units PRBC. Qualifiers: Anemia type: other cause Other causes of anemia: chronic disease, neoplastic Qualified Code(s): D63.0 - Anemia in neoplastic disease (3) Thrombocytopenia Current Visit: Yes Status: Acute Assessment and plan: Continue with recommendation for platelets transfusion if platelets <20K or earlier for any s/s bleeding. Platelets currently 31 today, will continue to monitor. No signs of bleeding currently. Oncology: Subj Interval history: Patient resting comfortably in bed, remains intubated, minimally sedated, denies pain. Daughter and dialysis nurse at bedside. Patient has almost completed dialysis at this time, this will be patients 5th dialysis treatment over the past 6 days. - Constitutional Vitals: Vital Signs Temp Pulse Resp BP Pulse Ox 03/05/17 16:08 77 03/05/17 16:00 89 38 111/57 93 03/05/17 15:55 97.8 F 03/05/17 15:16 31 106/49 94 03/05/17 15:00 77 37 106/49 94 03/05/17 14:10 98.8 F 18 110/81 03/05/17 14:00 85 31 106/50 95 03/05/17 13:51 106/50 03/05/17 13:45 114/52 03/05/17 13:30 31 111/51 95 03/05/17 13:15 96/50 03/05/17 13:00 90 30 106/63 95 03/05/17 12:45 101/48 03/05/17 12:30 101/50 03/05/17 12:15 102/64 03/05/17 12:00 93 31 113/49 93 03/05/17 11:45 107/50 03/05/17 11:42 97.8 F 03/05/17 11:30 32 108/52 94 03/05/17 11:22 87 03/05/17 11:15 115/52 03/05/17 11:00 97.8 F 87 16 109/57 95 03/05/17 10:00 81 30 99/46 93 03/05/17 09:02 24 95/45 95 03/05/17 09:00 76 26 95/45 93 03/05/17 08:00 73 23 96/44 94 03/05/17 07:55 75 03/05/17 07:51 97.4 F L 03/05/17 07:33 23 96/46 94 03/05/17 07:00 75 23 93/45 94 03/05/17 06:00 68 24 91/45 94 03/05/17 05:52 22 94/43 93 03/05/17 05:00 71 22 103/61 94 03/05/17 04:00 97.5 F L 70 22 90/41 93 03/05/17 03:57 22 92/42 93 03/05/17 03:00 70 22 90/43 93 03/05/17 02:00 72 22 85/41 93 03/05/17 01:32 23 110/51 95 03/05/17 01:00 79 24 110/51 95 03/05/17 00:00 97.5 F L 78 22 102/47 94 03/04/17 23:22 23 94/44 92 03/04/17 23:00 76 22 94/44 92 03/04/17 22:00 75 22 106/51 95 03/04/17 21:53 22 99/50 93 03/04/17 21:00 79 23 105/52 94 03/04/17 20:00 98 F 85 24 117/53 95 03/04/17 19:47 22 120/52 95 03/04/17 19:00 85 23 107/57 100 03/04/17 18:18 81 25 113/58 95 03/04/17 18:00 81 25 113/58 95 03/04/17 17:06 22 94 03/04/17 17:00 81 24 99/49 93 Intake and Output 03/05/17 03/05/17 03/05/17 07:59 15:59 23:59 Intake Total 329 / 329 1119 / 1119 270 / 270 Output Total 120 / 120 600 / 600 Balance 209 / 209 519 / 519 270 / 270 Intake: IV Fluids 150 / 150 PRECEDEX Premix 400 mcg In 100 100 / 100 ml @ 0.2 MCG/KG/HR 4.196 mls/hr IVC .[id number] [facility] Rx#: [id number] Flexbumin 12.5 gm In 50 ml @ 60 50 / 50 mls/hr IVPB [id number] [facility] Rx#: [id number] Oral 0 / 0 Tube Feeding 329 / 329 369 / 369 270 / 270 Intake, Rinseback and Flushes 600 / 600 Output: Urine 0 / 0 Total Dialysis (HD) Output 600 / 600 Rectal Tube 100 / 100 0 / 0 Catheter 20 / 20 0 / 0 Other: Weight 63 kg 63 kg Blood Glucose* 128 113 Hemodialysis Net Fluid Removed 0 (mL) Patient Weight 03/05/17 23:59 Weight 63 kg General appearance: no acute distress - Head Head exam: Present: atraumatic, normocephalic - ENT Additional comments: ET tube present - Respiratory Respiratory exam: Present: CTAB - Cardiovascular Cardiovascular exam: Present: RRR, +S1, +S2 - GI/Abdominal GI/Abdominal exam: Present: normal bowel sounds, soft. Absent: tenderness - Additional comments: hastings cath - Extremities Exam Extremities exam: Present: normal inspection - Neurological Exam Additional comments: responds to voice, alert, communicates yes/no with writing. - Skin Skin exam: Present: normal color Oncology: Obj Data - Labs CBC & Chem 7: 03/05/17 03:50 03/05/17 03:50 Labs: Laboratory Results - last 24 hr 03/04/17 03/04/17 03/05/17 17:40 23:59 03:50 WBC 28.6 H RBC 2.14 L Hgb 6.2 L Hct 18.8 L MCV 87.9 MCH 29.0 MCHC 33.0 RDW 16.5 H Plt Count 31 L MPV 10.3 Seg Neutrophils % 66.0 Band Neutrophils % 2.0 Lymphocytes % 24.0 Metamyelocytes % 4.0 H Myelocytes % 2.0 H Blast Cells % 2.0 H Neutrophils # 19.5 H Lymphocytes # 6.9 H Nucleated RBCs/100 WBC 0.1 H Platelet Estimate Decreased L Anisocytosis 1+ A PT INR Sample Site ABG pH ABG pCO2 ABG pO2 ABG HCO3 ABG Total CO2 ABG O2 Saturation ABG Base Excess Tolu Test Lactate Respiration Rate O2 Delivery Device Blood Gas Modality Inspired O2 Tidal Volume PEEP Sodium Potassium Chloride Carbon Dioxide BUN Creatinine Est GFR ( Amer) Est GFR (Non-Af Amer) BUN/Creatinine Ratio Glucose POC Glucose 125 H 128 H Calculated Osmolality Calcium Magnesium Blood Type Antibody Screen Antibody Identification Crossmatch MTS Gel Crossmatch 03/05/17 03/05/17 03/05/17 03:50 03:50 08:23 WBC RBC Hgb Hct MCV MCH MCHC RDW Plt Count MPV Seg Neutrophils % Band Neutrophils % Lymphocytes % Metamyelocytes % Myelocytes % Blast Cells % Neutrophils # Lymphocytes # Nucleated RBCs/100 WBC Platelet Estimate Anisocytosis PT 14.4 H INR 1.3 Sample Site ABG pH ABG pCO2 ABG pO2 ABG HCO3 ABG Total CO2 ABG O2 Saturation ABG Base Excess Tolu Test Lactate Respiration Rate O2 Delivery Device Blood Gas Modality Inspired O2 Tidal Volume PEEP Sodium 144 Potassium 5.5 H Chloride 106 Carbon Dioxide 22 BUN 124 H D Creatinine 4.86 H Est GFR ( Amer) 11 L Est GFR (Non-Af Amer) 9 L BUN/Creatinine Ratio 26 Glucose 124 H POC Glucose Calculated Osmolality 339 H Calcium 9.1 Magnesium 2.4 Blood Type A NEGATIVE Antibody Screen POSITIVE Antibody Identification Known Anti-S Crossmatch See Detail MTS Gel Crossmatch See Detail 03/05/17 03/05/17 11:13 11:31 WBC RBC Hgb Hct MCV MCH MCHC RDW Plt Count MPV Seg Neutrophils % Band Neutrophils % Lymphocytes % Metamyelocytes % Myelocytes % Blast Cells % Neutrophils # Lymphocytes # Nucleated RBCs/100 WBC Platelet Estimate Anisocytosis PT INR Sample Site L Radial ABG pH 7.36 ABG pCO2 49 H ABG pO2 68 L ABG HCO3 27 ABG Total CO2 29 H ABG O2 Saturation 92 L ABG Base Excess 1 Tolu Test Positive Lactate 0.8 Respiration Rate 22 O2 Delivery Device Adult Vent Blood Gas Modality ASSIST CONTROL Inspired O2 30.0 Tidal Volume 370 PEEP 5 Sodium Potassium Chloride Carbon Dioxide BUN Creatinine Est GFR ( Amer) Est GFR (Non-Af Amer) BUN/Creatinine Ratio Glucose POC Glucose 113 H Calculated Osmolality Calcium Magnesium Blood Type Antibody Screen Antibody Identification Crossmatch MTS Gel Crossmatch - ABG Interpretation ABG results: ABG ABG pH 7.36 pH Units (7.32-7.45) 03/05/17 11:31 ABG pCO2 49 mmHg (35-45) H 03/05/17 11:31 ABG pO2 68 mmHg (85-104) L 03/05/17 11:31 ABG O2 Saturation 92 % (95-98) L 03/05/17 11:31 PT/INR, D-dimer PT 14.4 Seconds (9.4-12.1) H 03/05/17 03:50 Consult Discharge Plan - Plan Referrals: NONE,PCP [Primary Care Provider] - <Guille Zimmerman S - Last Filed: 03/05/17 17:22> Date of Encounter: 03/05/17 - Constitutional Vitals: Vital Signs Temp Pulse Resp BP Pulse Ox 03/05/17 16:08 77 03/05/17 16:00 89 38 111/57 93 03/05/17 15:55 97.8 F 03/05/17 15:16 31 106/49 94 03/05/17 15:00 77 37 106/49 94 03/05/17 14:10 98.8 F 18 110/81 03/05/17 14:00 85 31 106/50 95 03/05/17 13:51 106/50 03/05/17 13:45 114/52 03/05/17 13:30 31 111/51 95 03/05/17 13:15 96/50 03/05/17 13:00 90 30 106/63 95 03/05/17 12:45 101/48 03/05/17 12:30 101/50 03/05/17 12:15 102/64 03/05/17 12:00 93 31 113/49 93 03/05/17 11:45 107/50 03/05/17 11:42 97.8 F 03/05/17 11:30 32 108/52 94 03/05/17 11:22 87 03/05/17 11:15 115/52 03/05/17 11:00 97.8 F 87 16 109/57 95 03/05/17 10:00 81 30 99/46 93 03/05/17 09:02 24 95/45 95 03/05/17 09:00 76 26 95/45 93 03/05/17 08:00 73 23 96/44 94 03/05/17 07:55 75 03/05/17 07:51 97.4 F L 03/05/17 07:33 23 96/46 94 03/05/17 07:00 75 23 93/45 94 03/05/17 06:00 68 24 91/45 94 03/05/17 05:52 22 94/43 93 03/05/17 05:00 71 22 103/61 94 03/05/17 04:00 97.5 F L 70 22 90/41 93 03/05/17 03:57 22 92/42 93 03/05/17 03:00 70 22 90/43 93 03/05/17 02:00 72 22 85/41 93 03/05/17 01:32 23 110/51 95 03/05/17 01:00 79 24 110/51 95 03/05/17 00:00 97.5 F L 78 22 102/47 94 03/04/17 23:22 23 94/44 92 03/04/17 23:00 76 22 94/44 92 03/04/17 22:00 75 22 106/51 95 03/04/17 21:53 22 99/50 93 03/04/17 21:00 79 23 105/52 94 03/04/17 20:00 98 F 85 24 117/53 95 03/04/17 19:47 22 120/52 95 03/04/17 19:00 85 23 107/57 100 03/04/17 18:18 81 25 113/58 95 03/04/17 18:00 81 25 113/58 95 Intake and Output 03/05/17 03/05/17 03/06/17 08:59 16:59 00:59 Intake Total 236 / 236 1289 / 1289 Output Total 0 / 0 600 / 600 Balance 236 / 236 689 / 689 Intake: IV Fluids 100 / 100 50 / 50 PRECEDEX Premix 400 mcg In 100 100 / 100 ml @ 0.2 MCG/KG/HR 4.196 mls/hr IVC .[id number] [facility] Rx#: [id number] Flexbumin 12.5 gm In 50 ml @ 60 50 / 50 mls/hr IVPB [id number] [facility] Rx#: [id number] Oral 0 / 0 Tube Feeding 136 / 136 639 / 639 Intake, Rinseback and Flushes 600 / 600 Output: Urine 0 / 0 Total Dialysis (HD) Output 600 / 600 Rectal Tube 0 / 0 0 / 0 Catheter 0 / 0 0 / 0 Other: Weight 63 kg Blood Glucose* 113 Hemodialysis Net Fluid Removed 0 (mL) Patient Weight 03/06/17 00:59 Weight 63 kg Oncology: Obj Data - Labs CBC & Chem 7: 03/05/17 03:50 03/05/17 03:50 Labs: Laboratory Results - last 24 hr 03/04/17 03/04/17 03/05/17 17:40 23:59 03:50 WBC 28.6 H RBC 2.14 L Hgb 6.2 L Hct 18.8 L MCV 87.9 MCH 29.0 MCHC 33.0 RDW 16.5 H Plt Count 31 L MPV 10.3 Seg Neutrophils % 66.0 Band Neutrophils % 2.0 Lymphocytes % 24.0 Metamyelocytes % 4.0 H Myelocytes % 2.0 H Blast Cells % 2.0 H Neutrophils # 19.5 H Lymphocytes # 6.9 H Nucleated RBCs/100 WBC 0.1 H Platelet Estimate Decreased L Anisocytosis 1+ A PT INR Sample Site ABG pH ABG pCO2 ABG pO2 ABG HCO3 ABG Total CO2 ABG O2 Saturation ABG Base Excess Tolu Test Lactate Respiration Rate O2 Delivery Device Blood Gas Modality Inspired O2 Tidal Volume PEEP Sodium Potassium Chloride Carbon Dioxide BUN Creatinine Est GFR ( Amer) Est GFR (Non-Af Amer) BUN/Creatinine Ratio Glucose POC Glucose 125 H 128 H Calculated Osmolality Calcium Magnesium Blood Type Antibody Screen Antibody Identification MTS Gel Crossmatch 03/05/17 03/05/17 03/05/17 03:50 03:50 08:23 WBC RBC Hgb Hct MCV MCH MCHC RDW Plt Count MPV Seg Neutrophils % Band Neutrophils % Lymphocytes % Metamyelocytes % Myelocytes % Blast Cells % Neutrophils # Lymphocytes # Nucleated RBCs/100 WBC Platelet Estimate Anisocytosis PT 14.4 H INR 1.3 Sample Site ABG pH ABG pCO2 ABG pO2 ABG HCO3 ABG Total CO2 ABG O2 Saturation ABG Base Excess Tolu Test Lactate Respiration Rate O2 Delivery Device Blood Gas Modality Inspired O2 Tidal Volume PEEP Sodium 144 Potassium 5.5 H Chloride 106 Carbon Dioxide 22 BUN 124 H D Creatinine 4.86 H Est GFR ( Amer) 11 L Est GFR (Non-Af Amer) 9 L BUN/Creatinine Ratio 26 Glucose 124 H POC Glucose Calculated Osmolality 339 H Calcium 9.1 Magnesium 2.4 Blood Type A NEGATIVE Antibody Screen POSITIVE Antibody Identification Known Anti-S MTS Gel Crossmatch See Detail 03/05/17 03/05/17 11:13 11:31 WBC RBC Hgb Hct MCV MCH MCHC RDW Plt Count MPV Seg Neutrophils % Band Neutrophils % Lymphocytes % Metamyelocytes % Myelocytes % Blast Cells % Neutrophils # Lymphocytes # Nucleated RBCs/100 WBC Platelet Estimate Anisocytosis PT INR Sample Site L Radial ABG pH 7.36 ABG pCO2 49 H ABG pO2 68 L ABG HCO3 27 ABG Total CO2 29 H ABG O2 Saturation 92 L ABG Base Excess 1 Tolu Test Positive Lactate 0.8 Respiration Rate 22 O2 Delivery Device Adult Vent Blood Gas Modality ASSIST CONTROL Inspired O2 30.0 Tidal Volume 370 PEEP 5 Sodium Potassium Chloride Carbon Dioxide BUN Creatinine Est GFR ( Amer) Est GFR (Non-Af Amer) BUN/Creatinine Ratio Glucose POC Glucose 113 H Calculated Osmolality Calcium Magnesium Blood Type Antibody Screen Antibody Identification MTS Gel Crossmatch - ABG Interpretation ABG results: ABG ABG pH 7.36 pH Units (7.32-7.45) 03/05/17 11:31 ABG pCO2 49 mmHg (35-45) H 03/05/17 11:31 ABG pO2 68 mmHg (85-104) L 03/05/17 11:31 ABG O2 Saturation 92 % (95-98) L 03/05/17 11:31 PT/INR, D-dimer PT 14.4 Seconds (9.4-12.1) H 03/05/17 03:50 - Attending Attestation I examined this patient and my medical decision-making was reviewed with the Advanced Practice Nurse. I agree with the documented findings, disposition and treatment plan as described except to the extent set forth below. She has a longstanding history of AML and is currently admitted with H. influenza pneumonia. Appreciate pulmonary expertise and wholly agree with supportive care recommendations. If clinical state does not improve in next 1-2 days, will need to readdress goals of care.
[2017-03-05] MEDS: *HR* LORazepam 2 MG/ML VIAL IVP PRN ×2 (16:32→20:47)
[2017-03-05] MEDS ORDERED: 0.9 % Sodium Chloride 250 ML ONE (18:16)
[2017-03-05] MEDS: FentaNYL (PF) 1,000 MCG in 0.9 % Sodium Chloride 80 ML IVC SCH (20:48)
[2017-03-05] MEDS: *HR* Midazolam HCl 2 MG/2 ML VIAL IVP PRN (23:02)
[2017-03-06] MEDS: *HR* LORazepam 2 MG/ML VIAL IVP PRN ×3 (00:47→17:13)
[2017-03-06 00:56] LABS: Hematocrit 21.9 % (35.3-44.9); Hemoglobin 7.6 g/dL (11.5-15.4)
[2017-03-06] MEDS: Ipratropium/Albuterol Neb 3 ML IH SCH ×4 (03:09→22:04)
[2017-03-06] MEDS: *HR* Midazolam HCl 2 MG/2 ML VIAL IVP PRN ×2 (03:25→20:06)
[2017-03-06] MEDS: Lacri-Lube 3.5 GM TUBE BOTH EYES SCH ×5 (03:26→20:06)
[2017-03-06 03:38] LABS: Hemoglobin 7.3 g/dL (11.5-15.4); Mean Corpuscular Hemoglobin 29.2 pg (28.0-33.3); Nucleated Red Blood Cells 0.1 /100 WBC (0)
[2017-03-06 03:40] LABS: Hematocrit 21.6 % (35.3-44.9); Immature Platelets 7.1 % (1.1-6.1); Mean Corpuscular HGB Conc 33.8 g/dL (31.6-35.5); Mean Corpuscular Volume 86.4 fL (83.0-100.0); Mean Platelet Volume 10.9 fL (9.4-12.4); Red Cell Distribution Width 15.9 % (11.5-14.5)
[2017-03-06 03:46] LABS: INR 1.2; Prothrombin Time 13.2 Seconds (9.4-12.1)
[2017-03-06 03:51] LABS: Calcium 8.5 mg/dL (8.6-10.8); Magnesium 1.9 mg/dL (1.6-2.6); Potassium 5.1 mEq/L (3.5-4.5)
[2017-03-06 03:52] LABS: Albumin 2.3 g/dL (3.5-5.0); Albumin/Globulin Ratio 0.5 (1.1-2.2); Bilirubin,Direct 0.4 mg/dL (0.0-0.5); Bilirubin,Indirect 0.2 mg/dL (0.0-1.2); Bilirubin,Total 0.6 mg/dL (0.2-1.2); Globulin 4.9 g/dL (2.4-3.5); Total Protein 7.2 g/dL (6.0-8.3)
[2017-03-06 04:07] LABS: Platelet Count 16 K/mcL (140-400)
[2017-03-06 04:11] LABS: Lymphocytes # 1.9 K/mcL (0.6-4.6); Monocytes # 0.5 K/mcL (0.0-1.3); Neutrophils # 17.5 K/mcL (1.6-8.9); Platelet Estimate Marked Decrease (Normal)
[2017-03-06 04:12] LABS: Smudge Cells Present (Not Present)
[2017-03-06] MEDS ORDERED: *HR* Heparin 10,000 UNIT/10 ML VIAL IV PRN (07:16)
[2017-03-06] MEDS ORDERED: 0.9 % Sodium Chloride 250 ML IVC PRN (07:16)
[2017-03-06] MEDS ORDERED: 0.9 % Sodium Chloride 2,000 ML ONE (07:43)
--- NOTE | 2017-03-06 08:44 | Nephrology Progress Note ---
Date of Encounter: 03/06/17 Time of Encounter: 08:42 - Assessment and Plan (1) Acute on chronic renal failure Current Visit: Yes Status: Acute patient now dialysis dependent. Oliguric RODERICK, now progressed to ESRD Etiology likely secondary to septic shock, H.Influenza pneumonia. Plan: will continue to monitor renal function avoid nephrotoxic agents as much as possible strict I/O hemodialysis today. Qualifiers: Acute renal failure type: with acute tubular necrosis Chronic kidney disease stage: stage 3 (moderate) Qualified Code(s): N17.0 - Acute kidney failure with tubular necrosis; N18.3 - Chronic kidney disease, stage 3 (moderate ); N18.3 - Chronic kidney disease, stage 3 (moderate) (2) Fluid overload Current Visit: Yes Status: Acute as above Qualifiers: Hypervolemia type: unspecified Qualified Code(s): E87.70 - Fluid overload, unspecified (3) Septic shock Current Visit: Yes Status: Resolved resolved. secondary to H.Influenza. (4) Thrombocytopenia Current Visit: Yes Status: Acute per primary (5) Anemia Current Visit: Yes Status: Acute likely not renally related. likely secondary to AML Qualifiers: Anemia type: other cause Other causes of anemia: chronic disease, neoplastic Qualified Code(s): D63.0 - Anemia in neoplastic disease (6) AML (acute myelogenous leukemia) Current Visit: Yes Status: Acute Hx of AML on palliative chemotherapy currently. per oncology and primary Qualifiers: Leukemia Active/Remission status: relapsed Qualified Code(s): 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, in relapse; C92.62 - Acute myeloid leukemia with [id number] in relapse; 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, in relapse (7) Acute respiratory failure with hypercapnia Current Visit: Yes Status: Acute per primary patient was extubated on monday 03/05 for about 30 minutes and required re intubation. plan per family is to wait a few days before attempting extubation again. Subjective Principal diagnosis: Unresponsive Interval history: 66 year old female evaluated at bedside. patient remains intubated. she is currently alert and responding to stimuli Objective - Vital Signs Vital signs: Vital Signs Temp Pulse Resp BP Pulse Ox 03/06/17 08:00 96 29 128/56 94 03/06/17 07:27 98.2 F 03/06/17 07:00 92 29 108/50 94 03/06/17 06:00 90 30 97/43 94 03/06/17 05:47 33 113/47 94 03/06/17 05:00 92 29 99/49 92 03/06/17 04:00 98.3 F 92 29 93/38 92 03/06/17 03:10 30 92/38 92 03/06/17 03:00 86 29 92/38 93 03/06/17 02:00 84 26 88/40 92 03/06/17 01:07 30 110/50 92 03/06/17 01:00 94 30 110/50 92 03/06/17 00:00 98.3 F 89 25 101/54 95 03/05/17 23:20 30 107/59 92 03/05/17 23:00 94 30 105/59 93 03/05/17 22:00 90 29 110/41 95 03/05/17 21:39 98.8 F 93 32 128/56 03/05/17 21:34 31 128/56 95 03/05/17 21:00 92 32 91/47 92 03/05/17 20:30 96 03/05/17 20:00 96 29 117/59 95 03/05/17 19:51 22 124/59 95 03/05/17 19:45 98.8 F 03/05/17 19:00 90 33 130/58 93 03/05/17 18:33 97.8 F 85 29 115/50 94 03/05/17 18:18 97.8 F 89 30 106/57 93 03/05/17 17:00 101 40 110/55 93 03/05/17 16:08 77 03/05/17 16:00 89 38 111/57 93 03/05/17 15:55 97.8 F 03/05/17 15:16 31 106/49 94 03/05/17 15:00 77 37 106/49 94 03/05/17 14:10 98.8 F 18 110/81 03/05/17 14:00 85 31 106/50 95 03/05/17 13:51 106/50 03/05/17 13:45 114/52 03/05/17 13:30 31 111/51 95 03/05/17 13:15 96/50 03/05/17 13:00 90 30 106/63 95 03/05/17 12:45 101/48 03/05/17 12:30 101/50 03/05/17 12:15 102/64 03/05/17 12:00 93 31 113/49 93 03/05/17 11:45 107/50 03/05/17 11:42 97.8 F 03/05/17 11:30 32 108/52 94 03/05/17 11:22 87 03/05/17 11:15 115/52 03/05/17 11:00 97.8 F 87 16 109/57 95 03/05/17 10:00 81 30 99/46 93 03/05/17 09:02 24 95/45 95 03/05/17 09:00 76 26 95/45 93 Intake and Output 03/05/17 03/06/17 03/06/17 23:59 07:59 15:59 Intake Total 988 / 988 351 / 351 Output Total 0 / 0 220 / 220 Balance 988 / 988 131 / 131 Intake: IV Fluids 180 / 180 PRECEDEX Premix 400 mcg In 100 100 / 100 ml @ 0.2 MCG/KG/HR 4.196 mls/hr IVC .[id number] [facility] Rx#: [id number] FentaNYL (PF) 1,000 MCG In 0.9 80 / 80 % Sodium Chloride 80 ML @ 50 MCG/HR 5 mls/hr IVC CONT [facility] Rx #:[id number] Tube Feeding 496 / 496 351 / 351 Blood Product 312 / 312 Rbcs Leuko Poor As-3 Irr Unit 312 / 312 [id number] Output: Rectal Tube 200 / 200 Catheter 0 / 0 20 / 20 Other: Weight 64.7 kg Blood Glucose* 119 115 Patient Weight 03/06/17 23:59 Weight 64.7 kg - General Appearance General appearance: Present: well-developed, well-nourished, appears started age , frail Neck: Present: no JVD Respiratory: Present: course breath sounds Cardiology: Present: no murmurs, no rub, no gallops Additional Comments: tachycardic Dialysis Vascular Access: Venous Catheter Gastrointestinal: Present: absent bowel sounds, no tenderness, no guarding, no organomegaly, no masses Integumentary: Present: no rash, warm and dry Musculoskeletal: Present: no deformities, no erythema - Lab 03/06/17 03:28 03/06/17 03:28 Most recent lab results ABG pH 7.36 pH Units (7.32-7.45) 03/05/17 11:31 ABG pCO2 49 mmHg (35-45) H 03/05/17 11:31 ABG pO2 68 mmHg (85-104) L 03/05/17 11:31 ABG HCO3 27 mEq/L (21-27) 03/05/17 11:31 ABG O2 Saturation 92 % (95-98) L 03/05/17 11:31 Calcium 8.5 mg/dL (8.6-10.8) L 03/06/17 03:28 Phosphorus 3.8 mg/dL (2.3-4.7) D 03/06/17 03:28 Magnesium 1.9 mg/dL (1.6-2.6) 03/06/17 03:28 Consult Discharge Plan - Plan Referrals: NONE,PCP [Primary Care Provider] -
--- NOTE | 2017-03-06 08:59 | Pulmonology Progress Note ---
<Michael Ravi - Last Filed: 03/06/17 08:56> Date of Encounter: 03/06/17 Time of Encounter: 08:57 Assessment and Plan (1) Septic shock Current Visit: Yes Status: Resolved Resolved. No longer requiring pressors. Secondary to Haemophilus influenza pneumonia. Continue Levaquin. (2) Acute respiratory failure with hypercapnia Current Visit: Yes Status: Acute Secondary to Haemophilus influenza pneumonia as discussed above, pulmonary edema is also contributing. Pneumonia is being adequately treated, hemodialysis initiated for fluid removal. Continue ventilatory support. Patient was extubated over the weekend and unfortunately she required reintubation after 1 hour. Will attempt to CPAP after dialysis (3) AML (acute myelogenous leukemia) Current Visit: Yes Status: Acute With pancytopenia at baseline. Per records review treatment intent is currently palliative. Significant elevation in her white count possibly related to underlying infection. Continue treatment as above. Oncology has been consulted and is following. 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 Continue Levaquin. Sensitivities pending Qualifiers: Pneumonia type: due to Haemophilus influenzae Laterality: unspecified laterality Lung location: unspecified part of lung Qualified Code(s): J14 - Pneumonia due to Hemophilus influenzae (5) Acute on chronic renal failure Current Visit: Yes Status: Acute Creatinine 3.99 on presentation, baseline appears to be around 1.5. Concern for ATN in the setting of critical illness given granular casts found in the urine. Urine output remains poor. Continue hemodialysis. Nephrology is following and appreciate their recommendations. Qualifiers: Acute renal failure type: with acute tubular necrosis Chronic kidney disease stage: stage 3 (moderate) Qualified Code(s): N17.0 - Acute kidney failure with tubular necrosis; N18.3 - Chronic kidney disease, stage 3 (moderate ); N18.3 - Chronic kidney disease, stage 3 (moderate) (6) Anemia Current Visit: Yes Status: Acute 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 Baseline appears to be around 7-8. Hgb 7.6 today after 1 unit of blood yesterday. No obvious source of bleeding. Continue to monitor. Qualifiers: Anemia type: other cause Other causes of anemia: chronic disease, neoplastic Qualified Code(s): D63.0 - Anemia in neoplastic disease (7) Thrombocytopenia Current Visit: Yes Status: Acute Platelets 16 today. No evidence of active bleeding. We will transfuse for platelet counts less than 10,000 or evidence of active bleeding. Continue to monitor. Subjective Principal diagnosis: Unresponsive Interval history: Patient seen and examined at bedside. Patient remains intubated and minimally sedated. She responds to verbal commands. She denies any pain or discomfort. Objective PUL Vital signs: Last Vital Signs Temp 98.2 F 03/06/17 07:27 Pulse 96 03/06/17 08:00 Resp 29 03/06/17 08:00 BP 128/56 03/06/17 08:00 Pulse Ox 94 03/06/17 08:00 General appearance: no acute distress ENT: oropharynx moist Auscultation: bilateral: diminished breath sounds Cardiovascular: regular rate and rhythm Gastrointestinal: normoactive bowel sounds, soft, non-tender, non-distended Extremities: no cyanosis, no edema, no clubbing normal mental status, non-focal exam Ventilator Settings Ventilator Settings: Ventilator Settings, Last 8 Hours Ventilator Mode VC+ Ventilator Mode VC+ Ventilator Mode VC+ Ventilator Mode VC+ Ventilator Mode VC+ Ventilator Mode VC+ Ventilator Mode VC+ Ventilator Mode VC+ Ventilator Mode VC+ Ventilator Mode VC+ Ventilator Tidal Volume 370 Setting Ventilator Tidal Volume 370 Setting Ventilator Tidal Volume 370 Setting Ventilator Tidal Volume 370 Setting Ventilator Tidal Volume 370 Setting Ventilator Tidal Volume 370 Setting Ventilator Tidal Volume 370 Setting Ventilator Tidal Volume 370 Setting Ventilator Tidal Volume 370 Setting Ventilator Tidal Volume 370 Setting Ventilator Respiratory Rate 22 Setting Ventilator Respiratory Rate 22 Setting Ventilator Respiratory Rate 22 Setting Ventilator Respiratory Rate 22 Setting Ventilator Respiratory Rate 22 Setting Ventilator Respiratory Rate 22 Setting Ventilator Respiratory Rate 22 Setting Ventilator Respiratory Rate 22 Setting Ventilator Respiratory Rate 22 Setting Ventilator Respiratory Rate 22 Setting Actual Respiratory Rate 28 Actual Respiratory Rate 30 Actual Respiratory Rate 31 Actual Respiratory Rate 29 Actual Respiratory Rate 29 Actual Respiratory Rate 30 Actual Respiratory Rate 29 Actual Respiratory Rate 26 Actual Respiratory Rate 31 Actual Respiratory Rate 30 Positive End Expiratory 5 Pressure Positive End Expiratory 5 Pressure Positive End Expiratory 5 Pressure Positive End Expiratory 5 Pressure Positive End Expiratory 5 Pressure Positive End Expiratory 5 Pressure Positive End Expiratory 5 Pressure Positive End Expiratory 5 Pressure Positive End Expiratory 5 Pressure Positive End Expiratory 5 Pressure Peak Inspiratory Airway 27 Pressure Peak Inspiratory Airway 27 Pressure Peak Inspiratory Airway 26 Pressure Peak Inspiratory Airway 29 Pressure Peak Inspiratory Airway 27 Pressure Peak Inspiratory Airway 30 Pressure Peak Inspiratory Airway 30 Pressure Peak Inspiratory Airway 32 Pressure Results - Laboratory Findings CBC and BMP: 03/06/17 03:28 03/06/17 03:28 ABG ABG pH 7.36 pH Units (7.32-7.45) 03/05/17 11:31 ABG pCO2 49 mmHg (35-45) H 03/05/17 11:31 ABG pO2 68 mmHg (85-104) L 03/05/17 11:31 ABG O2 Saturation 92 % (95-98) L 03/05/17 11:31 PT/INR, D-dimer PT 13.2 Seconds (9.4-12.1) H 03/06/17 03:28 Abnormal lab findings: Abnormal lab results WBC 24.3 K/mcL (4.3-11.1) H 03/06/17 03:28 RBC 2.50 M/mcL (3.82-4.97) L 03/06/17 03:28 Hgb 7.3 g/dL (11.5-15.4) L 03/06/17 03:28 Hct 21.6 % (35.3-44.9) L 03/06/17 03:28 RDW 15.9 % (11.5-14.5) H 03/06/17 03:28 Plt Count 16 K/mcL (140-400) L* 03/06/17 03:28 Band Neutrophils % 28.0 % (0-4) H 03/06/17 03:28 Metamyelocytes % 4.0 % (0) H 03/05/17 03:50 Myelocytes % 4.0 % (0) H 03/06/17 03:28 Blast Cells % 14.0 % (0) H 03/06/17 03:28 Neutrophils # 17.5 K/mcL (1.6-8.9) H 03/06/17 03:28 Nucleated RBCs/100 WBC 0.1 /100 WBC (0) H 03/06/17 03:28 Smudge Cells Present (Not Present) A 03/06/17 03:28 Platelet Estimate Marked Decrease (Normal) L 03/06/17 03:28 Immature Plt Fraction 7.1 % (1.1-6.1) H 03/06/17 03:28 Polychromasia 1+ (Not Present) A 02/27/17 04:30 Anisocytosis 1+ (Not Present) A 03/05/17 03:50 Microcytosis Present (Not Present) A 03/03/17 03:37 PT 13.2 Seconds (9.4-12.1) H 03/06/17 03:28 ABG pCO2 49 mmHg (35-45) H 03/05/17 11:31 ABG pO2 68 mmHg (85-104) L 03/05/17 11:31 ABG Total CO2 29 mEq/L (20-26) H 03/05/17 11:31 ABG O2 Saturation 92 % (95-98) L 03/05/17 11:31 Potassium 5.1 mEq/L (3.5-4.5) H 03/06/17 03:28 BUN 59 mg/dL (7-20) H D 03/06/17 03:28 Creatinine 2.55 mg/dL (0.57-1.11) H 03/06/17 03:28 Est GFR ( Amer) 23 (> 60) L 03/06/17 03:28 Est GFR (Non-Af Amer) 19 (> 60) L 03/06/17 03:28 Glucose 119 mg/dL (70-99) H 03/06/17 03:28 POC Glucose 115 (58-89) H 03/06/17 00:36 Lactic Acid 2.6 mmol/L (0.5-2.2) H 02/26/17 10:44 Calculated Osmolality 310 (280-300) H 03/06/17 03:28 Calcium 8.5 mg/dL (8.6-10.8) L 03/06/17 03:28 AST 39 Units/L (5-34) H 03/06/17 03:28 Troponin I 0.15 ng/mL (0-0.03) H* 02/26/17 10:45 Albumin 2.3 g/dL (3.5-5.0) L 03/06/17 03:28 Globulin 4.9 g/dL (2.4-3.5) H 03/06/17 03:28 Albumin/Globulin Ratio 0.5 (1.1-2.2) L 03/06/17 03:28 Urine Clarity Turbid (Clear) A 02/26/17 10:45 Ur Specific [place] 1.028 (1.010-1.025) H 02/26/17 10:45 Urine Protein 100 mg/dL (Neg-Trace) H 02/26/17 10:45 Urine Blood Small (Negative) H 02/26/17 10:45 Urine Bilirubin Small (Negative) H 02/26/17 10:45 Urine Microscopic WBC 50-100 per hpf (0-3) H 02/26/17 10:45 Ur Squamous Epith Cells Many per lpf (None-Few) H 02/26/17 10:45 Amorphous Sediment Many (Few) H 02/26/17 10:45 Granular Casts Many per lpf (None Seen) H 02/26/17 10:45 U Benzodiazepines Scrn Positive ng/mL (Yvwexi=528) H 02/26/17 10:45 H. influenzae (PCR) DETECTED (Not Detect) A 02/26/17 10:45 - Microbiology Findings Microbiology Findings: Microbiology, Last 48 Hours 02/28/17 05:59 Blood Culture - Final Peripheral Venipuncture No growth. - Clinical Findings Intake & Output: Intake & Output 03/05/17 03/06/17 03/06/17 23:59 07:59 15:59 Intake Total 988 / 988 351 / 351 Output Total 0 / 0 220 / 220 Balance 988 / 988 131 / 131 Weight 64.7 kg Consult Discharge Plan - Plan Referrals: NONE,PCP [Primary Care Provider] - <Nathaly Rodgers - Last Filed: 03/06/17 22:13> Date of Encounter: 03/06/17 Objective PUL Vital signs: Last Vital Signs Temp 98.2 F 03/06/17 20:38 Pulse 93 03/06/17 20:00 Resp 30 03/06/17 20:21 BP 103/50 03/06/17 20:21 Pulse Ox 93 03/06/17 20:21 Ventilator Settings Ventilator Settings: Ventilator Settings, Last 8 Hours Ventilator Mode VC+ Ventilator Mode VC+ Ventilator Mode VC+ Ventilator Mode VC+ Ventilator Mode CPAP Ventilator Mode CPAP Ventilator Mode CPAP Ventilator Mode CPAP Ventilator Mode CPAP Ventilator Tidal Volume 370 Setting Ventilator Tidal Volume 370 Setting Ventilator Tidal Volume 370 Setting Ventilator Tidal Volume 370 Setting Ventilator Respiratory Rate 22 Setting Ventilator Respiratory Rate 22 Setting Ventilator Respiratory Rate 22 Setting Ventilator Respiratory Rate 22 Setting Actual Respiratory Rate 29 Actual Respiratory Rate 27 Actual Respiratory Rate 29 Actual Respiratory Rate 30 Actual Respiratory Rate 41 Actual Respiratory Rate 40 Actual Respiratory Rate 42 Actual Respiratory Rate 41 Actual Respiratory Rate 43 Positive End Expiratory 5 Pressure Positive End Expiratory 5 Pressure Positive End Expiratory 5 Pressure Positive End Expiratory 5 Pressure Positive End Expiratory 5 Pressure Peak Inspiratory Airway 26 Pressure Peak Inspiratory Airway 30 Pressure Peak Inspiratory Airway 31 Pressure Peak Inspiratory Airway 33 Pressure Peak Inspiratory Airway 19 Pressure Peak Inspiratory Airway 19 Pressure Peak Inspiratory Airway 19 Pressure Peak Inspiratory Airway 19 Pressure Peak Inspiratory Airway 19 Pressure Results - Laboratory Findings CBC and BMP: 03/06/17 03:28 03/06/17 03:28 ABG ABG pH 7.36 pH Units (7.32-7.45) 03/05/17 11:31 ABG pCO2 49 mmHg (35-45) H 03/05/17 11:31 ABG pO2 68 mmHg (85-104) L 03/05/17 11:31 ABG O2 Saturation 92 % (95-98) L 03/05/17 11:31 PT/INR, D-dimer PT 13.2 Seconds (9.4-12.1) H 03/06/17 03:28 Abnormal lab findings: Abnormal lab results WBC 24.3 K/mcL (4.3-11.1) H 03/06/17 03:28 RBC 2.50 M/mcL (3.82-4.97) L 03/06/17 03:28 Hgb 7.3 g/dL (11.5-15.4) L 03/06/17 03:28 Hct 21.6 % (35.3-44.9) L 03/06/17 03:28 RDW 15.9 % (11.5-14.5) H 03/06/17 03:28 Plt Count 16 K/mcL (140-400) L* 03/06/17 03:28 Band Neutrophils % 28.0 % (0-4) H 03/06/17 03:28 Metamyelocytes % 4.0 % (0) H 03/05/17 03:50 Myelocytes % 4.0 % (0) H 03/06/17 03:28 Blast Cells % 14.0 % (0) H 03/06/17 03:28 Neutrophils # 17.5 K/mcL (1.6-8.9) H 03/06/17 03:28 Nucleated RBCs/100 WBC 0.1 /100 WBC (0) H 03/06/17 03:28 Smudge Cells Present (Not Present) A 03/06/17 03:28 Platelet Estimate Marked Decrease (Normal) L 03/06/17 03:28 Immature Plt Fraction 7.1 % (1.1-6.1) H 03/06/17 03:28 Polychromasia 1+ (Not Present) A 02/27/17 04:30 Anisocytosis 1+ (Not Present) A 03/05/17 03:50 Microcytosis Present (Not Present) A 03/03/17 03:37 PT 13.2 Seconds (9.4-12.1) H 03/06/17 03:28 ABG pCO2 49 mmHg (35-45) H 03/05/17 11:31 ABG pO2 68 mmHg (85-104) L 03/05/17 11:31 ABG Total CO2 29 mEq/L (20-26) H 03/05/17 11:31 ABG O2 Saturation 92 % (95-98) L 03/05/17 11:31 Potassium 5.1 mEq/L (3.5-4.5) H 03/06/17 03:28 BUN 59 mg/dL (7-20) H D 03/06/17 03:28 Creatinine 2.55 mg/dL (0.57-1.11) H 03/06/17 03:28 Est GFR ( Amer) 23 (> 60) L 03/06/17 03:28 Est GFR (Non-Af Amer) 19 (> 60) L 03/06/17 03:28 Glucose 119 mg/dL (70-99) H 03/06/17 03:28 POC Glucose 105 (58-89) H 03/06/17 11:04 Lactic Acid 2.6 mmol/L (0.5-2.2) H 02/26/17 10:44 Calculated Osmolality 310 (280-300) H 03/06/17 03:28 Calcium 8.5 mg/dL (8.6-10.8) L 03/06/17 03:28 AST 39 Units/L (5-34) H 03/06/17 03:28 Troponin I 0.15 ng/mL (0-0.03) H* 10/23/17 10:45 Albumin 2.3 g/dL (3.5-5.0) L 03/06/17 03:28 Globulin 4.9 g/dL (2.4-3.5) H 03/06/17 03:28 Albumin/Globulin Ratio 0.5 (1.1-2.2) L 03/06/17 03:28 Urine Clarity Turbid (Clear) A 02/26/17 10:45 Ur Specific [place] 1.028 (1.010-1.025) H 02/26/17 10:45 Urine Protein 100 mg/dL (Neg-Trace) H 02/26/17 10:45 Urine Blood Small (Negative) H 02/26/17 10:45 Urine Bilirubin Small (Negative) H 02/26/17 10:45 Urine Microscopic WBC 50-100 per hpf (0-3) H 02/26/17 10:45 Ur Squamous Epith Cells Many per lpf (None-Few) H 02/26/17 10:45 Amorphous Sediment Many (Few) H 02/26/17 10:45 Granular Casts Many per lpf (None Seen) H 02/26/17 10:45 U Benzodiazepines Scrn Positive ng/mL (Lqorff=425) H 02/26/17 10:45 H. influenzae (PCR) DETECTED (Not Detect) A 02/26/17 10:45 - Microbiology Findings Microbiology Findings: Microbiology, Last 48 Hours 02/28/17 05:59 Blood Culture - Final Peripheral Venipuncture No growth. - Clinical Findings Intake & Output: Intake & Output 03/06/17 03/06/17 03/06/17 07:59 15:59 23:59 Intake Total 351 / 351 1381 / 1381 Output Total 220 / 220 1982 300 / 300 Balance 131 / 131 -602 / -602 -300 / -300 Weight 64.7 kg - Attending Attestation I saw the patient with the resident agree with History and Physical exam findings. Labs and Radiology were reviewed Ventilator data were reviewed adjusted to lung protective ventilation [employer]: Patient is conscious following commands intubated and ventilated , sedated NECK : No JVD appreciated Pulmonary : Patient is hypoxic on ventilator , secondary to H influenza pneumonia patient is on appropriate antibiotic patient was put on SBT she was fine for 2 hrs then her RR increased to 41 ,accessory muscles started to work and ETCO2 started to get elevated at 54 , since patient complained of respiratory distress i put her back on AC mode patient started on rest well. Cardiac : Septic shock resolved not on any vasopressors any more. 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 spoke with patient and family planning on extubation tomorrow if she doesnt do well after extubation will make her comfortable. Spent 32 minutes of critical care time in complex medical decision making in supporting the vital organs
[2017-03-06] MEDS: Pantoprazole 40 MG VIAL IVPB SCH (09:23)
[2017-03-06] MEDS: Chlorhexidine Rinse 15 ML MOUTHWASH MM SCH ×2 (09:23→20:06)
[2017-03-06] MEDS: Dexmedetomidine HCl 400 MCG/100 ML MLS IVC SCH (09:23)
--- NOTE | 2017-03-06 10:21 | Palliative Progress Note ---
Date of Encounter: 03/06/17 Time of Encounter: 09:45 - Assessment and plan (1) Acute respiratory acidosis Current Visit: Yes Status: Acute Assessment and plan: Patient is doing much better on the vent. They are attempting to wean the vent plan per ICU team She is ongoing. Patient has failed extubation once. Family are hopeful that she will make it off the vent. Need to have further discussions encase it looks like she is not going to. (2) Aspiration pneumonia Current Visit: Yes Status: Acute Assessment and plan: Patient's white count continues to be elevated, however with AML was difficult to tell how effective the white blood cells are. Treatment per ICU team. Since blood pressure is much better now without pressors. Qualifiers: Aspiration pneumonia type: due to vomit Laterality: right Lung location: lower lobe of lung Qualified Code(s): J69.0 - Pneumonitis due to inhalation of food and vomit (3) Anemia Current Visit: Yes Status: Acute Assessment and plan: Hemoglobin being trended. Patient is getting blood from transfusions as is needed. Patient's platelet counts also low today, however the patient's having no trouble bleeding. The plan per the ICU team is to transfuse if the patient shows any sign of bleeding or the platelet count was below 10,000.. Qualifiers: Anemia type: other cause Other causes of anemia: chronic disease, neoplastic Qualified Code(s): D63.0 - Anemia in neoplastic disease (4) AML (acute myelogenous leukemia) Current Visit: Yes Status: Acute Assessment and plan: Patient's underlying condition. Wishes to continue to get full aggressive care for this. Has included weekly transfusions of both platelets and blood cells in the past. Although treatment is aggressive, this is palliative in nature patient does understand that. So overall goal is to return home and be a little back to her existence of going shopping at least a little bit getting around the house at least a little bit. Family discussions and discussions with the patient regarding this. 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 Renal studies are actually looking slightly better. Patient continues to be on hemodialysis. Qualifiers: Acute renal failure type: with acute tubular necrosis Chronic kidney disease stage: stage 3 (moderate) Qualified Code(s): N17.0 - Acute kidney failure with tubular necrosis; N18.3 - Chronic kidney disease, stage 3 (moderate ); N18.3 - Chronic kidney disease, stage 3 (moderate) (6) Septic shock Current Visit: Yes Status: Resolved Assessment and plan: This has resolved. (7) Goals of care, counseling/discussion Current Visit: Yes Status: Acute Assessment and plan: She is okay with getting dialysis at least temporarily. In the past family and patient have treated that they would not want to be on the ventilator long-term. , However the patient has now failed to extubation once and did want to be reintubated. I asked her today if she and her had discussed getting the tube out she was very clear that the answer was yes they have been discussing that. Also asked her if she had discussed with him what she would want if the tube did not want to come out, for instance if she fails extubation again indicated that that discussion not taken place, or is ongoing. And try to meet with later on today when he comes in. - Time Spent With Patient Total time spent is greater than 50% in coordination of care (as documented) at patient's floor/unit and/or counseling patient: - Subjective Interval history: Should not is awake and alert able to communicate by writing and head nods. She is aware that she is having difficulty with getting off the ventilator. As well as dialysis. I did ask her this morning if rest getting the tube out with her she vigorously nodded her head yes. And I asked her if she had had any kind discussion with him regarding at the tube "did not want to come out" she shrugged her shoulders as it to say that she that really had not been discussed for she did not know what the outcome was. He has no complaints of this morning. Her ICU team plan will probably be another CPAP trial after the patient finishes her height hemodialysis. - Constitutional Vitals: Abnormal lab results WBC 24.3 K/mcL (4.3-11.1) H 03/06/17 03:28 RBC 2.50 M/mcL (3.82-4.97) L 03/06/17 03:28 Hgb 7.3 g/dL (11.5-15.4) L 03/06/17 03:28 Hct 21.6 % (35.3-44.9) L 03/06/17 03:28 RDW 15.9 % (11.5-14.5) H 03/06/17 03:28 Plt Count 16 K/mcL (140-400) L* 03/06/17 03:28 Band Neutrophils % 28.0 % (0-4) H 03/06/17 03:28 Metamyelocytes % 4.0 % (0) H 03/05/17 03:50 Myelocytes % 4.0 % (0) H 03/06/17 03:28 Blast Cells % 14.0 % (0) H 03/06/17 03:28 Neutrophils # 17.5 K/mcL (1.6-8.9) H 03/06/17 03:28 Nucleated RBCs/100 WBC 0.1 /100 WBC (0) H 03/06/17 03:28 Smudge Cells Present (Not Present) A 03/06/17 03:28 Platelet Estimate Marked Decrease (Normal) L 03/06/17 03:28 Immature Plt Fraction 7.1 % (1.1-6.1) H 03/06/17 03:28 Polychromasia 1+ (Not Present) A 02/27/17 04:30 Anisocytosis 1+ (Not Present) A 03/05/17 03:50 Microcytosis Present (Not Present) A 03/03/17 03:37 PT 13.2 Seconds (9.4-12.1) H 03/06/17 03:28 ABG pCO2 49 mmHg (35-45) H 03/05/17 11:31 ABG pO2 68 mmHg (85-104) L 03/05/17 11:31 ABG Total CO2 29 mEq/L (20-26) H 03/05/17 11:31 ABG O2 Saturation 92 % (95-98) L 03/05/17 11:31 Potassium 5.1 mEq/L (3.5-4.5) H 03/06/17 03:28 BUN 59 mg/dL (7-20) H D 03/06/17 03:28 Creatinine 2.55 mg/dL (0.57-1.11) H 03/06/17 03:28 Est GFR ( Amer) 23 (> 60) L 03/06/17 03:28 Est GFR (Non-Af Amer) 19 (> 60) L 03/06/17 03:28 Glucose 119 mg/dL (70-99) H 03/06/17 03:28 POC Glucose 115 (58-89) H 03/06/17 00:36 Lactic Acid 2.6 mmol/L (0.5-2.2) H 02/26/17 10:44 Calculated Osmolality 310 (280-300) H 03/06/17 03:28 Calcium 8.5 mg/dL (8.6-10.8) L 03/06/17 03:28 AST 39 Units/L (5-34) H 03/06/17 03:28 Troponin I 0.15 ng/mL (0-0.03) H* 02/26/17 10:45 Albumin 2.3 g/dL (3.5-5.0) L 03/06/17 03:28 Globulin 4.9 g/dL (2.4-3.5) H 03/06/17 03:28 Albumin/Globulin Ratio 0.5 (1.1-2.2) L 03/06/17 03:28 Urine Clarity Turbid (Clear) A 02/26/17 10:45 Ur Specific [place] 1.028 (1.010-1.025) H 02/26/17 10:45 Urine Protein 100 mg/dL (Neg-Trace) H 02/26/17 10:45 Urine Blood Small (Negative) H 02/26/17 10:45 Urine Bilirubin Small (Negative) H 02/26/17 10:45 Urine Microscopic WBC 50-100 per hpf (0-3) H 02/26/17 10:45 Ur Squamous Epith Cells Many per lpf (None-Few) H 02/26/17 10:45 Amorphous Sediment Many (Few) H 02/26/17 10:45 Granular Casts Many per lpf (None Seen) H 02/26/17 10:45 U Benzodiazepines Scrn Positive ng/mL (Zumzbe=199) H 02/26/17 10:45 H. influenzae (PCR) DETECTED (Not Detect) A 02/26/17 10:45 - Head Head exam: Present: atraumatic, normal inspection - Eye Eye exam: Present: normal appearance - ENT ENT exam: Present: mucous membranes moist - Respiratory Respiratory exam: Present: decreased breath sounds (Transmitted upper airway sounds patient is on the vent) - Cardiovascular Cardiovascular exam: Present: RRR - GI/Abdominal GI/Abdominal exam: Present: hypoactive bowel sounds, soft. Absent: tenderness - Extremities Exam Extremities exam: Absent: tenderness - Neurological Exam Neurological exam: Present: alert - Psychiatric Psychiatric exam: Absent: agitated, anxious - Skin Skin exam: Present: dry, warm Palliative Quality Palliative Quality: Screen for Code Status: Yes, Screen for Goals of Care: Yes, Screen for Pain: Yes, If Pain Regimen Started, Initiate Bowel Regimen: Yes, Screen for Nausea/Vomitting: Yes Code Status: 02/26/17 13:42 Resuscitation Status: Active [RES] Routine Comment: Resuscitation Status: Full Code Resuscitation Status: Active [RES] Routine Comment: Resuscitation Status: DNR-Comfort Care-Arrest - Labs CBC & Chem 7: 03/06/17 03:28 03/06/17 03:28 Labs: Laboratory Results - last 24 hr 03/05/17 03/05/17 03/05/17 08:23 11:13 11:31 WBC RBC Hgb Hct MCV MCH MCHC RDW Plt Count MPV Seg Neutrophils % Band Neutrophils % Lymphocytes % Monocytes % Myelocytes % Blast Cells % Neutrophils # Lymphocytes # Monocytes # Nucleated RBCs/100 WBC Smudge Cells Platelet Estimate Immature Plt Fraction PT INR Sample Site L Radial ABG pH 7.36 ABG pCO2 49 H ABG pO2 68 L ABG HCO3 27 ABG Total CO2 29 H ABG O2 Saturation 92 L ABG Base Excess 1 Tolu Test Positive Lactate 0.8 Respiration Rate 22 O2 Delivery Device Adult Vent Blood Gas Modality ASSIST CONTROL Inspired O2 30.0 Tidal Volume 370 PEEP 5 Sodium Potassium Chloride Carbon Dioxide BUN Creatinine Est GFR ( Amer) Est GFR (Non-Af Amer) BUN/Creatinine Ratio Glucose POC Glucose 113 H Calculated Osmolality Calcium Phosphorus Magnesium Total Bilirubin Direct Bilirubin Indirect Bilirubin AST ALT Alkaline Phosphatase Serum Total Protein Albumin Globulin Albumin/Globulin Ratio Blood Type A NEGATIVE Antibody Screen POSITIVE Antibody Identification Known Anti-S MTS Gel Crossmatch See Detail 03/05/17 03/06/17 03/06/17 18:11 00:34 00:36 WBC RBC Hgb 7.6 L Hct 21.9 L MCV MCH MCHC RDW Plt Count MPV Seg Neutrophils % Band Neutrophils % Lymphocytes % Monocytes % Myelocytes % Blast Cells % Neutrophils # Lymphocytes # Monocytes # Nucleated RBCs/100 WBC Smudge Cells Platelet Estimate Immature Plt Fraction PT INR Sample Site ABG pH ABG pCO2 ABG pO2 ABG HCO3 ABG Total CO2 ABG O2 Saturation ABG Base Excess Tolu Test Lactate Respiration Rate O2 Delivery Device Blood Gas Modality Inspired O2 Tidal Volume PEEP Sodium Potassium Chloride Carbon Dioxide BUN Creatinine Est GFR ( Amer) Est GFR (Non-Af Amer) BUN/Creatinine Ratio Glucose POC Glucose 119 H 115 H Calculated Osmolality Calcium Phosphorus Magnesium Total Bilirubin Direct Bilirubin Indirect Bilirubin AST ALT Alkaline Phosphatase Serum Total Protein Albumin Globulin Albumin/Globulin Ratio Blood Type Antibody Screen Antibody Identification MTS Gel Crossmatch 03/06/17 03/06/17 03/06/17 03:28 03:28 03:28 WBC 24.3 H RBC 2.50 L Hgb 7.3 L Hct 21.6 L MCV 86.4 MCH 29.2 MCHC 33.8 RDW 15.9 H Plt Count 16 L* MPV 10.9 Seg Neutrophils % 44.0 Band Neutrophils % 28.0 H Lymphocytes % 8.0 Monocytes % 2.0 Myelocytes % 4.0 H Blast Cells % 14.0 H Neutrophils # 17.5 H Lymphocytes # 1.9 Monocytes # 0.5 Nucleated RBCs/100 WBC 0.1 H Smudge Cells Present A Platelet Estimate Marked Decrease L Immature Plt Fraction 7.1 H PT 13.2 H INR 1.2 Sample Site ABG pH ABG pCO2 ABG pO2 ABG HCO3 ABG Total CO2 ABG O2 Saturation ABG Base Excess Tolu Test Lactate Respiration Rate O2 Delivery Device Blood Gas Modality Inspired O2 Tidal Volume PEEP Sodium 141 Potassium 5.1 H Chloride 102 Carbon Dioxide 27 BUN 59 H D Creatinine 2.55 H Est GFR ( Amer) 23 L Est GFR (Non-Af Amer) 19 L BUN/Creatinine Ratio 23 Glucose 119 H POC Glucose Calculated Osmolality 310 H Calcium 8.5 L Phosphorus Magnesium 1.9 Total Bilirubin Direct Bilirubin Indirect Bilirubin AST ALT Alkaline Phosphatase Serum Total Protein Albumin Globulin Albumin/Globulin Ratio Blood Type Antibody Screen Antibody Identification MTS Gel Crossmatch 03/06/17 03/06/17 03:28 03:28 WBC RBC Hgb Hct MCV MCH MCHC RDW Plt Count MPV Seg Neutrophils % Band Neutrophils % Lymphocytes % Monocytes % Myelocytes % Blast Cells % Neutrophils # Lymphocytes # Monocytes # Nucleated RBCs/100 WBC Smudge Cells Platelet Estimate Immature Plt Fraction PT INR Sample Site ABG pH ABG pCO2 ABG pO2 ABG HCO3 ABG Total CO2 ABG O2 Saturation ABG Base Excess Tolu Test Lactate Respiration Rate O2 Delivery Device Blood Gas Modality Inspired O2 Tidal Volume PEEP Sodium Potassium Chloride Carbon Dioxide BUN Creatinine Est GFR ( Amer) Est GFR (Non-Af Amer) BUN/Creatinine Ratio Glucose POC Glucose Calculated Osmolality Calcium Phosphorus 3.8 D Magnesium Total Bilirubin 0.6 Direct Bilirubin 0.4 Indirect Bilirubin 0.2 AST 39 H ALT 16 Alkaline Phosphatase 87 Serum Total Protein 7.2 Albumin 2.3 L Globulin 4.9 H Albumin/Globulin Ratio 0.5 L Blood Type Antibody Screen Antibody Identification MTS Gel Crossmatch - Impressions Impressions Guidance Needle Placement Ultrasound 02/28/17 00:00 IMPRESSION: Ultrasound-guided non tunneled right internal jugular dialysis catheter placement performed. D/ / 02/28/2017 14:53:33 Miquel Saxena MD / [facility] Interpreting Provider: Miquel Saxena MD Insertion Non-Tunneled Catheter 02/28/17 00:00 IMPRESSION: Ultrasound-guided non tunneled right internal jugular dialysis catheter placement performed. D/ / 02/28/2017 14:53:33 Miquel Saxena MD / [place] Interpreting Provider: Miquel Saxena MD Chest X-Ray 02/28/17 12:40 IMPRESSION: 1. Right internal jugular dialysis catheter tips overlie the SVC. 2. Slightly increased diffuse airspace opacities with trace bilateral effusions. The differential includes aspiration/pneumonia, ARDS, or an atypical appearance of pulmonary edema. D/ / 02/28/2017 13:35:15 Miquel Saxena MD / [email or web address] Interpreting Provider: Miquel Saxena MD - ABG Interpretation ABG results: ABG ABG pH 7.36 pH Units (7.32-7.45) 03/05/17 11:31 ABG pCO2 49 mmHg (35-45) H 03/05/17 11:31 ABG pO2 68 mmHg (85-104) L 03/05/17 11:31 ABG O2 Saturation 92 % (95-98) L 03/05/17 11:31 PT/INR, D-dimer PT 13.2 Seconds (9.4-12.1) H 03/06/17 03:28 Consult Discharge Plan - Plan Referrals: NONE,PCP [Primary Care Provider] -
[2017-03-06] MEDS: Albumin 25% 12.5gm/50mL 12.5 GM/50 ML IV.SOLN IVPB SCH (10:35)
[2017-03-06] MEDS: Levofloxacin 750 MG/150 ML 750 MG/150 ML BAG IVPB SCH (12:02)
[2017-03-06] MEDS ORDERED: Acetaminophen 325 MG TABLET PO PRN (16:50)
--- NOTE | 2017-03-06 19:43 | Oncology Inp Progress Note ---
Date of Encounter: 03/06/17 Time of Encounter: 19:00 (1) AML (acute myelogenous leukemia) Current Visit: Yes Status: Acute Assessment and plan: I met with family and d/w Ms. Bernstein today. Plan is for extubation as early as tomorrow. No plan for reintubation or continuation of aggressive care if she fails extubation. I reaffirmed that she will be kept comfortable if she has difficulty breathing. She expressed wishes to go home, and I explained this would be difficult logistically but if she is stable on comfort measures it could be pursued if deemed safe with home hospice following. This will be an ongoing discussion. All questions were answered to the best of my ability. Let me know if we can help in any way. 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 She is tired following her HD. 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 She would like to extubated and proceed with comfort measures if her respiratory system decompensates. This was confirmed durimg my discussion tonight. , granddaughter, daughter at bedside. Ms. Bernstein is awake and communicating nonverbally. - Constitutional Vitals: Vital Signs Temp Pulse Resp BP Pulse Ox 03/06/17 18:00 98.3 F 93 26 91/42 92 03/06/17 17:34 30 127/57 91 03/06/17 17:00 105 43 127/57 95 03/06/17 16:00 108 33 129/67 97 03/06/17 15:50 42 125/62 92 03/06/17 15:00 106 43 125/62 92 03/06/17 14:00 107 47 126/52 94 03/06/17 13:26 30 88/41 100 03/06/17 13:00 101 19 88/41 91 03/06/17 12:00 117 34 105/44 93 03/06/17 11:45 33 88/41 94 03/06/17 11:25 98.1 F 29 105/53 03/06/17 11:24 98.1 F 03/06/17 11:15 96/52 03/06/17 11:00 113 33 96/52 97 03/06/17 10:45 103/48 03/06/17 10:30 89/73 03/06/17 10:15 116/58 03/06/17 10:00 130 36 89/55 93 03/06/17 09:45 132/60 03/06/17 09:30 109/68 03/06/17 09:26 29 116/58 94 03/06/17 09:15 109/68 03/06/17 09:00 95 30 102/51 94 03/06/17 08:45 139/64 03/06/17 08:30 119/57 03/06/17 08:15 98.0 F 25 133/59 03/06/17 08:02 30 116/58 93 03/06/17 08:00 96 29 128/56 94 03/06/17 07:27 98.2 F 03/06/17 07:00 92 29 108/50 94 03/06/17 06:00 90 30 97/43 94 03/06/17 05:47 33 113/47 94 03/06/17 05:00 92 29 99/49 92 03/06/17 04:00 98.3 F 92 29 93/38 92 03/06/17 03:10 30 92/38 92 03/06/17 03:00 86 29 92/38 93 03/06/17 02:00 84 26 88/40 92 03/06/17 01:07 30 110/50 92 03/06/17 01:00 94 30 110/50 92 03/06/17 00:00 98.3 F 89 25 101/54 95 03/05/17 23:20 30 107/59 92 03/05/17 23:00 94 30 105/59 93 03/05/17 22:00 90 29 110/41 95 03/05/17 21:39 98.8 F 93 32 128/56 03/05/17 21:34 31 128/56 95 03/05/17 21:00 92 32 91/47 92 03/05/17 20:30 96 03/05/17 20:00 96 29 117/59 95 03/05/17 19:51 22 124/59 95 03/05/17 19:45 98.8 F Intake and Output 03/06/17 03/06/17 03/07/17 08:59 16:59 00:59 Intake Total 862 / 862 681 / 681 Output Total 0 / 0 1982 Balance 862 / 862 -1302 / -1302 Intake: IV Fluids 100 / 100 200 / 200 PRECEDEX Premix 400 mcg In 100 100 / 100 ml @ 0.2 MCG/KG/HR 4.196 mls/hr IVC .[id number] PIPPA Rx#: [id number] Flexbumin 12.5 gm In 50 ml @ 60 50 / 50 mls/hr IVPB [id number] PIPPA Rx#: [id number] Levaquin Premix 750mg/150 mL 150 / 150 750 mg In 150 ml @ 100 mls/hr IVPB Q48H PIPPA Rx#:[id number] Oral 0 / 0 Tube Feeding 162 / 162 481 / 481 Intake, Rinseback and Flushes 600 / 600 Output: Urine 0 / 0 Total Dialysis (HD) Output 1982 Rectal Tube 0 / 0 Catheter 0 / 0 Other: Blood Glucose* 105 Hemodialysis Net Fluid Removed 438 1383 (mL) General appearance: no acute distress - Head Head exam: Present: atraumatic, normal inspection, normocephalic - Eye Eye exam: Present: normal appearance, conjuntiva pink - ENT ENT exam: Present: mucous membranes moist - Neck Neck exam: Present: full ROM, normal inspection - Respiratory Respiratory exam: Present: rhonchi - Cardiovascular Cardiovascular exam: Present: RRR - GI/Abdominal GI/Abdominal exam: Present: normal bowel sounds, soft - Neurological Exam Neurological exam: Present: alert, CN II-XII intact, oriented X3 Oncology: Obj Data - Labs CBC & Chem 7: 03/06/17 03:28 03/06/17 03:28 Labs: Laboratory Results - last 24 hr 03/05/17 03/06/17 03/06/17 08:23 00:34 00:36 WBC RBC Hgb 7.6 L Hct 21.9 L MCV MCH MCHC RDW Plt Count MPV Seg Neutrophils % Band Neutrophils % Lymphocytes % Monocytes % Myelocytes % Blast Cells % Neutrophils # Lymphocytes # Monocytes # Nucleated RBCs/100 WBC Smudge Cells Platelet Estimate Immature Plt Fraction PT INR Sodium Potassium Chloride Carbon Dioxide BUN Creatinine Est GFR ( Amer) Est GFR (Non-Af Amer) BUN/Creatinine Ratio Glucose POC Glucose 115 H Calculated Osmolality Calcium Phosphorus Magnesium Total Bilirubin Direct Bilirubin Indirect Bilirubin AST ALT Alkaline Phosphatase Serum Total Protein Albumin Globulin Albumin/Globulin Ratio MTS Gel Crossmatch See Detail 03/06/17 03/06/17 03/06/17 03:28 03:28 03:28 WBC 24.3 H RBC 2.50 L Hgb 7.3 L Hct 21.6 L MCV 86.4 MCH 29.2 MCHC 33.8 RDW 15.9 H Plt Count 16 L* MPV 10.9 Seg Neutrophils % 44.0 Band Neutrophils % 28.0 H Lymphocytes % 8.0 Monocytes % 2.0 Myelocytes % 4.0 H Blast Cells % 14.0 H Neutrophils # 17.5 H Lymphocytes # 1.9 Monocytes # 0.5 Nucleated RBCs/100 WBC 0.1 H Smudge Cells Present A Platelet Estimate Marked Decrease L Immature Plt Fraction 7.1 H PT 13.2 H INR 1.2 Sodium 141 Potassium 5.1 H Chloride 102 Carbon Dioxide 27 BUN 59 H D Creatinine 2.55 H Est GFR ( Amer) 23 L Est GFR (Non-Af Amer) 19 L BUN/Creatinine Ratio 23 Glucose 119 H POC Glucose Calculated Osmolality 310 H Calcium 8.5 L Phosphorus Magnesium 1.9 Total Bilirubin Direct Bilirubin Indirect Bilirubin AST ALT Alkaline Phosphatase Serum Total Protein Albumin Globulin Albumin/Globulin Ratio MTS Gel Crossmatch 03/06/17 03/06/17 03/06/17 03:28 03:28 11:04 WBC RBC Hgb Hct MCV MCH MCHC RDW Plt Count MPV Seg Neutrophils % Band Neutrophils % Lymphocytes % Monocytes % Myelocytes % Blast Cells % Neutrophils # Lymphocytes # Monocytes # Nucleated RBCs/100 WBC Smudge Cells Platelet Estimate Immature Plt Fraction PT INR Sodium Potassium Chloride Carbon Dioxide BUN Creatinine Est GFR ( Amer) Est GFR (Non-Af Amer) BUN/Creatinine Ratio Glucose POC Glucose 105 H Calculated Osmolality Calcium Phosphorus 3.8 D Magnesium Total Bilirubin 0.6 Direct Bilirubin 0.4 Indirect Bilirubin 0.2 AST 39 H ALT 16 Alkaline Phosphatase 87 Serum Total Protein 7.2 Albumin 2.3 L Globulin 4.9 H Albumin/Globulin Ratio 0.5 L MTS Gel Crossmatch - Impressions Impressions Guidance Needle Placement Ultrasound 02/28/17 00:00 IMPRESSION: Ultrasound-guided non tunneled right internal jugular dialysis catheter placement performed. D/ / 02/28/2017 14:53:33 Miquel Saxena MD / [place] Interpreting Provider: Miquel Saxena MD Insertion Non-Tunneled Catheter 02/28/17 00:00 IMPRESSION: Ultrasound-guided non tunneled right internal jugular dialysis catheter placement performed. D/ / 02/28/2017 14:53:33 Miquel Saxena MD / [place] Interpreting Provider: Miquel Saxena MD Chest X-Ray 02/28/17 12:40 IMPRESSION: 1. Right internal jugular dialysis catheter tips overlie the SVC. 2. Slightly increased diffuse airspace opacities with trace bilateral effusions. The differential includes aspiration/pneumonia, ARDS, or an atypical appearance of pulmonary edema. D/ / 02/28/2017 13:35:15 Miquel Saxena MD / [email or web address] Interpreting Provider: Miquel Saxena MD - ABG Interpretation ABG results: ABG ABG pH 7.36 pH Units (7.32-7.45) 03/05/17 11:31 ABG pCO2 49 mmHg (35-45) H 03/05/17 11:31 ABG pO2 68 mmHg (85-104) L 03/05/17 11:31 ABG O2 Saturation 92 % (95-98) L 03/05/17 11:31 PT/INR, D-dimer PT 13.2 Seconds (9.4-12.1) H 03/06/17 03:28 Consult Discharge Plan - Plan Referrals: NONE,PCP [Primary Care Provider] -
[2017-03-06] MEDS ORDERED: Melatonin 3 MG TABLET GTUBE STA (22:51)
[2017-03-07] MEDS: Dexmedetomidine HCl 400 MCG/100 ML MLS IVC SCH ×2 (00:51→20:49)
[2017-03-07] MEDS: Lacri-Lube 3.5 GM TUBE BOTH EYES SCH ×6 (00:52→20:47)
[2017-03-07] MEDS: *HR* LORazepam 2 MG/ML VIAL IVP PRN ×3 (00:52→20:49)
[2017-03-07] MEDS: Ipratropium/Albuterol Neb 3 ML IH SCH ×4 (04:05→20:16)
[2017-03-07 04:58] LABS: Mean Platelet Volume 11.9 fL (9.4-12.4)
[2017-03-07 04:59] LABS: Hematocrit 20.8 % (35.3-44.9); Immature Platelets 11.7 % (1.1-6.1); Mean Corpuscular HGB Conc 33.7 g/dL (31.6-35.5); Mean Corpuscular Volume 86.3 fL (83.0-100.0); Red Blood Count 2.41 M/mcL (3.82-4.97); Red Cell Distribution Width 15.8 % (11.5-14.5)
[2017-03-07 05:12] LABS: Albumin 2.3 g/dL (3.5-5.0); Albumin/Globulin Ratio 0.4 (1.1-2.2); Bilirubin,Direct 0.3 mg/dL (0.0-0.5); Bilirubin,Indirect 0.2 mg/dL (0.0-1.2); Bilirubin,Total 0.5 mg/dL (0.2-1.2); Calcium 8.5 mg/dL (8.6-10.8); Globulin 5.2 g/dL (2.4-3.5); Potassium 4.5 mEq/L (3.5-4.5); Total Protein 7.5 g/dL (6.0-8.3)
[2017-03-07] MEDS ORDERED: 0.9 % Sodium Chloride 250 ML IVC PRN (07:11)
[2017-03-07] MEDS ORDERED: *HR* Heparin 10,000 UNIT/10 ML VIAL IV PRN (07:11)
[2017-03-07] MEDS: FentaNYL (PF) 1,000 MCG in 0.9 % Sodium Chloride 80 ML IVC SCH ×2 (07:41→15:45)
--- NOTE | 2017-03-07 08:33 | Nephrology Progress Note ---
Date of Encounter: 03/07/17 Time of Encounter: 08:31 - Assessment and Plan (1) Acute on chronic renal failure Current Visit: Yes Status: Acute patient now dialysis dependent. Oliguric RODERICK, now progressed to ESRD Etiology likely secondary to septic shock, H.Influenza pneumonia. Plan: awaiting continued goals of care discussions. will continue to monitor renal function avoid nephrotoxic agents as much as possible strict I/O dialyze today, then go back to MWF schedule afterwards. Qualifiers: Qualified Code(s): N17.0 - Acute kidney failure with tubular necrosis; N18.3 - Chronic kidney disease, stage 3 (moderate); N18.3 - Chronic kidney disease, stage 3 (moderate) (2) Fluid overload Current Visit: Yes Status: Acute as above Qualifiers: Qualified Code(s): E87.70 - Fluid overload, unspecified (3) Septic shock Current Visit: Yes Status: Resolved resolved. secondary to H.Influenza. (4) Thrombocytopenia Current Visit: Yes Status: Acute per primary (5) Anemia Current Visit: Yes Status: Acute likely not renally related. likely secondary to AML Qualifiers: Qualified Code(s): D63.0 - Anemia in neoplastic disease (6) AML (acute myelogenous leukemia) Current Visit: Yes Status: Acute Hx of AML on palliative chemotherapy currently. 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 evaluate for possible extubation today. still having ongoing family discussions regarding reinubation. Subjective Principal diagnosis: Unresponsive Interval history: 66 year old female evaluated at bedside. patient remains intubated. she is currently alert and responding to stimuli Objective - Vital Signs Vital signs: Vital Signs Temp Pulse Resp BP Pulse Ox 03/07/17 08:06 26 69/45 94 03/07/17 07:30 87 03/07/17 07:00 87 23 109/45 94 03/07/17 06:13 25 95/42 94 03/07/17 06:00 88 25 95/42 95 03/07/17 05:00 86 24 104/51 94 03/07/17 04:47 98 F 03/07/17 04:05 25 93/46 94 03/07/17 04:00 89 25 93/46 94 03/07/17 03:00 87 25 108/48 95 03/07/17 02:41 22 97/48 100 03/07/17 02:00 85 22 97/48 100 03/07/17 01:00 86 23 102/48 95 03/07/17 00:35 98.4 F 03/07/17 00:04 27 106/47 95 03/07/17 00:00 87 03/06/17 23:00 88 28 97/41 95 03/06/17 22:04 28 97/47 94 03/06/17 22:00 93 30 97/47 93 03/06/17 21:00 94 29 118/51 93 03/06/17 20:38 98.2 F 03/06/17 20:21 30 103/50 93 03/06/17 20:00 93 27 103/50 92 03/06/17 18:00 98.3 F 93 26 91/42 92 03/06/17 17:34 30 127/57 91 03/06/17 17:00 105 43 127/57 95 03/06/17 16:00 108 33 129/67 97 03/06/17 15:50 42 125/62 92 03/06/17 15:00 106 43 125/62 92 03/06/17 14:00 107 47 126/52 94 03/06/17 13:26 30 88/41 100 03/06/17 13:00 101 19 88/41 91 03/06/17 12:00 117 34 105/44 93 03/06/17 11:45 33 88/41 94 03/06/17 11:25 98.1 F 29 105/53 03/06/17 11:24 98.1 F 03/06/17 11:15 96/52 03/06/17 11:00 113 33 96/52 97 03/06/17 10:45 103/48 03/06/17 10:30 89/73 03/06/17 10:15 116/58 03/06/17 10:00 130 36 89/55 93 03/06/17 09:45 132/60 03/06/17 09:30 109/68 03/06/17 09:26 29 116/58 94 03/06/17 09:15 109/68 03/06/17 09:00 95 30 102/51 94 03/06/17 08:45 139/64 Intake and Output 03/06/17 03/07/17 03/07/17 23:59 07:59 15:59 Intake Total 1766 / 1766 Output Total 300 / 300 0 / 0 Balance -300 / -300 1766 / 1766 Intake: IV Fluids 100 / 100 PRECEDEX Premix 400 mcg In 100 100 / 100 ml @ 0.2 MCG/KG/HR 4.196 mls/hr IVC .[id number] FOR[facility]LY [facility] Rx#: [id number] Tube Feeding 1426 / 1426 Free Water 120 / 120 Free Water Intake Amount 120 / 120 Output: Rectal Tube 300 / 300 0 / 0 Catheter 0 / 0 0 / 0 Other: Weight 61.2 kg Patient Weight 03/07/17 23:59 Weight 61.2 kg - General Appearance General appearance: Present: well-developed, well-nourished, appears started age Neck: Present: no JVD Respiratory: Present: clear Cardiology: Present: no murmurs, no rub, no gallops, no edema, regular rate, regular rhythm, normal S1, normal S2 Dialysis Vascular Access: Venous Catheter Gastrointestinal: Present: absent bowel sounds, no tenderness, no guarding, no organomegaly, no masses Integumentary: Present: no rash, warm and dry Neurologic: Present: no focal deficit Musculoskeletal: Present: no deformities, no erythema, no cyanosis, no clubbing - Lab 03/07/17 04:52 03/07/17 04:52 Most recent lab results ABG pH 7.36 pH Units (7.32-7.45) 03/05/17 11:31 ABG pCO2 49 mmHg (35-45) H 03/05/17 11:31 ABG pO2 68 mmHg (85-104) L 03/05/17 11:31 ABG HCO3 27 mEq/L (21-27) 03/05/17 11:31 ABG O2 Saturation 92 % (95-98) L 03/05/17 11:31 Calcium 8.5 mg/dL (8.6-10.8) L 03/07/17 04:52 Phosphorus 3.8 mg/dL (2.3-4.7) D 03/06/17 03:28 Magnesium 1.9 mg/dL (1.6-2.6) 03/06/17 03:28 Consult Discharge Plan - Plan Referrals: NONE,PCP [Primary Care Provider] -
[2017-03-07] MEDS: Pantoprazole 40 MG VIAL IVPB SCH (08:34)
[2017-03-07] MEDS: Chlorhexidine Rinse 15 ML MOUTHWASH MM SCH ×2 (08:34→20:49)
--- NOTE | 2017-03-07 09:24 | Pulmonology Progress Note ---
<JacksonMichael zafar - Last Filed: 03/07/17 11:55> Date of Encounter: 03/07/17 Time of Encounter: 09:22 Assessment and Plan (1) Septic shock Current Visit: Yes Status: Resolved Resolved. No longer requiring pressors. Secondary to Haemophilus influenza pneumonia. Continue Levaquin for a total 14 days. (2) Acute respiratory failure with hypercapnia Current Visit: Yes Status: Acute Secondary to Haemophilus influenza pneumonia as discussed above, pulmonary edema is also contributing. Pneumonia is being adequately treated, hemodialysis initiated for fluid removal. Continue ventilatory support. Patient was extubated over the weekend and unfortunately she required reintubation after 1 hour. Patient has failed several CPAP trials. Depending on the patient's wishes if she continues to wish for full support she may require tracheostomy. We will continually reassess the patient's wishes (3) AML (acute myelogenous leukemia) Current Visit: Yes Status: Acute With pancytopenia at baseline. Per records review treatment intent is currently palliative. Significant elevation in her white count possibly related to underlying infection. Continue treatment as above. Oncology has been consulted and is following. 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 Continue Levaquin. Sensitivities pending Qualifiers: Pneumonia type: due to Haemophilus influenzae Laterality: unspecified laterality Lung location: unspecified part of lung Qualified Code(s): J14 - Pneumonia due to Hemophilus influenzae (5) Acute on chronic renal failure Current Visit: Yes Status: Acute Creatinine 3.99 on presentation, baseline appears to be around 1.5. Concern for ATN in the setting of critical illness given granular casts found in the urine. Urine output remains poor. Continue intermittent hemodialysis. Nephrology is following and appreciate their recommendations. Qualifiers: Acute renal failure type: with acute tubular necrosis Chronic kidney disease stage: stage 3 (moderate) Qualified Code(s): N17.0 - Acute kidney failure with tubular necrosis; N18.3 - Chronic kidney disease, stage 3 (moderate ); N18.3 - Chronic kidney disease, stage 3 (moderate) (6) Anemia Current Visit: Yes Status: Acute 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 Baseline appears to be around 7-8. Hgb 7.6 today after 1 unit of blood yesterday. No obvious source of bleeding. Continue to monitor. Qualifiers: Anemia type: other cause Other causes of anemia: chronic disease, neoplastic Qualified Code(s): D63.0 - Anemia in neoplastic disease (7) Thrombocytopenia Current Visit: Yes Status: Acute Platelets 10 today. No evidence of active bleeding. We will transfuse 1 unit of platelets today (8) Goals of care, counseling/discussion Current Visit: Yes Status: Acute I did discussion with the patient, Dr. Butterfield, and the patient's daughter at bedside. Last night the patient stated that she wished to have the endotracheal tube withdrawn and to forego reintubation if necessary. In discussions with the patient this morning she seems to have changed her mind and now wishes full aggressive measures including tracheostomy and PEG tube placement. Family is not sure that the patient truly understands what is involved with this however the patient does have the capacity to make her decisions at this time. Family and patient will have further discussion regarding goals of care. Subjective Principal diagnosis: Unresponsive Interval history: Patient seen and examined at bedside. Patient remains intubated and minimally sedated. She responds to verbal commands and is able to write responses to questions. She denies any pain or discomfort. Objective PUL Vital signs: Last Vital Signs Temp 98.3 F 03/07/17 07:00 Pulse 90 03/07/17 09:00 Resp 27 03/07/17 09:00 BP 104/46 03/07/17 09:00 Pulse Ox 93 03/07/17 09:00 General appearance: no acute distress Auscultation: bilateral: diminished breath sounds Cardiovascular: regular rate and rhythm Gastrointestinal: normoactive bowel sounds, soft, non-tender Extremities: no cyanosis, no clubbing, edema (Trace) normal mental status, non-focal exam Ventilator Settings Ventilator Settings: Ventilator Settings, Last 8 Hours Ventilator Mode VC+ Ventilator Mode VC+ Ventilator Mode VC+ Ventilator Mode VC+ Ventilator Mode VC+ Ventilator Mode VC+ Ventilator Mode VC+ Ventilator Mode VC+ Ventilator Mode VC+ Ventilator Mode VC+ Ventilator Mode VC+ Ventilator Mode VC+ Ventilator Tidal Volume 370 Setting Ventilator Tidal Volume 370 Setting Ventilator Tidal Volume 370 Setting Ventilator Tidal Volume 370 Setting Ventilator Tidal Volume 370 Setting Ventilator Tidal Volume 370 Setting Ventilator Tidal Volume 370 Setting Ventilator Tidal Volume 370 Setting Ventilator Tidal Volume 370 Setting Ventilator Tidal Volume 370 Setting Ventilator Tidal Volume 370 Setting Ventilator Tidal Volume 370 Setting Ventilator Respiratory Rate 22 Setting Ventilator Respiratory Rate 22 Setting Ventilator Respiratory Rate 22 Setting Ventilator Respiratory Rate 22 Setting Ventilator Respiratory Rate 22 Setting Ventilator Respiratory Rate 22 Setting Ventilator Respiratory Rate 22 Setting Ventilator Respiratory Rate 22 Setting Ventilator Respiratory Rate 22 Setting Ventilator Respiratory Rate 22 Setting Ventilator Respiratory Rate 22 Setting Ventilator Respiratory Rate 22 Setting Actual Respiratory Rate 27 Actual Respiratory Rate 24 Actual Respiratory Rate 28 Actual Respiratory Rate 23 Actual Respiratory Rate 25 Actual Respiratory Rate 25 Actual Respiratory Rate 24 Actual Respiratory Rate 26 Actual Respiratory Rate 25 Actual Respiratory Rate 25 Actual Respiratory Rate 22 Actual Respiratory Rate 23 Positive End Expiratory 5 Pressure Positive End Expiratory 5 Pressure Positive End Expiratory 5 Pressure Positive End Expiratory 5 Pressure Positive End Expiratory 5 Pressure Positive End Expiratory 5 Pressure Positive End Expiratory 5 Pressure Positive End Expiratory 5 Pressure Positive End Expiratory 5 Pressure Positive End Expiratory 5 Pressure Positive End Expiratory 5 Pressure Positive End Expiratory 5 Pressure Peak Inspiratory Airway 52 Pressure Peak Inspiratory Airway 40 Pressure Peak Inspiratory Airway 40 Pressure Peak Inspiratory Airway 40 Pressure Peak Inspiratory Airway 33 Pressure Peak Inspiratory Airway 44 Pressure Peak Inspiratory Airway 33 Pressure Peak Inspiratory Airway 48 Pressure Peak Inspiratory Airway 45 Pressure Results - Laboratory Findings CBC and BMP: 03/07/17 04:52 03/07/17 04:52 ABG ABG pH 7.36 pH Units (7.32-7.45) 03/05/17 11:31 ABG pCO2 49 mmHg (35-45) H 03/05/17 11:31 ABG pO2 68 mmHg (85-104) L 03/05/17 11:31 ABG O2 Saturation 92 % (95-98) L 03/05/17 11:31 PT/INR, D-dimer PT 13.2 Seconds (9.4-12.1) H 03/06/17 03:28 Abnormal lab findings: Abnormal lab results WBC 20.1 K/mcL (4.3-11.1) H 03/07/17 04:52 RBC 2.41 M/mcL (3.82-4.97) L 03/07/17 04:52 Hgb 7.0 g/dL (11.5-15.4) L 03/07/17 04:52 Hct 20.8 % (35.3-44.9) L 03/07/17 04:52 RDW 15.8 % (11.5-14.5) H 03/07/17 04:52 Plt Count 10 K/mcL (140-400) L* 03/07/17 04:52 Band Neutrophils % 28.0 % (0-4) H 03/06/17 03:28 Metamyelocytes % 4.0 % (0) H 03/05/17 03:50 Myelocytes % 4.0 % (0) H 03/06/17 03:28 Blast Cells % 14.0 % (0) H 03/06/17 03:28 Neutrophils # 17.5 K/mcL (1.6-8.9) H 03/06/17 03:28 Nucleated RBCs/100 WBC 0.1 /100 WBC (0) H 03/06/17 03:28 Smudge Cells Present (Not Present) A 03/06/17 03:28 Platelet Estimate Marked Decrease (Normal) L 03/06/17 03:28 Immature Plt Fraction 11.7 % (1.1-6.1) H 03/07/17 04:52 Polychromasia 1+ (Not Present) A 02/27/17 04:30 Anisocytosis 1+ (Not Present) A 03/05/17 03:50 Microcytosis Present (Not Present) A 03/03/17 03:37 PT 13.2 Seconds (9.4-12.1) H 03/06/17 03:28 ABG pCO2 49 mmHg (35-45) H 03/05/17 11:31 ABG pO2 68 mmHg (85-104) L 03/05/17 11:31 ABG Total CO2 29 mEq/L (20-26) H 03/05/17 11:31 ABG O2 Saturation 92 % (95-98) L 03/05/17 11:31 Chloride 97 mEq/L (98-109) L 03/07/17 04:52 BUN 54 mg/dL (7-20) H 03/07/17 04:52 Creatinine 2.53 mg/dL (0.57-1.11) H 03/07/17 04:52 Est GFR ( Amer) 23 (> 60) L 03/07/17 04:52 Est GFR (Non-Af Amer) 19 (> 60) L 03/07/17 04:52 Glucose 131 mg/dL (70-99) H 03/07/17 04:52 POC Glucose 131 (58-89) H 03/07/17 04:47 Lactic Acid 2.6 mmol/L (0.5-2.2) H 02/26/17 10:44 Calculated Osmolality 303 (280-300) H 03/07/17 04:52 Calcium 8.5 mg/dL (8.6-10.8) L 03/07/17 04:52 Troponin I 0.15 ng/mL (0-0.03) H* 02/26/17 10:45 Albumin 2.3 g/dL (3.5-5.0) L 03/07/17 04:52 Globulin 5.2 g/dL (2.4-3.5) H 03/07/17 04:52 Albumin/Globulin Ratio 0.4 (1.1-2.2) L 03/07/17 04:52 Urine Clarity Turbid (Clear) A 02/26/17 10:45 Ur Specific [place] 1.028 (1.010-1.025) H 02/26/17 10:45 Urine Protein 100 mg/dL (Neg-Trace) H 02/26/17 10:45 Urine Blood Small (Negative) H 02/26/17 10:45 Urine Bilirubin Small (Negative) H 02/26/17 10:45 Urine Microscopic WBC 50-100 per hpf (0-3) H 02/26/17 10:45 Ur Squamous Epith Cells Many per lpf (None-Few) H 02/26/17 10:45 Amorphous Sediment Many (Few) H 02/26/17 10:45 Granular Casts Many per lpf (None Seen) H 02/26/17 10:45 U Benzodiazepines Scrn Positive ng/mL (Ptjmvw=942) H 02/26/17 10:45 H. influenzae (PCR) DETECTED (Not Detect) A 02/26/17 10:45 - Microbiology Findings Microbiology Findings: Microbiology, Last 48 Hours 02/28/17 05:59 Blood Culture - Final Peripheral Venipuncture No growth. - Clinical Findings Intake & Output: Intake & Output 03/06/17 03/07/17 03/07/17 23:59 07:59 15:59 Intake Total 1766 / 1766 Output Total 300 / 300 25 / 25 Balance -300 / -300 1741 / 1741 Weight 61.2 kg Consult Discharge Plan - Plan Referrals: NONE,PCP [Primary Care Provider] - <Nathaly Rodgers - Last Filed: 03/07/17 22:56> Date of Encounter: 03/07/17 Objective PUL Vital signs: Last Vital Signs Temp 99.1 F 03/07/17 20:00 Pulse 91 03/07/17 22:00 Resp 24 03/07/17 22:10 BP 111/46 03/07/17 22:10 Pulse Ox 95 03/07/17 22:10 Ventilator Settings Ventilator Settings: Ventilator Settings, Last 8 Hours Ventilator Mode A/C Ventilator Mode A/C Ventilator Mode A/C Ventilator Mode A/C Ventilator Mode A/C Ventilator Mode A/C Ventilator Mode A/C Ventilator Mode A/C Ventilator Mode A/C Ventilator Mode A/C Ventilator Mode A/C Ventilator Mode VC+ Ventilator Tidal Volume 370 Setting Ventilator Tidal Volume 370 Setting Ventilator Tidal Volume 370 Setting Ventilator Tidal Volume 370 Setting Ventilator Tidal Volume 370 Setting Ventilator Tidal Volume 370 Setting Ventilator Tidal Volume 370 Setting Ventilator Tidal Volume 370 Setting Ventilator Tidal Volume 370 Setting Ventilator Tidal Volume 370 Setting Ventilator Tidal Volume 370 Setting Ventilator Tidal Volume 370 Setting Ventilator Respiratory Rate 22 Setting Ventilator Respiratory Rate 22 Setting Ventilator Respiratory Rate 22 Setting Ventilator Respiratory Rate 22 Setting Ventilator Respiratory Rate 22 Setting Ventilator Respiratory Rate 22 Setting Ventilator Respiratory Rate 22 Setting Ventilator Respiratory Rate 22 Setting Ventilator Respiratory Rate 22 Setting Ventilator Respiratory Rate 22 Setting Ventilator Respiratory Rate 22 Setting Ventilator Respiratory Rate 22 Setting Actual Respiratory Rate 24 Actual Respiratory Rate 24 Actual Respiratory Rate 27 Actual Respiratory Rate 24 Actual Respiratory Rate 24 Actual Respiratory Rate 26 Actual Respiratory Rate 24 Actual Respiratory Rate 24 Actual Respiratory Rate 26 Actual Respiratory Rate 24 Actual Respiratory Rate 22 Actual Respiratory Rate 27 Positive End Expiratory 5 Pressure Positive End Expiratory 5 Pressure Positive End Expiratory 5 Pressure Positive End Expiratory 5 Pressure Positive End Expiratory 5 Pressure Positive End Expiratory 5 Pressure Positive End Expiratory 5 Pressure Positive End Expiratory 5 Pressure Positive End Expiratory 5 Pressure Positive End Expiratory 5 Pressure Positive End Expiratory 5 Pressure Positive End Expiratory 5 Pressure Peak Inspiratory Airway 29 Pressure Peak Inspiratory Airway 29 Pressure Peak Inspiratory Airway 34 Pressure Peak Inspiratory Airway 33 Pressure Peak Inspiratory Airway 35 Pressure Peak Inspiratory Airway 39 Pressure Peak Inspiratory Airway 37 Pressure Peak Inspiratory Airway 34 Pressure Results - Laboratory Findings CBC and BMP: 03/07/17 04:52 03/07/17 04:52 ABG ABG pH 7.36 pH Units (7.32-7.45) 03/05/17 11:31 ABG pCO2 49 mmHg (35-45) H 03/05/17 11:31 ABG pO2 68 mmHg (85-104) L 03/05/17 11:31 ABG O2 Saturation 92 % (95-98) L 03/05/17 11:31 PT/INR, D-dimer PT 13.2 Seconds (9.4-12.1) H 03/06/17 03:28 Abnormal lab findings: Abnormal lab results WBC 20.1 K/mcL (4.3-11.1) H 03/07/17 04:52 RBC 2.41 M/mcL (3.82-4.97) L 03/07/17 04:52 Hgb 7.0 g/dL (11.5-15.4) L 03/07/17 04:52 Hct 20.8 % (35.3-44.9) L 03/07/17 04:52 RDW 15.8 % (11.5-14.5) H 03/07/17 04:52 Plt Count 10 K/mcL (140-400) L* 03/07/17 04:52 Band Neutrophils % 28.0 % (0-4) H 03/06/17 03:28 Metamyelocytes % 4.0 % (0) H 03/05/17 03:50 Myelocytes % 4.0 % (0) H 03/06/17 03:28 Blast Cells % 14.0 % (0) H 03/06/17 03:28 Neutrophils # 17.5 K/mcL (1.6-8.9) H 03/06/17 03:28 Nucleated RBCs/100 WBC 0.1 /100 WBC (0) H 03/06/17 03:28 Smudge Cells Present (Not Present) A 03/06/17 03:28 Platelet Estimate Marked Decrease (Normal) L 03/06/17 03:28 Immature Plt Fraction 11.7 % (1.1-6.1) H 03/07/17 04:52 Polychromasia 1+ (Not Present) A 02/27/17 04:30 Anisocytosis 1+ (Not Present) A 03/05/17 03:50 Microcytosis Present (Not Present) A 03/03/17 03:37 PT 13.2 Seconds (9.4-12.1) H 03/06/17 03:28 ABG pCO2 49 mmHg (35-45) H 03/05/17 11:31 ABG pO2 68 mmHg (85-104) L 03/05/17 11:31 ABG Total CO2 29 mEq/L (20-26) H 03/05/17 11:31 ABG O2 Saturation 92 % (95-98) L 03/05/17 11:31 Chloride 97 mEq/L (98-109) L 03/07/17 04:52 BUN 54 mg/dL (7-20) H 03/07/17 04:52 Creatinine 2.53 mg/dL (0.57-1.11) H 03/07/17 04:52 Est GFR ( Amer) 23 (> 60) L 03/07/17 04:52 Est GFR (Non-Af Amer) 19 (> 60) L 03/07/17 04:52 Glucose 131 mg/dL (70-99) H 03/07/17 04:52 POC Glucose 131 (58-89) H 03/07/17 12:32 Lactic Acid 2.6 mmol/L (0.5-2.2) H 02/26/17 10:44 Calculated Osmolality 303 (280-300) H 03/07/17 04:52 Calcium 8.5 mg/dL (8.6-10.8) L 03/07/17 04:52 Troponin I 0.15 ng/mL (0-0.03) H* 02/26/17 10:45 Albumin 2.3 g/dL (3.5-5.0) L 03/07/17 04:52 Globulin 5.2 g/dL (2.4-3.5) H 03/07/17 04:52 Albumin/Globulin Ratio 0.4 (1.1-2.2) L 03/07/17 04:52 Urine Clarity Turbid (Clear) A 02/26/17 10:45 Ur Specific [place] 1.028 (1.010-1.025) H 02/26/17 10:45 Urine Protein 100 mg/dL (Neg-Trace) H 02/26/17 10:45 Urine Blood Small (Negative) H 02/26/17 10:45 Urine Bilirubin Small (Negative) H 02/26/17 10:45 Urine Microscopic WBC 50-100 per hpf (0-3) H 02/26/17 10:45 Ur Squamous Epith Cells Many per lpf (None-Few) H 02/26/17 10:45 Amorphous Sediment Many (Few) H 02/26/17 10:45 Granular Casts Many per lpf (None Seen) H 02/26/17 10:45 U Benzodiazepines Scrn Positive ng/mL ([place]=661) H 02/26/17 10:45 H. influenzae (PCR) DETECTED (Not Detect) A 02/26/17 10:45 - Clinical Findings Intake & Output: Intake & Output 03/07/17 03/07/17 03/07/17 07:59 15:59 23:59 Intake Total 1766 / 1766 435 / 435 844 / 844 Output Total 0 / 0 0 / 0 Balance 1741 / 1741 435 / 435 844 / 844 Weight 61.2 kg - Attending Attestation I saw the patient with the resident agree with History and Physical exam findings. Labs and Radiology were reviewed Ventilator data were reviewed adjusted to lung protective ventilation MATRIX BATH ATTENDANT: Patient is conscious following commands intubated and ventilated , sedated NECK : No JVD appreciated Pulmonary : Patient is hypoxic on ventilator , secondary to H influenza pneumonia patient is on appropriate antibiotic patient was put on SBT didnt last for 10 minutes even tachypnea ,accessory muscles started to work and patient was put back on ventilator Cardiac : Septic shock resolved not on any vasopressors any more. 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
--- NOTE | 2017-03-07 09:45 | Palliative Progress Note ---
<Chaz Cavanaugh - Last Filed: 03/07/17 09:38> Date of Encounter: 03/07/17 Time of Encounter: 09:38 - Assessment and plan (1) Acute respiratory failure with hypercapnia Current Visit: Yes Status: Acute Assessment and plan: Failed CPAP this morning patient states she would like to be reintubated if she fails extubation at this point tracheostomy would be next step (2) Goals of care, counseling/discussion Current Visit: Yes Status: Acute Assessment and plan: Patient would like to be reintubated if extubation failed. this is a different conversation than what family and patient had with Oncologly last night since she failed cpap trial she would not be extubated today and tracheostomy would need to be reconsidered This would mean she would need to be hemodynamically stable with adequate platelet levels, and may need to go to a higher level of care facility if the procedure cannot be done she will need LTAC, peg tube patient and family aware of this and will have meeting at 11:30 this morning. (3) Anemia Current Visit: Yes Status: Acute Assessment and plan: 2nd to AML platelets 10,000 will need tranfusion. as per primary team. Qualifiers: Anemia type: other cause Other causes of anemia: chronic disease, neoplastic Qualified Code(s): D63.0 - Anemia in neoplastic disease (4) AML (acute myelogenous leukemia) Current Visit: Yes Status: Acute Assessment and plan: patient in on palliative treatment outpatient before admission requires multiple transfusions per week of PBRC and platelets. requiring additional transfusions. Thrombocytopenic. 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 Qualifiers: Acute renal failure type: with acute tubular necrosis Chronic kidney disease stage: stage 3 (moderate) Qualified Code(s): N17.0 - Acute kidney failure with tubular necrosis; N18.3 - Chronic kidney disease, stage 3 (moderate ); N18.3 - Chronic kidney disease, stage 3 (moderate) - Time Spent With Patient Total time spent is greater than 50% in coordination of care (as documented) at patient's floor/unit and/or counseling patient: - Subjective Interval history: Last night patient and family has discussion with oncology with the conclusion that there was no plan for reintubation or continuation of aggressive care if she failed extubation. At that time patient was told that she would be kept comfortable if she had difficulty breathing. This morning patient was asked to confirm this decision. And when asked "what would you like to be reintubated if her extubation fails?" Patient wrote on paper "yes". Patient failed CPAP trial this morning. Patient with her daughter had a conversation with Dr. Butterfield and ICU resident about what can happen from here. As she had failed CPAP, she would not be extubated this time. The next best option would be a tracheostomy. If this was considered her platelet count would have to be at least above 50,000. Furthermore she may have to go to a higher level of care for this procedure to take place if it could not be done here. Also if patient does get a tracheostomy she will need to go to an LTAC when stable for discharge. She will need a PEG tube for long-term nutritional care. The patient and family will think through these options before making decision. - Constitutional Vitals: Abnormal lab results WBC 20.1 K/mcL (4.3-11.1) H 03/07/17 04:52 RBC 2.41 M/mcL (3.82-4.97) L 03/07/17 04:52 Hgb 7.0 g/dL (11.5-15.4) L 03/07/17 04:52 Hct 20.8 % (35.3-44.9) L 03/07/17 04:52 RDW 15.8 % (11.5-14.5) H 03/07/17 04:52 Plt Count 10 K/mcL (140-400) L* 03/07/17 04:52 Band Neutrophils % 28.0 % (0-4) H 03/06/17 03:28 Metamyelocytes % 4.0 % (0) H 03/05/17 03:50 Myelocytes % 4.0 % (0) H 03/06/17 03:28 Blast Cells % 14.0 % (0) H 03/06/17 03:28 Neutrophils # 17.5 K/mcL (1.6-8.9) H 03/06/17 03:28 Nucleated RBCs/100 WBC 0.1 /100 WBC (0) H 03/06/17 03:28 Smudge Cells Present (Not Present) A 03/06/17 03:28 Platelet Estimate Marked Decrease (Normal) L 03/06/17 03:28 Immature Plt Fraction 11.7 % (1.1-6.1) H 03/07/17 04:52 Polychromasia 1+ (Not Present) A 02/27/17 04:30 Anisocytosis 1+ (Not Present) A 03/05/17 03:50 Microcytosis Present (Not Present) A 03/03/17 03:37 PT 13.2 Seconds (9.4-12.1) H 03/06/17 03:28 ABG pCO2 49 mmHg (35-45) H 03/05/17 11:31 ABG pO2 68 mmHg (85-104) L 03/05/17 11:31 ABG Total CO2 29 mEq/L (20-26) H 03/05/17 11:31 ABG O2 Saturation 92 % (95-98) L 03/05/17 11:31 Chloride 97 mEq/L (98-109) L 03/07/17 04:52 BUN 54 mg/dL (7-20) H 03/07/17 04:52 Creatinine 2.53 mg/dL (0.57-1.11) H 03/07/17 04:52 Est GFR ( Amer) 23 (> 60) L 03/07/17 04:52 Est GFR (Non-Af Amer) 19 (> 60) L 03/07/17 04:52 Glucose 131 mg/dL (70-99) H 03/07/17 04:52 POC Glucose 131 (58-89) H 03/07/17 04:47 Lactic Acid 2.6 mmol/L (0.5-2.2) H 02/26/17 10:44 Calculated Osmolality 303 (280-300) H 03/07/17 04:52 Calcium 8.5 mg/dL (8.6-10.8) L 03/07/17 04:52 Troponin I 0.15 ng/mL (0-0.03) H* 02/26/17 10:45 Albumin 2.3 g/dL (3.5-5.0) L 03/07/17 04:52 Globulin 5.2 g/dL (2.4-3.5) H 03/07/17 04:52 Albumin/Globulin Ratio 0.4 (1.1-2.2) L 03/07/17 04:52 Urine Clarity Turbid (Clear) A 02/26/17 10:45 Ur Specific [place] 1.028 (1.010-1.025) H 02/26/17 10:45 Urine Protein 100 mg/dL (Neg-Trace) H 02/26/17 10:45 Urine Blood Small (Negative) H 02/26/17 10:45 Urine Bilirubin Small (Negative) H 02/26/17 10:45 Urine Microscopic WBC 50-100 per hpf (0-3) H 02/26/17 10:45 Ur Squamous Epith Cells Many per lpf (None-Few) H 02/26/17 10:45 Amorphous Sediment Many (Few) H 02/26/17 10:45 Granular Casts Many per lpf (None Seen) H 02/26/17 10:45 U Benzodiazepines Scrn Positive ng/mL (Gbskcs=348) H 02/26/17 10:45 H. influenzae (PCR) DETECTED (Not Detect) A 02/26/17 10:45 - Additional findings Additional findings: General: without distress, awake, communicates with writing and nodding, pulse commands Heart: Regular rate and rhythm with no murmur Lungs: Clear to auscultation anteriorly. Intubated Abdomen: Soft nontender, nondistended positive bowel sounds Skin: warm and dry Extremities: Absent pedal edema, Neuro: alert Vascular: Pedal and radial pulses 2 out of 4 Palliative Quality Palliative Quality: Screen for Code Status: Yes, Screen for Goals of Care: Yes, Screen for Pain: Yes, If Pain Regimen Started, Initiate Bowel Regimen: Yes, Screen for Nausea/Vomitting: Yes Code Status: 02/26/17 13:42 Resuscitation Status: Active [RES] Routine Comment: Resuscitation Status: Full Code Resuscitation Status: Active [RES] Routine Comment: Resuscitation Status: DNR-Comfort Care-Arrest - Labs CBC & Chem 7: 03/07/17 04:52 03/07/17 04:52 Labs: Laboratory Results - last 24 hr 1003/07/17 03/07/17 11:04 04:47 04:52 WBC 20.1 H RBC 2.41 L Hgb 7.0 L Hct 20.8 L MCV 86.3 MCH 29.0 MCHC 33.7 RDW 15.8 H Plt Count 10 L* MPV 11.9 Immature Plt Fraction 11.7 H Sodium Potassium Chloride Carbon Dioxide BUN Creatinine Est GFR ( Amer) Est GFR (Non-Af Amer) BUN/Creatinine Ratio Glucose POC Glucose 105 H 131 H Calculated Osmolality Calcium Total Bilirubin Direct Bilirubin Indirect Bilirubin AST ALT Alkaline Phosphatase Serum Total Protein Albumin Globulin Albumin/Globulin Ratio 03/07/17 04:52 WBC RBC Hgb Hct MCV MCH MCHC RDW Plt Count MPV Immature Plt Fraction Sodium 138 Potassium 4.5 Chloride 97 L Carbon Dioxide 28 BUN 54 H Creatinine 2.53 H Est GFR ( Amer) 23 L Est GFR (Non-Af Amer) 19 L BUN/Creatinine Ratio 21 Glucose 131 H POC Glucose Calculated Osmolality 303 H Calcium 8.5 L Total Bilirubin 0.5 Direct Bilirubin 0.3 Indirect Bilirubin 0.2 AST 33 ALT 15 Alkaline Phosphatase 84 Serum Total Protein 7.5 Albumin 2.3 L Globulin 5.2 H Albumin/Globulin Ratio 0.4 L - Impressions Impressions Chest X-Ray 03/07/17 08:33 IMPRESSION: Stable chest. Persistent bilateral pulmonary infiltrates. Follow up to resolution is suggested. D/ / 03/07/2017 09:17:02 Elizabeth Brush MD / [facility] Interpreting Provider: Elizabeth Brush MD - ABG Interpretation ABG results: ABG ABG pH 7.36 pH Units (7.32-7.45) 03/05/17 11:31 ABG pCO2 49 mmHg (35-45) H 03/05/17 11:31 ABG pO2 68 mmHg (85-104) L 03/05/17 11:31 ABG O2 Saturation 92 % (95-98) L 03/05/17 11:31 PT/INR, D-dimer PT 13.2 Seconds (9.4-12.1) H 03/06/17 03:28 Consult Discharge Plan - Plan Referrals: NONE,PCP [Primary Care Provider] - <Lazaro Butterfield - Last Filed: 03/07/17 09:57> Date of Encounter: 03/07/17 - Assessment and plan (1) Acute respiratory acidosis Current Visit: Yes Status: Acute (2) Aspiration pneumonia Current Visit: Yes Status: Acute Qualifiers: Aspiration pneumonia type: due to vomit Laterality: right Lung location: lower lobe of lung Qualified Code(s): J69.0 - Pneumonitis due to inhalation of food and vomit (3) Anemia Current Visit: Yes Status: Acute Qualifiers: Anemia type: other cause Other causes of anemia: chronic disease, neoplastic Qualified Code(s): D63.0 - Anemia in neoplastic disease (4) AML (acute myelogenous leukemia) Current Visit: Yes Status: Acute Qualifiers: Leukemia Active/Remission status: relapsed Qualified Code(s): 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, in relapse; C92.62 - Acute myeloid leukemia with [id number] in relapse; 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, in relapse (5) Acute on chronic renal failure Current Visit: Yes Status: Acute Qualifiers: Acute renal failure type: with acute tubular necrosis Chronic kidney disease stage: stage 3 (moderate) Qualified Code(s): N17.0 - Acute kidney failure with tubular necrosis; N18.3 - Chronic kidney disease, stage 3 (moderate ); N18.3 - Chronic kidney disease, stage 3 (moderate) (6) Septic shock Current Visit: Yes Status: Resolved (7) Goals of care, counseling/discussion Current Visit: Yes Status: Acute - Time Spent With Patient Total time spent is greater than 50% in coordination of care (as documented) at patient's floor/unit and/or counseling patient: - Constitutional Vitals: Abnormal lab results WBC 20.1 K/mcL (4.3-11.1) H 03/07/17 04:52 RBC 2.41 M/mcL (3.82-4.97) L 03/07/17 04:52 Hgb 7.0 g/dL (11.5-15.4) L 03/07/17 04:52 Hct 20.8 % (35.3-44.9) L 03/07/17 04:52 RDW 15.8 % (11.5-14.5) H 03/07/17 04:52 Plt Count 10 K/mcL (140-400) L* 03/07/17 04:52 Band Neutrophils % 28.0 % (0-4) H 03/06/17 03:28 Metamyelocytes % 4.0 % (0) H 03/05/17 03:50 Myelocytes % 4.0 % (0) H 03/06/17 03:28 Blast Cells % 14.0 % (0) H 03/06/17 03:28 Neutrophils # 17.5 K/mcL (1.6-8.9) H 03/06/17 03:28 Nucleated RBCs/100 WBC 0.1 /100 WBC (0) H 03/06/17 03:28 Smudge Cells Present (Not Present) A 03/06/17 03:28 Platelet Estimate Marked Decrease (Normal) L 03/06/17 03:28 Immature Plt Fraction 11.7 % (1.1-6.1) H 03/07/17 04:52 Polychromasia 1+ (Not Present) A 02/27/17 04:30 Anisocytosis 1+ (Not Present) A 03/05/17 03:50 Microcytosis Present (Not Present) A 03/03/17 03:37 PT 13.2 Seconds (9.4-12.1) H 03/06/17 03:28 ABG pCO2 49 mmHg (35-45) H 03/05/17 11:31 ABG pO2 68 mmHg (85-104) L 03/05/17 11:31 ABG Total CO2 29 mEq/L (20-26) H 03/05/17 11:31 ABG O2 Saturation 92 % (95-98) L 03/05/17 11:31 Chloride 97 mEq/L (98-109) L 03/07/17 04:52 BUN 54 mg/dL (7-20) H 03/07/17 04:52 Creatinine 2.53 mg/dL (0.57-1.11) H 03/07/17 04:52 Est GFR ( Amer) 23 (> 60) L 03/07/17 04:52 Est GFR (Non-Af Amer) 19 (> 60) L 03/07/17 04:52 Glucose 131 mg/dL (70-99) H 03/07/17 04:52 POC Glucose 131 (58-89) H 03/07/17 04:47 Lactic Acid 2.6 mmol/L (0.5-2.2) H 02/26/17 10:44 Calculated Osmolality 303 (280-300) H 03/07/17 04:52 Calcium 8.5 mg/dL (8.6-10.8) L 03/07/17 04:52 Troponin I 0.15 ng/mL (0-0.03) H* 02/26/17 10:45 Albumin 2.3 g/dL (3.5-5.0) L 03/07/17 04:52 Globulin 5.2 g/dL (2.4-3.5) H 03/07/17 04:52 Albumin/Globulin Ratio 0.4 (1.1-2.2) L 03/07/17 04:52 Urine Clarity Turbid (Clear) A 02/26/17 10:45 Ur Specific [place] 1.028 (1.010-1.025) H 02/26/17 10:45 Urine Protein 100 mg/dL (Neg-Trace) H 02/26/17 10:45 Urine Blood Small (Negative) H 02/26/17 10:45 Urine Bilirubin Small (Negative) H 02/26/17 10:45 Urine Microscopic WBC 50-100 per hpf (0-3) H 02/26/17 10:45 Ur Squamous Epith Cells Many per lpf (None-Few) H 02/26/17 10:45 Amorphous Sediment Many (Few) H 02/26/17 10:45 Granular Casts Many per lpf (None Seen) H 02/26/17 10:45 U Benzodiazepines Scrn Positive ng/mL (Bsxgiw=163) H 02/26/17 10:45 H. influenzae (PCR) DETECTED (Not Detect) A 02/26/17 10:45 - Attending Attestation I examined this patient and my medical decision-making was reviewed with the Resident Physician. I agree with the documented findings, disposition and treatment plan as described except to the extent set forth below. Palliative Quality Code Status: 02/26/17 13:42 Resuscitation Status: Active [RES] Routine Comment: Resuscitation Status: Full Code Resuscitation Status: Active [RES] Routine Comment: Resuscitation Status: DNR-Comfort Care-Arrest - Labs CBC & Chem 7: 03/07/17 04:52 03/07/17 04:52 Labs: Laboratory Results - last 24 hr 1003/07/17 03/07/17 11:04 04:47 04:52 WBC 20.1 H RBC 2.41 L Hgb 7.0 L Hct 20.8 L MCV 86.3 MCH 29.0 MCHC 33.7 RDW 15.8 H Plt Count 10 L* MPV 11.9 Immature Plt Fraction 11.7 H Sodium Potassium Chloride Carbon Dioxide BUN Creatinine Est GFR ( Amer) Est GFR (Non-Af Amer) BUN/Creatinine Ratio Glucose POC Glucose 105 H 131 H Calculated Osmolality Calcium Total Bilirubin Direct Bilirubin Indirect Bilirubin AST ALT Alkaline Phosphatase Serum Total Protein Albumin Globulin Albumin/Globulin Ratio 03/07/17 04:52 WBC RBC Hgb Hct MCV MCH MCHC RDW Plt Count MPV Immature Plt Fraction Sodium 138 Potassium 4.5 Chloride 97 L Carbon Dioxide 28 BUN 54 H Creatinine 2.53 H Est GFR ( Amer) 23 L Est GFR (Non-Af Amer) 19 L BUN/Creatinine Ratio 21 Glucose 131 H POC Glucose Calculated Osmolality 303 H Calcium 8.5 L Total Bilirubin 0.5 Direct Bilirubin 0.3 Indirect Bilirubin 0.2 AST 33 ALT 15 Alkaline Phosphatase 84 Serum Total Protein 7.5 Albumin 2.3 L Globulin 5.2 H Albumin/Globulin Ratio 0.4 L - Impressions Impressions Chest X-Ray 03/07/17 08:33
[2017-03-07] MEDS ORDERED: Ipratropium/Albuterol Neb 3 ML IH ONE (10:13)
--- NOTE | 2017-03-07 14:15 | Event Note ---
Date of Encounter: 03/07/17 Time of Encounter: 14:13 Discussion with patient and family. She does not wish to go to LTAC she understands that that would be required if she has the trach. She therefore does not wish to have a trach or pain tube placed. She understands that she may not do well coming off the vent she will be medicated for this. Extubation will take place tomorrow, if the patient does okay with this she will continue aggressive care if not she will be treated aggressively for symptoms and she will pass away. I have also discussed these findings with the ICU team.
[2017-03-07] MEDS ORDERED: 0.9 % Sodium Chloride Mini Bag 100 ML ONE ×2 (15:22→15:23)
[2017-03-08] MEDS: Lacri-Lube 3.5 GM TUBE BOTH EYES SCH ×4 (01:05→12:14)
[2017-03-08] MEDS: *HR* LORazepam 2 MG/ML VIAL IVP PRN ×4 (01:08→14:20)
[2017-03-08] MEDS: Ipratropium/Albuterol Neb 3 ML IH SCH ×3 (03:42→15:27)
[2017-03-08 04:55] LABS: Hematocrit 22.8 % (35.3-44.9); Hemoglobin 7.7 g/dL (11.5-15.4); Mean Corpuscular HGB Conc 33.8 g/dL (31.6-35.5); Mean Corpuscular Hemoglobin 29.2 pg (28.0-33.3); Mean Corpuscular Volume 86.4 fL (83.0-100.0); Mean Platelet Volume 10.9 fL (9.4-12.4); Red Blood Count 2.64 M/mcL (3.82-4.97); Red Cell Distribution Width 14.9 % (11.5-14.5)
[2017-03-08 05:24] LABS: Albumin/Globulin Ratio 0.4 (1.1-2.2); Bilirubin,Direct 0.3 mg/dL (0.0-0.5); Bilirubin,Indirect 0.2 mg/dL (0.0-1.2); Bilirubin,Total 0.5 mg/dL (0.2-1.2); Globulin 5.2 g/dL (2.4-3.5); Total Protein 7.2 g/dL (6.0-8.3)
[2017-03-08 05:35] LABS: Calcium 7.9 mg/dL (8.6-10.8)
[2017-03-08 05:36] LABS: Potassium 5.6 mEq/L (3.5-4.5)
[2017-03-08] MEDS ORDERED: Albumin 25% 12.5gm/50mL 12.5 GM/50 ML IV.SOLN IVPB PRN (07:47)
[2017-03-08] MEDS ORDERED: *HR* Heparin 10,000 UNIT/10 ML VIAL IV PRN (07:47)
[2017-03-08] MEDS ORDERED: 0.9 % Sodium Chloride 250 ML IVC PRN (07:47)
[2017-03-08] MEDS: Pantoprazole 40 MG VIAL IVPB SCH (08:18)
[2017-03-08] MEDS: Chlorhexidine Rinse 15 ML MOUTHWASH MM SCH (08:18)
[2017-03-08] MEDS ORDERED: 0.9 % Sodium Chloride 1,000 ML ONE (08:19)
[2017-03-08] MEDS ORDERED: Albumin 25% 12.5gm/50mL 12.5 GM/50 ML IV.SOLN ONE (08:19)
--- NOTE | 2017-03-08 08:30 | Pulmonology Progress Note ---
<HelderSreekanth W - Last Filed: 03/08/17 10:54> Date of Encounter: 03/08/17 Objective PUL Vital signs: Last Vital Signs Temp 98.4 F 03/08/17 07:51 Pulse 84 03/08/17 09:00 Resp 25 03/08/17 09:00 BP 95/47 03/08/17 09:00 Pulse Ox 95 03/08/17 09:00 Ventilator Settings Ventilator Settings: Ventilator Settings, Last 8 Hours Ventilator Mode A/C Ventilator Mode A/C Ventilator Mode A/C Ventilator Mode A/C Ventilator Mode A/C Ventilator Mode A/C Ventilator Mode A/C Ventilator Mode A/C Ventilator Mode A/C Ventilator Mode A/C Ventilator Tidal Volume 370 Setting Ventilator Tidal Volume 370 Setting Ventilator Tidal Volume 370 Setting Ventilator Tidal Volume 370 Setting Ventilator Tidal Volume 370 Setting Ventilator Tidal Volume 370 Setting Ventilator Tidal Volume 370 Setting Ventilator Tidal Volume 370 Setting Ventilator Tidal Volume 370 Setting Ventilator Tidal Volume 370 Setting Ventilator Respiratory Rate 22 Setting Ventilator Respiratory Rate 22 Setting Ventilator Respiratory Rate 22 Setting Ventilator Respiratory Rate 22 Setting Ventilator Respiratory Rate 22 Setting Ventilator Respiratory Rate 22 Setting Ventilator Respiratory Rate 22 Setting Ventilator Respiratory Rate 22 Setting Ventilator Respiratory Rate 22 Setting Ventilator Respiratory Rate 22 Setting Actual Respiratory Rate 25 Actual Respiratory Rate 25 Actual Respiratory Rate 28 Actual Respiratory Rate 25 Actual Respiratory Rate 28 Actual Respiratory Rate 26 Actual Respiratory Rate 26 Actual Respiratory Rate 26 Actual Respiratory Rate 24 Actual Respiratory Rate 23 Positive End Expiratory 5 Pressure Positive End Expiratory 5 Pressure Positive End Expiratory 5 Pressure Positive End Expiratory 5 Pressure Positive End Expiratory 5 Pressure Positive End Expiratory 5 Pressure Positive End Expiratory 5 Pressure Positive End Expiratory 5 Pressure Positive End Expiratory 5 Pressure Positive End Expiratory 5 Pressure Peak Inspiratory Airway 34 Pressure Peak Inspiratory Airway 32 Pressure Peak Inspiratory Airway 31 Pressure Peak Inspiratory Airway 35 Pressure Peak Inspiratory Airway 32 Pressure Peak Inspiratory Airway 38 Pressure Peak Inspiratory Airway 50 Pressure Results - Laboratory Findings CBC and BMP: 03/08/17 04:37 03/08/17 04:37 ABG ABG pH 7.36 pH Units (7.32-7.45) 03/05/17 11:31 ABG pCO2 49 mmHg (35-45) H 03/05/17 11:31 ABG pO2 68 mmHg (85-104) L 03/05/17 11:31 ABG O2 Saturation 92 % (95-98) L 03/05/17 11:31 PT/INR, D-dimer PT 13.2 Seconds (9.4-12.1) H 03/06/17 03:28 Abnormal lab findings: Abnormal lab results WBC 18.2 K/mcL (4.3-11.1) H 03/08/17 04:37 RBC 2.64 M/mcL (3.82-4.97) L 03/08/17 04:37 Hgb 7.7 g/dL (11.5-15.4) L 03/08/17 04:37 Hct 22.8 % (35.3-44.9) L 03/08/17 04:37 RDW 14.9 % (11.5-14.5) H 03/08/17 04:37 Plt Count 30 K/mcL (140-400) L* D 03/08/17 04:37 Band Neutrophils % 28.0 % (0-4) H 03/06/17 03:28 Metamyelocytes % 4.0 % (0) H 03/05/17 03:50 Myelocytes % 4.0 % (0) H 03/06/17 03:28 Blast Cells % 14.0 % (0) H 03/06/17 03:28 Neutrophils # 17.5 K/mcL (1.6-8.9) H 03/06/17 03:28 Nucleated RBCs/100 WBC 0.1 /100 WBC (0) H 03/06/17 03:28 Smudge Cells Present (Not Present) A 03/06/17 03:28 Platelet Estimate Marked Decrease (Normal) L 03/06/17 03:28 Polychromasia 1+ (Not Present) A 02/27/17 04:30 Anisocytosis 1+ (Not Present) A 03/05/17 03:50 Microcytosis Present (Not Present) A 03/03/17 03:37 PT 13.2 Seconds (9.4-12.1) H 03/06/17 03:28 ABG pCO2 49 mmHg (35-45) H 03/05/17 11:31 ABG pO2 68 mmHg (85-104) L 03/05/17 11:31 ABG Total CO2 29 mEq/L (20-26) H 03/05/17 11:31 ABG O2 Saturation 92 % (95-98) L 03/05/17 11:31 Potassium 5.6 mEq/L (3.5-4.5) H D 11/02/17 04:37 BUN 94 mg/dL (7-20) H D 03/08/17 04:37 Creatinine 3.97 mg/dL (0.57-1.11) H D 03/08/17 04:37 Est GFR ( Amer) 14 (> 60) L 03/08/17 04:37 Est GFR (Non-Af Amer) 11 (> 60) L 03/08/17 04:37 Glucose 114 mg/dL (70-99) H 03/08/17 04:37 POC Glucose 127 (58-89) H 03/08/17 00:08 Lactic Acid 2.6 mmol/L (0.5-2.2) H 02/26/17 10:44 Calculated Osmolality 320 (280-300) H 03/08/17 04:37 Calcium 7.9 mg/dL (8.6-10.8) L 03/08/17 04:37 AST 40 Units/L (5-34) H 03/08/17 04:37 Troponin I 0.15 ng/mL (0-0.03) H* 02/26/17 10:45 Albumin 2.0 g/dL (3.5-5.0) L 03/08/17 04:37 Globulin 5.2 g/dL (2.4-3.5) H 03/08/17 04:37 Albumin/Globulin Ratio 0.4 (1.1-2.2) L 03/08/17 04:37 Urine Clarity Turbid (Clear) A 02/26/17 10:45 Ur Specific [place] 1.028 (1.010-1.025) H 02/26/17 10:45 Urine Protein 100 mg/dL (Neg-Trace) H 02/26/17 10:45 Urine Blood Small (Negative) H 02/26/17 10:45 Urine Bilirubin Small (Negative) H 02/26/17 10:45 Urine Microscopic WBC 50-100 per hpf (0-3) H 02/26/17 10:45 Ur Squamous Epith Cells Many per lpf (None-Few) H 02/26/17 10:45 Amorphous Sediment Many (Few) H 02/26/17 10:45 Granular Casts Many per lpf (None Seen) H 02/26/17 10:45 U Benzodiazepines Scrn Positive ng/mL ([id number]=856) H 02/26/17 10:45 H. influenzae (PCR) DETECTED (Not Detect) A 02/26/17 10:45 - Clinical Findings Intake & Output: Intake & Output 03/07/17 03/08/17 03/08/17 23:59 07:59 15:59 Intake Total 844 / 844 622 / 622 Output Total 0 / 0 40 / 40 Balance 844 / 844 582 / 582 Weight 63.6 kg Consult Discharge Plan - Plan Referrals: NONE,PCP [Primary Care Provider] - - Attending Attestation I examined this patient and my medical decision-making was reviewed with the Resident Physician. I agree with the documented findings, disposition and treatment plan as described except to the extent set forth below. We independently had [id number] contact with the patient Patient seen and examined at bedside Labs, radiology, chart personally reviewed. Management was reviewed during multidisciplinary critical care rounds. Neuropsych: Awake and following commands. Course complicated by anxiety and suspected delirium Pulm: Acute hypoxic hypercarbic respiratory failure difficulty to liberate from vent which is multifactorial. Plan for compassionate extubation today. Cards: Vasodilatory shock is resolved she has been off pressors continue to monitor FEN-GI:NPO for now holding enteral nutrition for exubation Renal: ESRD continue renal replacement is scheduled monitor electrolytes and replace per protocol repeat potassium level later today after dialysis as this was slightly elevated ID: treating for sepsis (CAP) will stop antimicrobials (levaquin) for haemophilus pna. 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 Lines: All lines examined without evidence of infection Dispo: Remain in ICU today can transition to the floor/palliative care bed based upon clinical course CODE: Palliative Care Following. Plan for compassionate extubation today if patient tolerates this we will continue with palliative measures but it is clear from both patient and family that they want no heroic measures done no further intubation or CPR given uncurable hematological malignancy and severity of current illness is very reasonable to transition to comfort measures. I spoke with an updated the patient and the healthcare proxy her daughter at the bedside today <Michael Ravi - Last Filed: 03/08/17 11:41> Date of Encounter: 03/08/17 Time of Encounter: 08:30 Assessment and Plan (1) Goals of care, counseling/discussion Current Visit: Yes Status: Acute Patient has decided against pursuing tracheostomy and PEG tube placement we will proceed with compassion extubation today. We will treat with comfort medications. Maintain current status is DNR CCA DNI. If the patient's respiratory status stabilizes post extubation we will transfer the floor for continued medical therapy. If her respiratory status declines we will not reintubate and institute comfort measures only. (2) Septic shock Current Visit: Yes Status: Resolved Resolved. No longer requiring pressors. Secondary to Haemophilus influenza pneumonia. Patient has completed 11 days of treatment, we will discontinue Levaquin. (3) Acute respiratory failure with hypercapnia Current Visit: Yes Status: Acute Secondary to Haemophilus influenza pneumonia as discussed above, pulmonary edema is also contributing. Pneumonia is being adequately treated, hemodialysis initiated for fluid removal. Continue ventilatory support. Patient was extubated over the weekend and unfortunately she required reintubation after 1 hour. Patient has failed several CPAP trials. We will extubate today as discussed above. (4) AML (acute myelogenous leukemia) Current Visit: Yes Status: Acute With pancytopenia at baseline. Per records review treatment intent is currently palliative. Significant elevation in her white count possibly related to underlying infection. Continue treatment as above. Oncology has been consulted and is following. 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 Course of Levaquin has been completed. Sensitivities pending Qualifiers: Pneumonia type: due to Haemophilus influenzae Laterality: unspecified laterality Lung location: unspecified part of lung Qualified Code(s): J14 - Pneumonia due to Hemophilus influenzae (6) Acute on chronic renal failure Current Visit: Yes Status: Acute Creatinine 3.99 on presentation, baseline appears to be around 1.5. Concern for ATN in the setting of critical illness given granular casts found in the urine. Urine output remains poor. Continue intermittent hemodialysis based on the patient's clinical status after extubation as discussed above. Nephrology is following and appreciate their recommendations. Qualifiers: Acute renal failure type: with acute tubular necrosis Chronic kidney disease stage: stage 3 (moderate) Qualified Code(s): N17.0 - Acute kidney failure with tubular necrosis; N18.3 - Chronic kidney disease, stage 3 (moderate ); N18.3 - Chronic kidney disease, stage 3 (moderate) (7) Anemia Current Visit: Yes Status: Acute 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 Baseline appears to be around 7-8. Hgb 7.6 today after 1 unit of blood yesterday. No obvious source of bleeding. Continue to monitor. Qualifiers: Anemia type: other cause Other causes of anemia: chronic disease, neoplastic Qualified Code(s): D63.0 - Anemia in neoplastic disease (8) Thrombocytopenia Current Visit: Yes Status: Acute Platelets 30 today. No evidence of active bleeding. Received 1 unit of platelets yesterday Subjective Principal diagnosis: Unresponsive Interval history: Patient seen and examined at bedside. Patient remains intubated and minimally sedated. She responds to verbal commands and is able to write responses to questions. She denies any pain or discomfort. Objective PUL Vital signs: Last Vital Signs Temp 98.4 F 03/08/17 07:51 Pulse 85 03/08/17 08:00 Resp 25 03/08/17 08:00 BP 102/50 03/08/17 08:00 Pulse Ox 95 03/08/17 08:00 General appearance: no acute distress ENT: oropharynx moist Auscultation: bilateral: rhonchi Cardiovascular: regular rate and rhythm Gastrointestinal: hypoactive bowel sounds, soft, non-tender Extremities: no cyanosis, no clubbing, edema (trace) normal mental status, non-focal exam Ventilator Settings Ventilator Settings: Ventilator Settings, Last 8 Hours Ventilator Mode A/C Ventilator Mode A/C Ventilator Mode A/C Ventilator Mode A/C Ventilator Mode A/C Ventilator Mode A/C Ventilator Mode A/C Ventilator Mode A/C Ventilator Mode A/C Ventilator Mode A/C Ventilator Mode A/C Ventilator Tidal Volume 370 Setting Ventilator Tidal Volume 370 Setting Ventilator Tidal Volume 370 Setting Ventilator Tidal Volume 370 Setting Ventilator Tidal Volume 370 Setting Ventilator Tidal Volume 370 Setting Ventilator Tidal Volume 370 Setting Ventilator Tidal Volume 370 Setting Ventilator Tidal Volume 370 Setting Ventilator Tidal Volume 370 Setting Ventilator Tidal Volume 370 Setting Ventilator Respiratory Rate 22 Setting Ventilator Respiratory Rate 22 Setting Ventilator Respiratory Rate 22 Setting Ventilator Respiratory Rate 22 Setting Ventilator Respiratory Rate 22 Setting Ventilator Respiratory Rate 22 Setting Ventilator Respiratory Rate 22 Setting Ventilator Respiratory Rate 22 Setting Ventilator Respiratory Rate 22 Setting Ventilator Respiratory Rate 22 Setting Ventilator Respiratory Rate 22 Setting Actual Respiratory Rate 25 Actual Respiratory Rate 28 Actual Respiratory Rate 25 Actual Respiratory Rate 28 Actual Respiratory Rate 26 Actual Respiratory Rate 26 Actual Respiratory Rate 26 Actual Respiratory Rate 24 Actual Respiratory Rate 23 Actual Respiratory Rate 26 Actual Respiratory Rate 29 Positive End Expiratory 5 Pressure Positive End Expiratory 5 Pressure Positive End Expiratory 5 Pressure Positive End Expiratory 5 Pressure Positive End Expiratory 5 Pressure Positive End Expiratory 5 Pressure Positive End Expiratory 5 Pressure Positive End Expiratory 5 Pressure Positive End Expiratory 5 Pressure Positive End Expiratory 5 Pressure Positive End Expiratory 5 Pressure Peak Inspiratory Airway 34 Pressure Peak Inspiratory Airway 32 Pressure Peak Inspiratory Airway 31 Pressure Peak Inspiratory Airway 35 Pressure Peak Inspiratory Airway 32 Pressure Peak Inspiratory Airway 38 Pressure Peak Inspiratory Airway 50 Pressure Peak Inspiratory Airway 28 Pressure Peak Inspiratory Airway 29 Pressure Results - Laboratory Findings CBC and BMP: 03/08/17 04:37 03/08/17 04:37 ABG ABG pH 7.36 pH Units (7.32-7.45) 03/05/17 11:31 ABG pCO2 49 mmHg (35-45) H 03/05/17 11:31 ABG pO2 68 mmHg (85-104) L 03/05/17 11:31 ABG O2 Saturation 92 % (95-98) L 03/05/17 11:31 PT/INR, D-dimer PT 13.2 Seconds (9.4-12.1) H 03/06/17 03:28 Abnormal lab findings: Abnormal lab results WBC 18.2 K/mcL (4.3-11.1) H 03/08/17 04:37 RBC 2.64 M/mcL (3.82-4.97) L 03/08/17 04:37 Hgb 7.7 g/dL (11.5-15.4) L 03/08/17 04:37 Hct 22.8 % (35.3-44.9) L 03/08/17 04:37 RDW 14.9 % (11.5-14.5) H 03/08/17 04:37 Plt Count 30 K/mcL (140-400) L* D 03/08/17 04:37 Band Neutrophils % 28.0 % (0-4) H 03/06/17 03:28 Metamyelocytes % 4.0 % (0) H 03/05/17 03:50 Myelocytes % 4.0 % (0) H 03/06/17 03:28 Blast Cells % 14.0 % (0) H 03/06/17 03:28 Neutrophils # 17.5 K/mcL (1.6-8.9) H 03/06/17 03:28 Nucleated RBCs/100 WBC 0.1 /100 WBC (0) H 03/06/17 03:28 Smudge Cells Present (Not Present) A 03/06/17 03:28 Platelet Estimate Marked Decrease (Normal) L 03/06/17 03:28 Polychromasia 1+ (Not Present) A 02/27/17 04:30 Anisocytosis 1+ (Not Present) A 03/05/17 03:50 Microcytosis Present (Not Present) A 03/03/17 03:37 PT 13.2 Seconds (9.4-12.1) H 03/06/17 03:28 ABG pCO2 49 mmHg (35-45) H 03/05/17 11:31 ABG pO2 68 mmHg (85-104) L 03/05/17 11:31 ABG Total CO2 29 mEq/L (20-26) H 03/05/17 11:31 ABG O2 Saturation 92 % (95-98) L 03/05/17 11:31 Potassium 5.6 mEq/L (3.5-4.5) H D 03/08/17 04:37 BUN 94 mg/dL (7-20) H D 03/08/17 04:37 Creatinine 3.97 mg/dL (0.57-1.11) H D 03/08/17 04:37 Est GFR ( Amer) 14 (> 60) L 03/08/17 04:37 Est GFR (Non-Af Amer) 11 (> 60) L 03/08/17 04:37 Glucose 114 mg/dL (70-99) H 03/08/17 04:37 POC Glucose 127 (58-89) H 03/08/17 00:08 Lactic Acid 2.6 mmol/L (0.5-2.2) H 02/26/17 10:44 Calculated Osmolality 320 (280-300) H 03/08/17 04:37 Calcium 7.9 mg/dL (8.6-10.8) L 03/08/17 04:37 AST 40 Units/L (5-34) H 03/08/17 04:37 Troponin I 0.15 ng/mL (0-0.03) H* 02/26/17 10:45 Albumin 2.0 g/dL (3.5-5.0) L 03/08/17 04:37 Globulin 5.2 g/dL (2.4-3.5) H 03/08/17 04:37 Albumin/Globulin Ratio 0.4 (1.1-2.2) L 03/08/17 04:37 Urine Clarity Turbid (Clear) A 02/26/17 10:45 Ur Specific [place] 1.028 (1.010-1.025) H 02/26/17 10:45 Urine Protein 100 mg/dL (Neg-Trace) H 02/26/17 10:45 Urine Blood Small (Negative) H 02/26/17 10:45 Urine Bilirubin Small (Negative) H 02/26/17 10:45 Urine Microscopic WBC 50-100 per hpf (0-3) H 02/26/17 10:45 Ur Squamous Epith Cells Many per lpf (None-Few) H 02/26/17 10:45 Amorphous Sediment Many (Few) H 02/26/17 10:45 Granular Casts Many per lpf (None Seen) H 02/26/17 10:45 U Benzodiazepines Scrn Positive ng/mL ([id number]=985) H 02/26/17 10:45 H. influenzae (PCR) DETECTED (Not Detect) A 02/26/17 10:45 - Clinical Findings Intake & Output: Intake & Output 03/07/17 03/08/17 03/08/17 23:59 07:59 15:59 Intake Total 844 / 844 622 / 622 Output Total 0 / 0 40 / 40 Balance 844 / 844 582 / 582 Weight 63.6 kg
--- NOTE | 2017-03-08 08:58 | Nephrology Progress Note ---
Date of Encounter: 03/08/17 Time of Encounter: 08:56 - Assessment and Plan (1) Acute on chronic renal failure Current Visit: Yes Status: Acute dialysis dependent. Oliguric RODERICK, now progressed to ESRD Etiology likely secondary to septic shock, H.Influenza pneumonia. Plan: will continue to monitor renal function avoid nephrotoxic agents as much as possible strict I/O patient refused dialysis yesterday, will continue with dialysis today. plan for extubation today. if patient does well from respiratory standpoint then will continue with dialysis. Qualifiers: Acute renal failure type: with acute tubular necrosis Chronic kidney disease stage: stage 3 (moderate) Qualified Code(s): N17.0 - Acute kidney failure with tubular necrosis; N18.3 - Chronic kidney disease, stage 3 (moderate ); N18.3 - Chronic kidney disease, stage 3 (moderate) (2) Fluid overload Current Visit: Yes Status: Acute as above Qualifiers: Hypervolemia type: unspecified Qualified Code(s): E87.70 - Fluid overload, unspecified (3) Septic shock Current Visit: Yes Status: Resolved resolved. secondary to H.Influenza. (4) Thrombocytopenia Current Visit: Yes Status: Acute per primary (5) Anemia Current Visit: Yes Status: Acute likely not renally related. likely secondary to AML Qualifiers: Anemia type: other cause Other causes of anemia: chronic disease, neoplastic Qualified Code(s): D63.0 - Anemia in neoplastic disease (6) AML (acute myelogenous leukemia) Current Visit: Yes Status: Acute Hx of AML per oncology and primary Qualifiers: Leukemia Active/Remission status: relapsed Qualified Code(s): 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, in relapse; C92.62 - Acute myeloid leukemia with [id number] in relapse; 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, in relapse (7) Acute respiratory failure with hypercapnia Current Visit: Yes Status: Acute per primary patient was extubated on monday 03/05 for about 30 minutes and required re intubation. extubation today Subjective Principal diagnosis: Unresponsive Interval history: 66 year old female evaluated at bedside. patient remains intubated and is currently sleeping. Objective - Vital Signs Vital signs: Vital Signs Temp Pulse Resp BP Pulse Ox 03/08/17 08:00 85 25 102/50 95 03/08/17 07:51 98.4 F 03/08/17 07:30 84 03/08/17 07:00 86 28 88/42 98 03/08/17 06:00 85 25 95/43 95 03/08/17 05:00 91 28 96/47 97 03/08/17 04:50 26 95/46 98 03/08/17 04:29 94 03/08/17 04:00 98 F 94 26 134/62 96 03/08/17 03:43 25 133/59 94 03/08/17 03:00 86 24 114/53 96 03/08/17 02:00 84 23 106/53 95 03/08/17 01:12 26 115/56 95 03/08/17 01:00 87 29 115/56 96 03/08/17 00:21 90 03/08/17 00:00 99.1 F 90 27 113/47 97 03/07/17 23:00 98 26 118/57 95 03/07/17 22:56 26 109/44 94 03/07/17 22:10 24 111/46 95 03/07/17 22:00 91 24 111/46 95 03/07/17 21:00 87 27 123/59 94 03/07/17 20:17 24 124/59 96 03/07/17 20:15 92 03/07/17 20:00 99.1 F 89 24 124/59 94 03/07/17 19:23 26 117/55 96 03/07/17 19:00 89 24 117/55 95 03/07/17 18:45 98.3 F 89 27 116/53 95 03/07/17 18:00 90 24 109/46 95 03/07/17 17:13 98.4 F 89 26 123/46 96 03/07/17 17:00 90 26 123/46 96 03/07/17 16:00 92 24 125/55 97 03/07/17 15:49 99.0 F 92 27 118/56 98 03/07/17 15:47 99.0 F 93 26 118/56 96 03/07/17 15:38 98.8 F 89 27 111/46 96 03/07/17 15:32 98.8 F 92 27 111/46 95 03/07/17 15:21 22 95 03/07/17 15:20 95 03/07/17 15:00 92 27 111/46 96 03/07/17 14:04 26 95 03/07/17 14:00 93 26 114/44 95 03/07/17 13:00 90 28 97/47 93 03/07/17 12:00 99.0 F 109 30 138/55 95 03/07/17 11:50 100 03/07/17 11:38 30 101/48 96 03/07/17 11:00 98 30 101/48 96 03/07/17 10:40 21 97 03/07/17 10:00 87 26 90/46 94 03/07/17 09:00 90 27 104/46 93 Intake and Output 03/07/17 03/08/17 03/08/17 23:59 07:59 15:59 Intake Total 844 / 844 622 / 622 Output Total 0 / 0 40 / 40 Balance 844 / 844 582 / 582 Intake: IV Fluids 50 / 50 PRECEDEX Premix 400 mcg In 100 50 / 50 ml @ 0.2 MCG/KG/HR 4.196 mls/hr IVC .[id number] [facility] Rx#: [id number] Tube Feeding 308 / 308 622 / 622 Blood Product 486 / 486 Platelet Ph Acd-A Pasc Lp Irr1 236 / 236 Unit [id number] Rbcs Leuko Poor As-1 Irr Unit 250 / 250 [id number] Output: Rectal Tube 0 / 0 Catheter 0 / 0 40 / 40 Other: Weight 63.6 kg Blood Glucose* 127 Patient Weight 03/08/17 23:59 Weight 63.6 kg - General Appearance General appearance: Present: well-developed, appears started age, chronically ill Neck: Present: JVD Respiratory: Present: wheezing, rales, course breath sounds, rhonchi Cardiology: Present: no murmurs, no rub, no gallops, no edema, regular rate, regular rhythm, normal S1, normal S2 Dialysis Vascular Access: Venous Catheter Gastrointestinal: Present: hypoactive bowel sounds, no tenderness, no guarding, no organomegaly, no masses Integumentary: Present: no rash, warm and dry Musculoskeletal: Present: no deformities, no erythema, no cyanosis, no clubbing - Lab 03/08/17 04:37 03/08/17 04:37 Most recent lab results ABG pH 7.36 pH Units (7.32-7.45) 03/05/17 11:31 ABG pCO2 49 mmHg (35-45) H 03/05/17 11:31 ABG pO2 68 mmHg (85-104) L 03/05/17 11:31 ABG HCO3 27 mEq/L (21-27) 03/05/17 11:31 ABG O2 Saturation 92 % (95-98) L 03/05/17 11:31 Calcium 7.9 mg/dL (8.6-10.8) L 03/08/17 04:37 Phosphorus 3.8 mg/dL (2.3-4.7) D 03/06/17 03:28 Magnesium 1.9 mg/dL (1.6-2.6) 03/06/17 03:28 Consult Discharge Plan - Plan Referrals: NONE,PCP [Primary Care Provider] -
[2017-03-08] MEDS ORDERED: *HR* FentaNYL (PF) 100 MCG/2 ML VIAL IVP PRN (12:47)
--- NOTE | 2017-03-08 12:52 | Palliative Progress Note ---
Date of Encounter: 03/08/17 Time of Encounter: 12:30 - Assessment and plan (1) Dyspnea Current Visit: Yes Status: Acute Assessment and plan: Will be liberated from ventilator this afternoon. Will have Fentanyl boluses available frequently if needed. MOnitor and adjust as needed. (2) Anxiety Current Visit: Yes Status: Acute Assessment and plan: Will give Lorazepam prior to extubation, as she had severe anxiety after last extubation a few days ago. Make available frequently. May need to increase dose. Will monitor (3) Goals of care, counseling/discussion Current Visit: Yes Status: Acute Assessment and plan: Discussed POC with pt and multiple family members. Plan still continues to be to extubate and hope she is able to breath ok on her own. If she struggles, then will liberalize medications to keep her comfortable. All family verbalized understanding. They express they are praying for a miracle that she will do ok. Will follow closely. 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 Nods head to questions. Denies pain, is anxious regarding upcoming extubation. and daughter at bedside. - Constitutional Vitals: Abnormal lab results WBC 18.2 K/mcL (4.3-11.1) H 03/08/17 04:37 RBC 2.64 M/mcL (3.82-4.97) L 03/08/17 04:37 Hgb 7.7 g/dL (11.5-15.4) L 03/08/17 04:37 Hct 22.8 % (35.3-44.9) L 03/08/17 04:37 RDW 14.9 % (11.5-14.5) H 03/08/17 04:37 Plt Count 30 K/mcL (140-400) L* D 03/08/17 04:37 Band Neutrophils % 28.0 % (0-4) H 03/06/17 03:28 Metamyelocytes % 4.0 % (0) H 03/05/17 03:50 Myelocytes % 4.0 % (0) H 03/06/17 03:28 Blast Cells % 14.0 % (0) H 03/06/17 03:28 Neutrophils # 17.5 K/mcL (1.6-8.9) H 03/06/17 03:28 Nucleated RBCs/100 WBC 0.1 /100 WBC (0) H 03/06/17 03:28 Smudge Cells Present (Not Present) A 03/06/17 03:28 Platelet Estimate Marked Decrease (Normal) L 03/06/17 03:28 Polychromasia 1+ (Not Present) A 02/27/17 04:30 Anisocytosis 1+ (Not Present) A 03/05/17 03:50 Microcytosis Present (Not Present) A 03/03/17 03:37 PT 13.2 Seconds (9.4-12.1) H 03/06/17 03:28 ABG pCO2 49 mmHg (35-45) H 03/05/17 11:31 ABG pO2 68 mmHg (85-104) L 03/05/17 11:31 ABG Total CO2 29 mEq/L (20-26) H 03/05/17 11:31 ABG O2 Saturation 92 % (95-98) L 03/05/17 11:31 Potassium 5.6 mEq/L (3.5-4.5) H D 03/08/17 04:37 BUN 94 mg/dL (7-20) H D 03/08/17 04:37 Creatinine 3.97 mg/dL (0.57-1.11) H D 03/08/17 04:37 Est GFR ( Amer) 14 (> 60) L 03/08/17 04:37 Est GFR (Non-Af Amer) 11 (> 60) L 03/08/17 04:37 Glucose 114 mg/dL (70-99) H 03/08/17 04:37 Lactic Acid 2.6 mmol/L (0.5-2.2) H 02/26/17 10:44 Calculated Osmolality 320 (280-300) H 03/08/17 04:37 Calcium 7.9 mg/dL (8.6-10.8) L 03/08/17 04:37 AST 40 Units/L (5-34) H 03/08/17 04:37 Troponin I 0.15 ng/mL (0-0.03) H* 02/26/17 10:45 Albumin 2.0 g/dL (3.5-5.0) L 03/08/17 04:37 Globulin 5.2 g/dL (2.4-3.5) H 03/08/17 04:37 Albumin/Globulin Ratio 0.4 (1.1-2.2) L 03/08/17 04:37 Urine Clarity Turbid (Clear) A 02/26/17 10:45 Ur Specific [place] 1.028 (1.010-1.025) H 02/26/17 10:45 Urine Protein 100 mg/dL (Neg-Trace) H 02/26/17 10:45 Urine Blood Small (Negative) H 02/26/17 10:45 Urine Bilirubin Small (Negative) H 02/26/17 10:45 Urine Microscopic WBC 50-100 per hpf (0-3) H 02/26/17 10:45 Ur Squamous Epith Cells Many per lpf (None-Few) H 02/26/17 10:45 Amorphous Sediment Many (Few) H 02/26/17 10:45 Granular Casts Many per lpf (None Seen) H 02/26/17 10:45 U Benzodiazepines Scrn Positive ng/mL (Spkwiq=[id number]) H 02/26/17 10:45 H. influenzae (PCR) DETECTED (Not Detect) A 02/26/17 10:45 General appearance: Present: no acute distress - Respiratory Respiratory exam: Present: CTAB Additional comments: Breath sounds course throughout - Cardiovascular Cardiovascular exam: Present: +S1, +S2 - GI/Abdominal GI/Abdominal exam: Present: normal bowel sounds, soft - Extremities Exam Extremities exam: Present: normal capillary refill, normal inspection - Neurological Exam Neurological exam: Present: alert Additional comments: Appears oriented, responds appropriately to questioning. - Skin Skin exam: Present: dry, pallor Palliative Quality Palliative Quality: Screen for Code Status: Yes, Screen for Goals of Care: Yes, Screen for Pain: Yes, If Pain Regimen Started, Initiate Bowel Regimen: Yes, Screen for Nausea/Vomitting: Yes Code Status: 02/26/17 13:42 Resuscitation Status: Active [RES] Routine Comment: Resuscitation Status: DNR-Comfort Care-Arrest Resuscitation Status: Active [RES] Routine Comment: Resuscitation Status: Full Code Resuscitation Status: Active [RES] Routine Comment: do not reintubate Resuscitation Status: [id number] - Labs CBC & Chem 7: 03/08/17 04:37 03/08/17 04:37 Labs: Laboratory Results - last 24 hr 03/05/17 03/08/17 03/08/17 08:23 00:08 04:37 WBC RBC Hgb Hct MCV MCH MCHC RDW Plt Count MPV Immature Plt Fraction Sodium Potassium Chloride Carbon Dioxide BUN Creatinine Est GFR ( Amer) Est GFR (Non-Af Amer) BUN/Creatinine Ratio Glucose POC Glucose 127 H Calculated Osmolality Calcium Total Bilirubin 0.5 Direct Bilirubin 0.3 Indirect Bilirubin 0.2 AST 40 H ALT 19 Alkaline Phosphatase 105 Serum Total Protein 7.2 Albumin 2.0 L Globulin 5.2 H Albumin/Globulin Ratio 0.4 L Blood Type A NEGATIVE Antibody Screen POSITIVE Antibody Identification Known Anti-S MTS Gel Crossmatch See Detail 03/08/17 03/08/17 03/08/17 04:37 04:37 11:28 WBC 18.2 H RBC 2.64 L Hgb 7.7 L Hct 22.8 L MCV 86.4 MCH 29.2 MCHC 33.8 RDW 14.9 H Plt Count 30 L* D MPV 10.9 Immature Plt Fraction 3.0 Sodium 140 Potassium 5.6 H D Chloride 98 Carbon Dioxide 25 BUN 94 H D Creatinine 3.97 H D Est GFR ( Amer) 14 L Est GFR (Non-Af Amer) 11 L BUN/Creatinine Ratio 24 Glucose 114 H POC Glucose 87 Calculated Osmolality 320 H Calcium 7.9 L Total Bilirubin Direct Bilirubin Indirect Bilirubin AST ALT Alkaline Phosphatase Serum Total Protein Albumin Globulin Albumin/Globulin Ratio Blood Type Antibody Screen Antibody Identification MTS Gel Crossmatch - Impressions Impressions Chest X-Ray 03/07/17 08:33 IMPRESSION: Stable chest. Persistent bilateral pulmonary infiltrates. Follow up to resolution is suggested. D/ / 03/07/2017 09:17:02 Elizabeth Brush MD / sachin Interpreting Provider: Elizabeth Brush MD - ABG Interpretation ABG results: ABG ABG pH 7.36 pH Units (7.32-7.45) 03/05/17 11:31 ABG pCO2 49 mmHg (35-45) H 03/05/17 11:31 ABG pO2 68 mmHg (85-104) L 03/05/17 11:31 ABG O2 Saturation 92 % (95-98) L 03/05/17 11:31 PT/INR, D-dimer PT 13.2 Seconds (9.4-12.1) H 03/06/17 03:28 Consult Discharge Plan - Plan Referrals: NONE,PCP [Primary Care Provider] -
[2017-03-08] MEDS ORDERED: *HR* Morphine 2 MG/ML SYRINGE ONE ×2 (14:20→14:24)
[2017-03-08] MEDS ORDERED: *HR* Morphine 2 MG/ML SYRINGE IVP ONE ×2 (14:20→14:25)
[2017-03-08] MEDS ORDERED: *HR* LORazepam 2 MG/ML VIAL IVP ONE (14:25)
[2017-03-08] MEDS ORDERED: *HR* Morphine 2 MG/ML SYRINGE IVP PRN (14:26)
[2017-03-08] MEDS ORDERED: *HR* LORazepam 2 MG/ML VIAL ONE (14:28)
[2017-03-08] MEDS ORDERED: *HR* LORazepam 2 MG/ML VIAL IVP PRN (14:36)
--- NOTE | 2017-03-08 14:45 | Event Note ---
Date of Encounter: 03/08/17 Time of Encounter: 14:45 Patient extubated and immediately with severe respiratory distress and hypoxia. She required multiple medications frequently including Lorazepam, Morphine, and Fentanyl for comfort. She at 1435 with family at bedside. Endoscopy Tech was present.
[2017-03-08] MEDS: FentaNYL (PF) 1,000 MCG in 0.9 % Sodium Chloride 80 ML IVC SCH (15:01)
[2017-03-08 15:32] VITALS: BP 105/56
--- NOTE | 2017-03-08 17:00 | Death Note ---
<Michael Ravi - Last Filed: 03/08/17 17:15> Discharge Sum: Summary - Date and Time Date of admission: 02/26/17 12:12 Date of : 03/08/17 Time of : 14:35 - Summary Details: Patient was admitted on 02/26/2017 with acute respiratory failure and septic shock due to Haemophilus influenza pneumonia. Patient had underlying AML that was being treated with palliative chemotherapy. She requires red blood cell and platelet transfusions to keep her levels at adequate numbers. She was intubated and initially required vasopressors for blood pressure support. She gradually improved however her respiratory status did not allow liberation from the ventilator. Extubation was performed on Sunday however she required reintubation and hour later. Further discussion between the patient and the family was carried out throughout the week and it was determined that the patient wished to be extubated and made comfortable. The patient was compassionately withdrawn from the ventilator and she passed shortly thereafter with family at bedside. - Additional Data Confirmation of as documented by pronouncing clinician: no pulse, no respirations, no heart sounds Family: at bedside Additional persons at bedside: ry Attending/PCP notified?: Yes Attending physician: Alicia Epps MD Was code activated?: No Autopsy requested?: No computer forensic examiner notified?: Yes Organ bank notified?: Yes Advance directives: Yes Hospice patient?: No Discharge Sum: Diag - PCOD Probable Cause of : Septic shock Discharge Sum: Prov - Provider Primary care physician: PCP NONE Admitting clinician: Alicia Epps Consults: 02/26/17 13:27 Consult to Nutrition [CONS] Routine Comment: Consulting Provider: NUTRITION Reason for Dietary Consult: Other 02/26/17 13:50 Consult to Nephrology [CONS] Routine Consulting Provider: Kidney Viktoriya/SHAHANA/PHILLIP/CHIKI Reason for Consult: RODERICK on CKD Call Completed: Yes 02/26/17 13:56 Consult to Oncology [CONS] Routine Consulting Provider: [facility] Viktoriya Reason for Consult: hx of AML Call Completed: Yes 02/27/17 09:41 Consult to Palliative Care [CONS] Routine Comment: Consulting Provider: Palliative [facility] Reason for Consult: AML/goals of care Call Completed: Yes 02/28/17 11:44 Consult to Interventional Radiology [CONS] Stat Consulting Provider: Radiology Interventional Cols Reason for Consult: needs temporary dialysis catheter. Call Completed: Yes 02/28/17 12:00 Consult to Dialysis [CONS] ONCE 03/01/17 07:45 Consult to Dialysis [CONS] ONCE 03/01/17 10:44 Consult to Nutrition [CONS] Routine Comment: Consulting Provider: NUTRITION Reason for Dietary Consult: TF Start and Manage 03/02/17 06:15 Consult to Dialysis [CONS] ONCE 03/03/17 10:30 Consult to Dialysis [CONS] ONCE 03/03/17 15:00 Consult to Dialysis [CONS] ONCE 03/05/17 10:00 Consult to Dialysis [CONS] ONCE 03/06/17 07:30 Consult to Dialysis [CONS] ONCE 03/07/17 07:15 Consult to Dialysis [CONS] ONCE 03/08/17 08:00 Consult to Dialysis [CONS] ONCE Pronouncing clinician: Michael Ravi <Sreekanth Pendleton - Last Filed: 03/09/17 06:51> Discharge Sum: Summary - Date and Time Date of admission: 02/26/17 12:12 - Additional Data Attending physician: Alicia Epps MD Discharge Sum: Prov - Provider Primary care physician: PCP NONE Consults: 02/26/17 13:27 Consult to Nutrition [CONS] Routine Comment: Consulting Provider: NUTRITION Reason for Dietary Consult: Other 02/26/17 13:50 Consult to Nephrology [CONS] Routine Consulting Provider: Kidney Viktoriya/SHAHANA/PHILLIP/CHIKI Reason for Consult: RODERICK on CKD Call Completed: Yes 02/26/17 13:56 Consult to Oncology [CONS] Routine Consulting Provider: [facility] Reason for Consult: hx of AML Call Completed: Yes 02/27/17 09:41 Consult to Palliative Care [CONS] Routine Comment: Consulting Provider: Palliative [facility] Reason for Consult: AML/goals of care Call Completed: Yes 02/28/17 11:44 Consult to Interventional Radiology [CONS] Stat Consulting Provider: Radiology Interventional Cols Reason for Consult: needs temporary dialysis catheter. Call Completed: Yes 02/28/17 12:00 Consult to Dialysis [CONS] ONCE 03/01/17 07:45 Consult to Dialysis [CONS] ONCE 03/01/17 10:44 Consult to Nutrition [CONS] Routine Comment: Consulting Provider: NUTRITION Reason for Dietary Consult: TF Start and Manage 03/02/17 06:15 Consult to Dialysis [CONS] ONCE 03/03/17 10:30 Consult to Dialysis [CONS] ONCE 03/03/17 15:00 Consult to Dialysis [CONS] ONCE 03/05/17 10:00 Consult to Dialysis [CONS] ONCE 03/06/17 07:30 Consult to Dialysis [CONS] ONCE 03/07/17 07:15 Consult to Dialysis [CONS] ONCE 03/08/17 08:00 Consult to Dialysis [CONS] ONCE - Attending Attestation I examined this patient and my medical decision-making was reviewed with the Resident Physician. I agree with the documented findings, disposition and treatment plan as described except to the extent set forth below. We independently had [id number] contact with the patient
== END 2017-03-08 17:25 | disposition expired | DRG 870 ==
LOC: EMEROO 10:29 → ICNU 12:12
PROVIDERS: ADMIT Internal Medicine Pulmonary Disease; ATTEND Internal Medicine Pulmonary Disease